=== PATIENT | female | born 1945 | race Caucasian/White ===

== ENCOUNTER 2016-07-18 11:44 | Inpatient (IN) | payer OTHER ==
[~2016-07-18] VITALS: Ht 167.6 cm; Wt 62.9 kg
[~2016-07-18 11:44] MED LIST: ACET-1256 PO; AMLO10TA2 PO; ASPI81TA28 PO; GLGKIT INJ; INSDGI SC; MYCO250C7 PO; NVLGI SC; SIRO1TAB PO; SOTA80TA PO; WARF1TAB6 PO
[2016-07-18] MEDS ORDERED: SODIUM CHLORIDE 0.9% 1000ML 2,000 ML IV STA (12:09)
[2016-07-18] MEDS ORDERED: PIPERACILLIN/TAZOBACTAM 4.5 GM/100ML D5W IV STA (12:09)
[2016-07-18] MEDS ORDERED: ACETAMINOPHEN 500 MG TAB PO STA (12:09)
[2016-07-18] MEDS ORDERED: SODIUM CHLORIDE 0.9% 1000ML 1,000 ML IV STA (12:09)
[2016-07-18] MEDS ORDERED: DAPTOmycin IV 500 MG in SODIUM CHLORIDE 0.9% 50ML 50 ML IV STA (12:09)
[2016-07-18] MEDS ORDERED: ONDANSETRON INJ 2 MG/ML 2 ML VIAL IV STA (12:37)
--- NOTE | 2016-07-18 12:44 | DIAGNOSTIC IMAGING REPORT ---
CHEST ONE VIEW PORTABLE CLINICAL HISTORY: EVALUATE WEAKNESS dyspnea COMPARISON STUDY: 09/23/2015 FINDINGS: The bones soft tissues and hemidiaphragms are normal. The cardiomediastinal silhouette is normal. The lungs are clear. The pulmonary vasculature is normal. IMPRESSION: Negative chest. Electronically signed by: Taco Lee M.D. 07/18/2016 12:43 PM Dictated Date/Time: 07/18/2016 12:43 PM
[2016-07-18 12:49] LABS: BASO % 0.1 %; BASO ABS # 0.01 K/uL (0-0.2); COMPLETE YES; EOS % 0.8 %; HEMATOCRIT 40.6 % (37-47); IG% 0.2 %; LYMPH % 7.8 %; LYMPH ABS # 0.89 K/uL (1.2-3.4); MEAN CELL VOLUME 85.5 fL (80-100); MEAN CORPUSCULAR HEMOGLOBIN 28.4 pg (25-34); MEAN CORPUSCULAR HGB CONC 33.3 g/dl (32-36); MEAN PLATELET VOLUME 9.5 fL (7.4-10.4); MONO % 7.5 %; NEUT % 83.6 %; PLATELET COUNT 272 K/uL (130-400); RED BLOOD COUNT 4.75 M/uL (4.2-5.4); WHITE BLOOD COUNT 11.39 K/uL (4.8-10.8)
[2016-07-18] MEDS ORDERED: WARF1TAB6 PO ×2 (12:49)
[2016-07-18] MEDS ORDERED: INSDGIPEN SQ (12:49)
[2016-07-18] MEDS ORDERED: NVLGI/PEN SQ (12:49)
[2016-07-18 13:02] LABS: URINE APPEARANCE CLOUDY (CLEAR); URINE BILIRUBIN NEG (NEG); URINE COLOR YELLOW; URINE NITRITE NEG (NEG); URINE SPECIFIC GRAVITY 1.013 (1.000-1.030); UROBILINOGEN NEG (NEG)
[2016-07-18 13:11] LABS: MANUAL MICROSCOPIC REQUIRED? NO; REVIEW REQ? NO
[2016-07-18 13:21] LABS: ALKALINE PHOSPHATASE 87 U/L (45-117); ALT/SGPT 13 U/L (12-78); AST/SGOT 25 U/L (15-37); BLOOD UREA NITROGEN 13 mg/dl (7-18); BUN/CREATININE RATIO 11.2 (10-20); CALCIUM 8.9 mg/dl (8.5-10.1); CARBON DIOXIDE 24 mmol/L (21-32); CHLORIDE 88 mmol/L (98-107); GLUCOSE 360 mg/dl (70-99); POTASSIUM 4.3 mmol/L (3.5-5.1); SODIUM 128 mmol/L (136-145)
[2016-07-18 13:29] LABS: INR 1.5 (0.9-1.1); PARTIAL THROMBOPLASTIN RATIO 1.1; PROTHROMBIN TIME (PATIENT) 15.8 SECONDS (9.0-12.0)
[2016-07-18 13:35] LABS: BETA-HYDROXYBUTYRATE 20.51 mg/dL (0.2-2.81)
[2016-07-18] MEDS ORDERED: NovoLIN-R INSULIN PER UNIT CHARGE IV STA (13:39)
[2016-07-18] MEDS ORDERED: ONDANSETRON INJ 2 MG/ML 2 ML VIAL IV PRN (14:15)
[2016-07-18 14:25] VITALS: O2SAT 100; BMI 22.2
[2016-07-18] MEDS ORDERED: PIPERACILL/TAZOBAC IV 4.5 GM in DEXTROSE 5% 100ML 100 ML IV SCH (14:30)
[2016-07-18 15:00] VITALS: BP 109/58; PULSE 62; TEMP 36.8; O2SAT 95
[2016-07-18] MEDS ORDERED: PIPERACILL/TAZOBAC CONSULT ACTIVE PRN (15:30)
[2016-07-18] MEDS ORDERED: GLUCOSE 40% GEL 15 GM TUBE PO PRN (15:45)
[2016-07-18] MEDS ORDERED: GLUCAGON FOR INJ 1 MG VIAL SQ PRN (15:45)
[2016-07-18] MEDS ORDERED: CEFEPIME CONSULT ACTIVE PRN ×2 (15:45)
[2016-07-18] MEDS ORDERED: GLUCOSE 10 TABS/TUBE PO PRN (15:45)
[2016-07-18] MEDS ORDERED: DEXTROSE 50% 50 ML SYR IV PRN (15:45)
[2016-07-18] MEDS: SODIUM CHLORIDE 0.9% 1000ML 1,000 ML IV SCH ×2 (15:49→23:37)
--- NOTE | 2016-07-18 15:52 | HISTORY & PHYSICAL EXAMINATION ---
DATE OF ADMISSION: 07/18/2016 PRIMARY CARE PHYSICIAN: Laurel Renee MD CHIEF COMPLAINT: Nausea, vomiting, lower abdominal pain with weakness and tiredness for the last 1 week. HISTORY OF PRESENT COMPLAINT: She is a 71-year-old female with significant past medical history of status post renal transplant, history of paroxysmal atrial fibrillation, diabetes type 2, history of carotid artery stenosis, hyperlipidemia, hypertension and history of recurrent UTI; apparently has been complaining of weakness, tiredness with nausea for the last 1 week or so. She also complained to have feverish feeling at home but did not document the temperature. Her condition has been getting worse for the last day or 2 with increasing pain in the lower abdomen, frequency, dysuria, weakness, and tiredness. She was seen in the ER and noted to have high white count, increased temperature possibly secondary to urinary tract infection. From that point, she was admitted to medical floor. PAST MEDICAL HISTORY: Significant for status post cadaveric renal transplant, paroxysmal atrial fibrillation, diabetes type 2, carotid stenosis , hypertension, hyperlipidemia, recurrent urinary tract infection, and history of cervical cancer. PAST SURGICAL HISTORY: Significant for laparoscopic cholecystectomy, ORIF left ankle fracture, cataract surgery, total hysterectomy, and renal transplant in 2007. FAMILY HISTORY: Father had history of dementia and hypertension. Her mother has diabetes and hypertension. SOCIAL HISTORY: She is . She lives with her . She does not smoke, does not drink and she has been reasonably ambulant. ALLERGIES: NKDA. MEDICATIONS: She has been on Tylenol 1 gram q. 8 hourly as needed; Norvasc 10 mg daily; aspirin 81 mg daily; NovoLog 10 units subQ 3 times daily; Lantus 120 units subQ at night; CellCept 250 mg q. 12 hourly; sotalol 80 mg tablet 120 b.i.d.; warfarin 1 mg Thursday, Thursday, Thursday; warfarin 2 mg as directed; Sirolimus 1 mg orally. REVIEW OF SYSTEMS: CENTRAL NERVOUS SYSTEM: No headache, no blurred vision, no numbness or tingling in the extremities. RESPIRATORY: No cough or phlegm. No shortness of breath. GASTROINTESTINAL: Does have abdominal pain in the lower abdomen with nausea and vomiting. GENITOURINARY: Has urinary frequency. No problem with bowel habit. MUSCULOSKELETAL: No acute arthritis in any joint. CARDIOVASCULAR: No chest pain or palpitation. GENERAL: Does have weakness, tiredness, fatigue. SKIN: No rash or adenopathy. EAR, NOSE, THROAT: No acute problem. PHYSICAL EXAMINATION: GENERAL: On examination in the Emergency Room, she was not having any acute distress. VITAL SIGNS: Temperature 38.9, pulse was 91, blood pressure 150/70, saturation 100% on room air. HEENT: Unremarkable. NECK: Supple. No JVD, no bruit. CHEST: Clear to auscultate bilaterally. HEART: S1, S2 regular. No murmur. ABDOMEN: Soft, benign, tender in the hypogastrium. Renal angles were not tender. Bowel sounds present. RECTAL: Deferred. EXTREMITIES: 1+ edema bilaterally. Peripheral pulses are decreased. MUSCULOSKELETAL SYSTEM: Did not show any acute arthritis involving any joint. CENTRAL NERVOUS SYSTEM: She was alert, awake, oriented x3. No focal sensory and/or motor deficit appreciated. LABORATORY DATA: Noted today white count was 11.39, H&H 13.5/40.6, and platelet was 272. Sodium 128, potassium 4.3, chloride 88, carbon dioxide 24, BUN 13, creatinine 1.20, random glucose 360, lactic acid was 2.76. LFTs are unremarkable. Troponin is 0.016. Beta hydroxybutyrate acid 20.51. TSH is 1.3. PT/INR; INR 1.5, PTT ratio 1.1. UA examination: Moderate leukocyte esterase, white count more than 30 and bacteria negative. Chest x-ray: Negative chest. EKG: Was in sinus rhythm with premature ventricular complexes. No acute ST-T wave changes. There is mild QT prolongation. IMPRESSION AND PLAN: 1. Sepsis, secondary to urinary tract infection. The patient is receiving IV fluid, will be admitted to medical floor. She does not have any hypotension. She received IVF in ER and will continue with reducing rate. She was started with intravenous daptomycin and Zosyn, we will continue that antibiotic for now. Blood urine culture has been sent. Lactate elevated will recheck in 6 hours.Sodium level will be rechecked. 2. Status post cadaveric renal transplant. Her kidney function will be monitored and her antineoplastic medications will be continued. May need Nephrology evaluation if renal function deteriorates. 3. Paroxysmal atrial fibrillation. We will continue current medications. The patient seems to be in sinus rhythm right now. 4. Diabetes type 2. We will check hemoglobin A1c. Continue with her current antidiabetic medications. 5. Hypertension. Blood pressure seems to be controlled. Continue current medications. 6. Gastrointestinal prophylaxis with Protonix. 7. Deep venous thrombosis prophylaxis with Coumadin. Code status discussed with patient, she will be full code. In my clinical judgment, the beneficiary meets criteria as per CMS for 2 midnight stay in the hospital. FRANK
[2016-07-18 16:00] VITALS: O2SAT 100
[2016-07-18] MEDS ORDERED: WARFARIN SOD 2 MG TAB PO SCH (16:00)
[2016-07-18] MEDS: CEFEPIME IV 2000 MG in DEXTROSE 5% 100ML IV SCH (16:56)
[2016-07-18] MEDS: INSULIN ASPART 100 UNITS/ML 3 ML PEN SQ SCH (17:43)
[2016-07-18 18:31] LABS: BUN/CREATININE RATIO 12.4 (10-20)
--- NOTE | 2016-07-18 20:24 | EMERGENCY ROOM VISIT NOTE ---
History Report prepared by Fred: Kwesi Damian Under the Supervision of: Dr. Garcia Alonso M.D. First contact with patient: 12:08 Chief Complaint: VOMITING Stated Complaint: GENERALIZED WEAKNESS/NAUSEA/ABD PAIN Nursing Triage Summary: pt reports weakness with NV X 1.5 weeks today increased nausea and dry heaves feeling dizziy and light headed , states unable to keep liquid down , denies cp History of Present Illness The patient is a 71 year old female who presents to the Emergency Room via EMS with complaints of worsening urinary symptoms starting about a week and a half ago. She reports burning and pain with urination. She had chills yesterday and took Tylenol with some relief. She also complains of worsening nausea and vomiting. She currently denies any nausea. She became lightheaded in the ambulance. Pt denies LOC, headache, diaphoresis, visual changes, ear aches, cough, sore throat, neck pain, chest pain, breathing difficulties, abdominal pain, back pain, melena, hematochezia, numbness, weakness, lymphadenopathy, rash , or other complaints. The patient has a history of UTI, and pyelonephritis. She had a kidney transplant about 9 years ago. She is currently on Coumadin. Source of History: patient Onset: about a week and a half ago Position: other (global) Quality: other (urinary symptoms) Timing: worsening Associated Symptoms: + chills, + nausea, + vomiting Review of Systems See HPI for pertinent positives and negatives. A total of ten systems were reviewed and were otherwise negative. Past Medical & Surgical Medical Problems: (1) Benign hypertension (2) Diabetes mellitus, type II (3) History of atrial fibrillation (4) History of herpes zoster (5) History of renal transplant (6) Sepsis (7) UTI (urinary tract infection) Surgical Problems: (1) S/p cadaver renal transplant (2) Status post cholecystectomy (3) Status post kidney transplant Family History FH: cardiovascular disease Social History Smoking Status: Never Smoker Alcohol Use: none Marital Status: Housing Status: lives with family Occupation Status: unemployed Current/Historical Medications Scheduled Amlodipine Besylate (Norvasc), 10 MG PO DAILY Aspirin (Aspirin Ec), 81 MG PO DAILY Insulin Aspart (Novolog Flexpen), 10 UNITS SQ TIDM Insulin Glargine (Lantus Solostar), 120 UNITS SQ HS Mycophenolate Mofetil (Mycophenolate Mofetil), 250 MG PO Q12 Sirolimus (Rapamune), 1 MG PO DAILY Sotalol Hcl (Sotalol Hcl), 120 MG PO BID Warfarin Sod (Jantoven), 1 MG PO MWF Warfarin Sod (Jantoven), 2 MG PO DIRECTED Scheduled PRN Acetaminophen (Tylenol), 1,000 MG PO Q8 PRN for Pain Glucagon (Glucagon Emergency Kit), 1 MG INJ UD PRN for HYPOGLYCEMIA PROTOCOL Allergies Coded Allergies: No Known Allergies (Verified , 07/18/16) Physical Exam Vital Signs Date Time Temp Pulse Resp B/P (MAP) Pulse Ox O2 Delivery O2 Flow Rate FiO2 07/18/16 13:55 37.3 72 18 07/18/16 13:35 77 20 133/82 100 Room Air 2.0 Nasal Cannula 07/18/16 12:43 89 20 140/70 100 Nasal Cannula 2.0 07/18/16 12:14 100 Room Air 2.0 Nasal Cannula 07/18/16 12:05 93 07/18/16 11:54 38.9 91 24 150/70 100 Room Air 07/18/16 11:53 70 07/18/16 11:50 90 07/18/16 11:46 90 Physical Exam GENERAL: Awake, alert, mildly ill-appearing, in no distress HENT: Normocephalic, atraumatic. Dry mucous membranes. EYES: Normal conjunctiva. Sclera non-icteric. NECK: Supple. No nuchal rigidity. FROM. No JVD. RESPIRATORY: Clear to auscultation. CARDIAC: Regular rate, normal rhythm. Extremities warm and well perfused. Pulses equal. ABDOMEN: Soft, non-distended. No tenderness to palpation. No rebound or guarding. No masses. RECTAL: Deferred. MUSCULOSKELETAL: Chest examination reveals no tenderness. No tenderness over the transplant site. No joint edema. LOWER EXTREMITIES: Calves are equal size bilaterally and non-tender. No edema. No discoloration. NEURO: Normal sensorium. No sensory or motor deficits noted. SKIN: No rash or jaundice noted. Medical Decision & Procedures ER Provider Diagnostic Interpretation: X-ray: Per my interpretation, radiologist review. CHEST ONE VIEW PORTABLE CLINICAL HISTORY: EVALUATE WEAKNESS dyspnea COMPARISON STUDY: 09/23/2015 FINDINGS: The bones soft tissues and hemidiaphragms are normal. The cardiomediastinal silhouette is normal. The lungs are clear. The pulmonary vasculature is normal. IMPRESSION: Negative chest. Electronically signed by: Taco Lee M.D. 07/18/2016 12:43 PM Dictated Date/Time: 07/18/2016 12:43 PM Laboratory Results 07/18/16 12:26 Red Blood Count 4.75, Mean Corpuscular Volume 85.5, Mean Corpuscular Hemoglobin 28.4, Mean Corpuscular Hemoglobin Concent 33.3, Mean Platelet Volume 9.5, Neutrophils (%) (Auto) 83.6, Lymphocytes (%) (Auto) 7.8, Monocytes (%) (Auto) 7.5, Eosinophils (%) (Auto) 0.8, Basophils (%) (Auto) 0.1, Neutrophils # (Auto) 9.53, Lymphocytes # (Auto) 0.89, Monocytes # (Auto) 0.85, Eosinophils # (Auto) 0.09, Basophils # (Auto) 0.01 Test 07/18/16 12:00 07/18/16 12:26 07/18/16 13:05 Urine Color YELLOW Urine Appearance CLOUDY (CLEAR) Urine pH 7.0 (4.5-7.5) Urine Specific [place] 1.013 (1.000-1.030) Urine Protein TRACE (NEG) Urine Glucose (UA) 3+ (NEG) Urine Ketones TRACE (NEG) Urine Occult Blood TRACE (NEG) Urine Nitrite NEG (NEG) Urine Bilirubin NEG (NEG) Urine Urobilinogen NEG (NEG) Urine Leukocyte Esterase MODERATE (NEG) Urine WBC (Auto) >30 /hpf (0-5) Urine RBC (Auto) 5-10 /hpf (0-4) Urine Hyaline Casts (Auto) 1-5 /lpf (0-5) Urine Epithelial Cells (Auto) 5-10 /lpf (0-5) Urine Bacteria (Auto) NEG (NEG) White Blood Count 11.39 K/uL (4.8-10.8) Red Blood Count 4.75 M/uL (4.2-5.4) Hemoglobin 13.5 g/dL (12.0-16.0) Hematocrit 40.6 % (37-47) Mean Corpuscular Volume 85.5 fL (80-100) Mean Corpuscular Hemoglobin 28.4 pg (25-34) Mean Corpuscular Hemoglobin Concent 33.3 g/dl (32-36) Platelet Count 272 K/uL (130-400) Mean Platelet Volume 9.5 fL (7.4-10.4) Neutrophils (%) (Auto) 83.6 % Lymphocytes (%) (Auto) 7.8 % Monocytes (%) (Auto) 7.5 % Eosinophils (%) (Auto) 0.8 % Basophils (%) (Auto) 0.1 % Neutrophils # (Auto) 9.53 K/uL (1.4-6.5) Lymphocytes # (Auto) 0.89 K/uL (1.2-3.4) Monocytes # (Auto) 0.85 K/uL (0.11-0.59) Eosinophils # (Auto) 0.09 K/uL (0-0.5) Basophils # (Auto) 0.01 K/uL (0-0.2) RDW Standard Deviation 48.5 fL (36.4-46.3) RDW Coefficient of Variation 15.4 % (11.5-14.5) Immature Granulocyte % (Auto) 0.2 % Immature Granulocyte # (Auto) 0.02 K/uL (0.00-0.02) Magnesium Level 2.0 mg/dl (1.8-2.4) Total Bilirubin 0.8 mg/dl (0.2-1) Direct Bilirubin 0.2 mg/dl (0-0.2) Aspartate Amino Transf (AST/SGOT) 25 U/L (15-37) Alanine Aminotransferase (ALT/SGPT) 13 U/L (12-78) Alkaline Phosphatase 87 U/L (45-117) Total Creatine Kinase 32 U/L (26-192) Creatine Kinase MB < 0.5 ng/ml (0.5-3.6) Creatine Kinase MB Ratio (0-3.0) Troponin I 0.016 ng/ml (0-0.045) Total Protein 8.0 gm/dl (6.4-8.2) Albumin 2.8 gm/dl (3.4-5.0) Lipase 78 U/L (73-393) Beta-Hydroxybutyric Acid 20.51 mg/dL (0.2-2.81) Thyroid Stimulating Hormone (TSH) 1.300 uIu/ml (0.300-4.500) Prothrombin Time 15.8 SECONDS (9.0-12.0) Prothromb Time International Ratio 1.5 (0.9-1.1) Activated Partial Thromboplast Time 29.0 SECONDS (21.0-31.0) Partial Thromboplastin Ratio 1.1 Bedside Lactic Acid Venous 2.76 mmol/L (0.90-1.70) Laboratory results reviewed by me Medications Administered Medications (Trade) Dose Ordered Sig/Sandeep Route Start Time Stop Time Status Last Admin Dose Admin Sodium Chloride 1,000 ml @ 125 mls/hr Q8H STAT IV 07/18/16 12:09 07/18/16 15:42 DC 07/18/16 12:29 125 MLS/HR Sodium Chloride 2,000 ml @ 999 mls/hr Q2H1M STAT IV 07/18/16 12:09 07/18/16 14:09 DC 07/18/16 12:09 999 MLS/HR Acetaminophen (Tylenol Tab) 1,000 mg NOW STAT PO 07/18/16 12:09 07/18/16 12:13 DC 07/18/16 12:29 1,000 MG Daptomycin 500 mg/ Sodium Chloride 60 ml @ 100 mls/hr NOW STAT IV 07/18/16 12:09 07/18/16 12:44 DC 07/18/16 13:09 100 MLS/HR Piperacillin Sod/ Tazobactam Sod (Zosyn Iv) 4.5 gm NOW STAT IV 07/18/16 12:09 07/18/16 12:13 DC 07/18/16 13:09 4.5 GM Ondansetron HCl (Zofran Inj) 4 mg NOW STAT IV 07/18/16 12:37 07/18/16 12:38 DC 07/18/16 12:42 4 MG Insulin Human Regular (novoLIN-R U-100 PER UNIT) 6 units NOW STAT IV 07/18/16 13:39 07/18/16 13:41 DC 07/18/16 13:39 6 UNITS ECG Indication: other (Lightheadedness) Rate (beats per minute): 91 Rhythm: sinus rhythm Findings: PVC, no acute ischemic change, prolonged QT ED Course 1208: The patient was evaluated in room C11B. A complete history and physical exam was performed. Blood pressure screening: Patient was found to have an elevated blood pressure and was referred to their primary doctor for recheck and further treatment. Medication Reconciliation: I attest that I have personally reviewed the patient' s current medication list 1209: Zosyn IV 4.5 gm IV, Daptomycin 500 mg/Sodium Chloride 60 ml @ 100 mls/hr IV, Tylenol Tab 1000 mg PO, Sodium Chloride 2000 ml @ 999 mls/hr IV, Sodium Chloride 1000 ml @ 125 mls/hr IV 1237: Zofran Inj 4 mg IV 1338: Upon reexamination, the patient was feeling better. I discussed the test results and treatment plan with her. The patient will be evaluated for further management. 1339: Insulin Human Regular 6 units IV 1343: I discussed the patient's case with Dr. Lei, from [facility]. Medical Decision Triage Nursing notes reviewed. The patient's presentation and history were concerning for weakness and urinary symptoms with history of renal transplant Etiologies such as sepsis, UTI, appendicitis, diverticulitis, mesenteric ischemia, aortic pathology, infections, inflammatory bowel disease, PUD, biliary pathology, as well as others were entertained. The patient was evaluated. She had dry mucous membranes. She looked uncomfortable. She was hydrated. Blood work was obtained. She had a slight elevation of the blood cell count, lactate, and a urinalysis very concerning for infection. She was started empirically on saline hydration for sepsis, daptomycin, and Zosyn. Prior cultures were reviewed and he should be adequate to treat her previous types of infections which included Klebsiella, Escherichia coli, and methicillin-resistant coag-negative staphylococcus. The patient was doing better on reassessment. She was hemodynamically stable. Consultation was made with internal medicine. The patient was evaluated in the Emergency Room for further management. Consults Time Called: 1338 Consulting Physician: Dr. Lei, from [facility] Service Returned Call: 1343 I discussed the patient's case with Dr. Lei, from [facility]. Impression Primary Impression: Sepsis Additional Impression: UTI (urinary tract infection) Scribe Attestation The scribe's documentation has been prepared under my direction and personally reviewed by me in its entirety. I confirm that the note above accurately reflects all work, treatment, procedures, and medical decision making performed by me. Departure Information Dispostion Being Evaluated By Hospitalist Referrals Laurel Renee M.D. (PCP) Patient Instructions My [facility] Problem Qualifiers
[2016-07-18 20:43] LABS: POTASSIUM 3.5 mmol/L (3.5-5.1)
[2016-07-18 20:45] LABS: CALCIUM 7.4 mg/dl (8.5-10.1)
[2016-07-18] MEDS ORDERED: INSULIN GLARGINE SC SCH (21:00)
[2016-07-18] MEDS ORDERED: NURSING VERBAL MED ORDER ONE (21:15)
[2016-07-18] MEDS ORDERED: INSULIN GLARGINE SC ONE (21:15)
[2016-07-18] MEDS: SOTALOL HCL 80 MG TAB PO SCH (21:31)
[2016-07-18] MEDS: MYCOPHENOLATE MOFETIL 250 MG CAP (CELLCEPT) PO SCH (21:31)
[2016-07-18 23:12] VITALS: BP 134/64; PULSE 73; TEMP 37.3; O2SAT 99
[2016-07-19] MEDS ORDERED: NURSING VERBAL MED ORDER ONE
[2016-07-19] MEDS ORDERED: ZOLPIDEM TARTRATE 5 MG TAB PO PRN (00:15)
[2016-07-19 00:21] VITALS: TEMP 38.7
[2016-07-19] MEDS: ACETAMINOPHEN 500 MG TAB PO PRN ×2 (00:21→21:32)
[2016-07-19 00:55] VITALS: TEMP 37.4
[2016-07-19 07:19] LABS: INR 1.5 (0.9-1.1)
[2016-07-19 07:20] VITALS: BP 149/75; PULSE 72; TEMP 37.2; O2SAT 93
[2016-07-19] MEDS: SODIUM CHLORIDE 0.9% 1000ML 1,000 ML IV SCH (07:36)
[2016-07-19 07:49] LABS: HEMATOCRIT 32.5 % (37-47); MEAN CELL VOLUME 84.9 fL (80-100); MEAN CORPUSCULAR HEMOGLOBIN 27.4 pg (25-34); MEAN CORPUSCULAR HGB CONC 32.3 g/dl (32-36); MEAN PLATELET VOLUME 8.6 fL (7.4-10.4); PLATELET COUNT 240 K/uL (130-400); RED BLOOD COUNT 3.83 M/uL (4.2-5.4); WHITE BLOOD COUNT 11.01 K/uL (4.8-10.8)
[2016-07-19 07:53] LABS: BUN/CREATININE RATIO 9.8 (10-20); CALCIUM 7.5 mg/dl (8.5-10.1); CREATININE 0.89 mg/dl (0.60-1.20); POTASSIUM 3.2 mmol/L (3.5-5.1)
[2016-07-19] MEDS: ASPIRIN 81 MG ECTAB PO SCH (08:28)
[2016-07-19] MEDS: MYCOPHENOLATE MOFETIL 250 MG CAP (CELLCEPT) PO SCH ×2 (08:29→21:15)
[2016-07-19] MEDS: SOTALOL HCL 80 MG TAB PO SCH ×2 (08:29→21:14)
[2016-07-19 08:30] VITALS: BP 138/74; PULSE 70
[2016-07-19] MEDS: SIROLIMUS 1 MG TAB PO SCH (08:30)
[2016-07-19] MEDS: AMLODIPINE BESYLATE 5 MG TAB PO SCH (08:30)
[2016-07-19] MEDS: INSULIN ASPART 100 UNITS/ML 3 ML PEN SQ SCH ×4 (08:31→21:18)
[2016-07-19] MEDS ORDERED: NON-FORMULARY MEDICATION (Sirolimus (Rapamune) 1 MG) PO SCH (09:00)
[2016-07-19] MEDS ORDERED: WARFARIN SOD 6 MG TAB PO SCH (10:00)
[2016-07-19] MEDS ORDERED: POTASSIUM CHLORIDE 10 MEQ TABCR PO ONE (10:15)
[2016-07-19] MEDS ORDERED: PHARMACY GLYCEMIC MGMT CONSULT PRN (10:19)
--- NOTE | 2016-07-19 10:23 | Progress Note ---
Medicine Progress Note Date & Time of Visit: Jul 19, 2016 at 10:16. Subjective patient seen resting in bed comfortable states she feels improved compared to yesterday less weak, nauseated; less lower abdominal pain no dysuria, hematuria no other symptoms Objective Last 8 Hrs Date Time Temp Pulse Resp B/P (MAP) Pulse Ox O2 Delivery O2 Flow Rate FiO2 07/19/16 08:30 70 138/74 (95) 07/19/16 08:00 Room Air 07/19/16 07:20 37.2 72 16 149/75 (99) 93 Physical Exam: General- oriented x 3, not in distress, speaks in sentences with no effort Head- atraumatic Eyes- EOMI, anicteric ENT- oropharynx clear Neck- supple, no JVD, no adenopathy, no thyromegaly Lungs- clear breath sounds bilaterally Heart- regular rhythm; no murmur, normal rate Abdomen- normal bowel sounds, soft, mild suprapubic tenderness, no masses Extremities- no pretibial edema, no calf tenderness Neuro- alert, oriented x 3;no gross focal deficits Skin- warm & dry Laboratory Results: Last 24 Hours Test 07/18/16 12:00 07/18/16 12:26 07/18/16 13:05 07/18/16 14:50 Urine Color YELLOW Urine Appearance CLOUDY Urine pH 7.0 Urine Specific [place] 1.013 Urine Protein TRACE Urine Glucose (UA) 3+ Urine Ketones TRACE Urine Occult Blood TRACE Urine Nitrite NEG Urine Bilirubin NEG Urine Urobilinogen NEG Urine Leukocyte Esterase MODERATE Urine WBC (Auto) >30 /hpf Urine RBC (Auto) 5-10 /hpf Urine Hyaline Casts (Auto) 1-5 /lpf Urine Epithelial Cells (Auto) 5-10 /lpf Urine Bacteria (Auto) NEG White Blood Count 11.39 K/uL Red Blood Count 4.75 M/uL Hemoglobin 13.5 g/dL Hematocrit 40.6 % Mean Corpuscular Volume 85.5 fL Mean Corpuscular Hemoglobin 28.4 pg Mean Corpuscular Hemoglobin Concent 33.3 g/dl Platelet Count 272 K/uL Mean Platelet Volume 9.5 fL Neutrophils (%) (Auto) 83.6 % Lymphocytes (%) (Auto) 7.8 % Monocytes (%) (Auto) 7.5 % Eosinophils (%) (Auto) 0.8 % Basophils (%) (Auto) 0.1 % Neutrophils # (Auto) 9.53 K/uL Lymphocytes # (Auto) 0.89 K/uL Monocytes # (Auto) 0.85 K/uL Eosinophils # (Auto) 0.09 K/uL Basophils # (Auto) 0.01 K/uL RDW Standard Deviation 48.5 fL RDW Coefficient of Variation 15.4 % Immature Granulocyte % (Auto) 0.2 % Immature Granulocyte # (Auto) 0.02 K/uL Sodium Level 128 mmol/L Potassium Level 4.3 mmol/L Chloride Level 88 mmol/L Carbon Dioxide Level 24 mmol/L Anion Gap 16.0 mmol/L Blood Urea Nitrogen 13 mg/dl Creatinine 1.20 mg/dl Est Creatinine Clear Calc Drug Dose 39.6 ml/min Estimated GFR () 52.3 Estimated GFR (Non- 45.1 BUN/Creatinine Ratio 11.2 Random Glucose 360 mg/dl Calcium Level 8.9 mg/dl Magnesium Level 2.0 mg/dl Total Bilirubin 0.8 mg/dl Direct Bilirubin 0.2 mg/dl Aspartate Amino Transf (AST/SGOT) 25 U/L Alanine Aminotransferase (ALT/SGPT) 13 U/L Alkaline Phosphatase 87 U/L Total Creatine Kinase 32 U/L Creatine Kinase MB < 0.5 ng/ml Creatine Kinase MB Ratio Troponin I 0.016 ng/ml Total Protein 8.0 gm/dl Albumin 2.8 gm/dl Lipase 78 U/L Beta-Hydroxybutyric Acid 20.51 mg/dL Thyroid Stimulating Hormone (TSH) 1.300 uIu/ml Prothrombin Time 15.8 SECONDS Prothromb Time International Ratio 1.5 Activated Partial Thromboplast Time 29.0 SECONDS Partial Thromboplastin Ratio 1.1 Bedside Lactic Acid Venous 2.76 mmol/L Bedside Glucose 220 mg/dl Test 07/18/16 16:47 07/18/16 17:58 07/18/16 20:06 07/19/16 07:00 Bedside Glucose 202 mg/dl 180 mg/dl Sodium Level 132 mmol/L 137 mmol/L Potassium Level 3.5 mmol/L 3.2 mmol/L Chloride Level 99 mmol/L 102 mmol/L Carbon Dioxide Level 24 mmol/L 24 mmol/L Anion Gap 9.0 mmol/L 11.0 mmol/L Blood Urea Nitrogen 12 mg/dl 9 mg/dl Creatinine 1.00 mg/dl 0.89 mg/dl Est Creatinine Clear Calc Drug Dose 47.6 ml/min 53.5 ml/min Estimated GFR () 65.2 75.0 Estimated GFR (Non- 56.2 64.7 BUN/Creatinine Ratio 12.4 9.8 Random Glucose 275 mg/dl 99 mg/dl Lactic Acid Level 1.6 mmol/L Calcium Level 7.4 mg/dl 7.5 mg/dl White Blood Count 11.01 K/uL Red Blood Count 3.83 M/uL Hemoglobin 10.5 g/dL Hematocrit 32.5 % Mean Corpuscular Volume 84.9 fL Mean Corpuscular Hemoglobin 27.4 pg Mean Corpuscular Hemoglobin Concent 32.3 g/dl RDW Standard Deviation 48.7 fL RDW Coefficient of Variation 15.6 % Platelet Count 240 K/uL Mean Platelet Volume 8.6 fL Prothrombin Time 16.0 SECONDS Prothromb Time International Ratio 1.5 Test 07/19/16 07:31 Bedside Glucose 114 mg/dl Date/Time Source Procedure Growth Status 07/18/16 13:05 Blood Blood Culture Pending Received 07/18/16 12:58 Blood Blood Culture Pending Received 07/18/16 12:00 Urine,Catheterized Urine Culture - Preliminary Gram Negative Bacilli Resulted Assessment & Plan 71 year old female with history of S/p Renal transplant, Paroxysmal A fib coumadin, DM, HTN presenting with nausea/vomiting, fever, abdominal pain. 1. Sepsis, secondary to urinary tract infection. -- afebrile this morning WBC about the same -- clinically improving -- ff up blood and urine cultures -- continue empiric Daptomycin and Cefepime Day 2 IV fluids 2. Status post cadaveric renal transplant. -- crea stable - continue Mycophenalate and Sirolimus 3. Paroxysmal atrial fibrillation. -- continue Sotalol, Aspirin, Coumadin -- increase coumadin INR tomorrow -- (+) Prolonged qt check EKG 4. Diabetes type 2. - check A1c - on Lantus and Novolog TID - Pharmacy consulted 5. Hypertension. - continue Norvasc 6. Gastrointestinal prophylaxis with Protonix. 7. Deep venous thrombosis prophylaxis with Coumadin. Full code anticipate d/c home when medically stable Current Inpatient Medications: Current Inpatient Medications Medications (Trade) Dose Ordered Sig/Sandeep Route Start Time Stop Time Status Last Admin Dose Admin Ondansetron HCl (Zofran Inj) 4 mg Q6H PRN IV 07/18/16 14:15 08/17/16 14:14 07/19/16 00:14 4 MG Acetaminophen (Tylenol Tab) 500 mg Q6H PRN PO 07/18/16 14:45 08/17/16 14:44 07/19/16 00:21 500 MG Amlodipine Besylate (Norvasc Tab) 10 mg DAILY PO 07/19/16 09:00 08/18/16 08:59 07/19/16 08:30 10 MG Aspirin (Ecotrin Tab) 81 mg DAILY PO 07/19/16 09:00 08/18/16 08:59 07/19/16 08:28 81 MG Insulin Aspart (novoLOG ASPART) 10 units TIDM SQ 07/18/16 17:00 08/17/16 17:59 07/19/16 08:31 10 UNITS Insulin Glargine (Lantus Vial) 100 unit HS SC 07/18/16 21:00 08/17/16 20:59 Future hold Mycophenolate Mofetil (Cellcept Cap) 250 mg Q12 PO 07/18/16 21:00 08/17/16 20:59 07/19/16 08:29 250 MG Sotalol HCl (Betapace Tab) 120 mg BID PO 07/18/16 21:00 08/17/16 20:59 07/19/16 08:29 120 MG Daptomycin 500 mg/ Sodium Chloride 60 ml @ 100 mls/hr Q24H IV 07/19/16 13:00 07/23/16 12:59 Sodium Chloride 1,000 ml @ 125 mls/hr Q8H IV 07/18/16 15:30 08/17/16 15:29 07/19/16 07:36 125 MLS/HR Cefepime HCl 2000 mg/Dextrose 112.5 ml @ 225 mls/hr Q24H IV 07/18/16 18:00 07/23/16 17:59 07/18/16 16:56 225 MLS/HR Cefepime HCl (Consult) 1 ea UD PRN N/A 07/18/16 15:45 08/17/16 15:44 Glucose (Glucose 40% Gel) 15-30 GRAMS 15 GRAMS... UD PRN PO 07/18/16 15:45 08/17/16 15:44 Glucose (Glucose Chew Tab) 4-8 Tablets 4 Tabl... UD PRN PO 07/18/16 15:45 08/17/16 15:44 Dextrose (Dextrose 50% 50ML Syringe) 25-50ML OF 50% DW IV FOR... UD PRN IV 07/18/16 15:45 08/17/16 15:44 Glucagon (Glucagon Inj) 1 mg UD PRN SQ 07/18/16 15:45 08/17/16 15:44 Sirolimus (Rapamune) 1 mg DAILY PO 07/19/16 09:00 08/18/16 08:59 07/19/16 08:30 1 MG Zolpidem Tartrate (Ambien Tab) 5 mg HS PRN PO 07/19/16 00:15 08/18/16 00:14 07/19/16 00:43 5 MG Potassium Chloride (Klor-Con M10) 40 meq ONE ONCE PO 07/19/16 10:15 07/19/16 10:16 Warfarin Sodium (Coumadin Tab) 4 mg UD PO 07/19/16 16:00 08/18/16 15:59 UNV Warfarin Sodium (Coumadin Tab) 6 mg UD PO 07/19/16 10:00 08/18/16 09:59 UNV
[2016-07-19 11:13] LABS: ESTIMATED AVERAGE GLUCOSE 275 mg/dl; HA1C FLAG Normal (Normal)
--- NOTE | 2016-07-19 11:24 | Pharmacy Progress Note ---
Glycemic Control Intl Consult Date of Service Jul 19, 2016. Scope Glycemic Pharmacist consulted by Dr Mortensen on 07/19/16 for glycemic control and to write orders per [facility] inpatient glycemic control protocol Objective Weight (Kilograms): 63.100 Accuchecks BSG (last 24hrs): Test 07/18/16 12:26 07/18/16 14:50 07/18/16 16:47 07/18/16 17:58 Random Glucose 360 mg/dl (70-99) 275 mg/dl (70-99) Bedside Glucose 220 mg/dl (70-90) 202 mg/dl (70-90) Test 07/18/16 20:06 07/19/16 07:00 07/19/16 07:31 Bedside Glucose 180 mg/dl (70-90) 114 mg/dl (70-90) Random Glucose 99 mg/dl (70-99) Laboratory Data (last 24hrs) Test 07/18/16 12:26 07/18/16 17:58 07/19/16 07:00 Anion Gap 16.0 mmol/L 9.0 mmol/L 11.0 mmol/L BUN/Creatinine Ratio 11.2 12.4 9.8 Blood Urea Nitrogen 13 mg/dl 12 mg/dl 9 mg/dl Creatinine 1.20 mg/dl 1.00 mg/dl 0.89 mg/dl Potassium Level 4.3 mmol/L 3.5 mmol/L 3.2 mmol/L Sodium Level 128 mmol/L 132 mmol/L 137 mmol/L White Blood Count 11.39 K/uL 11.01 K/uL Red Blood Count 4.75 M/uL Hemoglobin 13.5 g/dL Hematocrit 40.6 % Mean Corpuscular Volume 85.5 fL Mean Corpuscular Hemoglobin 28.4 pg Mean Corpuscular Hemoglobin Concent 33.3 g/dl Platelet Count 272 K/uL Mean Platelet Volume 9.5 fL Neutrophils (%) (Auto) 83.6 % Lymphocytes (%) (Auto) 7.8 % Monocytes (%) (Auto) 7.5 % Eosinophils (%) (Auto) 0.8 % Basophils (%) (Auto) 0.1 % Neutrophils # (Auto) 9.53 K/uL Lymphocytes # (Auto) 0.89 K/uL Monocytes # (Auto) 0.85 K/uL Eosinophils # (Auto) 0.09 K/uL Basophils # (Auto) 0.01 K/uL Hemoglobin A1c 11.2 % HbA1c Test 07/19/16 07:00 Hemoglobin A1c 11.2 % (4.5-5.6) H Recent Pertinent Medications Outpatient Anti-diabetic Regimen: * Lantus 120 units Q HS * Novolog 10 units SQ w/ meals * A1c = results pending The patient is currently receiving: * Basal insulin: Lantus 50 units SQ x 1 given last evening (07/18) * Correctional Insulin: None ordered * Prandial insulin: Novolog 10 units SQ w/ each meal * Oral Agents: None currently Risk Factors for Insulin Resistance: * Infection: sepsis, likely secondary to UTI; receiving Daptomycin + Cefepime * Diet: ordered T2DM diet; patient reports being less nauseated today vs yesterday, less abd pain reported as well Assessment & Plan ASSESSMENT: 07/19/16 * Type 2 diabetic w/ unknown level of glycemic control prior to admission - admitted yesterday with sepsis likely secondary to UTI in the setting of immunocompromise and h/o cadaveric renal xplant * A1c has been ordered for today to assess outpt control - results pending at this time * Patient was followed by the glycemic control service ~3 years ago, at that time the patient appeared to require ~50-60units of insulin per day when tolerating a diet. * Last evening she received 50 units of Lantus, fasting BSG 99-114 this AM. Given prior admission data, patient's weight, and fasting BSG result with less than one-half outpt Lantus dose, will empirically reduce this patient's basal dose. Would anticipate a basal need of 25-30 units per day based upn prior admit data. * Will d/c the set prandial insulin dose and use carb counts for carb coverage given abd pain and nausea. Will base these doses upon anticipated total daily insulin needs of 50-60 units/day when tolerating a diet. PLAN FOR INPATIENT GLYCEMIC CONTROL: * Lantus 30 units SQ Q HS * Novolog SQ ACHS per the following parameters: * Correction factor 20 mg/dl/unit * Carb ratio 1 unit per 7 grams CHO consumed * Goal range Low 110 mg/dL - High 140 mg/dL * Please note that the plan above was derived based on current level of insulin resistance and hospital stress. These recommendations are appropriate for inpatient admission only. Plan of care upon discharge will need to be reassessed to avoid potential outpatient hypo/hyperglycemia. Thank you.
[2016-07-19] MEDS ORDERED: DAPTOmycin IV 500 MG in SODIUM CHLORIDE 0.9% 50ML 50 ML IV SCH (13:00)
[2016-07-19] MEDS ORDERED: D5W AND NSS 1,000 ML IV SCH (15:00)
[2016-07-19 15:07] VITALS: BP 138/68; PULSE 63; TEMP 36.8; O2SAT 93
[2016-07-19] MEDS ORDERED: WARFARIN SOD 3 MG TAB PO SCH (16:00)
[2016-07-19] MEDS ORDERED: WARFARIN SOD 4 MG TAB PO SCH (16:00)
[2016-07-19] MEDS: CEFEPIME IV 2000 MG in DEXTROSE 5% 100ML IV SCH (17:30)
[2016-07-19] MEDS ORDERED: INSULIN GLARGINE SC SCH ×2 (21:00)
[2016-07-20 00:11] VITALS: BP 133/58; PULSE 69; TEMP 37.2; O2SAT 94
[2016-07-20] MEDS ORDERED: NURSING VERBAL MED ORDER ONE (00:30)
[2016-07-20 05:49] LABS: BASO % 0.2 %; BASO ABS # 0.02 K/uL (0-0.2); COMPLETE YES; EOS % 1.7 %; HEMATOCRIT 32.5 % (37-47); IG% 0.3 %; LYMPH % 15.7 %; LYMPH ABS # 1.72 K/uL (1.2-3.4); MEAN CORPUSCULAR HEMOGLOBIN 27.5 pg (25-34); MEAN PLATELET VOLUME 9.3 fL (7.4-10.4); MONO % 12.9 %; NEUT % 69.2 %; PLATELET COUNT 246 K/uL (130-400); RED BLOOD COUNT 3.78 M/uL (4.2-5.4); WHITE BLOOD COUNT 10.94 K/uL (4.8-10.8)
[2016-07-20 06:08] LABS: INR 1.6 (0.9-1.1); PROTHROMBIN TIME (PATIENT) 17.6 SECONDS (9.0-12.0)
[2016-07-20 06:26] LABS: CALCIUM 7.9 mg/dl (8.5-10.1); CREATININE 0.8 mg/dl (0.60-1.20); POTASSIUM 3.7 mmol/L (3.5-5.1)
[2016-07-20] MEDS: ASPIRIN 81 MG ECTAB PO SCH (08:01)
[2016-07-20] MEDS: AMLODIPINE BESYLATE 5 MG TAB PO SCH (08:01)
[2016-07-20] MEDS: SOTALOL HCL 80 MG TAB PO SCH ×2 (08:01→20:50)
[2016-07-20] MEDS: SIROLIMUS 1 MG TAB PO SCH (08:02)
[2016-07-20 08:11] VITALS: BP 101/70; PULSE 69; TEMP 36.3; O2SAT 96
[2016-07-20] MEDS: MYCOPHENOLATE MOFETIL 250 MG CAP (CELLCEPT) PO SCH ×2 (08:37→20:49)
[2016-07-20] MEDS: INSULIN ASPART 100 UNITS/ML 3 ML PEN SQ SCH ×4 (08:38→20:48)
[2016-07-20] MEDS ORDERED: CONSULT PHARMACY STA (10:27)
--- NOTE | 2016-07-20 10:50 | Progress Note ---
Medicine Progress Note Date & Time of Visit: Jul 20, 2016 at 10:45. Subjective patient seen resting, comfortable states she feels improved, still somewhat weak no tremors, sweats this morning denies chills, abdominal pain, nausea, problems with urination no other symptoms Objective Last 8 Hrs Date Time Temp Pulse Resp B/P (MAP) Pulse Ox O2 Delivery O2 Flow Rate FiO2 07/20/16 08:11 36.3 69 16 101/70 (80) 96 07/20/16 08:00 Room Air Physical Exam: General- oriented x 3, not in distress, speaks in sentences with no effort Head- atraumatic Eyes- anicteric Neck- supple, no JVD Lungs- clear breath sounds bilaterally, no rales/wheezes Heart- normal rate, regular rhythm; (+) grade 4-5/6 holosystolic murmur at the apex Abdomen- normal bowel sounds, soft, no tenderness, no masses Extremities- no pretibial edema, no calf tenderness Neuro- alert, oriented x 3;no gross focal deficits Skin- warm & dry Laboratory Results: Last 24 Hours Test 07/19/16 11:19 07/19/16 14:10 07/19/16 14:30 07/19/16 15:36 Bedside Glucose 115 mg/dl 59 mg/dl 91 mg/dl 142 mg/dl Test 07/19/16 16:04 07/19/16 19:14 07/19/16 19:55 07/19/16 23:54 Bedside Glucose 162 mg/dl 239 mg/dl 256 mg/dl 208 mg/dl Test 07/20/16 05:05 07/20/16 07:37 White Blood Count 10.94 K/uL Red Blood Count 3.78 M/uL Hemoglobin 10.4 g/dL Hematocrit 32.5 % Mean Corpuscular Volume 86.0 fL Mean Corpuscular Hemoglobin 27.5 pg Mean Corpuscular Hemoglobin Concent 32.0 g/dl Platelet Count 246 K/uL Mean Platelet Volume 9.3 fL Neutrophils (%) (Auto) 69.2 % Lymphocytes (%) (Auto) 15.7 % Monocytes (%) (Auto) 12.9 % Eosinophils (%) (Auto) 1.7 % Basophils (%) (Auto) 0.2 % Neutrophils # (Auto) 7.57 K/uL Lymphocytes # (Auto) 1.72 K/uL Monocytes # (Auto) 1.41 K/uL Eosinophils # (Auto) 0.19 K/uL Basophils # (Auto) 0.02 K/uL RDW Standard Deviation 50.7 fL RDW Coefficient of Variation 15.9 % Immature Granulocyte % (Auto) 0.3 % Immature Granulocyte # (Auto) 0.03 K/uL Prothrombin Time 17.6 SECONDS Prothromb Time International Ratio 1.6 Sodium Level 136 mmol/L Potassium Level 3.7 mmol/L Chloride Level 104 mmol/L Carbon Dioxide Level 22 mmol/L Anion Gap 10.0 mmol/L Blood Urea Nitrogen 5 mg/dl Creatinine 0.80 mg/dl Est Creatinine Clear Calc Drug Dose 59.5 ml/min Estimated GFR () 85.4 Estimated GFR (Non- 73.7 BUN/Creatinine Ratio 6.0 Random Glucose 68 mg/dl Calcium Level 7.9 mg/dl Bedside Glucose 85 mg/dl Date/Time Source Procedure Growth Status 07/19/16 11:00 Nasal MRSA DNA Surveillance Screen - Final Specimen Negative for MRSA by DNA Probe Complete Assessment & Plan 71 year old female with history of S/p Renal transplant, Paroxysmal A fib coumadin, DM, HTN presenting with nausea/vomiting, fever, abdominal pain. 1. Sepsis, secondary to urinary tract infection, E coli -- remains afebrile WBC about the same -- clinically improving gradually -- blood cultures: negative urine culture: E coli pansensitive -- d/c empiric Daptomycin and Cefepime (received for2 days) start Ceftriaxone IV daily day 1 2. Status post cadaveric renal transplant. -- crea stable - continue Mycophenalate and Sirolimus 3. Paroxysmal atrial fibrillation. -- continue Sotalol, Aspirin, Coumadin -- INR 1.6 increase coumadin INR tomorrow -- (+) Prolonged qt on initial EKG repeat EKG: no prolonged qt 4. Diabetes type 2. - A1c: 11.2 - on Lantus and Novolog TID - Pharmacy consulted (+) hypoglycemia Insulin being titrated 5. Hypertension. - continue Norvasc 6. Gastrointestinal prophylaxis with Protonix. 7. Deep venous thrombosis prophylaxis with Coumadin. Full code anticipate d/c home when medically stable Current Inpatient Medications: Current Inpatient Medications Medications (Trade) Dose Ordered Sig/Sandeep Route Start Time Stop Time Status Last Admin Dose Admin Ondansetron HCl (Zofran Inj) 4 mg Q6H PRN IV 07/18/16 14:15 08/17/16 14:14 07/19/16 00:14 4 MG Acetaminophen (Tylenol Tab) 500 mg Q6H PRN PO 07/18/16 14:45 08/17/16 14:44 07/19/16 21:32 500 MG Amlodipine Besylate (Norvasc Tab) 10 mg DAILY PO 07/19/16 09:00 08/18/16 08:59 07/20/16 08:01 10 MG Aspirin (Ecotrin Tab) 81 mg DAILY PO 07/19/16 09:00 08/18/16 08:59 07/20/16 08:01 81 MG Mycophenolate Mofetil (Cellcept Cap) 250 mg Q12 PO 07/18/16 21:00 08/17/16 20:59 07/20/16 08:37 250 MG Sotalol HCl (Betapace Tab) 120 mg BID PO 07/18/16 21:00 08/17/16 20:59 07/20/16 08:01 120 MG Glucose (Glucose 40% Gel) 15-30 GRAMS 15 GRAMS... UD PRN PO 07/18/16 15:45 08/17/16 15:44 Glucose (Glucose Chew Tab) 4-8 Tablets 4 Tabl... UD PRN PO 07/18/16 15:45 08/17/16 15:44 Dextrose (Dextrose 50% 50ML Syringe) 25-50ML OF 50% DW IV FOR... UD PRN IV 07/18/16 15:45 08/17/16 15:44 Glucagon (Glucagon Inj) 1 mg UD PRN SQ 07/18/16 15:45 08/17/16 15:44 Sirolimus (Rapamune) 1 mg DAILY PO 07/19/16 09:00 08/18/16 08:59 07/20/16 08:02 1 MG Zolpidem Tartrate (Ambien Tab) 5 mg HS PRN PO 07/19/16 00:15 08/18/16 00:14 07/19/16 00:43 5 MG Miscellaneous Information (Consult Glycemic Management Pharmacy) 1 ea UD PRN N/A 07/19/16 10:19 08/18/16 10:18 Insulin Aspart (novoLOG ASPART) SLIDING SCALE ACHS SQ 07/19/16 11:00 08/18/16 10:59 07/20/16 08:38 4 UNITS Dextrose/Sodium Chloride 1,000 ml @ 75 mls/hr [id number] IV 07/19/16 15:00 08/18/16 14:59 Future Hold 07/19/16 15:00 75 MLS/HR Insulin Glargine (Lantus Vial) 22 unit HS SC 07/19/16 21:00 08/18/16 20:59 07/19/16 21:17 22 UNIT Miscellaneous Information (Pharmacy Consult) 1 ea NOW STAT N/A 07/20/16 10:27 07/20/16 10:28 UNV Warfarin Sodium (Coumadin Tab) 4 mg DAILY@16 PO 07/20/16 16:00 08/19/16 15:59
[2016-07-20] MEDS: ACETAMINOPHEN 500 MG TAB PO PRN (11:38)
[2016-07-20 11:56] VITALS: BP 120/66; PULSE 72; TEMP 36.9; O2SAT 96
--- NOTE | 2016-07-20 13:04 | Pharmacy Progress Note ---
Glycemic Control: Progress Nt Date of Service Jul 20, 2016. Scope Glycemic Pharmacist consulted by Dr Mortensen on 07/19/16 for glycemic control and to write orders per [facility] inpatient glycemic control protocol. Objective Accuchecks BSG (last 24hrs): Test 07/19/16 14:10 07/19/16 14:30 07/19/16 15:36 07/19/16 16:04 Bedside Glucose 59 mg/dl (70-90) 91 mg/dl (70-90) 142 mg/dl (70-90) 162 mg/dl (70-90) Test 07/19/16 19:14 07/19/16 19:55 07/19/16 23:54 07/20/16 05:05 Bedside Glucose 239 mg/dl (70-90) 256 mg/dl (70-90) 208 mg/dl (70-90) Random Glucose 68 mg/dl (70-99) Test 07/20/16 07:37 07/20/16 11:39 Bedside Glucose 85 mg/dl (70-90) 102 mg/dl (70-90) Laboratory Data (last 24hrs) Test 07/20/16 05:05 Anion Gap 10.0 mmol/L BUN/Creatinine Ratio 6.0 Blood Urea Nitrogen 5 mg/dl Creatinine 0.80 mg/dl Potassium Level 3.7 mmol/L Sodium Level 136 mmol/L White Blood Count 10.94 K/uL Red Blood Count 3.78 M/uL Hemoglobin 10.4 g/dL Hematocrit 32.5 % Mean Corpuscular Volume 86.0 fL Mean Corpuscular Hemoglobin 27.5 pg Mean Corpuscular Hemoglobin Concent 32.0 g/dl Platelet Count 246 K/uL Mean Platelet Volume 9.3 fL Neutrophils (%) (Auto) 69.2 % Lymphocytes (%) (Auto) 15.7 % Monocytes (%) (Auto) 12.9 % Eosinophils (%) (Auto) 1.7 % Basophils (%) (Auto) 0.2 % Neutrophils # (Auto) 7.57 K/uL Lymphocytes # (Auto) 1.72 K/uL Monocytes # (Auto) 1.41 K/uL Eosinophils # (Auto) 0.19 K/uL Basophils # (Auto) 0.02 K/uL HbA1c: Test 07/19/16 07:00 Hemoglobin A1c 11.2 % (4.5-5.6) H Recent Pertinent Medications Outpatient Anti-diabetic Regimen: * Lantus 120 units Q HS * Novolog 10 units SQ w/ meals * A1c = results pending The patient is currently receiving: * Basal insulin: Lantus 50 units SQ x 1 given 07/18 evening; 22 units given 07/19 evening * Correctional Insulin: Novolog SQ ACHS Goal Range: 110 - 140mg/dL Correction Factor: 20mg/dL/unit * Prandial insulin: 1 unit per 7 gm CHO consumed with meals * Oral Agents: None currently Risk Factors for Insulin Resistance: * Infection: sepsis, likely secondary to e coli UTI; ABX deescalated to Rocephin today * Diet: ordered T2DM diet; patient had minimal PO intake yesterday, she reports feeling improved today Assessment & Plan ASSESSMENT: 07/19/16 * Type 2 diabetic w/ unknown level of glycemic control prior to admission - admitted yesterday with sepsis likely secondary to UTI in the setting of immunocompromise and h/o cadaveric renal xplant * A1c has been ordered for today to assess outpt control - results pending at this time * Patient was followed by the glycemic control service ~3 years ago, at that time the patient appeared to require ~50-60units of insulin per day when tolerating a diet. * Last evening she received 50 units of Lantus, fasting BSG 99-114 this AM. Given prior admission data, patient's weight, and fasting BSG result with less than one-half outpt Lantus dose, will empirically reduce this patient's basal dose. Would anticipate a basal need of 25-30 units per day based upn prior admit data. * Will d/c the set prandial insulin dose and use carb counts for carb coverage given abd pain and nausea. Will base these doses upon anticipated total daily insulin needs of 50-60 units/day when tolerating a diet. 07/20/16 * Patient developed hypoglycemia mid-day yesterday likely due to a combination of excess basal insulin on board from the previous evening along w/ an excess Novolog dose given w/ breakfast due to poor diet yesterday. * She was started on IVF's containing dextrose after developing hypoglycemia yesterday, however she quickly rebounded to 256 late in the day and the IVF's with dextrose were stopped. * The patient was mildly hypoglycemic this AM (68 on PRP) with 22 unit of Lantus on board - will titrate down further as a precaution. This may need titrated back up in the near future as pt reports feeling better today with less abd pain and no NV. * Will less the Novolog doses as well as max BSG thus far today is 102 PLAN FOR INPATIENT GLYCEMIC CONTROL: * Decrease Lantus to 18 units Q HS * Changing correction factor to 25 mg/dl/unit * Changing carb ratio to 1 unit per 8 grams CHO consumed * Goal range Low 110 mg/dL - High 140 mg/dL * Please note that the plan above was derived based on current level of insulin resistance and hospital stress. These recommendations are appropriate for inpatient admission only. Plan of care upon discharge will need to be reassessed to avoid potential outpatient hypo/hyperglycemia. Thank you.
--- NOTE | 2016-07-20 14:31 | ECHOCARDIOGRAM REPORT ---
*NOTICE TO RECEIVING [employer] This information is strictly Confidential and protected under [place] law. [place] law prohibits you from making any further disclosure of this information unless further disclosure is expressly permitted by the written consent of the person to whom it pertains or is authorized by law. A general authorization for the release of medical or other information is not sufficient for this purpose. Hospital accepts no responsibility if the information is made available to any other person, INCLUDING THE PATIENT. Interpretation Summary * Name: MARKY CHOE Study Date: 07/20/2016 12:26 PM BP: 101/70 mmHg * Patient Location: [facility]\S\N277\S\2 HR: 69 * : 1945 (M/d/yyyy) Gender: Female Height: 66 in * Age: 71 yrs Ethnicity: [place] Weight: 139 lb * Ordering Physician: Hay Mortensen * Performed By: Gayla Kohler * * Reason For Study: MURMURS * BSA: 1.7 m2 * The study was technically adequate. * Compared to prior study, changes are noted. * -- Conclusions -- * Ejection Fraction = 65-70%. * There is mild concentric left ventricular hypertrophy. * The left atrium is moderately dilated. * Diastolic dysfunction, Grade II (pseudonormalization pattern). * Mild valvular aortic stenosis. * There is mild mitral regurgitation. * There is trace tricuspid regurgitation. * Trivial loculated posterior pericardial effusion. Procedure Details * A complete two-dimensional transthoracic echocardiogram was performed (2D, M-mode, Doppler and color flow Doppler). Left Ventricle * The left ventricle is normal in size. * There is mild concentric left ventricular hypertrophy. * Ejection Fraction = 65-70%. * Left ventricular systolic function is normal. * The left ventricular wall motion is normal. Right Ventricle * The right ventricle is normal size. * The right ventricular systolic function is normal as assessed by tricuspid annular plane systolic excursion (TAPSE) (normal >1.5 cm). Atria * The left atrium is moderately dilated. * The right atrium is mildly dilated. * There is no evidence of atrial septal defect, but resolution does not allow assessment for a patent foramen ovale. Mitral Valve * There is mild mitral annular calcification. * There is no mitral valve stenosis. * There is mild mitral regurgitation. Tricuspid Valve * The tricuspid valve is normal. * There is no tricuspid stenosis. * There is trace tricuspid regurgitation. Aortic Valve * The aortic valve is trileaflet. * Mild valvular aortic stenosis. * There is no significant aortic regurgitation. Pulmonic Valve * The pulmonary valve is not well seen, but the Doppler examination is normal without significant regurgitation or stenosis. Great Vessels * The aortic root and proximal ascending aorta are normal sized. Pericardium/Pleural * Trivial loculated posterior pericardial effusion. * There are no echocardiographic indications of cardiac tamponade. Great Vessels * Normal IVC diameter with reduced inspiratory variation suggesting RA pressure of 8mmHg. Left Ventricular Diastolic Function * Diastolic dysfunction, Grade II (pseudonormalization pattern). MMode 2D Measurements and Calculations IVSd 1.3 cm IVSs 1.9 cm LVIDd 5.0 cm LVIDs 3.2 cm LVPWd 1.2 cm LVPWs 1.8 cm IVS/LVPW 1.1 FS 36.4 % EDV(Teich) 120.1 ml ESV(Teich) 41.0 ml EF(Teich) 65.9 % EDV(cubed) 127.5 ml ESV(cubed) 32.8 ml EF(cubed) 74.3 % % IVS thick 45.6 % % LVPW thick 52.5 % LV mass(C)d 244.5 grams LV mass(C)dI 142.7 grams/m\S\2 LV mass(C)s 242.0 grams LV mass(C)sI 141.2 grams/m\S\2 SV(Teich) 79.1 ml SI(Teich) 46.2 ml/m\S\2 SV(cubed) 94.7 ml SI(cubed) 55.3 ml/m\S\2 ACS 0.74 cm LA dimension 4.7 cm asc Aorta Diam 3.5 cm LVOT diam 1.8 cm LVOT area 2.7 cm\S\2 LVAd ap4 26.6 cm\S\2 LVLd ap4 6.9 cm EDV(MOD-sp4) 84.0 ml EDV(sp4-el) 86.9 ml LVAs ap4 14.2 cm\S\2 LVLs ap4 6.0 cm ESV(MOD-sp4) 28.9 ml ESV(sp4-el) 28.8 ml EF(MOD-sp4) 65.6 % EF(sp4-el) 66.9 % LVAd ap2 30.5 cm\S\2 LVLd ap2 8.1 cm EDV(MOD-sp2) 94.2 ml EDV(sp2-el) 97.3 ml LVAs ap2 15.6 cm\S\2 LVLs ap2 6.4 cm ESV(MOD-sp2) 32.4 ml ESV(sp2-el) 32.7 ml EF(MOD-sp2) 65.6 % EF(sp2-el) 66.4 % LVLd %diff 14.5 % EDV(MOD-bp) 98.0 ml LVLs %diff 6.1 % ESV(MOD-bp) 31.9 ml EF(MOD-bp) 67.5 % SV(MOD-sp4) 55.1 ml SI(MOD-sp4) 32.2 ml/m\S\2 SV(MOD-sp2) 61.8 ml SI(MOD-sp2) 36.1 ml/m\S\2 SV(MOD-bp) 66.2 ml SI(MOD-bp) 38.6 ml/m\S\2 SV(sp4-el) 58.1 ml SI(sp4-el) 33.9 ml/m\S\2 SV(sp2-el) 64.5 ml SI(sp2-el) 37.7 ml/m\S\2 Doppler Measurements and Calculations MV E max duy 125.6 cm/sec MV A max duy 42.1 cm/sec MV E/A 3.0 MV dec time 0.27 sec Ao V2 max 237.4 cm/sec Ao max PG 22.6 mmHg Ao max PG (full) 15.6 mmHg NATASHA(V,A) 1.5 cm\S\2 NATASHA(V,D) 1.5 cm\S\2 LV V1 max PG 7.0 mmHg LV V1 max 132.1 cm/sec MR max duy 489.2 cm/sec MR max PG 95.7 mmHg PA V2 max 86.8 cm/sec PA max PG 3.0 mmHg TR max duy 251.7 cm/sec
[2016-07-20] MEDS ORDERED: WARFARIN SOD 4 MG TAB PO SCH (16:00)
[2016-07-20 16:15] VITALS: BP 92/57; PULSE 75; TEMP 36.4; O2SAT 93
[2016-07-20] MEDS: CEFTRIAXONE SOD INJ 1 GM in DEXTROSE 5% ADD-VANTAGE 50ML 50 ML IV SCH (17:40)
[2016-07-20] MEDS: INSULIN GLARGINE SC SCH ×2 (20:49→20:57)
[2016-07-21 00:21] VITALS: BP 135/74; PULSE 69; TEMP 36.9; O2SAT 94
[2016-07-21 07:04] LABS: BASO % 0.3 %; BASO ABS # 0.02 K/uL (0-0.2); COMPLETE YES; EOS % 4.6 %; IG% 0.1 %; LYMPH % 25.1 %; MEAN CELL VOLUME 86.6 fL (80-100); MEAN CORPUSCULAR HEMOGLOBIN 27.8 pg (25-34); MEAN CORPUSCULAR HGB CONC 32.1 g/dl (32-36); MEAN PLATELET VOLUME 9.3 fL (7.4-10.4); MONO % 12.3 %; NEUT % 57.6 %; PLATELET COUNT 239 K/uL (130-400); RED BLOOD COUNT 3.81 M/uL (4.2-5.4); WHITE BLOOD COUNT 7.18 K/uL (4.8-10.8)
[2016-07-21 07:09] LABS: INR 1.4 (0.9-1.1); PROTHROMBIN TIME (PATIENT) 15.4 SECONDS (9.0-12.0)
[2016-07-21 07:35] LABS: BUN/CREATININE RATIO 8.5 (10-20); CREATININE 0.87 mg/dl (0.60-1.20); POTASSIUM 3.6 mmol/L (3.5-5.1)
[2016-07-21 08:04] VITALS: BP 147/77; PULSE 69; TEMP 36.8; O2SAT 96
[2016-07-21] MEDS: INSULIN ASPART 100 UNITS/ML 3 ML PEN SQ SCH ×6 (08:26→23:26)
[2016-07-21] MEDS: AMLODIPINE BESYLATE 5 MG TAB PO SCH (08:27)
[2016-07-21] MEDS: MYCOPHENOLATE MOFETIL 250 MG CAP (CELLCEPT) PO SCH ×2 (08:27→20:53)
[2016-07-21] MEDS: SOTALOL HCL 80 MG TAB PO SCH ×2 (08:27→20:53)
[2016-07-21] MEDS: ASPIRIN 81 MG ECTAB PO SCH (08:27)
[2016-07-21] MEDS: SIROLIMUS 1 MG TAB PO SCH (08:28)
--- NOTE | 2016-07-21 08:37 | Progress Note ---
Medicine Progress Note Date & Time of Visit: Jul 21, 2016 at 08:33. Subjective comfortable, sitting up states she feels improved everyday, still somewhat weak though has some dysuria, no abdominal pain/nausea, no change in urine color no other symptoms Objective Last 8 Hrs Date Time Temp Pulse Resp B/P (MAP) Pulse Ox O2 Delivery O2 Flow Rate FiO2 07/21/16 08:04 36.8 69 16 147/77 (100) 96 Physical Exam: General- oriented x 3, not in distress, speaks in sentences with no effort Eyes- anicteric Neck- no JVD Lungs- no rales/wheezes bilaterally, clear BS Heart- normal rate, regular rhythm; (+) grade 4-5/6 holosystolic murmur at the apex Abdomen- normal bowel sounds, soft, mild suprapubic tenderness, no masses Extremities- no pretibial edema, no calf tenderness Neuro- alert, oriented x 3;no gross focal deficits Skin- warm & dry Laboratory Results: Last 24 Hours Test 07/20/16 11:39 07/20/16 15:45 07/20/16 20:19 07/21/16 06:01 Bedside Glucose 102 mg/dl 142 mg/dl 149 mg/dl White Blood Count 7.18 K/uL Red Blood Count 3.81 M/uL Hemoglobin 10.6 g/dL Hematocrit 33.0 % Mean Corpuscular Volume 86.6 fL Mean Corpuscular Hemoglobin 27.8 pg Mean Corpuscular Hemoglobin Concent 32.1 g/dl Platelet Count 239 K/uL Mean Platelet Volume 9.3 fL Neutrophils (%) (Auto) 57.6 % Lymphocytes (%) (Auto) 25.1 % Monocytes (%) (Auto) 12.3 % Eosinophils (%) (Auto) 4.6 % Basophils (%) (Auto) 0.3 % Neutrophils # (Auto) 4.14 K/uL Lymphocytes # (Auto) 1.80 K/uL Monocytes # (Auto) 0.88 K/uL Eosinophils # (Auto) 0.33 K/uL Basophils # (Auto) 0.02 K/uL RDW Standard Deviation 51.0 fL RDW Coefficient of Variation 15.9 % Immature Granulocyte % (Auto) 0.1 % Immature Granulocyte # (Auto) 0.01 K/uL Prothrombin Time 15.4 SECONDS Prothromb Time International Ratio 1.4 Sodium Level 138 mmol/L Potassium Level 3.6 mmol/L Chloride Level 103 mmol/L Carbon Dioxide Level 25 mmol/L Anion Gap 10.0 mmol/L Blood Urea Nitrogen 7 mg/dl Creatinine 0.87 mg/dl Est Creatinine Clear Calc Drug Dose 54.7 ml/min Estimated GFR () 77.1 Estimated GFR (Non- 66.6 BUN/Creatinine Ratio 8.5 Random Glucose 131 mg/dl Calcium Level 8.0 mg/dl Test 07/21/16 07:43 Bedside Glucose 132 mg/dl Assessment & Plan 71 year old female with history of S/p Renal transplant, Paroxysmal A fib coumadin, DM, HTN presenting with nausea/vomiting, fever, abdominal pain. 1. Sepsis, secondary to urinary tract infection, E coli -- remains afebrile Wbc normalized -- clinically improving daily -- blood cultures: negative urine culture: E coli pansensitive -- d/c empiric Daptomycin and Cefepime (received for2 days) start Ceftriaxone IV daily day 2 monitor -- PT/OT eval pending 2. Status post cadaveric renal transplant. -- crea stable - continue Mycophenalate and Sirolimus 3. Paroxysmal atrial fibrillation. -- continue Sotalol, Aspirin, Coumadin -- INR 1.4 increase coumadin to 6mg INR tomorrow -- (+) Prolonged qt on initial EKG repeat EKG: no prolonged qt 4. Diabetes type 2. - A1c: 11.2 - on Lantus and Novolog TID - Pharmacy consulted (+) hypoglycemia episodes Lantus decreased to 12 units BID monitor 5. Hypertension - stable - continue Norvasc 6. Gastrointestinal prophylaxis with Protonix. 7. Deep venous thrombosis prophylaxis with Coumadin. Full code Disposition lives at home with PT/OT eval pending will benefit from health services Anticipate d/c home in 1-2 days when medically stable Current Inpatient Medications: Current Inpatient Medications Medications (Trade) Dose Ordered Sig/Sandeep Route Start Time Stop Time Status Last Admin Dose Admin Ondansetron HCl (Zofran Inj) 4 mg Q6H PRN IV 07/18/16 14:15 08/17/16 14:14 07/19/16 00:14 4 MG Acetaminophen (Tylenol Tab) 500 mg Q6H PRN PO 07/18/16 14:45 08/17/16 14:44 07/20/16 11:38 500 MG Amlodipine Besylate (Norvasc Tab) 10 mg DAILY PO 07/19/16 09:00 08/18/16 08:59 07/21/16 08:27 10 MG Aspirin (Ecotrin Tab) 81 mg DAILY PO 07/19/16 09:00 08/18/16 08:59 07/21/16 08:27 81 MG Mycophenolate Mofetil (Cellcept Cap) 250 mg Q12 PO 07/18/16 21:00 08/17/16 20:59 07/21/16 08:27 250 MG Sotalol HCl (Betapace Tab) 120 mg BID PO 07/18/16 21:00 08/17/16 20:59 07/21/16 08:27 120 MG Glucose (Glucose 40% Gel) 15-30 GRAMS 15 GRAMS... UD PRN PO 07/18/16 15:45 08/17/16 15:44 Glucose (Glucose Chew Tab) 4-8 Tablets 4 Tabl... UD PRN PO 07/18/16 15:45 08/17/16 15:44 Dextrose (Dextrose 50% 50ML Syringe) 25-50ML OF 50% DW IV FOR... UD PRN IV 07/18/16 15:45 08/17/16 15:44 Glucagon (Glucagon Inj) 1 mg UD PRN SQ 07/18/16 15:45 08/17/16 15:44 Sirolimus (Rapamune) 1 mg DAILY PO 07/19/16 09:00 08/18/16 08:59 07/21/16 08:28 1 MG Zolpidem Tartrate (Ambien Tab) 5 mg HS PRN PO 07/19/16 00:15 08/18/16 00:14 07/19/16 00:43 5 MG Miscellaneous Information (Consult Glycemic Management Pharmacy) 1 ea UD PRN N/A 07/19/16 10:19 08/18/16 10:18 Insulin Aspart (novoLOG ASPART) SLIDING SCALE ACHS SQ 07/19/16 11:00 08/18/16 10:59 07/21/16 08:26 8 UNITS Dextrose/Sodium Chloride 1,000 ml @ 75 mls/hr [id number] IV 07/19/16 15:00 08/18/16 14:59 Future Hold 07/19/16 15:00 75 MLS/HR Ceftriaxone Sodium 1 gm/ Dextrose 50 ml @ 100 mls/hr Q24H IV 07/20/16 18:00 07/22/16 18:29 07/20/16 17:40 100 MLS/HR Insulin Glargine (Lantus Vial) 12 unit BID SC 07/21/16 09:00 08/20/16 08:59 07/21/16 08:30 12 UNIT Warfarin Sodium (Coumadin Tab) 6 mg ONE PO 07/21/16 16:00 08/19/16 15:59 UNV
[2016-07-21] MEDS ORDERED: INSULIN GLARGINE SC SCH ×2 (09:00→21:00)
--- NOTE | 2016-07-21 11:15 | Pharmacy Progress Note ---
Glycemic Control: Progress Nt Date of Service Jul 21, 2016. Scope Glycemic Pharmacist consulted for glycemic control and to write orders per [facility] inpatient glycemic control protocol. Objective Accuchecks BSG (last 24hrs): Test 07/20/16 11:39 07/20/16 15:45 07/20/16 20:19 07/21/16 06:01 Bedside Glucose 102 mg/dl (70-90) 142 mg/dl (70-90) 149 mg/dl (70-90) Random Glucose 131 mg/dl (70-99) Test 07/21/16 07:43 Bedside Glucose 132 mg/dl (70-90) Laboratory Data (last 24hrs) HbA1c: Test 07/19/16 07:00 Hemoglobin A1c 11.2 % (4.5-5.6) H Recent Pertinent Medications Outpatient Anti-diabetic Regimen: * Lantus 120units SQ HS * NovoLog 10units SQ TIDM The patient is currently receiving: * Basal insulin: Lantus 18 units every 24 hours given at bedtime * Correctional Insulin: Novolog Correction per scale ACHS Goal Range: Low 110 mg/dL - High 140 mg/dL Correction Factor: 25 mg/dL/unit * Prandial insulin: Per carb ratio of 1 unit per 8 grams CHO consumed Risk Factors for Insulin Resistance: * Infection * Diet Assessment & Plan ASSESSMENT: * Patient is currently receiving ~ 30-40 units of insulin per day * BSGs ranging 68 - 149mg/dl over the past 24hrs * Pt is at risk for rebound hyperglycemia - Anticipating insulin regimen will need increased * Pt refused her reduced basal insulin dose 07/20 PM since she has been having "lows." Large dose of Lantus given 07/18 PM (Lantus 50 units) seemed to stay on board for 24+ hrs. * Infection is being adequately treated/Pt status improving - pt takes 150+ units of insulin as an outpatient but is currently receiving significantly reduced dose for hypoglycemia and decreased PO intake * Pt known to pharmacy from previous admissions/glycemic consults. * Fair glycemic control with 55-60 units of insulin per day. Will start with an estimated total daily dose of ~ 55 units and continue to titrate upwards based on BSG trends. PLAN FOR INPATIENT GLYCEMIC CONTROL: Change regimen based on an estimated total daily dose of ~ 55-60 units/day * Basal insulin * Lantus 12 units SQ BID --> will try to work back to HS dosing only { outpatient schedule} in anticipation of discharge in 1-2 days. * Bolus insulin * NovoLog per scale ACHS or Q6hrs while NPO * Goal Range: Low 110 mg/dL - High 140 mg/dL * Correction Factor: 25 mg/dL/unit * Nutritional / Prandial insulin per carb ratio of 1 unit per 8 grams CHO consumed * Please note that the plan above was derived based on current level of insulin resistance and hospital stress. These recommendations are appropriate for inpatient admission only. Plan of care upon discharge will need to be reassessed to avoid potential outpatient hypo/hyperglycemia. Thank you.
[2016-07-21 12:00] VITALS: BP 146/68; PULSE 58; TEMP 36.6; O2SAT 97
[2016-07-21 12:06] VITALS: Ht 167.6 cm; Wt 62.9 kg
--- NOTE | 2016-07-21 12:09 | Clinical Documentation Query ---
CLINICAL DOCUMENTATION QUERY Dr. CÁRDENAS, In your clinical opinion is this patient being managed for: ( ) Hyponatremia ( X) Other explanation of clinical findings (Please Explain) Hyponatremia present on day of admission, resolved on hospital day 2. Thanks ( ) Unable to determine (Please Define) ( ) Need to Discuss ( ) Not Agree The medical record reflects the following clinical findings, treatment, and risk factors. Clinical Indicators: 71 yo female presented with Na 128. Corrected to 130.6 due to glucose of 360. Treatment: 2L NSS bolus then 1L NSS 125 cc/hr in ER, IV novolin R insulin, monitor PRP's Risk Factors:hyperglycemia, sepsis Please clarify and document your clinical opinion in the progress notes and discharge summary. Terms such as "probable", "suspected", "likely", "questionable", "possible", or "still to be ruled out" are acceptable. IF IN AGREEMENT, YOU MUST DOCUMENT ABOVE DIAGNOSTIC STATEMENT IN DAILY PROGRESS NOTES AND DISCHARGE SUMMARY. This document is not part of the patient's record. Thank You, Ivy Noonan RN [phone]
[2016-07-21] MEDS ORDERED: WARFARIN SOD 6 MG TAB PO ONE (16:00)
[2016-07-21 16:12] VITALS: BP 133/66; PULSE 64; TEMP 36.9; O2SAT 94
[2016-07-21] MEDS: CEFTRIAXONE SOD INJ 1 GM in DEXTROSE 5% ADD-VANTAGE 50ML 50 ML IV SCH (17:49)
[2016-07-21 19:25] VITALS: BP 145/71; PULSE 67; TEMP 37; O2SAT 93
[2016-07-21 23:52] VITALS: BP 130/66; PULSE 60; TEMP 36.9; O2SAT 93
[2016-07-22] MEDS: INSULIN ASPART 100 UNITS/ML 3 ML PEN SQ SCH ×5 (03:49→20:57)
[2016-07-22 04:16] VITALS: BP 153/70; PULSE 60; TEMP 36.7; O2SAT 97
[2016-07-22 06:16] LABS: BASO % 0.3 %; BASO ABS # 0.02 K/uL (0-0.2); COMPLETE YES; EOS % 8.4 %; HEMATOCRIT 32.8 % (37-47); IG% 0.3 %; LYMPH ABS # 1.78 K/uL (1.2-3.4); MEAN CELL VOLUME 85.6 fL (80-100); MEAN CORPUSCULAR HEMOGLOBIN 27.2 pg (25-34); MEAN CORPUSCULAR HGB CONC 31.7 g/dl (32-36); MEAN PLATELET VOLUME 8.9 fL (7.4-10.4); MONO % 10.6 %; NEUT % 49.4 %; PLATELET COUNT 247 K/uL (130-400); RED BLOOD COUNT 3.83 M/uL (4.2-5.4); WHITE BLOOD COUNT 5.74 K/uL (4.8-10.8)
[2016-07-22 06:47] LABS: INR 1.5 (0.9-1.1); PROTHROMBIN TIME (PATIENT) 16.7 SECONDS (9.0-12.0)
[2016-07-22 06:50] VITALS: BP 135/61; PULSE 58; TEMP 36.7; O2SAT 95
[2016-07-22 07:00] LABS: BUN/CREATININE RATIO 10.7 (10-20); CALCIUM 8.4 mg/dl (8.5-10.1); CREATININE 0.76 mg/dl (0.60-1.20); POTASSIUM 3.9 mmol/L (3.5-5.1)
--- NOTE | 2016-07-22 08:56 | Pharmacy Progress Note ---
Glycemic Control: Progress Nt Date of Service Jul 22, 2016. Scope Glycemic Pharmacist consulted by Dr Mortensen on 07/19/16 for glycemic control and to write orders per [facility] inpatient glycemic control protocol. Objective Accuchecks BSG (last 24hrs): Test 07/21/16 11:55 07/21/16 16:58 07/21/16 20:18 07/21/16 23:25 Bedside Glucose 175 mg/dl (70-90) 112 mg/dl (70-90) 114 mg/dl (70-90) 140 mg/dl (70-90) Test 07/22/16 03:32 07/22/16 05:45 07/22/16 07:23 Bedside Glucose 97 mg/dl (70-90) 138 mg/dl (70-90) Random Glucose 136 mg/dl (70-99) HbA1c: Test 07/19/16 07:00 Hemoglobin A1c 11.2 % (4.5-5.6) H Recent Pertinent Medications Outpatient Anti-diabetic Regimen: * -Z-d-g-t-u-s- -3-5-9-u-n-i-t-s- -S-Q- -H-S- * -X-n-s-o-L-o-g- -8-1-p-n-i-t-s- -S-Q- -T-I-D-M- -*- -Has not been taking insulin or checking BSGs The patient is currently receiving: * Basal insulin: Lantus 12-15 units every 12 hours * Correctional Insulin: Novolog Correction per scale ACHS Goal Range: Low 110 mg/dL - High 140 mg/dL Correction Factor: 20 mg/dL/unit * Prandial insulin: Per carb ratio of 1 unit per 7 grams CHO consumed Risk Factors for Insulin Resistance: * Infection * Diet Assessment & Plan ASSESSMENT: * See progress note from 07/19 for more background info, in short: * Pt receiving SQ basal bolus insulin regimen for hyperglycemia secondary to baseline DM (outpatient regimen is SQ basal bolus but pt is non-compliant) & stress/infection * See DM educator's note for more info, but in short, pt has not been compliant with outpatient regimen for a while. had surgery and had been taking care of him and not herself. She has not been administering her Lantus and only occasionally administering her NovoLog. She has lost a significant amount of weight since the last time she was taking Lantus 120units HS. She finally feels better now that her BSGs are under control. SHE WILL NEED RX CHANGE FOR LANTUS AT DISCHARGE. * Patient is currently receiving an average of ~48 units of insulin per day * 27 units of basal insulin * 21 units of prandial/correctional insulin * BSGs ranging 113 - 175 mg/dl over the past 24hrs * Changes needed to insulin regimen: * Need to prep for discharge --> change Lantus from BID dosing to once daily dosing for easier outpatient regimen. * AM Fasting BSG = 138 mg/dl. This is in slightly above goal range for patient based on inpatient targets and co-morbidities. However, this is a significantly improvement from her baseline and A1c of 11.2%. Therefore will continue current basal insulin dosing but change to once daily. * Post-prandial BSGs are trending downwards throughout the day (insulin stacking) therefore need to loosen CF/CR * Total daily dose = 48 units. This dosing is yielding adequate glycemic control PLAN FOR INPATIENT GLYCEMIC CONTROL: * Basal insulin: change Lantus to once daily dosing for transition to discharge * Lantus 25 units SQ Q24hrs. Will give first dose at lunch today and then work back to HS dosing on 07/23/16 {outpatient schedule} in anticipation of discharge in 1-2 days. * Bolus insulin: loosen parameters slightly. * NovoLog per scale ACHS or Q6hrs while NPO * Goal Range: Low 110 mg/dL - High 140 mg/dL * Correction Factor: 25 mg/dL/unit * Nutritional / Prandial insulin per carb ratio of 1 unit per 8 grams CHO consumed * Please note that the plan above was derived based on current level of insulin resistance and hospital stress. These recommendations are appropriate for inpatient admission only. Plan of care upon discharge will need to be reassessed to avoid potential outpatient hypo/hyperglycemia. Thank you. LOOKING AHEAD TO DISCHARGE: Recommend: * Lantus 25-30 units once daily given at bedtime * NovoLo-10 units SQ TIDM hold dosing if meal is skipped * May give 5 units for snack/small meal or a meal that is low in CHO
[2016-07-22] MEDS: MYCOPHENOLATE MOFETIL 250 MG CAP (CELLCEPT) PO SCH ×2 (09:12→20:57)
[2016-07-22] MEDS: AMLODIPINE BESYLATE 5 MG TAB PO SCH (09:12)
[2016-07-22] MEDS: ASPIRIN 81 MG ECTAB PO SCH (09:12)
[2016-07-22] MEDS: SOTALOL HCL 80 MG TAB PO SCH ×2 (09:13→20:57)
[2016-07-22] MEDS: SIROLIMUS 1 MG TAB PO SCH (09:14)
--- NOTE | 2016-07-22 11:02 | Progress Note ---
Medicine Progress Note Date & Time of Visit: Jul 22, 2016 at 11:02 . Subjective No fever. No chest pain. No cough or shortness of breath. No nausea or vomiting. No diarrhea. No flank pain or abdominal pain. Dysuria improving. . Objective Last 8 Hrs Date Time Temp Pulse Resp B/P (MAP) Pulse Ox O2 Delivery O2 Flow Rate FiO2 07/22/16 06:50 36.7 58 20 135/61 (85) 95 Room Air 07/22/16 04:16 36.7 60 20 153/70 (97) 97 Room Air Physical Exam: General- lying in bed, no distress Neck- no JVD Lungs- clear to auscultation Heart- RRR, murmur vs transmitted thrill from AV fistula Abdomen- + BS, soft, nontender Extremities- no pretibial edema or calf tenderness Neuro- alert, oriented . Laboratory Results: Last 24 Hours Test 07/21/16 11:55 07/21/16 16:58 07/21/16 20:18 07/21/16 23:25 Bedside Glucose 175 mg/dl 112 mg/dl 114 mg/dl 140 mg/dl Test 07/22/16 03:32 07/22/16 05:43 07/22/16 05:45 07/22/16 07:23 Bedside Glucose 97 mg/dl 138 mg/dl White Blood Count 5.74 K/uL Red Blood Count 3.83 M/uL Hemoglobin 10.4 g/dL Hematocrit 32.8 % Mean Corpuscular Volume 85.6 fL Mean Corpuscular Hemoglobin 27.2 pg Mean Corpuscular Hemoglobin Concent 31.7 g/dl Platelet Count 247 K/uL Mean Platelet Volume 8.9 fL Neutrophils (%) (Auto) 49.4 % Lymphocytes (%) (Auto) 31.0 % Monocytes (%) (Auto) 10.6 % Eosinophils (%) (Auto) 8.4 % Basophils (%) (Auto) 0.3 % Neutrophils # (Auto) 2.83 K/uL Lymphocytes # (Auto) 1.78 K/uL Monocytes # (Auto) 0.61 K/uL Eosinophils # (Auto) 0.48 K/uL Basophils # (Auto) 0.02 K/uL RDW Standard Deviation 49.9 fL RDW Coefficient of Variation 15.9 % Immature Granulocyte % (Auto) 0.3 % Immature Granulocyte # (Auto) 0.02 K/uL Prothrombin Time 16.7 SECONDS Prothromb Time International Ratio 1.5 Sodium Level 140 mmol/L Potassium Level 3.9 mmol/L Chloride Level 104 mmol/L Carbon Dioxide Level 26 mmol/L Anion Gap 10.0 mmol/L Blood Urea Nitrogen 8 mg/dl Creatinine 0.76 mg/dl Est Creatinine Clear Calc Drug Dose 62.6 ml/min Estimated GFR () 90.8 Estimated GFR (Non- 78.4 BUN/Creatinine Ratio 10.7 Random Glucose 136 mg/dl Calcium Level 8.4 mg/dl Assessment & Plan SEPSIS SECONDARY TO UTI Met criteria for sepsis at time of admission per 2001 definition and current CMS guidelines. Temp was 38.9, 91, respirations 24. Hemodynamically stable. WBC count 11,390. Serum lactate 2.76, repeat 1.6. Blood cultures and urine cultures were obtained in ED. Received IV fluids. Received broad-spectrum antibiotic coverage with piperacillin/tazobactam + daptomycin. Urine culture grew pansensitive Escherichia coli. Blood cultures negative. Now receiving IV ceftriaxone. S/P RENAL TRANSPLANT Serum creatinine on admission 1.2. Creatinine today = 0.76. Management of sepsis as noted above. Maintain volume status. Continue mycophenolate mofetil and sirolimus. PAROXYSMAL ATRIAL FIBRILLATION Continue sotalol and warfarin. HYPERTENSION Hemodynamically stable. Continue sotalol and amlodipine. DM TYPE 2 Not well-controlled. Hemoglobin A1c 11.2. Lantus + NovoLog per protocol. Will need close outpatient follow-up. VTE PROPHYLAXIS INR low. Titrate warfarin. SQ heparin until INR therapeutic. DISPOSITION Expected discharge to home. Family Medicine follow-up with Dr. Renee. Nephrology follow-up with Dr. Colon. . Current Inpatient Medications: Current Inpatient Medications Medications (Trade) Dose Ordered Sig/Sandeep Route Start Time Stop Time Status Last Admin Dose Admin Ondansetron HCl (Zofran Inj) 4 mg Q6H PRN IV 07/18/16 14:15 08/17/16 14:14 07/19/16 00:14 4 MG Acetaminophen (Tylenol Tab) 500 mg Q6H PRN PO 07/18/16 14:45 08/17/16 14:44 07/20/16 11:38 500 MG Amlodipine Besylate (Norvasc Tab) 10 mg DAILY PO 07/19/16 09:00 08/18/16 08:59 07/22/16 09:12 10 MG Aspirin (Ecotrin Tab) 81 mg DAILY PO 07/19/16 09:00 08/18/16 08:59 07/22/16 09:12 81 MG Mycophenolate Mofetil (Cellcept Cap) 250 mg Q12 PO 07/18/16 21:00 08/17/16 20:59 07/22/16 09:12 250 MG Sotalol HCl (Betapace Tab) 120 mg BID PO 07/18/16 21:00 08/17/16 20:59 07/22/16 09:13 120 MG Glucose (Glucose 40% Gel) 15-30 GRAMS 15 GRAMS... UD PRN PO 07/18/16 15:45 08/17/16 15:44 Glucose (Glucose Chew Tab) 4-8 Tablets 4 Tabl... UD PRN PO 07/18/16 15:45 08/17/16 15:44 Dextrose (Dextrose 50% 50ML Syringe) 25-50ML OF 50% DW IV FOR... UD PRN IV 07/18/16 15:45 08/17/16 15:44 Glucagon (Glucagon Inj) 1 mg UD PRN SQ 07/18/16 15:45 08/17/16 15:44 Sirolimus (Rapamune) 1 mg DAILY PO 07/19/16 09:00 08/18/16 08:59 07/22/16 09:14 1 MG Zolpidem Tartrate (Ambien Tab) 5 mg HS PRN PO 07/19/16 00:15 08/18/16 00:14 07/19/16 00:43 5 MG Miscellaneous Information (Consult Glycemic Management Pharmacy) 1 ea UD PRN N/A 07/19/16 10:19 08/18/16 10:18 Insulin Aspart (novoLOG ASPART) SLIDING SCALE ACHS SQ 07/19/16 11:00 08/18/16 10:59 07/22/16 09:16 6 UNITS Dextrose/Sodium Chloride 1,000 ml @ 75 mls/hr [id number] IV 07/19/16 15:00 08/18/16 14:59 Future Hold 07/19/16 15:00 75 MLS/HR Ceftriaxone Sodium 1 gm/ Dextrose 50 ml @ 100 mls/hr Q24H IV 07/20/16 18:00 07/22/16 18:29 07/21/16 17:49 100 MLS/HR Insulin Glargine (Lantus Vial) 25 unit HS SC 07/22/16 12:30 08/21/16 12:29
[2016-07-22] MEDS: INSULIN GLARGINE SC SCH (12:43)
[2016-07-22 15:05] VITALS: BP 138/67; PULSE 62; TEMP 36.9; O2SAT 96
[2016-07-22] MEDS: CEFTRIAXONE SOD INJ 1 GM in DEXTROSE 5% ADD-VANTAGE 50ML 50 ML IV SCH (17:36)
[2016-07-22] MEDS ORDERED: WARFARIN SOD 6 MG TAB PO ONE (20:30)
[2016-07-22] MEDS: HEPARIN SOD 5000 UNIT/0.5 ML CARP SQ SCH (20:57)
[2016-07-22 23:42] VITALS: BP 124/66; PULSE 77; TEMP 37.1; O2SAT 98
[2016-07-23 06:28] LABS: BASO ABS # 0.05 K/uL (0-0.2); COMPLETE YES; EOS % 10.3 %; IG% 0.8 %; MEAN CELL VOLUME 87.2 fL (80-100); MEAN CORPUSCULAR HEMOGLOBIN 26.9 pg (25-34); MEAN CORPUSCULAR HGB CONC 30.9 g/dl (32-36); MEAN PLATELET VOLUME 9.1 fL (7.4-10.4); NEUT % 42.9 %; PLATELET COUNT 259 K/uL (130-400); WHITE BLOOD COUNT 4.84 K/uL (4.8-10.8)
[2016-07-23 06:41] LABS: INR 2.2 (0.9-1.1)
[2016-07-23 07:05] LABS: BUN/CREATININE RATIO 12.7 (10-20); CALCIUM 8.6 mg/dl (8.5-10.1); CREATININE 0.88 mg/dl (0.60-1.20); POTASSIUM 4.1 mmol/L (3.5-5.1)
[2016-07-23 07:45] VITALS: BP 155/63; PULSE 58; TEMP 36.6; O2SAT 94
[2016-07-23] MEDS: HEPARIN SOD 5000 UNIT/0.5 ML CARP SQ SCH ×2 (08:50→21:00)
[2016-07-23] MEDS: SOTALOL HCL 80 MG TAB PO SCH ×2 (08:50→21:33)
[2016-07-23] MEDS: MYCOPHENOLATE MOFETIL 250 MG CAP (CELLCEPT) PO SCH ×2 (08:51→21:33)
[2016-07-23] MEDS: SIROLIMUS 1 MG TAB PO SCH (08:52)
[2016-07-23] MEDS: ASPIRIN 81 MG ECTAB PO SCH (08:52)
[2016-07-23] MEDS: AMLODIPINE BESYLATE 5 MG TAB PO SCH (08:52)
[2016-07-23] MEDS: INSULIN ASPART 100 UNITS/ML 3 ML PEN SQ SCH ×4 (08:54→21:48)
--- NOTE | 2016-07-23 11:59 | Pharmacy Progress Note ---
Glycemic Control: Progress Nt Date of Service Jul 23, 2016. Scope Glycemic Pharmacist consulted by Dr Mortensen on 07/19/2016 for glycemic control and to write orders per [facility] inpatient glycemic control protocol. Objective Accuchecks BSG (last 24hrs): Test 07/22/16 11:27 07/22/16 15:23 07/22/16 20:11 07/23/16 06:03 Bedside Glucose 141 mg/dl (70-90) 79 mg/dl (70-90) 136 mg/dl (70-90) Random Glucose 136 mg/dl (70-99) Test 07/23/16 07:38 Bedside Glucose 130 mg/dl (70-90) Laboratory Data (last 24hrs) Test 07/23/16 06:03 Anion Gap 8.0 mmol/L BUN/Creatinine Ratio 12.7 Blood Urea Nitrogen 11 mg/dl Creatinine 0.88 mg/dl Potassium Level 4.1 mmol/L Sodium Level 139 mmol/L White Blood Count 4.84 K/uL Red Blood Count 3.90 M/uL Hemoglobin 10.5 g/dL Hematocrit 34.0 % Mean Corpuscular Volume 87.2 fL Mean Corpuscular Hemoglobin 26.9 pg Mean Corpuscular Hemoglobin Concent 30.9 g/dl Platelet Count 259 K/uL Mean Platelet Volume 9.1 fL Neutrophils (%) (Auto) 42.9 % Lymphocytes (%) (Auto) 31.0 % Monocytes (%) (Auto) 14.0 % Eosinophils (%) (Auto) 10.3 % Basophils (%) (Auto) 1.0 % Neutrophils # (Auto) 2.07 K/uL Lymphocytes # (Auto) 1.50 K/uL Monocytes # (Auto) 0.68 K/uL Eosinophils # (Auto) 0.50 K/uL Basophils # (Auto) 0.05 K/uL HbA1c: Test 07/19/16 07:00 Hemoglobin A1c 11.2 % (4.5-5.6) H Recent Pertinent Medications Outpatient Anti-diabetic Regimen: * Patient extremely noncompliant with outpatient regimen (documented as Lantus 120 units qHS and Novolog 10 units TIDM) * A1c = 11.2 % 07/19/2016 The patient is currently receiving: * Basal insulin: Lantus 25 units every 24 hours (moved to once daily at night dosing) * Correctional Insulin: Novolog Correction per scale ACHS Goal Range: Low 110 mg/dL - High 140 mg/dL Correction Factor: 25 mg/dL/unit * Prandial insulin: Per carb ratio of 1 unit per 8 grams CHO consumed * Oral Agents: none Risk Factors for Insulin Resistance: * Diet: type 2 diabetic diet Assessment & Plan ASSESSMENT: * ADA & AACE recommend a goal blood sugar range 140-180 mg/dl for the majority of critically ill & non-critically ill patients. However, more stringent targets may be selected in individual cases. Will utilize more stringent goal of 110-140mg/dl based on patient age & comorbidities. Additionally, tighter glycemic control is warranted to facilitate wound/infection healing. * During the hospital course, it was determined that Ms Seo was non- compliant with her outpatient regimen (please see note from 07/19/2016 for more background information). She requires approximately 41-48 units of insulin/day with 25 units being Lantus and 16 being Novolog. Yesterday, her blood sugars ranged from 79-136 mg/dL. Her Lantus was changed from twice daily dosing to once daily in preparation for discharge. * This morning, Ms Seo's fasting blood sugar was 136 mg/dL which was appropriate given her previously high A1C. As an outpatient, the Lantus dose will need to be titrated to achieve goal fasting blood sugars. Her Lantus will be continued with the dose due tonight. Discharge recommendations included below from previous pharmacist's note. * During the day, Ms Seo's blood sugars do appear to trend downwards, especially at dinnertime which appears to be from stacking. Yesterday, the patient's carbohydrate ratio and correction factor were loosen. I believe it is reasonable to continue the current regimen. The patient may ultimately need a tighter correction factor/carbohydrate ratio with breakfast and looser parameters for all other meals. This will not be instituted today until I view how once daily Lantus at bedtime affects the patient. PLAN FOR INPATIENT GLYCEMIC CONTROL: * Continuing Lantus 25 units SQ HS * Continuing correction factor of 25 mg/dl/unit * Continuing carb ratio of 1 unit per 8 grams CHO consumed * Continuing goal range of Low 110 mg/dL - High 140 mg/dL RECOMMENDATIONS FOR DISCHARGE: * Recommend: * Lantus 25-30 units once daily given at bedtime * NovoLo-10 units SQ TIDM hold dosing if meal is skipped * May give 5 units for snack/small meal or a meal that is low in CHO * Please note that the plan above was derived based on current level of insulin resistance and hospital stress. These recommendations are appropriate for inpatient admission only. Plan of care upon discharge will need to be reassessed to avoid potential outpatient hypo/hyperglycemia. Thank you.
[2016-07-23 15:24] VITALS: BP 145/63; PULSE 60; TEMP 36.8; O2SAT 96
[2016-07-23 16:00] VITALS: O2SAT 96
[2016-07-23] MEDS ORDERED: WARFARIN SOD 1 MG TAB PO SCH (16:00)
[2016-07-23] MEDS ORDERED: CEFTRIAXONE SOD INJ 1 GM in DEXTROSE 5% ADD-VANTAGE 50ML 50 ML IV SCH (18:00)
[2016-07-23] MEDS: INSULIN GLARGINE SC SCH (21:00)
--- NOTE | 2016-07-23 21:37 | Progress Note ---
Medicine Progress Note Date & Time of Visit: Jul 23, 2016 at 10:50 . Subjective Still experiencing dysuria. No chills. No nausea, vomiting, diarrhea. Chest pain. No cough or shortness of breath. Not yet ambulating in hallway. . Objective Last 8 Hrs Date Time Temp Pulse Resp B/P (MAP) Pulse Ox O2 Delivery O2 Flow Rate FiO2 07/23/16 08:00 Room Air 07/23/16 07:45 36.6 58 16 155/63 (93) 94 Room Air Physical Exam: General- no distress Neck- no JVD Lungs- clear to auscultation Heart- RRR, murmur vs transmitted thrill from AV fistula Abdomen- + BS, soft, nontender Extremities- no pretibial edema or calf tenderness; AV fistula LUE Neuro- alert, oriented . Laboratory Results: Last 24 Hours Test 07/22/16 11:27 07/22/16 15:23 07/22/16 20:11 07/23/16 06:03 Bedside Glucose 141 mg/dl 79 mg/dl 136 mg/dl White Blood Count 4.84 K/uL Red Blood Count 3.90 M/uL Hemoglobin 10.5 g/dL Hematocrit 34.0 % Mean Corpuscular Volume 87.2 fL Mean Corpuscular Hemoglobin 26.9 pg Mean Corpuscular Hemoglobin Concent 30.9 g/dl Platelet Count 259 K/uL Mean Platelet Volume 9.1 fL Neutrophils (%) (Auto) 42.9 % Lymphocytes (%) (Auto) 31.0 % Monocytes (%) (Auto) 14.0 % Eosinophils (%) (Auto) 10.3 % Basophils (%) (Auto) 1.0 % Neutrophils # (Auto) 2.07 K/uL Lymphocytes # (Auto) 1.50 K/uL Monocytes # (Auto) 0.68 K/uL Eosinophils # (Auto) 0.50 K/uL Basophils # (Auto) 0.05 K/uL RDW Standard Deviation 50.8 fL RDW Coefficient of Variation 15.8 % Immature Granulocyte % (Auto) 0.8 % Immature Granulocyte # (Auto) 0.04 K/uL Prothrombin Time 24.0 SECONDS Prothromb Time International Ratio 2.2 Sodium Level 139 mmol/L Potassium Level 4.1 mmol/L Chloride Level 102 mmol/L Carbon Dioxide Level 29 mmol/L Anion Gap 8.0 mmol/L Blood Urea Nitrogen 11 mg/dl Creatinine 0.88 mg/dl Est Creatinine Clear Calc Drug Dose 54.1 ml/min Estimated GFR () 76.1 Estimated GFR (Non- 65.6 BUN/Creatinine Ratio 12.7 Random Glucose 136 mg/dl Calcium Level 8.6 mg/dl Test 07/23/16 07:38 Bedside Glucose 130 mg/dl Assessment & Plan SEPSIS SECONDARY TO UTI Met criteria for sepsis at time of admission per 2001 definition and current CMS guidelines. Temp was 38.9, 91, respirations 24. Hemodynamically stable. WBC count 11,390. Serum lactate 2.76, repeat 1.6. Blood cultures and urine cultures were obtained in ED. Received IV fluids. Received broad-spectrum antibiotic coverage with piperacillin/tazobactam + daptomycin. Urine culture grew pansensitive Escherichia coli. Antibiotic therapy changed to ceftriaxone. Blood cultures negative. Persistent dysuria. Continue IV ceftriaxone. S/P RENAL TRANSPLANT Serum creatinine on admission 1.2. Creatinine today = 0.88. Management of sepsis as noted above. Maintain volume status. Continue mycophenolate mofetil and sirolimus. PAROXYSMAL ATRIAL FIBRILLATION Continue sotalol and warfarin. HYPERTENSION Hemodynamically stable. Continue sotalol and amlodipine. DM TYPE 2 Not well-controlled. Hemoglobin A1c 11.2. Fasting blood sugar today = 130. Lantus + NovoLog per protocol. Will need close outpatient follow-up. VTE PROPHYLAXIS INR low. SQ heparin ordered. Warfarin titrated. INR today 2.2. DC SQ heparin. DISPOSITION Expected discharge to home. Family Medicine follow-up with Dr. Renee. Nephrology follow-up with Dr. Colon. . Current Inpatient Medications: Current Inpatient Medications Medications (Trade) Dose Ordered Sig/Sadneep Route Start Time Stop Time Status Last Admin Dose Admin Ondansetron HCl (Zofran Inj) 4 mg Q6H PRN IV 07/18/16 14:15 08/17/16 14:14 07/19/16 00:14 4 MG Acetaminophen (Tylenol Tab) 500 mg Q6H PRN PO 07/18/16 14:45 08/17/16 14:44 07/20/16 11:38 500 MG Amlodipine Besylate (Norvasc Tab) 10 mg DAILY PO 07/19/16 09:00 08/18/16 08:59 07/23/16 08:52 10 MG Aspirin (Ecotrin Tab) 81 mg DAILY PO 07/19/16 09:00 08/18/16 08:59 07/23/16 08:52 81 MG Mycophenolate Mofetil (Cellcept Cap) 250 mg Q12 PO 07/18/16 21:00 08/17/16 20:59 07/23/16 08:51 250 MG Sotalol HCl (Betapace Tab) 120 mg BID PO 07/18/16 21:00 08/17/16 20:59 07/23/16 08:50 120 MG Glucose (Glucose 40% Gel) 15-30 GRAMS 15 GRAMS... UD PRN PO 07/18/16 15:45 08/17/16 15:44 Glucose (Glucose Chew Tab) 4-8 Tablets 4 Tabl... UD PRN PO 07/18/16 15:45 08/17/16 15:44 Dextrose (Dextrose 50% 50ML Syringe) 25-50ML OF 50% DW IV FOR... UD PRN IV 07/18/16 15:45 08/17/16 15:44 Glucagon (Glucagon Inj) 1 mg UD PRN SQ 07/18/16 15:45 08/17/16 15:44 Sirolimus (Rapamune) 1 mg DAILY PO 07/19/16 09:00 08/18/16 08:59 07/23/16 08:52 1 MG Zolpidem Tartrate (Ambien Tab) 5 mg HS PRN PO 07/19/16 00:15 08/18/16 00:14 07/19/16 00:43 5 MG Miscellaneous Information (Consult Glycemic Management Pharmacy) 1 ea UD PRN N/A 07/19/16 10:19 08/18/16 10:18 Insulin Aspart (novoLOG ASPART) SLIDING SCALE ACHS SQ 07/19/16 11:00 08/18/16 10:59 07/23/16 08:54 8 UNITS Dextrose/Sodium Chloride 1,000 ml @ 75 mls/hr [id number] IV 07/19/16 15:00 08/18/16 14:59 Future Hold 07/19/16 15:00 75 MLS/HR Insulin Glargine (Lantus Vial) 25 unit HS SC 07/22/16 12:30 08/21/16 12:29 07/22/16 12:43 25 UNIT Heparin Sodium (Porcine) (Heparin Sq 5000 Unit/0.5ml) 5,000 unit Q12 SQ 07/22/16 21:00 08/21/16 20:59 Warfarin Sodium (Coumadin Tab) 1 mg DAILY@16 PO 07/23/16 16:00 08/22/16 15:59
[2016-07-23 23:26] VITALS: BP 142/61; PULSE 69; TEMP 37.1; O2SAT 96
[2016-07-24 06:11] LABS: INR 2.8 (0.9-1.1); PROTHROMBIN TIME (PATIENT) 31.4 SECONDS (9.0-12.0)
[2016-07-24 07:12] VITALS: BP 157/67; PULSE 61; TEMP 36.6; O2SAT 97
[2016-07-24] MEDS: HEPARIN SOD 5000 UNIT/0.5 ML CARP SQ SCH (08:47)
[2016-07-24] MEDS: SOTALOL HCL 80 MG TAB PO SCH (08:51)
[2016-07-24] MEDS: AMLODIPINE BESYLATE 5 MG TAB PO SCH (08:52)
[2016-07-24] MEDS: ASPIRIN 81 MG ECTAB PO SCH (08:52)
[2016-07-24] MEDS: SIROLIMUS 1 MG TAB PO SCH (08:53)
[2016-07-24] MEDS: MYCOPHENOLATE MOFETIL 250 MG CAP (CELLCEPT) PO SCH (08:53)
[2016-07-24] MEDS: INSULIN ASPART 100 UNITS/ML 3 ML PEN SQ SCH ×2 (08:56→12:09)
[2016-07-24] MEDS ORDERED: INSULIN GLARGINE SC SCH (09:00)
--- NOTE | 2016-07-24 11:58 | Pharmacy Progress Note ---
Glycemic Control: Progress Nt Date of Service Jul 24, 2016. Scope Glycemic Pharmacist consulted by Dr Mortensen on 07/19/16 for glycemic control and to write orders per [facility] inpatient glycemic control protocol. Objective Accuchecks BSG (last 24hrs): Test 07/23/16 11:21 07/23/16 16:06 07/23/16 20:43 07/24/16 07:31 Bedside Glucose 150 mg/dl (70-90) 103 mg/dl (70-90) 123 mg/dl (70-90) 150 mg/dl (70-90) HbA1c: Test 07/19/16 07:00 Hemoglobin A1c 11.2 % (4.5-5.6) H Recent Pertinent Medications Outpatient Anti-diabetic Regimen: * Patient extremely noncompliant with outpatient regimen (documented as Lantus 120 units qHS and Novolog 10 units TIDM) * A1c = 11.2 % 07/19/2016 The patient is currently receiving: * Basal insulin: Lantus 25 units every 24 hours (moved to once daily at night dosing) * Correctional Insulin: Novolog Correction per scale ACHS Goal Range: Low 110 mg/dL - High 140 mg/dL Correction Factor: 25 mg/dL/unit * Prandial insulin: Per carb ratio of 1 unit per 8 grams CHO consumed * Oral Agents: none Risk Factors for Insulin Resistance: * Diet: type 2 diabetic diet Assessment & Plan ASSESSMENT: * ADA & AACE recommend a goal blood sugar range 140-180 mg/dl for the majority of critically ill & non-critically ill patients. However, more stringent targets may be selected in individual cases. Will utilize more stringent goal of 110-140mg/dl based on patient age & comorbidities. Additionally, tighter glycemic control is warranted to facilitate wound/infection healing. * During the hospital course, it was determined that Ms Seo was non- compliant with her outpatient regimen (please see note from 07/19/2016 for more background information). She requires approximately 41-48 units of insulin/day with 25 units being Lantus and 16 being Novolog. * This morning, Ms Seo's fasting blood sugar was 150 mg/dL which was appropriate given her previously high A1C. It is slightly higher from yesterday' s fasting blood sugar because the patient refused the night dose of Lantus. She now received a morning dose and her Lantus is dosed in the morning. As an outpatient, the Lantus dose will need to be titrated to achieve goal fasting blood sugars. Discharge recommendations included below from previous pharmacist' s note. * During the day, Ms Seo's blood sugars do appear to trend downwards, especially at dinnertime which appears to be from stacking. Yesterday, the patient's carbohydrate ratio and correction factor were loosen. I believe it is reasonable to continue the current regimen. The patient may ultimately need a tighter correction factor/carbohydrate ratio with breakfast and looser parameters for all other meals. This will not be instituted today since she refused her night dose of Lantus yesterday. PLAN FOR INPATIENT GLYCEMIC CONTROL: * Continuing Lantus 25 units SQ AM * Continuing correction factor of 25 mg/dl/unit * Continuing carb ratio of 1 unit per 8 grams CHO consumed * Continuing goal range of Low 110 mg/dL - High 140 mg/dL RECOMMENDATIONS FOR DISCHARGE: * Recommend: * Lantus 25-30 units once daily given at bedtime * NovoLo-10 units SQ TIDM hold dosing if meal is skipped * May give 5 units for snack/small meal or a meal that is low in CHO * Please note that the plan above was derived based on current level of insulin resistance and hospital stress. These recommendations are appropriate for inpatient admission only. Plan of care upon discharge will need to be reassessed to avoid potential outpatient hypo/hyperglycemia. Thank you.
--- NOTE | 2016-07-24 13:08 | Progress Note ---
Medicine Progress Note Date & Time of Visit: Jul 24, 2016 at 13:07 . Subjective Doing well. No fever. Abdominal pain and dysuria resolved. No nausea, vomiting, diarrhea. Ambulating. Ready for discharge. . Objective Last 8 Hrs Date Time Temp Pulse Resp B/P (MAP) Pulse Ox O2 Delivery O2 Flow Rate FiO2 07/24/16 08:00 Room Air 07/24/16 07:12 36.6 61 16 157/67 (97) 97 Room Air Physical Exam: General- no distress Neck- no JVD Lungs- clear Heart- RRR, murmur vs transmitted thrill from AV fistula Abdomen- + BS, soft, nontender Extremities- no pretibial edema or calf tenderness; AV fistula LUE Neuro- alert, oriented . Laboratory Results: Last 24 Hours Test 07/23/16 16:06 07/23/16 20:43 07/24/16 05:40 07/24/16 07:31 Bedside Glucose 103 mg/dl 123 mg/dl 150 mg/dl Prothrombin Time 31.4 SECONDS Prothromb Time International Ratio 2.8 Test 07/24/16 11:24 Bedside Glucose 175 mg/dl Assessment & Plan SEPSIS SECONDARY TO UTI Met criteria for sepsis at time of admission per 2001 definition and current CMS guidelines. Temp was 38.9, 91, respirations 24. Hemodynamically stable. WBC count 11,390. Serum lactate 2.76, repeat 1.6. Blood cultures and urine cultures were obtained in ED. Received IV fluids. Received broad-spectrum antibiotic coverage with piperacillin/tazobactam + daptomycin with improvement. Urine culture grew pansensitive Escherichia coli. Antibiotic therapy changed to ceftriaxone. Blood cultures negative. Discharge on oral antibiotics to complete 14 days of therapy in light of renal transplant status. No quinolones due to antiarrhythmic therapy with sotalol with associated prolonged QT. Probably best to avoid trimethoprim/sulfamethoxazole. Discharge on cephalexin 500 mg 3 times a day. S/P RENAL TRANSPLANT Serum creatinine on admission 1.2. Creatinine 07/23 = 0.88. Continue mycophenolate mofetil and sirolimus. PAROXYSMAL ATRIAL FIBRILLATION INR 1.5 at time of admission. Warfarin titrated; INR today 2.8. INR is rising rapidly, probably due to acute illness and antibiotic therapy. Discharge on warfarin 1 mg daily with close follow-up with Anticoagulation Clinic. Continue sotalol. HYPERTENSION Hemodynamically stable. Continue sotalol and amlodipine. DM TYPE 2 Not well-controlled. Hemoglobin A1c 11.2. Fasting blood sugar today = 150. Pharmacy consulted to assist with glycemic management. Received Lantus + NovoLog per protocol. Discharge on Lantus 25 units q a.m. + NovoLog per sliding scale. Will need close outpatient follow-up. VTE PROPHYLAXIS On warfarin, but admission INR low. SQ heparin administered until INR was therapeutic. DISPOSITION Expected discharge to home. Family Medicine follow-up with Dr. Renee. Nephrology follow-up with Dr. Colon. . Current Inpatient Medications: Current Inpatient Medications Medications (Trade) Dose Ordered Sig/Sandeep Route Start Time Stop Time Status Last Admin Dose Admin Ondansetron HCl (Zofran Inj) 4 mg Q6H PRN IV 07/18/16 14:15 08/17/16 14:14 07/19/16 00:14 4 MG Acetaminophen (Tylenol Tab) 500 mg Q6H PRN PO 07/18/16 14:45 08/17/16 14:44 07/20/16 11:38 500 MG Amlodipine Besylate (Norvasc Tab) 10 mg DAILY PO 07/19/16 09:00 08/18/16 08:59 07/24/16 08:52 10 MG Aspirin (Ecotrin Tab) 81 mg DAILY PO 07/19/16 09:00 08/18/16 08:59 07/24/16 08:52 81 MG Mycophenolate Mofetil (Cellcept Cap) 250 mg Q12 PO 07/18/16 21:00 08/17/16 20:59 07/24/16 08:53 250 MG Sotalol HCl (Betapace Tab) 120 mg BID PO 07/18/16 21:00 08/17/16 20:59 07/24/16 08:51 120 MG Glucose (Glucose 40% Gel) 15-30 GRAMS 15 GRAMS... UD PRN PO 07/18/16 15:45 08/17/16 15:44 Glucose (Glucose Chew Tab) 4-8 Tablets 4 Tabl... UD PRN PO 07/18/16 15:45 08/17/16 15:44 Dextrose (Dextrose 50% 50ML Syringe) 25-50ML OF 50% DW IV FOR... UD PRN IV 07/18/16 15:45 08/17/16 15:44 Glucagon (Glucagon Inj) 1 mg UD PRN SQ 07/18/16 15:45 08/17/16 15:44 Sirolimus (Rapamune) 1 mg DAILY PO 07/19/16 09:00 08/18/16 08:59 07/24/16 08:53 1 MG Zolpidem Tartrate (Ambien Tab) 5 mg HS PRN PO 07/19/16 00:15 08/18/16 00:14 07/19/16 00:43 5 MG Miscellaneous Information (Consult Glycemic Management Pharmacy) 1 ea UD PRN N/A 07/19/16 10:19 08/18/16 10:18 Insulin Aspart (novoLOG ASPART) SLIDING SCALE ACHS SQ 07/19/16 11:00 08/18/16 10:59 07/24/16 12:09 6 UNITS Dextrose/Sodium Chloride 1,000 ml @ 75 mls/hr [id number] IV 07/19/16 15:00 08/18/16 14:59 Future Hold 07/19/16 15:00 75 MLS/HR Heparin Sodium (Porcine) (Heparin Sq 5000 Unit/0.5ml) 5,000 unit Q12 SQ 07/22/16 21:00 08/21/16 20:59 Warfarin Sodium (Coumadin Tab) 1 mg DAILY@16 PO 07/23/16 16:00 08/22/16 15:59 07/23/16 16:29 1 MG Ceftriaxone Sodium 1 gm/ Dextrose 50 ml @ 100 mls/hr DAILY@1800 IV 07/23/16 18:00 07/29/16 18:29 07/23/16 17:34 100 MLS/HR Insulin Glargine (Lantus Vial) 25 unit QAM SC 07/24/16 09:00 08/23/16 08:59 07/24/16 08:56 25 UNIT
[2016-07-24] MEDS ORDERED: LEVOFLOXACIN 500 MG TAB PO ONE (13:15)
[2016-07-24] MEDS ORDERED: LVQ500 PO (13:22)
--- NOTE | 2016-07-24 13:34 | Discharge Instructions ---
Discharge Instructions Date of Service Jul 24, 2016. Admission Reason for Admission: urinary tract infection . Discharge Discharge Diagnosis / Problem: urinary tract infection Discharge Goals Goal(s): Improve disease control Activity Recommendations Activity Limitations: resume your previous activity . Instructions / Follow-Up Instructions / Follow-Up APPOINTMENTS: FAMILY MEDICINE [facility] 07/30/2016 10:00 AM Dipika Maxwell MD (covering for Dr. Renee) INSTRUCTIONS: You were sick because you had a urinary tract infection. New medications: cephalexin (Keflex) 500 mg 3 times a day (antibiotic for urinary tract infection) (prescription sent to [facility]) Medication changes: warfarin (Coumadin) take 1 mg daily starting today (07/24) further dosing per [facility] Anticoagulation clinic- they will call you with instructions insulin glargine (Lantus) 25 units each morning insulin aspartate (NovoLog) with meals per sliding scale: less than 81 skip dose 81-120 4 units 121-160 6 units 161-200 8 units above 200 10 units Seek medical attention if you have: * temperature above 101 * chest pain or trouble breathing * abdominal pain, nausea, vomiting * diarrhea, dark stools or bloody stools * burning when you urinate or blood in your urine * any unanswered questions or concerns Call 911 if symptoms are severe. Call if you have any questions or problems. My cell # is [phone]. You can also reach a [facility] hospitalist on duty at [facility] 24 hours a day by calling [phone]. Please take good care of yourself. Garcia Berumen . Current Hospital Diet Patient's current hospital diet: Diabetes Type 2 Diet Discharge Diet Recommended Diet: AHA Diet (Heart Healthy), Diabetes Type 2 Diet Pending Studies Studies pending at discharge: no Laboratory Results Hemoglobin A1c Test 07/19/16 07:00 Range/Units Estimated Average Glucose 275 mg/dl Hemoglobin A1c 11.2 H 4.5-5.6 % Medical Emergencies . Who to Call and When: Medical Emergencies: If at any time you feel your situation is an emergency, please call 911 immediately. . Non-Emergent Contact Non-Emergency issues call your: Primary Care Provider, Hospital Doctor . . "Provider Documentation" section prepared by Garcia Berumen. . VTE Core Measure Inpt VTE Proph given/why not?: Warfarin (Coumadin)
[2016-07-24] MEDS ORDERED: KFL500 PO (13:53)
--- NOTE | 2016-07-24 21:34 | Discharge Summary ---
Discharge Summary Date of Service Jul 24, 2016. Discharge Summary Admission Date: Jul 18, 2016 at 14:18 Discharge Date: Jul 24, 2016 Discharge Disposition: Home Principal Diagnosis: sepsis secondary to E coli UTI . Secondary Diagnoses/Problems: Chronic and Resolved Medical Problems: (1) Benign hypertension Status: Chronic (2) Diabetes mellitus, type II Status: Chronic (3) History of atrial fibrillation Status: Chronic (4) History of herpes zoster Status: Chronic (5) History of renal transplant Status: Chronic Surgical Problems: (1) Status post cholecystectomy Status: Chronic (2) Status post kidney transplant Status: Chronic . Procedures: IV fluids IV meds echo . Pending Studies/Follow-Up: Please check f/u UA after course of antibiotic therapy. . Medication Reconciliation New Medications: Cephalexin Monohydrate (Cephalexin) 500 Mg Cap 500 MG PO TID, #21 CAP Continued Medications: Acetaminophen (Tylenol) 500 Mg Tab 1000 MG PO Q8 PRN for Pain, TAB Amlodipine Besylate (Norvasc) 10 Mg Tab 10 MG PO DAILY, TAB Aspirin (Aspirin Ec) 81 Mg Tab 81 MG PO DAILY Glucagon (Glucagon Emergency Kit) 1 Mg Kit 1 MG INJ UD PRN for HYPOGLYCEMIA PROTOCOL Insulin Aspart (Novolog Flexpen) 100 Units/Ml Inj 0 SQ UD 3 times a day with meals per sliding scale Insulin Glargine (Lantus Solostar) 100 Unit/Ml Inj 0 SQ UD, PEN New dose as of 07/24/16 25 units each morning. Mycophenolate Mofetil (Mycophenolate Mofetil) 250 Mg Cap 250 MG PO Q12 Sirolimus (Rapamune) 1 Mg Tab 1 MG PO DAILY Sotalol Hcl (Sotalol Hcl) 80 Mg Tab 120 MG PO BID Warfarin Sod (Jantoven) 1 Mg Tab 0 PO UD, TAB New dose as of 07/24/16: 1 mg daily. Further instructions per Anticoagulation Clinic. Admission Information HPI (per Admitting provider): HISTORY OF PRESENT COMPLAINT: She is a 71-year-old female with significant past medical history of status post renal transplant, history of paroxysmal atrial fibrillation, diabetes type 2, history of carotid artery stenosis, hyperlipidemia, hypertension and history of recurrent UTI; apparently has been complaining of weakness, tiredness with nausea for the last 1 week or so. She also complained to have feverish feeling at home but did not document the temperature. Her condition has been getting worse for the last day or 2 with increasing pain in the lower abdomen, frequency, dysuria, weakness, and tiredness. She was seen in the ER and noted to have high white count, increased temperature possibly secondary to urinary tract infection. From that point, she was admitted to medical floor. . Physical Exam (per Admitting): GENERAL: On examination in the Emergency Room, she was not having any acute distress. VITAL SIGNS: Temperature 38.9, pulse was 91, blood pressure 150/70, saturation 100% on room air. HEENT: Unremarkable. NECK: Supple. No JVD, no bruit. CHEST: Clear to auscultate bilaterally. HEART: S1, S2 regular. No murmur. ABDOMEN: Soft, benign, tender in the hypogastrium. Renal angles were not tender. Bowel sounds present. RECTAL: Deferred. EXTREMITIES: 1+ edema bilaterally. Peripheral pulses are decreased. MUSCULOSKELETAL SYSTEM: Did not show any acute arthritis involving any joint. CENTRAL NERVOUS SYSTEM: She was alert, awake, oriented x3. No focal sensory and/or motor deficit appreciated. . Hospital Course SEPSIS SECONDARY TO UTI Presented to ED with lower abdominal pain, nausea, vomiting, malaise. Met criteria for sepsis at time of admission per 2001 definition and current CMS guidelines. Temp was 38.9, 91, respirations 24. Hemodynamically stable. WBC count 11,390. Serum lactate 2.76, repeat 1.6. Blood cultures and urine cultures were obtained in ED. Received IV fluids. Received broad-spectrum antibiotic coverage with piperacillin/tazobactam + daptomycin. Urine culture grew pansensitive Escherichia coli. Antibiotic therapy changed to ceftriaxone. Blood cultures negative. Transitioned to oral antibiotic therapy. No quinolones due to antiarrhythmic therapy with sotalol with associated prolonged QT. Probably best to avoid trimethoprim/sulfamethoxazole. Discharge on cephalexin 500 mg 3 times a day to complete 14 days of therapy in light of renal transplant status. S/P RENAL TRANSPLANT Serum creatinine on admission 1.2. Creatinine 07/23 = 0.88. Continue mycophenolate mofetil and sirolimus. PAROXYSMAL ATRIAL FIBRILLATION INR 1.5 at time of admission. Warfarin titrated; INR day of discharge 2.8. INR is rising rapidly, probably due to acute illness and antibiotic therapy. Discharge on warfarin 1 mg daily with close follow-up with Anticoagulation Clinic. Continue sotalol. HYPERTENSION Hemodynamically stable. Continue sotalol and amlodipine. DM TYPE 2 Not well-controlled. Hemoglobin A1c 11.2. Pharmacy consulted to assist with glycemic management. Received Lantus + NovoLog per protocol. Fasting blood sugar day of discharge = 150. Discharge on Lantus 25 units q a.m. + NovoLog per sliding scale. Will need close outpatient follow-up. VTE PROPHYLAXIS On warfarin, but admission INR low. SQ heparin administered until INR was therapeutic. DISPOSITION Expected discharge to home. Family Medicine follow-up with Dr. Renee. Nephrology follow-up with Dr. Colon. . Total time spent on discharge = 40 min. This includes examination of the patient, discharge planning, medication reconciliation, and communication with other providers. . Discharge Instructions Date of Service Jul 24, 2016. Admission Reason for Admission: urinary tract infection . Discharge Discharge Diagnosis / Problem: urinary tract infection Discharge Goals Goal(s): Improve disease control Activity Recommendations Activity Limitations: resume your previous activity . Instructions / Follow-Up Instructions / Follow-Up APPOINTMENTS: FAMILY MEDICINE [facility] 07/30/2016 10:00 AM Dipika Maxwell MD (covering for Dr. Renee) INSTRUCTIONS: You were sick because you had a urinary tract infection. New medications: cephalexin (Keflex) 500 mg 3 times a day (antibiotic for urinary tract infection) (prescription sent to [facility]) Medication changes: warfarin (Coumadin) take 1 mg daily starting today (07/24) further dosing per [facility] Anticoagulation clinic- they will call you with instructions insulin glargine (Lantus) 25 units each morning insulin aspartate (NovoLog) with meals per sliding scale: less than 81 skip dose 81-120 4 units 121-160 6 units 161-200 8 units above 200 10 units Seek medical attention if you have: * temperature above 101 * chest pain or trouble breathing * abdominal pain, nausea, vomiting * diarrhea, dark stools or bloody stools * burning when you urinate or blood in your urine * any unanswered questions or concerns Call 911 if symptoms are severe. Call if you have any questions or problems. My cell # is [phone]. You can also reach a [facility] hospitalist on duty at [facility] 24 hours a day by calling [phone]. Please take good care of yourself. Garcia Berumen . Current Hospital Diet Patient's current hospital diet: Diabetes Type 2 Diet Discharge Diet Recommended Diet: AHA Diet (Heart Healthy), Diabetes Type 2 Diet Pending Studies Studies pending at discharge: no Laboratory Results Hemoglobin A1c Test 07/19/16 07:00 Range/Units Estimated Average Glucose 275 mg/dl Hemoglobin A1c 11.2 H 4.5-5.6 % Medical Emergencies . Who to Call and When: Medical Emergencies: If at any time you feel your situation is an emergency, please call 911 immediately. . Non-Emergent Contact Non-Emergency issues call your: Primary Care Provider, Hospital Doctor . . "Provider Documentation" section prepared by Garcia Berumen. . VTE Core Measure Inpt VTE Proph given/why not?: Warfarin (Coumadin) . Additional Copies To Sweetie Colon MD; Laurel Renee M.D.
[2016-11-27] MEDS ORDERED: AMOX875T PO (15:13)
[2016-11-27] MEDS ORDERED: CMD2 PO (15:13)
== END 2016-07-24 15:23 | disposition home or self-care (01) | DRG 872 ==
LOC: EDBD 11:44 → C.EDC 11:48 → C.MED 14:18 → ENRESERV 14:34 → C.MS2W 07-22 07:25
PROVIDERS: ADMIT Internal Medicine; ATTEND Hospitalist
DX: A41.9 Sepsis, unspecified organism (principal); N39.0 Urinary tract infection, site not specified; Z94.0 Kidney transplant status; B96.20 Unspecified Escherichia coli [E. coli] as the cause of diseases classified elsewhere; R35.0 Frequency of micturition; I10 Essential (primary) hypertension; E78.5 Hyperlipidemia, unspecified; E11.9 Type 2 diabetes mellitus without complications; I48.0 Paroxysmal atrial fibrillation; Z85.41 Personal history of malignant neoplasm of cervix uteri; Z90.49 Acquired absence of other specified parts of digestive tract; Z90.710 Acquired absence of both cervix and uterus; Z79.82 Long term (current) use of aspirin; Z79.899 Other long term (current) drug therapy; Z79.01 Long term (current) use of anticoagulants; Z79.4 Long term (current) use of insulin

== ENCOUNTER 2016-11-22 14:03 | Inpatient (IN) | payer OTHER ==
[~2016-11-22] VITALS: Ht 167.6 cm; Wt 61.9 kg
[~2016-11-22 14:03] MED LIST changes: -INSDGI SC; +INSDGIPEN SQ; +KFL500 PO; -NVLGI SC; +NVLGI/PEN SQ
[2016-11-22] MEDS ORDERED: ONDANSETRON INJ 2 MG/ML 2 ML VIAL IV STA (14:16)
[2016-11-22] MEDS ORDERED: SODIUM CHLORIDE 0.9% 1000ML 1,000 ML IV STA (14:16)
--- NOTE | 2016-11-22 14:20 | EMERGENCY ROOM VISIT NOTE ---
History Report prepared by Amiibkarena: Rossy Cunha Under the Supervision of: Dr. Erwin Hicks D.O. First contact with patient: 14:13 Chief Complaint: URINARY SYMPTOMS Stated Complaint: POSSIBLE UTI,BELLY PAIN,GAS PAIN, WEAKNESS History of Present Illness The patient is a 71 year old female who presents to the Emergency Room with complaints of worsening urinary symptoms for the past 1 week. She complains of cloudy urine and has also experienced back pain, abdominal pain, abdominal bloating, nausea and weakness. She rates her discomfort as a 6/10 in severity. The patient has a history of a kidney transplant and is still on anti-rejection medications. She states "I get like this when I get a UTI". Her last UTI was in July 2016. The patient denies any recent fevers, chills, hematuria. 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 A total of 10 systems reviewed and were otherwise negative. Past Medical & Surgical Medical Problems: (1) Benign hypertension (2) Diabetes mellitus, type II (3) History of atrial fibrillation (4) History of herpes zoster (5) History of renal transplant (6) Sepsis (7) UTI (urinary tract infection) Surgical Problems: (1) S/p cadaver renal transplant (2) Status post cholecystectomy (3) Status post kidney transplant Family History FH: cardiovascular disease Social History Smoking Status: Never Smoker Alcohol Use: none Drug Use: none Marital Status: Housing Status: lives with family Occupation Status: unemployed Current/Historical Medications Scheduled Amlodipine Besylate (Norvasc), 10 MG PO DAILY Aspirin (Aspirin Ec), 81 MG PO DAILY Insulin Aspart (Novolog Flexpen), 0 SQ UD Insulin Glargine (Lantus Solostar), 20 UNITS SQ HS Mycophenolate Mofetil (Mycophenolate Mofetil), 250 MG PO Q12 Sirolimus (Rapamune), 1 MG PO DAILY Sotalol Hcl (Sotalol Hcl), 120 MG PO BID Warfarin Sod (Jantoven), 0 PO UD Scheduled PRN Glucagon (Glucagon Emergency Kit), 1 MG INJ UD PRN for HYPOGLYCEMIA PROTOCOL Allergies Coded Allergies: No Known Allergies (Verified , 11/22/16) Physical Exam Vital Signs Date Time Temp Pulse Resp B/P (MAP) Pulse Ox O2 Delivery O2 Flow Rate FiO2 11/22/16 17:05 80 18 123/65 95 Room Air 11/22/16 16:50 100 Room Air 11/22/16 15:25 68 18 145/71 100 Room Air 11/22/16 14:10 37.4 82 20 115/75 99 Room Air Physical Exam GENERAL: Patient is awake, alert, in no acute distress, patient is resting comfortably and showing no signs of anxiety EYES: The conjunctivae are clear. The pupils are round and reactive. EARS, NOSE, MOUTH AND THROAT: The nose is without any evidence of any deformity. Mucous membranes are moist tongue is midline NECK: The neck is nontender and supple. RESPIRATORY: Normal respiratory effort is noted there is no evidence of wheezing rhonchi or rales CARDIOVASCULAR: Regular rate and rhythm noted there no murmurs rubs or gallops normal S1 normal S2 GASTROINTESTINAL: The abdomen is mildly distended but soft, mild suprapubic tenderness to palpation, no guarding or rigidity. MUSCULOSKELETAL/EXTREMITIES: There is no evidence of gross deformity full range of motion is noted in the hips and shoulders SKIN: There was a dialysis fistula in the LUQ, a bruit is noted to auscultation. There is no obvious evidence of any rash. There are no petechiae, pallor or cyanosis noted. NEUROLOGIC: Patient is awake alert and oriented x3 Medical Decision & Procedures ER Provider Diagnostic Interpretation: Radiology results as stated below per my review and radiologist interpretation: PA CHEST WITH ABDOMINAL SERIES CLINICAL HISTORY: Generalized abdominal pain. Constipation and nausea. Gas. FINDINGS: A PA chest radiograph is compared to study dated 07/18/2016. The heart is enlarged and there is atherosclerotic calcification of the thoracic aorta. The pulmonary vasculature is noncongested. Chronic interstitial thickening is similar to previous. The lungs and pleural spaces are otherwise clear. No pneumothorax is seen. The skeletal structures are osteopenic. The bony thorax is grossly intact. Supine and erect abdominal radiographs are obtained. No prior studies are available for comparison at the time of dictation. Cholecystectomy clips are seen in the right upper quadrant. Surgical clips are also seen in the left upper quadrant and throughout the right hemipelvis. Suture material is also seen in the pelvis. There is a nonobstructed abdominal bowel gas pattern. No evidence of intraperitoneal free air is seen. There are no abnormal abdominal calcifications. There is mild to moderate lumbosacral spondylosis. The lumbosacral spine and bony pelvis appear intact. IMPRESSION: 1. Cardiomegaly with no active disease in the chest. 2. Nonobstructed abdominal bowel gas pattern. Electronically signed by: Cornell Bey M.D. 11/22/2016 3:19 PM Laboratory Results 11/22/16 15:28 Red Blood Count 4.04, Mean Corpuscular Volume 80.0, Mean Corpuscular Hemoglobin 25.7, Mean Corpuscular Hemoglobin Concent 32.2, Mean Platelet Volume 8.4, Neutrophils (%) (Auto) 66.5, Lymphocytes (%) (Auto) 19.7, Monocytes (%) (Auto) 13.2, Eosinophils (%) (Auto) 0.2, Basophils (%) (Auto) 0.0, Neutrophils # (Auto ) 6.03, Lymphocytes # (Auto) 1.79, Monocytes # (Auto) 1.20, Eosinophils # (Auto ) 0.02, Basophils # (Auto) 0.00 Test 11/22/16 14:40 11/22/16 15:28 Urine Color YELLOW Urine Appearance CLOUDY (CLEAR) Urine pH 5.0 (4.5-7.5) Urine Specific [place] 1.017 (1.000-1.030) Urine Protein 2+ (NEG) Urine Glucose (UA) 3+ (NEG) Urine Ketones TRACE (NEG) Urine Occult Blood 1+ (NEG) Urine Nitrite NEG (NEG) Urine Bilirubin NEG (NEG) Urine Urobilinogen NEG (NEG) Urine Leukocyte Esterase LARGE (NEG) Urine WBC (Auto) >30 /hpf (0-5) Urine RBC (Auto) >30 /hpf (0-4) Urine Hyaline Casts (Auto) 1-5 /lpf (0-5) Urine Epithelial Cells (Auto) 0-5 /lpf (0-5) Urine Bacteria (Auto) 4+ (NEG) White Blood Count 9.08 K/uL (4.8-10.8) Red Blood Count 4.04 M/uL (4.2-5.4) Hemoglobin 10.4 g/dL (12.0-16.0) Hematocrit 32.3 % (37-47) Mean Corpuscular Volume 80.0 fL (80-100) Mean Corpuscular Hemoglobin 25.7 pg (25-34) Mean Corpuscular Hemoglobin Concent 32.2 g/dl (32-36) Platelet Count 246 K/uL (130-400) Mean Platelet Volume 8.4 fL (7.4-10.4) Neutrophils (%) (Auto) 66.5 % Lymphocytes (%) (Auto) 19.7 % Monocytes (%) (Auto) 13.2 % Eosinophils (%) (Auto) 0.2 % Basophils (%) (Auto) 0.0 % Neutrophils # (Auto) 6.03 K/uL (1.4-6.5) Lymphocytes # (Auto) 1.79 K/uL (1.2-3.4) Monocytes # (Auto) 1.20 K/uL (0.11-0.59) Eosinophils # (Auto) 0.02 K/uL (0-0.5) Basophils # (Auto) 0.00 K/uL (0-0.2) RDW Standard Deviation 42.0 fL (36.4-46.3) RDW Coefficient of Variation 14.3 % (11.5-14.5) Immature Granulocyte % (Auto) 0.4 % Immature Granulocyte # (Auto) 0.04 K/uL (0.00-0.02) Prothrombin Time 18.3 SECONDS (9.0-12.0) Prothromb Time International Ratio 1.7 (0.9-1.1) Activated Partial Thromboplast Time 31.8 SECONDS (21.0-31.0) Partial Thromboplastin Ratio 1.2 Total Bilirubin 0.5 mg/dl (0.2-1) Direct Bilirubin 0.1 mg/dl (0-0.2) Aspartate Amino Transf (AST/SGOT) 44 U/L (15-37) Alanine Aminotransferase (ALT/SGPT) 21 U/L (12-78) Alkaline Phosphatase 75 U/L (45-117) Troponin I < 0.015 ng/ml (0-0.045) Total Protein 7.6 gm/dl (6.4-8.2) Albumin 2.4 gm/dl (3.4-5.0) Lipase 80 U/L (73-393) Laboratory results per my review. Medications Administered Medications (Trade) Dose Ordered Sig/Sandeep Route Start Time Stop Time Status Last Admin Dose Admin Sodium Chloride 1,000 ml @ 999 mls/hr Q1H1M STAT IV 11/22/16 14:16 11/22/16 15:16 DC 11/22/16 14:16 999 MLS/HR Ondansetron HCl (Zofran Inj) 4 mg NOW STAT IV 11/22/16 14:16 11/22/16 14:17 DC 11/22/16 14:35 4 MG Ceftriaxone Sodium (Rocephin Inj) 1 gm NOW STAT IV 11/22/16 15:08 11/22/16 15:09 DC 11/22/16 15:25 1 GM ECG Indication: weakness Rate (beats per minute): 71 Rhythm: normal sinus Findings: no ectopy, other (no acute ST segments) Change: no significant change (no change from 07/19/16) ED Course 1415: The patient was evaluated in room B5. A complete history and physical examination were performed. 1416: Zofran 4 mg IV, NSS 1000 ml @ 999 mls/hr IV. 1508: Rocephin 1 gm IV. 1510: I reevaluated the patient. She is resting comfortably. 1624: I reevaluated the patient. I discussed her results and my recommendation she remain in the hospital for further evaluation and management and she verbalized complete understanding and agreement. 1626: I discussed the patients case with Dr. Berumen, [facility] Hospitalist. The patient will be further evaluated. Medical Decision Prior records/ancillary studies reviewed. Triage Nursing notes reviewed. The patient's history was concerning for abdominal pain. Differential diagnosis: Etiologies such as appendicitis, diverticulitis, PUD, biliary pathology, UTI, pancreatitis, obstruction, mesenteric ischemia, aortic pathology, infections, inflammatory bowel disease, renal colic, as well as others were entertained. The patient is a 71-year-old female who presented to the emergency department for evaluation of lower abdominal tenderness and cloudy urine. The patient's been having generalized weakness as well. The patient has a history of urinary tract infection and feels that this is similar to episodes that she's had in the past. The patient was treated with IV fluids and IV antibiotics. I reviewed the patient's previous urine culture and she was treated with an antibiotic that would be appropriate at this time. The patient was found have significant hyponatremia. I discussed the patient's laboratory and radiographic studies with her. Because the degree of hyponatremia I discussed her case with the on- call [facility] hospitalist. They have agreed to evaluate the patient in the emergency department for further management and disposition. Medication Reconcilliation Current Medication List: was personally reviewed by me Blood Pressure Screening Patient's blood pressure: Elevated blood pressure Blood pressure disposition: Elevated BP felt to be situational Consults Time Called: 1626 Consulting Physician: Jennifer Locke [facility] Returned Call: 1628 I discussed the patients case with Jennifer Locke [facility]. The patient will be further evaluated. Impression Primary Impression: Weakness Additional Impressions: Hyponatremia UTI (urinary tract infection) History of renal transplant Scribe Attestation The scribe's documentation has been prepared under my direction and personally reviewed by me in its entirety. I confirm that the note above accurately reflects all work, treatment, procedures, and medical decision making performed by me. Departure Information Dispostion Being Evaluated By Hospitalist Referrals Laurel Renee M.D. (PCP) Patient Instructions My [facility] Problem Qualifiers Additional Impressions: UTI (urinary tract infection) Urinary tract infection type: site unspecified Hematuria presence: with hematuria Qualified Codes: N39.0 - Urinary tract infection, site not specified ; R31.9 - Hematuria, unspecified
[2016-11-22 15:00] LABS: URINE APPEARANCE CLOUDY (CLEAR); URINE BILIRUBIN NEG (NEG); URINE COLOR YELLOW; URINE EPITHELIAL CELL AUTO 0-5 /lpf (0-5); URINE NITRITE NEG (NEG); URINE SPECIFIC GRAVITY 1.017 (1.000-1.030); UROBILINOGEN NEG (NEG); ZZURINE CULT IF INDIC CATH YES
[2016-11-22 15:02] LABS: MANUAL MICROSCOPIC REQUIRED? NO; REVIEW REQ? NO
[2016-11-22] MEDS ORDERED: CEFTRIAXONE SOD INJ 1 GM ADDVIAL IV STA (15:08)
--- NOTE | 2016-11-22 15:21 | DIAGNOSTIC IMAGING REPORT ---
PA CHEST WITH ABDOMINAL SERIES CLINICAL HISTORY: Generalized abdominal pain. Constipation and nausea. Gas. FINDINGS: A PA chest radiograph is compared to study dated 07/18/2016. The heart is enlarged and there is atherosclerotic calcification of the thoracic aorta. The pulmonary vasculature is noncongested. Chronic interstitial thickening is similar to previous. The lungs and pleural spaces are otherwise clear. No pneumothorax is seen. The skeletal structures are osteopenic. The bony thorax is grossly intact. Supine and erect abdominal radiographs are obtained. No prior studies are available for comparison at the time of dictation. Cholecystectomy clips are seen in the right upper quadrant. Surgical clips are also seen in the left upper quadrant and throughout the right hemipelvis. Suture material is also seen in the pelvis. There is a nonobstructed abdominal bowel gas pattern. No evidence of intraperitoneal free air is seen. There are no abnormal abdominal calcifications. There is mild to moderate lumbosacral spondylosis. The lumbosacral spine and bony pelvis appear intact. IMPRESSION: 1. Cardiomegaly with no active disease in the chest. 2. Nonobstructed abdominal bowel gas pattern. Electronically signed by: Cornell Bey M.D. 11/22/2016 3:19 PM Dictated Date/Time: 11/22/2016 3:17 PM
[2016-11-22 15:52] LABS: COMPLETE YES; EOS % 0.2 %; HEMATOCRIT 32.3 % (37-47); IG% 0.4 %; LYMPH % 19.7 %; LYMPH ABS # 1.79 K/uL (1.2-3.4); MEAN CORPUSCULAR HEMOGLOBIN 25.7 pg (25-34); MEAN CORPUSCULAR HGB CONC 32.2 g/dl (32-36); MEAN PLATELET VOLUME 8.4 fL (7.4-10.4); MONO % 13.2 %; NEUT % 66.5 %; PLATELET COUNT 246 K/uL (130-400); RED BLOOD COUNT 4.04 M/uL (4.2-5.4); WHITE BLOOD COUNT 9.08 K/uL (4.8-10.8)
[2016-11-22 16:00] LABS: INR 1.7 (0.9-1.1); PARTIAL THROMBOPLASTIN RATIO 1.2; PROTHROMBIN TIME (PATIENT) 18.3 SECONDS (9.0-12.0)
[2016-11-22 16:09] LABS: ALT/SGPT 21 U/L (12-78); AST/SGOT 44 U/L (15-37); BLOOD UREA NITROGEN 13 mg/dl (7-18); BUN/CREATININE RATIO 11.2 (10-20); CALCIUM 8.9 mg/dl (8.5-10.1); CARBON DIOXIDE 24 mmol/L (21-32); CHLORIDE 86 mmol/L (98-107); GLUCOSE 260 mg/dl (70-99); POTASSIUM 3.8 mmol/L (3.5-5.1); SODIUM 122 mmol/L (136-145)
[2016-11-22 16:14] LABS: ALKALINE PHOSPHATASE 75 U/L (45-117)
[2016-11-22 16:50] VITALS: O2SAT 100; BMI 22.6
--- NOTE | 2016-11-22 17:24 | History and Physical ---
History & Physical Date & Time of Service: Nov 22, 2016 at 17:24 . Chief Complaint: nausea, burning with urination . Primary Care Physician: Laurel Renee M.D. . History of Present Illness Source: patient, clinic records, hospital records 71 YO female followed by Dr. Renee for Family Medicine and Dr. Keshawn Reardon for Nephrology. History of atrial fibrillation, hypertension, CKD / renal transplant, and other problems as noted below. Doing well until 4 days prior to admission when she experienced nausea. The next day she noted dysuria and increasing malaise. She thought that she might be developing a UTI, so she drank extra fluids. No fever, chills, sweats. No flank pain or abdominal pain. No vomiting or diarrhea. No hematuria. [place] worse today, so she came to ED for evaluation. . Past Medical/Surgical History Medical Problems: (1) Benign hypertension Status: Chronic (2) Diabetes mellitus, type II Status: Chronic (3) History of atrial fibrillation Status: Chronic (4) History of herpes zoster Status: Chronic (5) History of renal transplant Status: Chronic Surgical Problems: (1) Status post cholecystectomy Status: Chronic (2) Status post kidney transplant Status: Chronic . Family History FATHER Dementia MOTHER Diabetes mellitus Hypertension GRANDFATHER Diabetes mellitus Social History Smoking Status: Never Smoker Alcohol Use: none Drug Use: none Marital Status: Occupational Status: unemployed Immunizations History of Influenza Vaccine: Yes History of Tetanus Vaccine?: Yes Tetanus Immunization Date: Sep 05, 2006 History of Pneumococcal: Yes Pneumococcal Date: Sep 06, 2007 History of Hepatitis B Vaccine: Yes Hepatitis Immunization Date: Oct 24, 2007 Multi-Drug Resistant Organisms History of MDRO: No Allergies Coded Allergies: No Known Allergies (Verified , 11/22/16) Home Medications Scheduled Amlodipine Besylate (Norvasc), 10 MG PO DAILY Aspirin (Aspirin Ec), 81 MG PO DAILY Insulin Aspart (Novolog Flexpen), 0 SQ UD Insulin Glargine (Lantus Solostar), 20 UNITS SQ HS Mycophenolate Mofetil (Mycophenolate Mofetil), 250 MG PO Q12 Sirolimus (Rapamune), 1 MG PO DAILY Sotalol Hcl (Sotalol Hcl), 120 MG PO BID Warfarin Sod (Jantoven), 0 PO UD Scheduled PRN Glucagon (Glucagon Emergency Kit), 1 MG INJ UD PRN for HYPOGLYCEMIA PROTOCOL Review of Systems Constitutional- no fever; no weight loss Eyes- no acute visual changes ENT- no sinus drainage; no pharyngitis Pulmonary- no cough, no wheezing, no shortness of breath Cardiac- no chest pain, no palpitations,no dependent edema GI- as noted above in HPI - as noted above in HPI Musculoskeletal- chronic ankle pain Derm- no rashes, no new skin lesions, no changing skin lesions Hematologic- no unusual bruising, no unusual bleeding Lymphatics- no adenopathy Endocrine- no polyuria or polydipsia; blood sugars high at times Neuro- no headaches, mild diabetic neuropathy . Physical Exam Vital Signs Date Time Temp Pulse Resp B/P (MAP) Pulse Ox O2 Delivery O2 Flow Rate FiO2 11/22/16 17:05 80 18 123/65 95 Room Air 11/22/16 16:50 100 Room Air 11/22/16 15:25 68 18 145/71 100 Room Air 11/22/16 14:10 37.4 82 20 115/75 99 Room Air General Appearance: WD/WN, no apparent distress Head: normocephalic, atraumatic Eyes: normal inspection, PERRL, EOMI, sclerae normal (conjunctivae and lids normal) ENT: normal ENT inspection, hearing grossly normal, pharynx normal Neck: supple, no adenopathy, thyroid normal, trachea midline Respiratory/Chest: lungs clear, no respiratory distress, no accessory muscle use Cardiovascular: no edema, no gallop, + irregularly irregular, + pertinent finding (loud systolic murmur vs transmitted bruit from AV fistula) Abdomen/GI: normal bowel sounds, non tender, soft, no organomegaly, no pulsatile mass Extremities/Musculoskelatal: no calf tenderness, normal capillary refill, no pedal edema, + pertinent finding (AV fistula LUE) 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 (PERRL, EOMI, no facial palsy, no dysarthria), no motor/sensory deficits (motor strength upper and lower extremities grossly intact; slight decreased sensation light touch feet), alert , normal mood/affect, normal reflexes (patellar DTR's 2/2; plantar reflexes downgoing), oriented x 3 Skin: normal color, warm/dry, no rash Lymphatic: no adenopathy (cervical) Diagnostics Laboratory Results Results Past 24 Hours Test 11/22/16 14:40 10/14/17 15:28 Range/Units Urine Color YELLOW Urine Appearance CLOUDY CLEAR Urine pH 5.0 4.5-7.5 Urine Specific [place] 1.017 1.000-1.030 Urine Protein 2+ NEG Urine Glucose (UA) 3+ NEG Urine Ketones TRACE NEG Urine Occult Blood 1+ NEG Urine Nitrite NEG NEG Urine Bilirubin NEG NEG Urine Urobilinogen NEG NEG Urine Leukocyte Esterase LARGE NEG Urine WBC (Auto) >30 0-5 /hpf Urine RBC (Auto) >30 0-4 /hpf Urine Hyaline Casts (Auto) 1-5 0-5 /lpf Urine Epithelial Cells (Auto) 0-5 0-5 /lpf Urine Bacteria (Auto) 4+ NEG White Blood Count 9.08 4.8-10.8 K/uL Red Blood Count 4.04 4.2-5.4 M/uL Hemoglobin 10.4 12.0-16.0 g/dL Hematocrit 32.3 37-47 % Mean Corpuscular Volume 80.0 80-100 fL Mean Corpuscular Hemoglobin 25.7 25-34 pg Mean Corpuscular Hemoglobin Concent 32.2 32-36 g/dl Platelet Count 246 130-400 K/uL Mean Platelet Volume 8.4 7.4-10.4 fL Neutrophils (%) (Auto) 66.5 % Lymphocytes (%) (Auto) 19.7 % Monocytes (%) (Auto) 13.2 % Eosinophils (%) (Auto) 0.2 % Basophils (%) (Auto) 0.0 % Neutrophils # (Auto) 6.03 1.4-6.5 K/uL Lymphocytes # (Auto) 1.79 1.2-3.4 K/uL Monocytes # (Auto) 1.20 0.11-0.59 K/uL Eosinophils # (Auto) 0.02 0-0.5 K/uL Basophils # (Auto) 0.00 0-0.2 K/uL RDW Standard Deviation 42.0 36.4-46.3 fL RDW Coefficient of Variation 14.3 11.5-14.5 % Immature Granulocyte % (Auto) 0.4 % Immature Granulocyte # (Auto) 0.04 0.00-0.02 K/uL Prothrombin Time 18.3 9.0-12.0 SECONDS Prothromb Time International Ratio 1.7 0.9-1.1 Activated Partial Thromboplast Time 31.8 21.0-31.0 SECONDS Partial Thromboplastin Ratio 1.2 Sodium Level 122 136-145 mmol/L Potassium Level 3.8 3.5-5.1 mmol/L Chloride Level 86 98-107 mmol/L Carbon Dioxide Level 24 21-32 mmol/L Anion Gap 12.0 3-11 mmol/L Blood Urea Nitrogen 13 7-18 mg/dl Creatinine 1.20 0.60-1.20 mg/dl Est Creatinine Clear Calc Drug Dose 39.6 ml/min Estimated GFR () 52.3 Estimated GFR (Non- 45.1 BUN/Creatinine Ratio 11.2 10-20 Random Glucose 260 70-99 mg/dl Calcium Level 8.9 8.5-10.1 mg/dl Total Bilirubin 0.5 0.2-1 mg/dl Direct Bilirubin 0.1 0-0.2 mg/dl Aspartate Amino Transf (AST/SGOT) 44 15-37 U/L Alanine Aminotransferase (ALT/SGPT) 21 12-78 U/L Alkaline Phosphatase 75 45-117 U/L Troponin I < 0.015 0-0.045 ng/ml Total Protein 7.6 6.4-8.2 gm/dl Albumin 2.4 3.4-5.0 gm/dl Lipase 80 73-393 U/L Microbiology Results 11/22/16 Urine Culture, Received Pending Diagnostic Radiology PA CHEST WITH ABDOMINAL SERIES FINDINGS: A PA chest radiograph is compared to study dated 07/18/2016. The heart is enlarged and there is atherosclerotic calcification of the thoracic aorta. The pulmonary vasculature is noncongested. Chronic interstitial thickening is similar to previous. The lungs and pleural spaces are otherwise clear. No pneumothorax is seen. The skeletal structures are osteopenic. The bony thorax is grossly intact. Supine and erect abdominal radiographs are obtained. No prior studies are available for comparison at the time of dictation. Cholecystectomy clips are seen in the right upper quadrant. Surgical clips are also seen in the left upper quadrant and throughout the right hemipelvis. Suture material is also seen in the pelvis. There is a nonobstructed abdominal bowel gas pattern. No evidence of intraperitoneal free air is seen. There are no abnormal abdominal calcifications. There is mild to moderate lumbosacral spondylosis. The lumbosacral spine and bony pelvis appear intact. IMPRESSION: 1. Cardiomegaly with no active disease in the chest. 2. Nonobstructed abdominal bowel gas pattern. Electronically signed by: Cornell Bey M.D. 11/22/2016 3:19 PM Dictated Date/Time: 11/22/2016 3:17 PM . EKG EKG performed at 14:24 reviewed and demonstrated NSR at 70 / minute, No acute ST or T-wave changes. . Impression Assessment and Plan UTI Experiencing dysuria, nausea, malaise. Does not appear to be septic. UA shows WBC's, RBC's, and bacteria. Urine culture obtained in ED and therapy with IV ceftriaxone initiated. HYPONATREMIA Serum Na 122, compared to 140 on 09/12/16. Patient pushing fluids this week because of urinary symptoms. IV NSS. Monitor Na; avoid overly-rapid correction. PAROXYSMAL ATRIAL FIBRILLATION EKG in July showed NSR. EKG today at 14:24 showed NSR, but patient was in AF at time of my assessment in ED> Monitor on telemetry. Continue sotalol and warfarin. Follow / correct electrolyte abnormalities. Consult Cardiology if ongoing concerns. HYPERTENSION Continue sotalol and amlodipine. Follow and titrate therapy. STATUS POST RENAL TRANSPLANT Status post cadaveric transplant 9 years ago. Baseline creatinine 1.0 in September. Creatinine now 1.2. Continue sirolimus. Maintain adequate hydration. Follow. DM TYPE 2 Blood sugars well-controlled at home. Check Hgb A1C. Lantus / NovoLog per protocol. VTE PROPHYLAXIS On warfarin with subtherapeutic INR. SQ heparin until INR therapeutic. Ambulate. RESUSCITATION STATUS Discussed with patient. She has a living will. She would like resuscitation attempted in the event of a cardiopulmonary arrest if there is a reasonable chance of a meaningful recovery, but does not want prolonged extraordinary measures if prognosis is poor. Therefore, code status = "Level 1" (full resuscitation). DISPOSITION Admit to Telemetry Unit. Expected discharge to home. Family Medicine follow-up with Dr. Renee. Nephrology follow-up with Dr. Keshawn Reardon. . Advanced Directives Existing Living Will: No Existing Power of Sticker On: No VTE Prophylaxis VTE Risk Assessment Done? Y/N: Yes Risk Level: Moderate Given or contraindicated: Unfractionated heparin SQ, Warfarin (Coumadin) Additional Copies To Keshawn Reardon M.D.
[2016-11-22 19:03] VITALS: BP 137/71; PULSE 81; TEMP 36.7; O2SAT 98
[2016-11-22] MEDS ORDERED: GLUCAGON FOR INJ 1 MG VIAL SQ PRN (19:15)
[2016-11-22] MEDS ORDERED: GLUCOSE 10 TABS/TUBE PO PRN (19:15)
[2016-11-22] MEDS ORDERED: GLUCOSE 40% GEL 15 GM TUBE PO PRN (19:15)
[2016-11-22] MEDS ORDERED: DEXTROSE 50% 50 ML SYR IV PRN (19:15)
[2016-11-22 19:51] VITALS: BP 106/59; PULSE 80; TEMP 36.9; O2SAT 96
[2016-11-22] MEDS: SODIUM CHLORIDE 0.9% 1000ML 1,000 ML IV SCH (20:00)
[2016-11-22] MEDS ORDERED: WARFARIN SOD 2 MG TAB PO ONE (20:00)
[2016-11-22] MEDS: SOTALOL HCL 80 MG TAB PO SCH (20:33)
[2016-11-22] MEDS: WARFARIN SOD 1 MG TAB PO SCH (20:35)
[2016-11-22 20:36] LABS: BUN/CREATININE RATIO 11.4 (10-20); CALCIUM 8.8 mg/dl (8.5-10.1); CREATININE 1.1 mg/dl (0.60-1.20); POTASSIUM 3.6 mmol/L (3.5-5.1)
[2016-11-22] MEDS: MYCOPHENOLATE MOFETIL 250 MG CAP (CELLCEPT) PO SCH (20:40)
[2016-11-22] MEDS: HEPARIN SOD 5000 UNIT/0.5 ML CARP SQ SCH (20:41)
[2016-11-22] MEDS ORDERED: INSULIN GLARGINE SOLOSTAR 100 UNITS/ML 3 ML PEN SQ SCH (21:00)
[2016-11-22] MEDS ORDERED: INSULIN ASPART 100 UNITS/ML 3 ML PEN SC SCH (21:00)
[2016-11-22] MEDS ORDERED: POTASSIUM CHLORIDE 20 MEQ TABCR PO ONE (21:15)
[2016-11-22 22:59] VITALS: BP 136/72; PULSE 58; TEMP 36.9; O2SAT 97
[2016-11-22] MEDS ORDERED: INSULIN PROTOCOL GOAL RANGE ONE (23:30)
[2016-11-22] MEDS ORDERED: MODERATE STRESS LEVEL ONE (23:30)
[2016-11-23] VITALS (11 sets, daily range): BP systolic 114–137; BP diastolic 55–68; PULSE 58–76; TEMP 36.6–37; O2SAT 95–100
[2016-11-23] MEDS ORDERED: INSULIN IV INFUSION PROTOCOL SCH (00:03)
[2016-11-23] MEDS ORDERED: PHARMACY GLYCEMIC MGMT CONSULT PRN (00:05)
[2016-11-23] MEDS ORDERED: INSULIN ASPART 100 UNITS/ML 3 ML PEN SC ONE (01:00)
[2016-11-23] MEDS ORDERED: INSULIN REGULAR 250 UNITS in SODIUM CHLORIDE 0.9% 250ML 250 ML IV SCH (02:15)
[2016-11-23] MEDS ORDERED: INSULIN HUMAN REGULAR IV BOLUS 1.5 UNIT in SYRINGE 0 ML IV SCH (02:15)
[2016-11-23] MEDS: SODIUM CHLORIDE 0.9% 1000ML 1,000 ML IV SCH ×2 (05:39→16:00)
[2016-11-23 06:06] LABS: INR 1.5 (0.9-1.1); PROTHROMBIN TIME (PATIENT) 16.7 SECONDS (9.0-12.0)
[2016-11-23 06:28] LABS: BUN/CREATININE RATIO 10.8 (10-20); CALCIUM 9.1 mg/dl (8.5-10.1); CREATININE 1.2 mg/dl (0.60-1.20); POTASSIUM 3.6 mmol/L (3.5-5.1)
[2016-11-23] MEDS: SOTALOL HCL 80 MG TAB PO SCH ×2 (07:27→20:19)
[2016-11-23] MEDS: ASPIRIN 81 MG ECTAB PO SCH (07:28)
[2016-11-23] MEDS: AMLODIPINE BESYLATE 5 MG TAB PO SCH (07:28)
[2016-11-23] MEDS: MYCOPHENOLATE MOFETIL 250 MG CAP (CELLCEPT) PO SCH ×2 (07:28→20:17)
[2016-11-23] MEDS: SIROLIMUS 0.5 MG TAB PO SCH (07:29)
[2016-11-23] MEDS ORDERED: INSULIN ASPART 100 UNITS/ML 3 ML PEN SC SCH (08:00)
[2016-11-23] MEDS ORDERED: INSULIN GLARGINE SOLOSTAR 100 UNITS/ML 3 ML PEN SQ ONE (09:00)
[2016-11-23] MEDS: HEPARIN SOD 5000 UNIT/0.5 ML CARP SQ SCH ×2 (09:00→20:32)
[2016-11-23] MEDS ORDERED: PHARMACY GLYCEMIC MGMT CONSULT STA (09:19)
--- NOTE | 2016-11-23 09:37 | Pharmacy Progress Note ---
Glycemic Control Intl Consult Date of Service Nov 23, 2016. Scope Glycemic Pharmacist consulted by Dr Bonds on 11/23/16 for glycemic control and to write orders per [facility] inpatient glycemic control protocol Objective Weight (Kilograms): 61.000 Accuchecks BSG (last 24hrs): Test 11/22/16 15:28 11/22/16 20:05 11/22/16 20:47 11/23/16 03:45 Random Glucose 260 mg/dl (70-99) 280 mg/dl (70-99) Bedside Glucose 369 mg/dl (70-90) 161 mg/dl (70-90) Test 11/23/16 04:53 11/23/16 05:25 11/23/16 05:57 11/23/16 06:59 Bedside Glucose 172 mg/dl (70-90) 157 mg/dl (70-90) 168 mg/dl (70-90) Random Glucose 162 mg/dl (70-99) Laboratory Data (last 24hrs) Test 11/22/16 15:28 11/22/16 20:05 11/23/16 05:25 Anion Gap 12.0 mmol/L 10.0 mmol/L 9.0 mmol/L BUN/Creatinine Ratio 11.2 11.4 10.8 Blood Urea Nitrogen 13 mg/dl 13 mg/dl 13 mg/dl Creatinine 1.20 mg/dl 1.10 mg/dl 1.20 mg/dl Potassium Level 3.8 mmol/L 3.6 mmol/L 3.6 mmol/L Sodium Level 122 mmol/L 125 mmol/L 127 mmol/L White Blood Count 9.08 K/uL Red Blood Count 4.04 M/uL Hemoglobin 10.4 g/dL Hematocrit 32.3 % Mean Corpuscular Volume 80.0 fL Mean Corpuscular Hemoglobin 25.7 pg Mean Corpuscular Hemoglobin Concent 32.2 g/dl Platelet Count 246 K/uL Mean Platelet Volume 8.4 fL Neutrophils (%) (Auto) 66.5 % Lymphocytes (%) (Auto) 19.7 % Monocytes (%) (Auto) 13.2 % Eosinophils (%) (Auto) 0.2 % Basophils (%) (Auto) 0.0 % Neutrophils # (Auto) 6.03 K/uL Lymphocytes # (Auto) 1.79 K/uL Monocytes # (Auto) 1.20 K/uL Eosinophils # (Auto) 0.02 K/uL Basophils # (Auto) 0.00 K/uL HbA1c Test 11/23/16 05:25 Recent Pertinent Medications Outpatient Anti-diabetic Regimen: * Lantus 20 units qHS * Novolog TID per sliding scale * A1c = 11.2 % 07/19/16 (updated one currently pending) The patient is currently receiving: * Basal/correctional insulin: Lantus 20 units x 1 last night + insulin drip at 0.6 units/hr * Prandial insulin: Per carb ratio based on insulin drip calculator Risk Factors for Insulin Resistance: * Infection: UTI * Diet: full liquid - consumed 18 gm CHO this AM Assessment & Plan ASSESSMENT: * 71 y/o female, known to the pharmacy glycemic service, admitted for UTI and hyponatremia * BSGs were somewhat elevated on admission but increased to close to 400 mg/dL last night so the plan was transition to an insulin drip - this was started ~ 0400 and has been at a consistent rate of 0.6 units/hr (equivalent to 14 units/ day) * With drip rates being so low and BSGs more controlled, will transition back to SQ at this point, giving additional basal to act as a load * Previous basal doses on admission have been between 22-25 units/day * Previous CF/CR that worked well was 20 so will plan to initiate this as well * Updated A1c is pending. Once available, this will help to guide recommendations for discharge PLAN FOR INPATIENT GLYCEMIC CONTROL: * Additional Lantus 5 units x 1 now * D/C insulin drip - no need to overlap due to low gtt rates and patient rec'd a dose of Lantus last night * Novolog ACHS * Goal 120-150 * CF 20 * CR 7 * Please note that the plan above was derived based on current level of insulin resistance and hospital stress. These recommendations are appropriate for inpatient admission only. Plan of care upon discharge will need to be reassessed to avoid potential outpatient hypo/hyperglycemia. Thank you.
--- NOTE | 2016-11-23 09:44 | Progress Note ---
Subjective Date of Service: Nov 23, 2016. Subjective Pt evaluation today including: conversation w/ patient, physical exam, lab review, review of studies, review of inpatient medication list Saw/examined the patient in room 236 No problems/issues to note Presented with dysuria, which is improving No fevers/chills, no nausea/vomiting/diarrhea Problem List Medical Problems: (1) Fever Status: Acute (2) Hyperglycemia Status: Acute (3) Hyponatremia Status: Acute (4) UTI (urinary tract infection) Status: Acute (5) Weakness Status: Acute Social History Problems: (1) History of renal transplant Status: Acute Review of Systems Constitutional: No fever, No chills Respiratory: No shortness of breath Cardiac: No chest pain Abdomen: No pain, No nausea, No vomiting, No diarrhea Female : + dysuria (improving), No urinary frequency, No hematuria Heme: No abnormal bleeding/bruising Medications Current Inpatient Medications Medications (Trade) Dose Ordered Sig/Sandeep Route Start Time Stop Time Status Last Admin Dose Admin Heparin Sodium (Porcine) (Heparin Sq 5000 Unit/0.5ml) 5,000 unit Q12 SQ 11/22/16 21:00 12/22/16 20:59 11/22/16 20:41 5,000 UNIT Acetaminophen (Tylenol Tab) 650 mg Q4H PRN PO 11/22/16 17:30 12/22/16 17:29 Amlodipine Besylate (Norvasc Tab) 10 mg DAILY PO 11/23/16 09:00 12/23/16 08:59 11/23/16 07:28 10 MG Aspirin (Ecotrin Tab) 81 mg DAILY PO 11/23/16 09:00 12/23/16 08:59 11/23/16 07:28 81 MG Mycophenolate Mofetil (Cellcept Cap) 250 mg Q12 PO 11/22/16 21:00 12/22/16 20:59 11/23/16 07:28 250 MG Sotalol HCl (Betapace Tab) 120 mg BID PO 11/22/16 21:00 12/22/16 20:59 11/23/16 07:27 120 MG Warfarin Sodium (Coumadin Tab) 1 mg DAILY@1600 PO 11/23/16 16:00 12/23/16 15:59 Sirolimus (Sirolimus) 1 mg DAILY PO 11/23/16 09:00 12/23/16 08:59 11/23/16 07:29 1 MG Glucose (Glucose 40% Gel) 15-30 GRAMS 15 GRAMS... UD PRN PO 11/22/16 19:15 12/22/16 19:14 Glucose (Glucose Chew Tab) 4-8 Tablets 4 Tabl... UD PRN PO 11/22/16 19:15 12/22/16 19:14 Dextrose (Dextrose 50% 50ML Syringe) 25-50ML OF 50% DW IV FOR... UD PRN IV 11/22/16 19:15 12/22/16 19:14 Glucagon (Glucagon Inj) 1 mg UD PRN SQ 11/22/16 19:15 12/22/16 19:14 Miscellaneous Information (Pending Order) 1 ea DAILY@10 N/A 11/23/16 10:00 12/23/16 09:59 11/23/16 09:28 1 EA Sodium Chloride 1,000 ml @ 100 mls/hr Q10H IV 11/22/16 20:00 12/22/16 19:59 11/23/16 05:39 100 MLS/HR Ceftriaxone Sodium 1 gm/ Dextrose 50 ml @ 100 mls/hr DAILY@1500 IV 11/23/16 15:00 12/01/16 15:29 Miscellaneous Information (Consult Glycemic Management Pharmacy) 1 ea UD PRN N/A 11/23/16 00:05 12/23/16 00:04 Insulin Aspart (novoLOG ASPART) SLIDING SCALE ACHS SC 11/23/16 11:00 12/23/16 10:59 Insulin Glargine (Lantus Solostar Pen) 20 units HS SQ 11/23/16 21:00 12/23/16 20:59 Objective Vital Signs Date Time Temp Pulse Resp B/P (MAP) Pulse Ox O2 Delivery O2 Flow Rate FiO2 11/23/16 08:15 99 Room Air 11/23/16 08:14 36.6 64 18 136/67 (90) 99 Room Air 11/23/16 04:00 97 Room Air 11/23/16 03:03 37.0 58 19 117/57 (77) 96 Room Air 11/23/16 00:00 97 Room Air 11/22/16 22:59 36.9 58 18 136/72 (93) 97 Room Air 11/22/16 19:51 36.9 80 18 106/59 (75) 96 Room Air 11/22/16 19:03 36.7 81 16 137/71 (93) 98 Room Air 11/22/16 18:08 79 18 133/71 97 Room Air 11/22/16 17:05 80 18 123/65 95 Room Air 11/22/16 16:50 100 Room Air 11/22/16 15:25 68 18 145/71 100 Room Air 11/22/16 14:10 37.4 82 20 115/75 99 Room Air Physical Exam General Appearance: no apparent distress Respiratory/Chest: chest non-tender, lungs clear, normal breath sounds, no respiratory distress, no accessory muscle use Cardiovascular: regular rate, rhythm, no edema, + systolic murmur (loud, blowing systolic murmur; AV fistula) Extremities: normal inspection, no pedal edema Laboratory Results Last 24 Hours Test 11/22/16 14:40 11/22/16 15:28 11/22/16 20:05 11/22/16 20:47 Urine Color YELLOW Urine Appearance CLOUDY Urine pH 5.0 Urine Specific [place] 1.017 Urine Protein 2+ Urine Glucose (UA) 3+ Urine Ketones TRACE Urine Occult Blood 1+ Urine Nitrite NEG Urine Bilirubin NEG Urine Urobilinogen NEG Urine Leukocyte Esterase LARGE Urine WBC (Auto) >30 /hpf Urine RBC (Auto) >30 /hpf Urine Hyaline Casts (Auto) 1-5 /lpf Urine Epithelial Cells (Auto) 0-5 /lpf Urine Bacteria (Auto) 4+ White Blood Count 9.08 K/uL Red Blood Count 4.04 M/uL Hemoglobin 10.4 g/dL Hematocrit 32.3 % Mean Corpuscular Volume 80.0 fL Mean Corpuscular Hemoglobin 25.7 pg Mean Corpuscular Hemoglobin Concent 32.2 g/dl Platelet Count 246 K/uL Mean Platelet Volume 8.4 fL Neutrophils (%) (Auto) 66.5 % Lymphocytes (%) (Auto) 19.7 % Monocytes (%) (Auto) 13.2 % Eosinophils (%) (Auto) 0.2 % Basophils (%) (Auto) 0.0 % Neutrophils # (Auto) 6.03 K/uL Lymphocytes # (Auto) 1.79 K/uL Monocytes # (Auto) 1.20 K/uL Eosinophils # (Auto) 0.02 K/uL Basophils # (Auto) 0.00 K/uL RDW Standard Deviation 42.0 fL RDW Coefficient of Variation 14.3 % Immature Granulocyte % (Auto) 0.4 % Immature Granulocyte # (Auto) 0.04 K/uL Prothrombin Time 18.3 SECONDS Prothromb Time International Ratio 1.7 Activated Partial Thromboplast Time 31.8 SECONDS Partial Thromboplastin Ratio 1.2 Sodium Level 122 mmol/L 125 mmol/L Potassium Level 3.8 mmol/L 3.6 mmol/L Chloride Level 86 mmol/L 89 mmol/L Carbon Dioxide Level 24 mmol/L 25 mmol/L Anion Gap 12.0 mmol/L 10.0 mmol/L Blood Urea Nitrogen 13 mg/dl 13 mg/dl Creatinine 1.20 mg/dl 1.10 mg/dl Est Creatinine Clear Calc Drug Dose 39.6 ml/min 43.2 ml/min Estimated GFR () 52.3 58.1 Estimated GFR (Non- 45.1 50.1 BUN/Creatinine Ratio 11.2 11.4 Random Glucose 260 mg/dl 280 mg/dl Calcium Level 8.9 mg/dl 8.8 mg/dl Total Bilirubin 0.5 mg/dl Direct Bilirubin 0.1 mg/dl Aspartate Amino Transf (AST/SGOT) 44 U/L Alanine Aminotransferase (ALT/SGPT) 21 U/L Alkaline Phosphatase 75 U/L Troponin I < 0.015 ng/ml Total Protein 7.6 gm/dl Albumin 2.4 gm/dl Lipase 80 U/L Magnesium Level 2.0 mg/dl Bedside Glucose 369 mg/dl Test 11/23/16 03:45 11/23/16 04:53 11/23/16 05:25 11/23/16 05:57 Bedside Glucose 161 mg/dl 172 mg/dl 157 mg/dl Prothrombin Time 16.7 SECONDS Prothromb Time International Ratio 1.5 Sodium Level 127 mmol/L Potassium Level 3.6 mmol/L Chloride Level 91 mmol/L Carbon Dioxide Level 28 mmol/L Anion Gap 9.0 mmol/L Blood Urea Nitrogen 13 mg/dl Creatinine 1.20 mg/dl Est Creatinine Clear Calc Drug Dose 39.6 ml/min Estimated GFR () 52.3 Estimated GFR (Non- 45.1 BUN/Creatinine Ratio 10.8 Random Glucose 162 mg/dl Calcium Level 9.1 mg/dl Test 11/23/16 06:59 Bedside Glucose 168 mg/dl Assessment and Plan This is a 71 year old female with a PMH of insulin dependent DM2; hx. of renal transplantation on immunosuppressives, paroxysmal atrial fibrillation on long- term anticoagulation, HTN, HLD, recurrent UTIs presented with UTI Urinary Tract Infection urine culture growing two gram-negative bacilli patient states her symptoms are subsiding (dysuria) at this point, we will continue Rocephin until sensitivities return Hyponatremia likely secondary to infection and dehydration at baseline, her sodium level is normal Na is improving to 127; continue fluids and we will monitor BMP daily Insulin Dependent DM2 Ha1c is pending last Ha1c was from one year prior at it was > 8 BSGs >350 last evening - was started on an insulin drip will consult pharmacy to transition back to subq insulin Paroxysmal A. Fib currently in NSR continue sotalol and Coumadin INR is subtherapeutic, monitor and adjust accordingly Hx. of Renal Transplant continue immunosuppressives (CellCept + Sirolimus) HTN BP stable; continue amlodipine KATIA-I intolerance noted on chart DVT ppx subq heparin + Coumadin FULL CODE
[2016-11-23] MEDS: INSULIN ASPART 100 UNITS/ML 3 ML PEN SC SCH ×3 (12:27→20:31)
[2016-11-23] MEDS: WARFARIN SOD 1 MG TAB PO SCH (16:42)
[2016-11-23] MEDS: CEFTRIAXONE SOD INJ 1 GM in DEXTROSE 5% ADD-VANTAGE 50ML 50 ML IV SCH (16:42)
[2016-11-23] MEDS: ACETAMINOPHEN 325 MG TAB PO PRN (20:17)
[2016-11-23] MEDS: INSULIN GLARGINE SOLOSTAR 100 UNITS/ML 3 ML PEN SQ SCH (20:30)
[2016-11-24] VITALS (14 sets, daily range): BP systolic 112–177; BP diastolic 60–70; PULSE 57–76; TEMP 36.4–37.3; O2SAT 91–100; Ht 167.6 cm; Wt 61.9 kg
[2016-11-24] MEDS: SODIUM CHLORIDE 0.9% 1000ML 1,000 ML IV SCH ×3 (02:00→23:02)
[2016-11-24 06:36] LABS: ESTIMATED AVERAGE GLUCOSE 212 mg/dl; HA1C FLAG Normal (Normal)
[2016-11-24 06:59] LABS: HEMATOCRIT 32.9 % (37-47); MEAN CORPUSCULAR HEMOGLOBIN 25.9 pg (25-34); MEAN CORPUSCULAR HGB CONC 31.6 g/dl (32-36); MEAN PLATELET VOLUME 8.6 fL (7.4-10.4); PLATELET COUNT 249 K/uL (130-400); RED BLOOD COUNT 4.01 M/uL (4.2-5.4); WHITE BLOOD COUNT 6.86 K/uL (4.8-10.8)
[2016-11-24 07:09] LABS: INR 1.2 (0.9-1.1); PROTHROMBIN TIME (PATIENT) 12.9 SECONDS (9.0-12.0)
[2016-11-24 07:46] LABS: CALCIUM 8.5 mg/dl (8.5-10.1); CREATININE 0.87 mg/dl (0.60-1.20); POTASSIUM 4.1 mmol/L (3.5-5.1)
[2016-11-24] MEDS ORDERED: WARFARIN SOD 5 MG TAB PO ONE (08:00)
[2016-11-24] MEDS: INSULIN ASPART 100 UNITS/ML 3 ML PEN SC SCH ×4 (08:06→20:31)
[2016-11-24] MEDS: SIROLIMUS 0.5 MG TAB PO SCH (08:58)
[2016-11-24] MEDS: AMLODIPINE BESYLATE 5 MG TAB PO SCH (08:59)
[2016-11-24] MEDS: ASPIRIN 81 MG ECTAB PO SCH (08:59)
[2016-11-24] MEDS: MYCOPHENOLATE MOFETIL 250 MG CAP (CELLCEPT) PO SCH ×2 (08:59→20:30)
[2016-11-24] MEDS ORDERED: INSULIN GLARGINE SOLOSTAR 100 UNITS/ML 3 ML PEN SC ONE (09:00)
[2016-11-24] MEDS: HEPARIN SOD 5000 UNIT/0.5 ML CARP SQ SCH ×3 (09:00→20:32)
[2016-11-24] MEDS: SOTALOL HCL 80 MG TAB PO SCH ×2 (09:00→20:30)
--- NOTE | 2016-11-24 09:01 | Pharmacy Progress Note ---
Glycemic Control Progress Note Date of Service Nov 24, 2016. Scope Glycemic Pharmacist consulted for glycemic control to write orders per [facility] inpatient glycemic control protocol. Objective Accuchecks BSG (last 24hrs): Test 11/23/16 09:03 11/23/16 10:11/23/16 11:08 11/23/16 15:59 Bedside Glucose 215 mg/dl (70-90) 251 mg/dl (70-90) 266 mg/dl (70-90) 122 mg/dl (70-90) Test 11/23/16 20:07 11/24/16 06:23 11/24/16 06:33 Bedside Glucose 220 mg/dl (70-90) 250 mg/dl (70-90) Random Glucose 264 mg/dl (70-99) HbA1c: Test 11/23/16 05:25 Hemoglobin A1c 9.0 % (4.5-5.6) H Recent Pertinent Medications The patient is currently receiving: * Basal insulin: Lantus 20 units every 24 hours in the evening * Correctional Insulin: Novolog Correction per scale ACHS Goal Range: Low 120 mg/dL - High 150 mg/dL Correction Factor: 20 mg/dL/unit * Prandial insulin: Per carb ratio of 1 unit per 7 grams CHO consumed Outpatient Anti-Diabetic Meds Lantus 20 units SQ HS Novolog with meals per scale Assessment & Plan ASSESSMENT: * See progress note from 11/23/16 for more background info, in short: * Pt receiving SQ basal bolus insulin regimen for hyperglycemia secondary to baseline DM (outpatient regimen on hold) and infection (UTI currently on Rocephin). * Patient is currently receiving an average of 40 units of insulin per day * 25 units of basal insulin * 16 units of prandial/correctional insulin * BSGs ranging 122 - 220 mg/dl over the past 24hrs * Changes needed to insulin regimen: * AM Fasting BSG = 250 mg/dl. This is above goal range for patient based on inpatient targets and co-morbidities. The patient may be basal deficient from when she was on an insulin infusion for a short time period. Will give additional 10 units of Lantus this morning and then continue home regimen this evening. Overnight Accuchecks added to ensure full 24 hour control. * Post-prandial BSGs are elevated throughout the day; however, this is most likely secondary to basal deficiency. Patient also received coverage only at lunch and in the evening. Continue current regimen and may tighten slightly based upon trend this afternoon. * Total daily dose = 40 units. It appears that an increase in dose is necessary. Adjusted regimen appropriately. PLAN FOR INPATIENT GLYCEMIC CONTROL: * Continuing Lantus 20 units SQ HS plus additional 10 units this morning * Continuing correction factor of 20 mg/dl/unit * Continuing carb ratio of 1 unit per 7 grams CHO consumed * Continuing goal range to Low 110 mg/dL - High 140 mg/dL RECOMMENDATIONS FOR DISCHARGE: * Patient's HbA1C continues to improve from earlier this year - adjust outpatient insulin dose based upon home blood sugars (according to Elements of Diabetes Care Scoring Scale, patient's goal HbA1C around 7.5%) Monitor for hypoglycemia. Thank you.
[2016-11-24] MEDS: CEFTRIAXONE SOD INJ 1 GM in DEXTROSE 5% ADD-VANTAGE 50ML 50 ML IV SCH (15:24)
[2016-11-24] MEDS: WARFARIN SOD 1 MG TAB PO SCH (15:25)
--- NOTE | 2016-11-24 16:37 | Progress Note ---
Subjective Date of Service: Nov 24, 2016. Subjective Pt evaluation today including: conversation w/ patient, physical exam, lab review, review of studies, review of inpatient medication list Saw/examined the patient in room 236 No problems/issues to note; she feels weak, but has been ambulating well Problem List Medical Problems: (1) Fever Status: Acute (2) Hyperglycemia Status: Acute (3) Hyponatremia Status: Acute (4) UTI (urinary tract infection) Status: Acute (5) Weakness Status: Acute Social History Problems: (1) History of renal transplant Status: Acute Review of Systems Constitutional: No fever, No chills Respiratory: No shortness of breath Cardiac: No chest pain Abdomen: No pain, No nausea, No vomiting, No diarrhea Female : No dysuria, No urinary frequency, No hematuria, No incontinence Medications Current Inpatient Medications Medications (Trade) Dose Ordered Sig/Sandeep Route Start Time Stop Time Status Last Admin Dose Admin Heparin Sodium (Porcine) (Heparin Sq 5000 Unit/0.5ml) 5,000 unit Q12 SQ 11/22/16 21:00 12/22/16 20:59 11/22/16 20:41 5,000 UNIT Acetaminophen (Tylenol Tab) 650 mg Q4H PRN PO 11/22/16 17:30 12/22/16 17:29 11/23/16 20:17 650 MG Amlodipine Besylate (Norvasc Tab) 10 mg DAILY PO 11/23/16 09:00 12/23/16 08:59 11/24/16 08:59 10 MG Aspirin (Ecotrin Tab) 81 mg DAILY PO 11/23/16 09:00 12/23/16 08:59 11/24/16 08:59 81 MG Mycophenolate Mofetil (Cellcept Cap) 250 mg Q12 PO 11/22/16 21:00 12/22/16 20:59 11/24/16 08:59 250 MG Sotalol HCl (Betapace Tab) 120 mg BID PO 11/22/16 21:00 12/22/16 20:59 11/24/16 09:00 120 MG Warfarin Sodium (Coumadin Tab) 1 mg DAILY@1600 PO 11/23/16 16:00 12/23/16 15:59 11/24/16 15:25 1 MG Sirolimus (Sirolimus) 1 mg DAILY PO 11/23/16 09:00 12/23/16 08:59 11/24/16 08:58 1 MG Glucose (Glucose 40% Gel) 15-30 GRAMS 15 GRAMS... UD PRN PO 11/22/16 19:15 12/22/16 19:14 Glucose (Glucose Chew Tab) 4-8 Tablets 4 Tabl... UD PRN PO 11/22/16 19:15 12/22/16 19:14 Dextrose (Dextrose 50% 50ML Syringe) 25-50ML OF 50% DW IV FOR... UD PRN IV 11/22/16 19:15 12/22/16 19:14 Glucagon (Glucagon Inj) 1 mg UD PRN SQ 11/22/16 19:15 12/22/16 19:14 Miscellaneous Information (Pending Order) 1 ea DAILY@10 N/A 11/23/16 10:00 12/23/16 09:59 11/23/16 09:28 1 EA Sodium Chloride 1,000 ml @ 100 mls/hr Q10H IV 11/22/16 20:00 12/22/16 19:59 11/24/16 15:23 100 MLS/HR Ceftriaxone Sodium 1 gm/ Dextrose 50 ml @ 100 mls/hr DAILY@1500 IV 11/23/16 15:00 12/01/16 15:29 11/24/16 15:24 100 MLS/HR Miscellaneous Information (Consult Glycemic Management Pharmacy) 1 ea UD PRN N/A 11/23/16 00:05 12/23/16 00:04 Insulin Aspart (novoLOG ASPART) SLIDING SCALE ACHS SC 11/23/16 11:00 12/23/16 10:59 11/24/16 11:50 13 UNITS Insulin Glargine (Lantus Solostar Pen) 20 units HS SQ 11/23/16 21:00 12/23/16 20:59 11/23/16 20:30 20 UNITS Insulin Aspart (novoLOG ASPART) SLIDING SCALE TODAY@0200 SC 11/25/16 02:00 11/25/16 02:01 Objective Vital Signs Date Time Temp Pulse Resp B/P (MAP) Pulse Ox O2 Delivery O2 Flow Rate FiO2 11/24/16 16:21 91 Room Air 11/24/16 15:17 37.3 67 18 177/68 (104) 91 Room Air 11/24/16 12:14 96 Room Air 11/24/16 11:00 36.4 68 18 116/70 (85) 96 Room Air 11/24/16 09:38 98 Room Air 11/24/16 08:00 Room Air 11/24/16 07:46 36.6 62 18 136/66 (89) 98 Room Air 11/24/16 07:37 36.6 61 18 138/68 (91) 99 Room Air 11/24/16 04:26 99 Room Air 11/24/16 04:00 36.8 65 18 131/66 (87) 100 Room Air 11/24/16 00:11 36.8 57 18 112/61 (78) 96 Room Air 11/24/16 00:00 99 Room Air 11/23/16 20:00 99 Room Air 11/23/16 19:50 36.9 76 20 137/55 (82) 95 Room Air Physical Exam General Appearance: no apparent distress Respiratory/Chest: chest non-tender, lungs clear, normal breath sounds, no respiratory distress, no accessory muscle use Cardiovascular: regular rate, rhythm, no edema, + systolic murmur Abdomen: normal bowel sounds, non tender, soft Laboratory Results Last 24 Hours Test 11/23/16 20:07 11/24/16 06:23 11/24/16 06:33 11/24/16 10:56 Bedside Glucose 220 mg/dl 250 mg/dl 196 mg/dl White Blood Count 6.86 K/uL Red Blood Count 4.01 M/uL Hemoglobin 10.4 g/dL Hematocrit 32.9 % Mean Corpuscular Volume 82.0 fL Mean Corpuscular Hemoglobin 25.9 pg Mean Corpuscular Hemoglobin Concent 31.6 g/dl RDW Standard Deviation 44.6 fL RDW Coefficient of Variation 14.9 % Platelet Count 249 K/uL Mean Platelet Volume 8.6 fL Prothrombin Time 12.9 SECONDS Prothromb Time International Ratio 1.2 Sodium Level 134 mmol/L Potassium Level 4.1 mmol/L Chloride Level 99 mmol/L Carbon Dioxide Level 26 mmol/L Anion Gap 9.0 mmol/L Blood Urea Nitrogen 9 mg/dl Creatinine 0.87 mg/dl Est Creatinine Clear Calc Drug Dose 54.7 ml/min Estimated GFR () 77.1 Estimated GFR (Non- 66.6 BUN/Creatinine Ratio 10.0 Random Glucose 264 mg/dl Calcium Level 8.5 mg/dl Assessment and Plan This is a 71 year old female with a PMH of insulin dependent DM2; hx. of renal transplantation on immunosuppressives, paroxysmal atrial fibrillation on long- term anticoagulation, HTN, HLD, recurrent UTIs presented with UTI Urinary Tract Infection 11/24 one organism is a yin-sensitive E. coli awaiting second organism c/s continue Rocephin for now transition to oral agents and d/c in 1-2 days 11/23 urine culture growing two gram-negative bacilli patient states her symptoms are subsiding (dysuria) at this point, we will continue Rocephin until sensitivities return Hyponatremia - improving 11/24 Na improving to 134 continue IVFs 11/23 likely secondary to infection and dehydration at baseline, her sodium level is normal Na is improving to 127; continue fluids and we will monitor BMP daily Insulin Dependent DM2 Ha1c is pending last Ha1c was from one year prior at it was > 8 BSGs >350 last evening - was started on an insulin drip will consult pharmacy to transition back to subq insulin Paroxysmal A. Fib currently in NSR continue sotalol and Coumadin INR is subtherapeutic, monitor and adjust accordingly Hx. of Renal Transplant continue immunosuppressives (CellCept + Sirolimus) HTN BP stable; continue amlodipine KATIA-I intolerance noted on chart DVT ppx subq heparin + Coumadin FULL CODE
[2016-11-24] MEDS: ACETAMINOPHEN 325 MG TAB PO PRN (20:30)
[2016-11-24] MEDS: INSULIN GLARGINE SOLOSTAR 100 UNITS/ML 3 ML PEN SQ SCH (20:32)
[2016-11-25] VITALS (10 sets, daily range): BP systolic 122–168; BP diastolic 57–77; PULSE 58–68; TEMP 36.8–37.1; O2SAT 95–99
[2016-11-25] MEDS ORDERED: INSULIN ASPART 100 UNITS/ML 3 ML PEN SC SCH (02:00)
[2016-11-25 07:05] LABS: HEMATOCRIT 32.8 % (37-47); MEAN CELL VOLUME 82.4 fL (80-100); MEAN CORPUSCULAR HEMOGLOBIN 26.6 pg (25-34); MEAN CORPUSCULAR HGB CONC 32.3 g/dl (32-36); MEAN PLATELET VOLUME 8.5 fL (7.4-10.4); PLATELET COUNT 257 K/uL (130-400); RED BLOOD COUNT 3.98 M/uL (4.2-5.4); WHITE BLOOD COUNT 7.46 K/uL (4.8-10.8)
[2016-11-25 07:13] LABS: INR 1.3 (0.9-1.1); PROTHROMBIN TIME (PATIENT) 13.5 SECONDS (9.0-12.0)
[2016-11-25 07:36] LABS: BUN/CREATININE RATIO 7.5 (10-20); CALCIUM 8.6 mg/dl (8.5-10.1); CREATININE 0.75 mg/dl (0.60-1.20); POTASSIUM 3.9 mmol/L (3.5-5.1)
[2016-11-25] MEDS: ASPIRIN 81 MG ECTAB PO SCH (08:18)
[2016-11-25] MEDS: INSULIN ASPART 100 UNITS/ML 3 ML PEN SC SCH ×4 (08:18→20:17)
[2016-11-25] MEDS: MYCOPHENOLATE MOFETIL 250 MG CAP (CELLCEPT) PO SCH ×2 (08:19→20:13)
[2016-11-25] MEDS: SOTALOL HCL 80 MG TAB PO SCH ×2 (08:19→20:14)
[2016-11-25] MEDS: AMLODIPINE BESYLATE 5 MG TAB PO SCH (08:19)
[2016-11-25] MEDS: HEPARIN SOD 5000 UNIT/0.5 ML CARP SQ SCH ×2 (08:20→19:47)
[2016-11-25] MEDS: SIROLIMUS 0.5 MG TAB PO SCH (08:20)
[2016-11-25] MEDS: SODIUM CHLORIDE 0.9% 1000ML 1,000 ML IV SCH (08:21)
--- NOTE | 2016-11-25 13:15 | Pharmacy Progress Note ---
Glycemic Control Progress Note Date of Service Nov 25, 2016. Scope Glycemic Pharmacist consulted for glycemic control to write orders per [facility] inpatient glycemic control protocol. Objective Accuchecks BSG (last 24hrs): Test 11/24/16 10:56 11/24/16 16:00 11/24/16 20:04 11/25/16 01:48 Bedside Glucose 196 mg/dl (70-90) 84 mg/dl (70-90) 222 mg/dl (70-90) 153 mg/dl (70-90) Test 11/25/16 06:28 11/25/16 06:49 Bedside Glucose 153 mg/dl (70-90) Random Glucose 143 mg/dl (70-99) HbA1c: Test 11/23/16 05:25 Hemoglobin A1c 9.0 % (4.5-5.6) H Recent Pertinent Medications The patient is currently receiving: * Basal insulin: Lantus 20 units every 24 hours in the evening with one time dose of Lantus 10 units yesterday evening * Correctional Insulin: Novolog Correction per scale ACHS Goal Range: Low 120 mg/dL - High 150 mg/dL Correction Factor: 25 mg/dL/unit * Prandial insulin: Per carb ratio of 1 unit per 8 grams CHO consumed Outpatient Anti-Diabetic Meds Lantus 20 units qHS Novolog TID Assessment & Plan ASSESSMENT: * See progress note from 11/23/16 for more background info, in short: * Pt receiving SQ basal bolus insulin regimen for hyperglycemia secondary to baseline DM (outpatient regimen on hold) and infection (UTI currently on Rocephin). * Patient is currently receiving an average of 60 units of insulin per day * 30 units of basal insulin * 34 units of prandial/correctional insulin * BSGs ranging 88-222 mg/dl over the past 24hrs * Changes needed to insulin regimen: * AM Fasting BSG = 153 mg/dl. This is above goal range for patient based on inpatient targets and co-morbidities. The patient received an additional 10 units of Lantus yesterday morning which is reflective in today's fasting blood sugar. Will continue the patient's home dose of Lantus 20 units daily. Uncertain if this is sufficient but there is caution in going above the patient' s home dose of Lantus. Suspect that the true Lantus dose patient requires is 25 units (supported by previous admission in July) * Post-prandial BSGs are elevated throughout the day however trended downwards yesterday. Parameters were loosened yesterday at dinner. The patient refused coverage at lunch and this produced a level of 222 mg/dL at bedtime. From breakfast to lunch today, patient trended downwards again. Loosen carbohydrate ratio. * Total daily dose = ~50 units. It appears that an increase in dose is necessary. Adjusted regimen appropriately. PLAN FOR INPATIENT GLYCEMIC CONTROL: * Continuing Lantus 20 units SQ HS * Continuing correction factor of 25 mg/dl/unit * LOOSEN carb ratio to 1 unit per 9 grams CHO consumed * Continuing goal range to Low 110 mg/dL - High 140 mg/dL RECOMMENDATIONS FOR DISCHARGE: * Patient's HbA1C continues to improve from earlier this year - adjust outpatient insulin dose based upon home blood sugars (according to Elements of Diabetes Care Scoring Scale, patient's goal HbA1C around 7.5%) Monitor for hypoglycemia. Thank you.
[2016-11-25] MEDS: CEFTRIAXONE SOD INJ 1 GM in DEXTROSE 5% ADD-VANTAGE 50ML 50 ML IV SCH (15:33)
[2016-11-25] MEDS: WARFARIN SOD 2 MG TAB PO SCH (15:34)
--- NOTE | 2016-11-25 17:24 | Progress Note ---
Medicine Progress Note Date & Time of Visit: Nov 25, 2016 at 17:19. Subjective seen resting in bed, comfortable states she feels that she is improving denies abdominal pain, flank pain, but still has some mild dysuria denies other symptoms Objective Last 8 Hrs Date Time Temp Pulse Resp B/P (MAP) Pulse Ox O2 Delivery O2 Flow Rate FiO2 11/25/16 14:42 Room Air 11/25/16 14:34 36.8 62 16 150/77 (101) 98 Room Air 11/25/16 13:05 36.8 65 18 99 11/25/16 12:00 99 Room Air 11/25/16 10:49 36.8 65 18 156/64 (94) 99 Room Air Physical Exam: General- oriented x 3, not in distress, speaks in sentences with no effort Head- atraumatic Eyes- PERRL, EOMI, anicteric ENT- oropharynx clear Neck- supple, no JVD, no adenopathy, no thyromegaly Lungs- clear to auscultation b/l Heart- regular rhythm; no murmur, normal rate Abdomen- normal bowel sounds, soft, nontender Extremities- no pretibial edema, no calf tenderness Neuro- alert, oriented x 3;no gross focal deficits Skin- warm & dry Laboratory Results: Last 24 Hours Test 11/24/16 20:04 11/25/16 01:48 11/25/16 06:28 11/25/16 06:49 Bedside Glucose 222 mg/dl 153 mg/dl 153 mg/dl White Blood Count 7.46 K/uL Red Blood Count 3.98 M/uL Hemoglobin 10.6 g/dL Hematocrit 32.8 % Mean Corpuscular Volume 82.4 fL Mean Corpuscular Hemoglobin 26.6 pg Mean Corpuscular Hemoglobin Concent 32.3 g/dl RDW Standard Deviation 45.6 fL RDW Coefficient of Variation 15.1 % Platelet Count 257 K/uL Mean Platelet Volume 8.5 fL Prothrombin Time 13.5 SECONDS Prothromb Time International Ratio 1.3 Sodium Level 139 mmol/L Potassium Level 3.9 mmol/L Chloride Level 104 mmol/L Carbon Dioxide Level 25 mmol/L Anion Gap 10.0 mmol/L Blood Urea Nitrogen 6 mg/dl Creatinine 0.75 mg/dl Est Creatinine Clear Calc Drug Dose 63.4 ml/min Estimated GFR () 92.3 Estimated GFR (Non- 79.6 BUN/Creatinine Ratio 7.5 Random Glucose 143 mg/dl Calcium Level 8.6 mg/dl Test 11/25/16 10:59 11/25/16 16:16 Bedside Glucose 141 mg/dl 157 mg/dl Assessment & Plan This is a 71 year old female with a PMH of insulin dependent DM2; hx. of renal transplantation on immunosuppressives, paroxysmal atrial fibrillation on long- term anticoagulation, HTN, HLD, recurrent UTIs presented with UTI Urinary Tract Infection Urine culture: E coli, pansensitive clinically improving continue Ceftriaxone will need at least 10 days total of antibiotics Hyponatremia - improved improved with IV NSS from 122 to 139 d/c fluids will need close outpatient monitoring Insulin Dependent DM2 Ha1c is pending last Ha1c was from one year prior at it was > 8 BSGs >350 last evening - was started on an insulin drip will consult pharmacy to transition back to subq insulin Paroxysmal A. Fib currently in NSR continue sotalol and Coumadin INR is subtherapeutic, increase coumadin to 2mg daily Hx. of Renal Transplant continue immunosuppressives (CellCept + Sirolimus) HTN BP stable; continue amlodipine KATIA-I intolerance noted on chart DVT ppx subq heparin + Coumadin FULL CODE Dispo anticipate d/c home tomorrow, transition to PO antibiotics Current Inpatient Medications: Current Inpatient Medications Medications (Trade) Dose Ordered Sig/Sandeep Route Start Time Stop Time Status Last Admin Dose Admin Heparin Sodium (Porcine) (Heparin Sq 5000 Unit/0.5ml) 5,000 unit Q12 SQ 11/22/16 21:00 12/22/16 20:59 11/22/16 20:41 5,000 UNIT Acetaminophen (Tylenol Tab) 650 mg Q4H PRN PO 11/22/16 17:30 12/22/16 17:29 11/24/16 20:30 650 MG Amlodipine Besylate (Norvasc Tab) 10 mg DAILY PO 11/23/16 09:00 12/23/16 08:59 11/25/16 08:19 10 MG Aspirin (Ecotrin Tab) 81 mg DAILY PO 11/23/16 09:00 12/23/16 08:59 11/25/16 08:18 81 MG Mycophenolate Mofetil (Cellcept Cap) 250 mg Q12 PO 11/22/16 21:00 12/22/16 20:59 11/25/16 08:19 250 MG Sotalol HCl (Betapace Tab) 120 mg BID PO 11/22/16 21:00 12/22/16 20:59 11/25/16 08:19 120 MG Sirolimus (Sirolimus) 1 mg DAILY PO 11/23/16 09:00 12/23/16 08:59 11/25/16 08:20 1 MG Glucose (Glucose 40% Gel) 15-30 GRAMS 15 GRAMS... UD PRN PO 11/22/16 19:15 12/22/16 19:14 Glucose (Glucose Chew Tab) 4-8 Tablets 4 Tabl... UD PRN PO 11/22/16 19:15 12/22/16 19:14 Dextrose (Dextrose 50% 50ML Syringe) 25-50ML OF 50% DW IV FOR... UD PRN IV 11/22/16 19:15 12/22/16 19:14 Glucagon (Glucagon Inj) 1 mg UD PRN SQ 11/22/16 19:15 12/22/16 19:14 Miscellaneous Information (Pending Order) 1 ea DAILY@10 N/A 11/23/16 10:00 12/23/16 09:59 11/23/16 09:28 1 EA Ceftriaxone Sodium 1 gm/ Dextrose 50 ml @ 100 mls/hr DAILY@1500 IV 11/23/16 15:00 12/01/16 15:29 11/25/16 15:33 100 MLS/HR Miscellaneous Information (Consult Glycemic Management Pharmacy) 1 ea UD PRN N/A 11/23/16 00:05 12/23/16 00:04 Insulin Aspart (novoLOG ASPART) SLIDING SCALE ACHS SC 11/23/16 11:00 12/23/16 10:59 11/25/16 12:50 3 UNITS Insulin Glargine (Lantus Solostar Pen) 20 units HS SQ 11/25/16 21:00 12/25/16 20:59 Warfarin Sodium (Coumadin Tab) 2 mg DAILY@1600 PO 11/25/16 16:00 12/23/16 15:59 11/25/16 15:34 2 MG
[2016-11-25] MEDS: ACETAMINOPHEN 325 MG TAB PO PRN (20:19)
[2016-11-25] MEDS ORDERED: INSULIN GLARGINE SOLOSTAR 100 UNITS/ML 3 ML PEN SQ SCH ×2 (21:00)
[2016-11-26 06:33] LABS: BUN/CREATININE RATIO 11.1 (10-20); CALCIUM 8.9 mg/dl (8.5-10.1); CREATININE 0.84 mg/dl (0.60-1.20); POTASSIUM 3.8 mmol/L (3.5-5.1)
[2016-11-26 07:12] VITALS: BP 160/76; PULSE 64; TEMP 36.4; O2SAT 97
[2016-11-26 08:30] VITALS: O2SAT 97
[2016-11-26] MEDS: SIROLIMUS 0.5 MG TAB PO SCH (08:30)
[2016-11-26] MEDS: SOTALOL HCL 80 MG TAB PO SCH ×2 (08:30→20:20)
[2016-11-26] MEDS: AMLODIPINE BESYLATE 5 MG TAB PO SCH (08:31)
[2016-11-26] MEDS: ASPIRIN 81 MG ECTAB PO SCH (08:32)
[2016-11-26] MEDS: INSULIN ASPART 100 UNITS/ML 3 ML PEN SC SCH ×4 (08:49→20:48)
[2016-11-26] MEDS: HEPARIN SOD 5000 UNIT/0.5 ML CARP SQ SCH ×2 (08:49→20:16)
[2016-11-26] MEDS: MYCOPHENOLATE MOFETIL 250 MG CAP (CELLCEPT) PO SCH ×2 (08:49→20:20)
[2016-11-26] MEDS ORDERED: DOCUSATE SODIUM 100 MG CAP PO PRN (13:15)
[2016-11-26 14:40] VITALS: BP 133/68; PULSE 61; TEMP 36.5; O2SAT 97
[2016-11-26] MEDS: CEFTRIAXONE SOD INJ 1 GM in DEXTROSE 5% ADD-VANTAGE 50ML 50 ML IV SCH (15:34)
[2016-11-26] MEDS: WARFARIN SOD 2 MG TAB PO SCH (15:36)
[2016-11-26 16:00] VITALS: O2SAT 97
--- NOTE | 2016-11-26 17:35 | Progress Note ---
Medicine Progress Note Date & Time of Visit: Nov 26, 2016 at 17:31. Subjective states she feels ok overall dysuria improving denies abdominal pain, nausea, fever/chills denies other symptoms Objective Last 8 Hrs Date Time Temp Pulse Resp B/P (MAP) Pulse Ox O2 Delivery O2 Flow Rate FiO2 11/26/16 14:40 36.5 61 16 133/68 (89) 97 Room Air Physical Exam: General- oriented x 3, not in distress, speaks in sentences with no effort Eyes- EOMI, anicteric Neck- supple, no JVD Lungs- clear to auscultation b/l Heart- regular rhythm; no murmur, normal rate Abdomen- normal bowel sounds, soft, nontender Extremities- no pretibial edema, no calf tenderness Neuro- alert, oriented x 3;no gross focal deficits Skin- warm & dry Laboratory Results: Last 24 Hours Test 11/25/16 19:35 11/26/16 05:11 11/26/16 07:35 11/26/16 11:26 Bedside Glucose 190 mg/dl 121 mg/dl 210 mg/dl Sodium Level 137 mmol/L Potassium Level 3.8 mmol/L Chloride Level 102 mmol/L Carbon Dioxide Level 27 mmol/L Anion Gap 8.0 mmol/L Blood Urea Nitrogen 9 mg/dl Creatinine 0.84 mg/dl Est Creatinine Clear Calc Drug Dose 56.6 ml/min Estimated GFR () 80.5 Estimated GFR (Non- 69.4 BUN/Creatinine Ratio 11.1 Random Glucose 121 mg/dl Calcium Level 8.9 mg/dl Test 11/26/16 17:22 Assessment & Plan This is a 71 year old female with a PMH of insulin dependent DM2; hx. of renal transplantation on immunosuppressives, paroxysmal atrial fibrillation on long- term anticoagulation, HTN, HLD, recurrent UTIs presented with UTI Urinary Tract Infection Urine culture: E coli, pansensitive clinically improving daily continue Ceftriaxone will need at least 10 days total of antibiotics Hyponatremia - improved improved with IV NSS from 122 to 139 fluids stopped will need close outpatient monitoring Insulin Dependent DM2 Ha1c 9 on Lantus and ISS pharmacy on board Paroxysmal A. Fib currently in NSR INR is subtherapeutic, increased coumadin to 2mg daily - INR pending continue sotalol Hx. of Renal Transplant continue immunosuppressives (CellCept + Sirolimus) HTN BP stable; continue amlodipine KATIA-I intolerance noted on chart DVT ppx subq heparin + Coumadin FULL CODE Dispo anticipate d/c home tomorrow, transition to PO antibiotics Current Inpatient Medications: Current Inpatient Medications Medications (Trade) Dose Ordered Sig/Sandeep Route Start Time Stop Time Status Last Admin Dose Admin Heparin Sodium (Porcine) (Heparin Sq 5000 Unit/0.5ml) 5,000 unit Q12 SQ 11/22/16 21:00 12/22/16 20:59 11/22/16 20:41 5,000 UNIT Acetaminophen (Tylenol Tab) 650 mg Q4H PRN PO 11/22/16 17:30 12/22/16 17:29 11/25/16 20:19 650 MG Amlodipine Besylate (Norvasc Tab) 10 mg DAILY PO 11/23/16 09:00 12/23/16 08:59 11/26/16 08:31 10 MG Aspirin (Ecotrin Tab) 81 mg DAILY PO 11/23/16 09:00 12/23/16 08:59 11/26/16 08:32 81 MG Mycophenolate Mofetil (Cellcept Cap) 250 mg Q12 PO 11/22/16 21:00 12/22/16 20:59 11/26/16 08:49 250 MG Sotalol HCl (Betapace Tab) 120 mg BID PO 11/22/16 21:00 12/22/16 20:59 11/26/16 08:30 120 MG Sirolimus (Sirolimus) 1 mg DAILY PO 11/23/16 09:00 12/23/16 08:59 11/26/16 08:30 1 MG Glucose (Glucose 40% Gel) 15-30 GRAMS 15 GRAMS... UD PRN PO 11/22/16 19:15 12/22/16 19:14 Glucose (Glucose Chew Tab) 4-8 Tablets 4 Tabl... UD PRN PO 11/22/16 19:15 12/22/16 19:14 Dextrose (Dextrose 50% 50ML Syringe) 25-50ML OF 50% DW IV FOR... UD PRN IV 11/22/16 19:15 12/22/16 19:14 Glucagon (Glucagon Inj) 1 mg UD PRN SQ 11/22/16 19:15 12/22/16 19:14 Miscellaneous Information (Pending Order) 1 ea DAILY@10 N/A 11/23/16 10:00 12/23/16 09:59 11/23/16 09:28 1 EA Ceftriaxone Sodium 1 gm/ Dextrose 50 ml @ 100 mls/hr DAILY@1500 IV 11/23/16 15:00 12/01/16 15:29 11/26/16 15:34 100 MLS/HR Miscellaneous Information (Consult Glycemic Management Pharmacy) 1 ea UD PRN N/A 11/23/16 00:05 12/23/16 00:04 Insulin Aspart (novoLOG ASPART) SLIDING SCALE ACHS SC 11/23/16 11:00 12/23/16 10:59 11/26/16 12:51 9 UNITS Warfarin Sodium (Coumadin Tab) 2 mg DAILY@1600 PO 11/25/16 16:00 12/23/16 15:59 11/26/16 15:36 2 MG Insulin Glargine (Lantus Solostar Pen) 25 units HS SQ 11/26/16 21:00 12/26/16 20:59 Docusate Sodium (coLACE CAP) 100 mg BID PRN PO 11/26/16 13:15 12/26/16 13:14 11/26/16 16:31 100 MG
[2016-11-26 18:05] LABS: INR 1.4 (0.9-1.1); PROTHROMBIN TIME (PATIENT) 15.1 SECONDS (9.0-12.0)
[2016-11-26] MEDS: ACETAMINOPHEN 325 MG TAB PO PRN (20:19)
[2016-11-26] MEDS ORDERED: INSULIN GLARGINE SOLOSTAR 100 UNITS/ML 3 ML PEN SQ SCH (21:00)
[2016-11-27 00:09] VITALS: BP 133/65; PULSE 63; TEMP 36.6; O2SAT 97
[2016-11-27 06:06] LABS: INR 1.4 (0.9-1.1); PROTHROMBIN TIME (PATIENT) 15.3 SECONDS (9.0-12.0)
[2016-11-27 06:35] LABS: BUN/CREATININE RATIO 14.9 (10-20); CALCIUM 8.5 mg/dl (8.5-10.1); CREATININE 0.87 mg/dl (0.60-1.20); POTASSIUM 3.9 mmol/L (3.5-5.1)
[2016-11-27 07:36] VITALS: BP 153/76; PULSE 59; TEMP 36.4; O2SAT 96
[2016-11-27] MEDS: ASPIRIN 81 MG ECTAB PO SCH (07:59)
[2016-11-27] MEDS: SOTALOL HCL 80 MG TAB PO SCH (07:59)
[2016-11-27] MEDS: SIROLIMUS 0.5 MG TAB PO SCH (08:00)
[2016-11-27] MEDS: MYCOPHENOLATE MOFETIL 250 MG CAP (CELLCEPT) PO SCH (08:00)
[2016-11-27] MEDS: AMLODIPINE BESYLATE 5 MG TAB PO SCH (08:00)
[2016-11-27] MEDS: HEPARIN SOD 5000 UNIT/0.5 ML CARP SQ SCH (08:01)
[2016-11-27 08:30] VITALS: O2SAT 97
[2016-11-27] MEDS: INSULIN ASPART 100 UNITS/ML 3 ML PEN SC SCH ×2 (08:52→12:42)
--- NOTE | 2016-11-27 08:56 | Pharmacy Progress Note ---
Glycemic Control Progress Note Date of Service Nov 27, 2016. Scope Glycemic Pharmacist consulted for glycemic control to write orders per [facility] inpatient glycemic control protocol. Objective Accuchecks BSG (last 24hrs): Test 11/26/16 11:26 11/27/16 05:25 11/27/16 07:32 Bedside Glucose 210 mg/dl (70-90) 115 mg/dl (70-90) Random Glucose 121 mg/dl (70-99) HbA1c: Test 11/23/16 05:25 Hemoglobin A1c 9.0 % (4.5-5.6) H Recent Pertinent Medications The patient is currently receiving: * Basal insulin: Lantus 25 units every 24 hours in the evening * Correctional Insulin: Novolog Correction per scale ACHS Goal Range: Low 110 mg/dL - High 140 mg/dL Correction Factor: 25 mg/dL/unit * Prandial insulin: Per carb ratio of 1 unit per 8 grams CHO consumed Outpatient Anti-Diabetic Meds Lantus 20 units qHS + Novolog Assessment & Plan ASSESSMENT: * See progress note from 11/23/16 for more background info, in short: * Pt receiving SQ basal bolus insulin regimen for hyperglycemia secondary to baseline DM (outpatient regimen on hold) and infection (UTI currently on Rocephin). * Patient is currently receiving an average of ~50 units of insulin per day * 25 units of basal insulin * 24 units of prandial/correctional insulin * BSGs ranging 104-210 mg/dl over the past 24hrs * Changes needed to insulin regimen: * AM Fasting BSG = 115 mg/dl. This is within goal range for patient based on inpatient targets and co-morbidities. The patient received Lantus 25 units yesterday. Suspect that this may have been too aggressive therefore will reduce slightly to 23 units for this evening. * Post-prandial BSGs were elevated at lunch yesterday and then trended downwards slightly. Carbohydrate ratio was tightened at lunch. This appears to be sufficient for patient and will continue. * Total daily dose = ~50 units. It appears that the current amount of insulin is appropriate for patient, will monitor. PLAN FOR INPATIENT GLYCEMIC CONTROL: * DECREASING Lantus to 23 units SQ HS * Continuing correction factor of 25 mg/dl/unit * TIGHTENING carb ratio to 1 unit per 8 grams CHO consumed * Continuing goal range to Low 110 mg/dL - High 140 mg/dL RECOMMENDATIONS FOR DISCHARGE: * Patient's HbA1C continues to improve from earlier this year - adjust outpatient insulin dose based upon home blood sugars (according to Elements of Diabetes Care Scoring Scale, patient's goal HbA1C around 7.5%) Monitor for hypoglycemia. Thank you.
[2016-11-27 11:07] VITALS: O2SAT 96
--- NOTE | 2016-11-27 15:10 | Progress Note ---
Medicine Progress Note Date & Time of Visit: Nov 27, 2016 at 15:02. Subjective patient seen resting in bed, comfortable states she feels much better denies dysuria or any other urinary symptoms denies chills, abdominal pain, nausea/vomiting appetite is very good denies other symptoms Objective Last 8 Hrs Date Time Temp Pulse Resp B/P (MAP) Pulse Ox O2 Delivery O2 Flow Rate FiO2 11/27/16 11:07 96 Room Air 11/27/16 08:30 97 Room Air 11/27/16 07:36 36.4 59 15 153/76 (101) 96 Room Air Physical Exam: General- oriented x 3, not in distress, speaks in sentences with no effort Eyes- anicteric Neck- no JVD Lungs- clear to auscultation b/l, no rales Heart- regular rhythm; no murmur, normal rate Abdomen- normal bowel sounds, soft, nontender Extremities- no pretibial edema, no calf tenderness Neuro- alert, oriented x 3;no gross focal deficits Skin- warm & dry Laboratory Results: Last 24 Hours Test 11/26/16 16:18 11/26/16 17:34 11/26/16 20:38 11/27/16 05:25 Bedside Glucose 104 mg/dl 146 mg/dl Prothrombin Time 15.1 SECONDS 15.3 SECONDS Prothromb Time International Ratio 1.4 1.4 Sodium Level 137 mmol/L Potassium Level 3.9 mmol/L Chloride Level 102 mmol/L Carbon Dioxide Level 26 mmol/L Anion Gap 9.0 mmol/L Blood Urea Nitrogen 13 mg/dl Creatinine 0.87 mg/dl Est Creatinine Clear Calc Drug Dose 54.7 ml/min Estimated GFR () 77.1 Estimated GFR (Non- 66.6 BUN/Creatinine Ratio 14.9 Random Glucose 121 mg/dl Calcium Level 8.5 mg/dl Test 11/27/16 07:32 11/27/16 11:55 Bedside Glucose 115 mg/dl 146 mg/dl Assessment & Plan This is a 71 year old female with a PMH of insulin dependent DM2; hx. of renal transplantation on immunosuppressives, paroxysmal atrial fibrillation on long- term anticoagulation, HTN, HLD, recurrent UTIs presented with UTI Urinary Tract Infection Urine culture: E coli, pansensitive clinically improving daily received Ceftriaxone IV x 6 days continue Augmentin BID x 4 more days to complete 10 days total repeat UA/Urine culture after antibiotic course Hyponatremia - improved improved with IV NSS from 122 to 139 fluids stopped will need close outpatient monitoring Insulin Dependent DM2 Ha1c 9 continue usual Insulin regimen outpatient ff up Paroxysmal A. Fib currently in NSR INR is subtherapeutic, increased coumadin to 2mg daily - INR 1.4 continue coumadin 2mg po daily, will notify coumadin clinic for close ff up and repeat INR continue sotalol Hx. of Renal Transplant continue immunosuppressives (CellCept + Sirolimus) HTN BP stable; continue amlodipine KATIA-I intolerance noted on chart DVT ppx subq heparin + Coumadin FULL CODE Dispo d/c home ff up with PCP in 1 week ff up with [facility]ag Clinic as advised Current Inpatient Medications: Current Inpatient Medications Medications (Trade) Dose Ordered Sig/Sandeep Route Start Time Stop Time Status Last Admin Dose Admin Heparin Sodium (Porcine) (Heparin Sq 5000 Unit/0.5ml) 5,000 unit Q12 SQ 11/22/16 21:00 12/22/16 20:59 11/22/16 20:41 5,000 UNIT Acetaminophen (Tylenol Tab) 650 mg Q4H PRN PO 11/22/16 17:30 12/22/16 17:29 11/26/16 20:19 650 MG Amlodipine Besylate (Norvasc Tab) 10 mg DAILY PO 11/23/16 09:00 12/23/16 08:59 11/27/16 08:00 10 MG Aspirin (Ecotrin Tab) 81 mg DAILY PO 11/23/16 09:00 12/23/16 08:59 11/27/16 07:59 81 MG Mycophenolate Mofetil (Cellcept Cap) 250 mg Q12 PO 11/22/16 21:00 12/22/16 20:59 11/27/16 08:00 250 MG Sotalol HCl (Betapace Tab) 120 mg BID PO 11/22/16 21:00 12/22/16 20:59 11/27/16 07:59 120 MG Sirolimus (Sirolimus) 1 mg DAILY PO 11/23/16 09:00 12/23/16 08:59 11/27/16 08:00 1 MG Glucose (Glucose 40% Gel) 15-30 GRAMS 15 GRAMS... UD PRN PO 11/22/16 19:15 12/22/16 19:14 Glucose (Glucose Chew Tab) 4-8 Tablets 4 Tabl... UD PRN PO 11/22/16 19:15 12/22/16 19:14 Dextrose (Dextrose 50% 50ML Syringe) 25-50ML OF 50% DW IV FOR... UD PRN IV 11/22/16 19:15 12/22/16 19:14 Glucagon (Glucagon Inj) 1 mg UD PRN SQ 11/22/16 19:15 12/22/16 19:14 Miscellaneous Information (Pending Order) 1 ea DAILY@10 N/A 11/23/16 10:00 12/23/16 09:59 11/23/16 09:28 1 EA Ceftriaxone Sodium 1 gm/ Dextrose 50 ml @ 100 mls/hr DAILY@1500 IV 11/23/16 15:00 12/01/16 15:29 11/26/16 15:34 100 MLS/HR Miscellaneous Information (Consult Glycemic Management Pharmacy) 1 ea UD PRN N/A 11/23/16 00:05 12/23/16 00:04 Insulin Aspart (novoLOG ASPART) SLIDING SCALE ACHS SC 11/23/16 11:00 12/23/16 10:59 11/27/16 12:42 5 UNITS Warfarin Sodium (Coumadin Tab) 2 mg DAILY@1600 PO 11/25/16 16:00 12/23/16 15:59 11/26/16 15:36 2 MG Docusate Sodium (coLACE CAP) 100 mg BID PRN PO 11/26/16 13:15 12/26/16 13:14 11/26/16 16:31 100 MG Insulin Glargine (Lantus Solostar Pen) 23 units HS SQ 11/27/16 21:00 12/26/16 20:59
[2016-11-27] MEDS ORDERED: AMOX875T PO (15:13)
[2016-11-27] MEDS ORDERED: CMD2 PO (15:13)
--- NOTE | 2016-11-27 15:17 | Discharge Instructions ---
Discharge Instructions Date of Service Nov 27, 2016. Admission Reason for Admission: Hx Of Renal Transplant, Hyponatremia, Uti Discharge Discharge Diagnosis / Problem: URINARY TRACT INFECTION Discharge Goals Goal(s): Diagnostic testing, Therapeutic intervention Activity Recommendations Activity Limitations: resume your previous activity . Instructions / Follow-Up Instructions / Follow-Up PLEASE REVIEW YOUR NEW MEDICATION LIST AND FOLLOW INSTRUCTIONS CAREFULLY. TAKE YOGURT DAILY AND DRINK PLENTY OF FLUIDS. YOUR COUMADIN DOSE HAS BEEN INCREASED TO 2 MG PO DAILY. [facility] WILL BE CONTACTING YOU SOON FOR FURTHER INSTRUCTIONS. CALL PRIMARY CARE PHYSICIAN OR RETURN TO ER IMMEDIATELY IF WITH RECURRENCE OF SYMPTOMS, FEVER/CHILLS, FLANK/BACK PAIN, NAUSEA, WEAKNESS. FOLLOW UP WITH DR. HAZEL ON THURSDAY DECEMBER 01, 2016 AT 12:45PM. Current Hospital Diet Patient's current hospital diet: Diabetes Type 2 Diet, AHA Diet (Heart Healthy) Discharge Diet Recommended Diet: AHA Diet (Heart Healthy), Diabetes Type 2 Diet Pending Studies Studies pending at discharge: no Laboratory Results Hemoglobin A1c Test 11/23/16 05:25 Range/Units Estimated Average Glucose 212 mg/dl Hemoglobin A1c 9.0 H 4.5-5.6 % Medical Emergencies . Who to Call and When: Medical Emergencies: If at any time you feel your situation is an emergency, please call 911 immediately. . Non-Emergent Contact Non-Emergency issues call your: Primary Care Provider Call Non-Emergent contact if: you have a fever, your pain is not controlled, your pain is worsening, you have any medication questions . . "Provider Documentation" section prepared by Hay Mortensen. . VTE Core Measure Inpt VTE Proph given/why not?: Unfractionated heparin SQ, Warfarin (Coumadin)
--- NOTE | 2016-11-27 15:22 | Discharge Summary ---
Discharge Summary Date of Service Nov 27, 2016. Discharge Summary Admission Date: Nov 22, 2016 at 17:24 Discharge Date: Nov 27, 2016 Discharge Disposition: Home Principal Diagnosis: Urinary Tract Infection E coli Secondary Diagnoses/Problems: Please refer to hospital course below. Procedures: PA CHEST WITH ABDOMINAL SERIES CLINICAL HISTORY: Generalized abdominal pain. Constipation and nausea. Gas. FINDINGS: A PA chest radiograph is compared to study dated 07/18/2016. The heart is enlarged and there is atherosclerotic calcification of the thoracic aorta. The pulmonary vasculature is noncongested. Chronic interstitial thickening is similar to previous. The lungs and pleural spaces are otherwise clear. No pneumothorax is seen. The skeletal structures are osteopenic. The bony thorax is grossly intact. Supine and erect abdominal radiographs are obtained. No prior studies are available for comparison at the time of dictation. Cholecystectomy clips are seen in the right upper quadrant. Surgical clips are also seen in the left upper quadrant and throughout the right hemipelvis. Suture material is also seen in the pelvis. There is a nonobstructed abdominal bowel gas pattern. No evidence of intraperitoneal free air is seen. There are no abnormal abdominal calcifications. There is mild to moderate lumbosacral spondylosis. The lumbosacral spine and bony pelvis appear intact. IMPRESSION: 1. Cardiomegaly with no active disease in the chest. 2. Nonobstructed abdominal bowel gas pattern. Pending Studies/Follow-Up: Please refer to hospital course below. Medication Reconciliation New Medications: Amoxicillin & Pot Clavulanate (Augmentin 875-125 mg) 1 Tab Tab 1 TAB PO BID for 4 Days, #8 TAB Warfarin Sod (Coumadin) 2 Mg Tab 2 MG PO DAILY@1600 for 7 Days further instructions regarding coumadin dosing will be provided by the [facility] (they will contact you soon.) Continued Medications: Amlodipine Besylate (Norvasc) 10 Mg Tab 10 MG PO DAILY, TAB Aspirin (Aspirin Ec) 81 Mg Tab 81 MG PO DAILY Glucagon (Glucagon Emergency Kit) 1 Mg Kit 1 MG INJ UD PRN for HYPOGLYCEMIA PROTOCOL Insulin Aspart (Novolog Flexpen) 100 Units/Ml Inj 0 SQ UD 3 times a day with meals per sliding scale Insulin Glargine (Lantus Solostar) 100 Unit/Ml Inj 20 UNITS SQ HS, PEN Mycophenolate Mofetil (Mycophenolate Mofetil) 250 Mg Cap 250 MG PO Q12 Sirolimus (Rapamune) 1 Mg Tab 1 MG PO DAILY Sotalol Hcl (Sotalol Hcl) 80 Mg Tab 120 MG PO BID Discontinued Medications: Warfarin Sod (Jantoven) 1 Mg Tab 0 PO UD, TAB 1 pill Thursday, Thursday, Thursday, , Thursday, Thursday 1+1/2 pill Thursday Admission Information HPI (per Admitting provider): 71 YO female followed by Dr. Renee for Family Medicine and Dr. Keshawn Reardon for Nephrology. History of atrial fibrillation, hypertension, CKD / renal transplant, and other problems as noted below. Doing well until 4 days prior to admission when she experienced nausea. The next day she noted dysuria and increasing malaise. She thought that she might be developing a UTI, so she drank extra fluids. No fever, chills, sweats. No flank pain or abdominal pain. No vomiting or diarrhea. No hematuria. [place] worse today, so she came to ED for evaluation. . Physical Exam (per Admitting): General Appearance: WD/WN, no apparent distress Head: normocephalic, atraumatic Eyes: normal inspection, PERRL, EOMI, sclerae normal ENT: normal ENT inspection, hearing grossly normal, pharynx normal Neck: supple, no adenopathy, thyroid normal, trachea midline Respiratory/Chest: lungs clear, no respiratory distress, no accessory muscle use Cardiovascular: no edema, no gallop, + irregularly irregular, + pertinent finding Abdomen/GI: normal bowel sounds, non tender, soft, no organomegaly, no pulsatile mass Extremities/Musculoskelatal: no calf tenderness, normal capillary refill, no pedal edema, + pertinent finding Neurologic/Psych: 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 of renal transplantation on immunosuppressives, paroxysmal atrial fibrillation on long- term anticoagulation, HTN, HLD, recurrent UTIs presented with UTI Urinary Tract Infection Urine culture: E coli, pansensitive clinically improved received Ceftriaxone IV x 6 days continue Augmentin BID x 4 more days to complete 10 days total repeat UA/Urine culture after antibiotic course Hyponatremia - Resolved improved with IV NSS from 122 to 139 fluids stopped will need close outpatient monitoring Insulin Dependent DM2 Ha1c 9 continue usual Insulin regimen outpatient ff up Paroxysmal A. Fib currently in NSR INR is subtherapeutic, increased coumadin to 2mg daily - INR 1.4 continue coumadin 2mg po daily, will notify coumadin clinic for close ff up and repeat INR continue sotalol Hx. of Renal Transplant continue immunosuppressives (CellCept + Sirolimus) HTN BP stable; continue amlodipine KATIA-I intolerance noted on chart Dispo d/c home ff up with PCP in 1 week ff up with [facility] as advised Total time spent on discharge = 25 mins This includes examination of the patient, discharge planning, medication reconciliation, and communication with other providers. Discharge Instructions Discharge Instructions Date of Service Nov 27, 2016. Admission Reason for Admission: Hx Of Renal Transplant, Hyponatremia, Uti Discharge Discharge Diagnosis / Problem: URINARY TRACT INFECTION Discharge Goals Goal(s): Diagnostic testing, Therapeutic intervention Activity Recommendations Activity Limitations: resume your previous activity . Instructions / Follow-Up Instructions / Follow-Up PLEASE REVIEW YOUR NEW MEDICATION LIST AND FOLLOW INSTRUCTIONS CAREFULLY. TAKE YOGURT DAILY AND DRINK PLENTY OF FLUIDS. YOUR COUMADIN DOSE HAS BEEN INCREASED TO 2 MG PO DAILY. THE [facility] WILL BE CONTACTING YOU SOON FOR FURTHER INSTRUCTIONS. CALL PRIMARY CARE PHYSICIAN OR RETURN TO ER IMMEDIATELY IF WITH RECURRENCE OF SYMPTOMS, FEVER/CHILLS, FLANK/BACK PAIN, NAUSEA, WEAKNESS. FOLLOW UP WITH DR. RENEE ON THURSDAY DECEMBER 01, 2016 AT 12:45PM. Current Hospital Diet Patient's current hospital diet: Diabetes Type 2 Diet, AHA Diet (Heart Healthy) Discharge Diet Recommended Diet: AHA Diet (Heart Healthy), Diabetes Type 2 Diet Pending Studies Studies pending at discharge: no Laboratory Results Hemoglobin A1c Test 11/23/16 05:25 Range/Units Estimated Average Glucose 212 mg/dl Hemoglobin A1c 9.0 H 4.5-5.6 % Medical Emergencies . Who to Call and When: Medical Emergencies: If at any time you feel your situation is an emergency, please call 911 immediately. . Non-Emergent Contact Non-Emergency issues call your: Primary Care Provider Call Non-Emergent contact if: you have a fever, your pain is not controlled, your pain is worsening, you have any medication questions . . "Provider Documentation" section prepared by Hay Mortensen. . VTE Core Measure Inpt VTE Proph given/why not?: Unfractionated heparin SQ, Warfarin (Coumadin)
[2016-11-27] MEDS: CEFTRIAXONE SOD INJ 1 GM in DEXTROSE 5% ADD-VANTAGE 50ML 50 ML IV SCH (15:23)
[2016-11-27] MEDS: WARFARIN SOD 2 MG TAB PO SCH (15:24)
[2016-11-27 15:42] VITALS: BP 166/66; PULSE 65; TEMP 36.7; O2SAT 97
[2016-11-27 16:08] VITALS: BP 166/66; PULSE 65; TEMP 36.7; O2SAT 97
[2016-11-27] MEDS ORDERED: INSULIN GLARGINE SOLOSTAR 100 UNITS/ML 3 ML PEN SQ SCH (21:00)
== END 2016-11-27 17:15 | disposition home or self-care (01) | DRG 690 ==
LOC: C.EDB 14:04 → C.2T 17:24 → ENRESERV 17:44 → C.4E 11-25 13:01 → ENRESERV 11-25 13:49
PROVIDERS: ADMIT Hospitalist; ATTEND Internal Medicine
DX: N39.0 Urinary tract infection, site not specified (principal); Z94.0 Kidney transplant status; E87.1 Hypo-osmolality and hyponatremia; B96.20 Unspecified Escherichia coli [E. coli] as the cause of diseases classified elsewhere; E86.0 Dehydration; R79.1 Abnormal coagulation profile; I48.0 Paroxysmal atrial fibrillation; I10 Essential (primary) hypertension; E11.9 Type 2 diabetes mellitus without complications; Z79.4 Long term (current) use of insulin; Z79.82 Long term (current) use of aspirin; Z79.01 Long term (current) use of anticoagulants; Z79.899 Other long term (current) drug therapy

== ENCOUNTER 2017-04-12 14:27 | Inpatient (IN) | payer OTHER ==
[~2017-04-12] VITALS: Ht 167.6 cm; Wt 63.0 kg
[~2017-04-12 14:27] MED LIST changes: -ACET-1256 PO; -AMLO10TA2 PO; -ASPI81TA28 PO; +CMD2 PO; -GLGKIT INJ; -KFL500 PO; -SOTA80TA PO; -WARF1TAB6 PO
[2017-04-12] MEDS ORDERED: ONDANSETRON INJ 2 MG/ML 2 ML VIAL IV STA (14:42)
[2017-04-12] MEDS ORDERED: CEFTRIAXONE SOD INJ 1 GM ADDVIAL IV STA (14:42)
[2017-04-12] MEDS ORDERED: SODIUM CHLORIDE 0.9% 1000ML 1,000 ML IV STA (14:42)
[2017-04-12 16:38] LABS: EOS % 0.2 %; EOS ABS # 0.02 K/uL (0-0.5); HEMATOCRIT 35.4 % (37-47); HEMOGLOBIN 12.4 g/dL (12.0-16.0); IG# 0.03 K/uL (0.00-0.02); LYMPH % 16.4 %; LYMPH ABS # 1.51 K/uL (1.2-3.4); MEAN CELL VOLUME 78.8 fL (80-100); MEAN CORPUSCULAR HEMOGLOBIN 27.6 pg (25-34); MEAN PLATELET VOLUME 8.7 fL (7.4-10.4); MONO % 15.2 %; NEUT % 67.9 %; NEUT ABS # 6.27 K/uL (1.4-6.5); PLATELET COUNT 263 K/uL (130-400); RED CELL DISTRIBUTION WIDTH CV 14.4 % (11.5-14.5); RED CELL DISTRIBUTION WIDTH SD 41.3 fL (36.4-46.3); WHITE BLOOD COUNT 9.23 K/uL (4.8-10.8)
[2017-04-12] MEDS ORDERED: WARF1TAB PO (16:53)
[2017-04-12] MEDS ORDERED: CHOL200010 PO (16:53)
[2017-04-12 17:05] LABS: BLOOD UREA NITROGEN 24 mg/dl (7-18); CALCIUM 8.8 mg/dl (8.5-10.1); CARBON DIOXIDE 26 mmol/L (21-32); CREATININE 1.34 mg/dl (0.60-1.20); GLUCOSE 390 mg/dl (70-99); POTASSIUM 3.7 mmol/L (3.5-5.1); SODIUM 119 mmol/L (136-145)
[2017-04-12] MEDS ORDERED: GLGKIT INJ (17:13)
--- NOTE | 2017-04-12 17:28 | EMERGENCY ROOM VISIT NOTE ---
History Report prepared by Fred: Baldev Fraga Under the Supervision of: Dr. Vadim Griffin D.O. First contact with patient: 14:39 Chief Complaint: URINARY SYMPTOMS Stated Complaint: POSSIBLE UTI, WEAKNESS, NAUSEA Nursing Triage Summary: pt reports pressure and burning with urination. n/v. started 1 week ago History of Present Illness The patient is a 72 year old female who presents to the Emergency Room with complaints of a UTI that began 1 week ago. She reports pressure and burning with urination, weakness, and nausea. She denies fevers, vomiting, and abdominal pain. This is similar to her previous UTI that she had in November 2016. Of note, the patient is on Warfarin. Source of History: patient Onset: 1 week ago Position: pelvis Quality: pressure, burning Timing: constant Modifying Factors (Worsening): urination Associated Symptoms: + nausea, + urinary symptoms (pressure and burning with urination), + weakness, No fevers, No vomiting, No abdominal pain, No diarrhea Note: Patient had a UTI in November of 2016. Review of Systems See HPI for pertinent positives & negatives. A total of 10 systems reviewed and were otherwise negative. Past Medical & Surgical Medical Problems: (1) Benign hypertension (2) Diabetes mellitus, type II (3) History of atrial fibrillation (4) History of herpes zoster (5) History of renal transplant (6) Sepsis (7) UTI (urinary tract infection) Surgical Problems: (1) S/p cadaver renal transplant (2) Status post cholecystectomy (3) Status post kidney transplant Family History Dementia FATHER Diabetes mellitus MOTHER GRANDFATHER Hypertension MOTHER Social History Smoking Status: Never Smoker Alcohol Use: none Drug Use: none Marital Status: Housing Status: lives with family Occupation Status: unemployed Current/Historical Medications Scheduled Amlodipine Besylate (Norvasc), 10 MG PO DAILY Aspirin (Aspirin Ec), 81 MG PO DAILY Cholecalciferol (Vitamin D), 2,000 UNITS PO DAILY Insulin Aspart (Novolog Flexpen), 12-22 UNITS SQ AC Insulin Glargine (Lantus Solostar), 20 UNITS SQ HS Mycophenolate Mofetil (Mycophenolate Mofetil), 250 MG PO Q12 Sirolimus (Rapamune), 1 MG PO DAILY Sotalol Hcl (Sotalol Hcl), 120 MG PO BID Warfarin Sodium (Coumadin), 1 MG PO MWF Warfarin Sodium (Coumadin), 2 MG PO 4XWK Scheduled PRN Glucagon (Glucagon Emergency Kit), 1 MG INJ UD PRN for HYPOGLYCEMIA PROTOCOL Allergies Coded Allergies: No Known Allergies (Verified , 11/22/16) Physical Exam Vital Signs Date Time Temp Pulse Resp B/P (MAP) Pulse Ox O2 Delivery O2 Flow Rate FiO2 04/12/17 16:14 69 20 137/65 98 Room Air 04/12/17 14:34 37.4 81 18 139/80 99 Room Air Physical Exam CONSTITUTIONAL/VITAL SIGNS: Reviewed / noted above. GENERAL: Non-toxic in appearance. INTEGUMENTARY: Warm, dry, and [place]. HEAD: Normocephalic. EYES: without scleral icterus or trauma. ENT/OROPHARYNX: clear and moist. LYMPHADENOPATHY/NECK: Is supple without lymphadenopathy or meningismus. RESPIRATORY: Lungs clear and equal. CARDIOVASCULAR: Regular rate and rhythm. Murmur over anterior chest wall related to dialysis fistula. GI/ABDOMEN: Soft and nontender. No organomegaly or pulsatile mass. No rebound or guarding. Normal bowel sounds. EXTREMITIES: Warm and well perfused. BACK: No CVA tenderness. NEUROLOGICAL: Intact without focal deficits. PSYCHIATRIC: normal affect. MUSCULOSKELETAL: Normally developed with good muscle tone. Medical Decision & Procedures Laboratory Results 04/12/17 16:30 Red Blood Count 4.49, Mean Corpuscular Volume 78.8, Mean Corpuscular Hemoglobin 27.6, Mean Corpuscular Hemoglobin Concent 35.0, Mean Platelet Volume 8.7, Neutrophils (%) (Auto) 67.9, Lymphocytes (%) (Auto) 16.4, Monocytes (%) (Auto) 15.2, Eosinophils (%) (Auto) 0.2, Basophils (%) (Auto) 0.0, Neutrophils # (Auto ) 6.27, Lymphocytes # (Auto) 1.51, Monocytes # (Auto) 1.40, Eosinophils # (Auto ) 0.02, Basophils # (Auto) 0.00 04/12/17 16:30 Test 04/12/17 15:00 04/12/17 16:30 Urine Color YELLOW Urine Appearance CLOUDY (CLEAR) Urine pH 6.5 (4.5-7.5) Urine Specific [place] 1.019 (1.000-1.030) Urine Protein 1+ (NEG) Urine Glucose (UA) 3+ (NEG) Urine Ketones 1+ (NEG) Urine Occult Blood 1+ (NEG) Urine Nitrite POS (NEG) Urine Bilirubin NEG (NEG) Urine Urobilinogen NEG (NEG) Urine Leukocyte Esterase MODERATE (NEG) Urine WBC (Auto) >30 /hpf (0-5) Urine RBC (Auto) 0-4 /hpf (0-4) Urine Hyaline Casts (Auto) 1-5 /lpf (0-5) Urine Epithelial Cells (Auto) 5-10 /lpf (0-5) Urine Bacteria (Auto) 2+ (NEG) White Blood Count 9.23 K/uL (4.8-10.8) Red Blood Count 4.49 M/uL (4.2-5.4) Hemoglobin 12.4 g/dL (12.0-16.0) Hematocrit 35.4 % (37-47) Mean Corpuscular Volume 78.8 fL (80-100) Mean Corpuscular Hemoglobin 27.6 pg (25-34) Mean Corpuscular Hemoglobin Concent 35.0 g/dl (32-36) Platelet Count 263 K/uL (130-400) Mean Platelet Volume 8.7 fL (7.4-10.4) Neutrophils (%) (Auto) 67.9 % Lymphocytes (%) (Auto) 16.4 % Monocytes (%) (Auto) 15.2 % Eosinophils (%) (Auto) 0.2 % Basophils (%) (Auto) 0.0 % Neutrophils # (Auto) 6.27 K/uL (1.4-6.5) Lymphocytes # (Auto) 1.51 K/uL (1.2-3.4) Monocytes # (Auto) 1.40 K/uL (0.11-0.59) Eosinophils # (Auto) 0.02 K/uL (0-0.5) Basophils # (Auto) 0.00 K/uL (0-0.2) RDW Standard Deviation 41.3 fL (36.4-46.3) RDW Coefficient of Variation 14.4 % (11.5-14.5) Immature Granulocyte % (Auto) 0.3 % Immature Granulocyte # (Auto) 0.03 K/uL (0.00-0.02) Anion Gap 11.0 mmol/L (3-11) Estimated GFR () 45.4 Estimated GFR (Non- 39.2 BUN/Creatinine Ratio 18.1 (10-20) Calcium Level 8.8 mg/dl (8.5-10.1) Beta-Hydroxybutyric Acid 27.59 mg/dL (0.2-2.81) Laboratory results as stated above per my review. Medications Administered Medications (Trade) Dose Ordered Sig/Sandeep Route Start Time Stop Time Status Last Admin Dose Admin Sodium Chloride 1,000 ml @ 999 mls/hr Q1H1M STAT IV 04/12/17 14:42 04/12/17 15:42 DC 04/12/17 15:56 999 MLS/HR Ondansetron HCl (Zofran Inj) 4 mg NOW STAT IV 04/12/17 14:42 04/12/17 14:45 DC 04/12/17 15:57 4 MG Ceftriaxone Sodium (Rocephin Inj) 1 gm NOW STAT IV 04/12/17 14:42 04/12/17 14:45 DC 04/12/17 15:56 1 GM ED Course 1439: Previous medical records were reviewed. The patient was evaluated in room B6. A complete history and physical examination was performed. 1442: Rocephin Inj, 1 gm, IV; Zofran Inj, 4 mg, IV; Sodium Chloride 1000 ml @ 999 mls/hr IV. 1600: I checked on the patient and she is doing well. 1652: I checked on the patient and she is doing well. She says that [facility] usually keeps her for her UTIs due to her kidney transplant. 1715: I discussed the patient's case with Dr. Mena. The patient will be evaluated for further treatment and disposition. 1730: On reevaluation, the patient is doing well. I discussed the results and findings with the patient. She and her family verbalized agreement of the treatment plan. I spoke with Dr. Mena of the [facility] Hospitalist Service. The patient will be evaluated for further management and care. Medical Decision Differential considered: pancreatitis, hepatitis, or acute cholecystitis, AAA, UTI, pyelonephritis, kidney stones, appendicitis, diverticulitis, shingles, bowel obstruction mesenteric ischemia, intussusception, hernia. This is a 72-year-old female who presents to the ED with a chief complaint of UTI symptoms. Patient reports a history of UTIs and states that her symptoms today are similar to those. She reports burning with urination as well as some pressure in the suprapubic area, nausea and exhaustion. She states that she has had the symptoms for about a week. Her vital signs here are stable. She is mildly hypertensive likely situational. She is afebrile. Her exam revealed some mild tenderness over the suprapubic area. She otherwise has an unremarkable abdominal and back exam. Patient's urinalysis is suggestive of a UTI. Her sodium was low at 119 and glucose was elevated at 390. Other lab work was unremarkable. The patient was given IV fluids, IV Zofran and IV Rocephin. The hospitalist will see her for admission. Medication Reconcilliation Current Medication List: was personally reviewed by me Blood Pressure Screening Patient's blood pressure: Elevated blood pressure Blood pressure disposition: Referred to PCP Consults Time Called: 1711 Consulting Physician: Dr. Mena Returned Call: 1715 Discussed the patient's case. The patient will be evaluated for further treatment and disposition. Impression Primary Impression: UTI (urinary tract infection) Additional Impressions: Hyponatremia Kidney transplant recipient Acute hyperglycemia Scribe Attestation The scribe's documentation has been prepared under my direction and personally reviewed by me in its entirety. I confirm that the note above accurately reflects all work, treatment, procedures, and medical decision making performed by me. Departure Information Dispostion Being Evaluated By Hospitalist Referrals Laurel Renee M.D. (PCP) Patient Instructions My [facility] Problem Qualifiers
[2017-04-12] MEDS ORDERED: GLUCAGON FOR INJ 1 MG VIAL SQ PRN (17:30)
[2017-04-12] MEDS ORDERED: DEXTROSE 50% 50 ML SYR IV PRN (17:30)
[2017-04-12] MEDS ORDERED: GLUCOSE 40% GEL 15 GM TUBE PO PRN (17:30)
[2017-04-12] MEDS ORDERED: GLUCOSE 10 TABS/TUBE PO PRN (17:30)
[2017-04-12] MEDS ORDERED: ONDANSETRON INJ 2 MG/ML 2 ML VIAL IV PRN (17:30)
[2017-04-12 17:33] VITALS: O2SAT 100; BMI 21.3
[2017-04-12 18:18] LABS: INR 1.6 (0.9-1.1)
--- NOTE | 2017-04-12 18:36 | History and Physical ---
History & Physical Date & Time of Service: Apr 12, 2017 at 18:16 Chief Complaint: Possible Uti, Weakness, Nausea Primary Care Physician: Laurel Renee M.D. History of Present Illness Source: patient, family, clinic records, hospital records This is a 72 year old female with a PMH of insulin dependent DM2; hx. of renal transplantation on immunosuppressives, paroxysmal atrial fibrillation on long- term anticoagulation, HTN, HLD, recurrent UTIs - presents with weakness nausea, decreased appetite and urinary symptoms for the past week. She was admitted in November 2016 with similar symptoms of dehydration, weakness, UTI and hyponatremia. Upon presentation - patient found to have significant dehydration and hyponatremia; sodium level of 119. Patient states she was sick and could not use her insulin or take her medications like she was supposed to. She had some dry heaves initially, but no vomiting or diarrhea. Denies fevers/chills, denies cough/shortness of breath or chest pain. Family History Dementia FATHER Diabetes mellitus MOTHER GRANDFATHER Hypertension MOTHER Social History Smoking Status: Never Smoker Drug Use: none Marital Status: Occupational Status: unemployed Immunizations History of Influenza Vaccine: Yes History of Tetanus Vaccine?: Yes Tetanus Immunization Date: Sep 05, 2006 History of Pneumococcal: Yes Pneumococcal Date: Sep 06, 2007 History of Hepatitis B Vaccine: Yes Hepatitis Immunization Date: Oct 24, 2007 Allergies Coded Allergies: No Known Allergies (Verified , 11/22/16) Home Medications Scheduled Amlodipine Besylate (Norvasc), 10 MG PO DAILY Aspirin (Aspirin Ec), 81 MG PO DAILY Cholecalciferol (Vitamin D), 2,000 UNITS PO DAILY Insulin Aspart (Novolog Flexpen), 12-22 UNITS SQ AC Insulin Glargine (Lantus Solostar), 20 UNITS SQ HS Mycophenolate Mofetil (Mycophenolate Mofetil), 250 MG PO Q12 Sirolimus (Rapamune), 1 MG PO DAILY Sotalol Hcl (Sotalol Hcl), 120 MG PO BID Warfarin Sodium (Coumadin), 1 MG PO UD Warfarin Sodium (Coumadin), 2 MG PO UD Scheduled PRN Glucagon (Glucagon Emergency Kit), 1 MG INJ UD PRN for HYPOGLYCEMIA PROTOCOL Review of Systems Constitutional: + weakness, + fatigue, + problem reported (decreased appetite) , No fever, No chills, No sweats Eyes: No worsening of vision, No eye pain ENT: No hearing loss Respiratory: No cough, No sputum, No shortness of breath Cardiovascular: No chest pain Abdomen: + nausea, No pain, No vomiting, No diarrhea, No constipation, No GI bleeding Musculoskeletal: No joint pain, No muscle pain Genitourinary - Female: + dysuria, + urinary frequency, + urinary urgency, + urinary incontinence, No urinary retention, No hematuria Neurologic: + weakness, No numbness/tingling, No vertigo, No balance problems Psychiatric: No depression symptoms, No anxiety, No insomnia Hematologic / Lymphatic: No abnormal bleeding/bruising Integumentary: No rash, No itch Allergic / Immunologic: No environmental allergies, No seasonal allergies Physical Exam Vital Signs Date Time Temp Pulse Resp B/P (MAP) Pulse Ox O2 Delivery O2 Flow Rate FiO2 04/12/17 17:50 72 04/12/17 17:42 74 18 136/63 100 Room Air 04/12/17 17:33 100 Room Air 04/12/17 16:14 69 20 137/65 98 Room Air 04/12/17 14:34 37.4 81 18 139/80 99 Room Air General Appearance: + mild distress, + pertinent finding (+weakness, dehydration) Head: normocephalic, atraumatic Eyes: normal inspection ENT: hearing grossly normal, + pertinent finding (+dry mucous membranes) Neck: supple Respiratory/Chest: chest non-tender, lungs clear, normal breath sounds, no respiratory distress, no accessory muscle use Cardiovascular: regular rate, rhythm, + systolic murmur (blowing systolic murmur) Abdomen/GI: normal bowel sounds, non tender, soft Back: normal inspection, normal range of motion Extremities/Musculoskelatal: + pertinent finding (AV fistula on L arm) Neurologic/Psych: rail filler II-XII 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 tested, no motor/sensory deficits, alert, normal mood/affect, oriented x 3 Skin: normal color, warm/dry, no rash Lymphatic: no adenopathy Diagnostics Laboratory Results Results Past 24 Hours Test 04/12/17 15:00 04/12/17 16:30 Range/Units Urine Color YELLOW Urine Appearance CLOUDY CLEAR Urine pH 6.5 4.5-7.5 Urine Specific [place] 1.019 1.000-1.030 Urine Protein 1+ NEG Urine Glucose (UA) 3+ NEG Urine Ketones 1+ NEG Urine Occult Blood 1+ NEG Urine Nitrite POS NEG Urine Bilirubin NEG NEG Urine Urobilinogen NEG NEG Urine Leukocyte Esterase MODERATE NEG Urine WBC (Auto) >30 0-5 /hpf Urine RBC (Auto) 0-4 0-4 /hpf Urine Hyaline Casts (Auto) 1-5 0-5 /lpf Urine Epithelial Cells (Auto) 5-10 0-5 /lpf Urine Bacteria (Auto) 2+ NEG White Blood Count 9.23 4.8-10.8 K/uL Red Blood Count 4.49 4.2-5.4 M/uL Hemoglobin 12.4 12.0-16.0 g/dL Hematocrit 35.4 37-47 % Mean Corpuscular Volume 78.8 80-100 fL Mean Corpuscular Hemoglobin 27.6 25-34 pg Mean Corpuscular Hemoglobin Concent 35.0 32-36 g/dl Platelet Count 263 130-400 K/uL Mean Platelet Volume 8.7 7.4-10.4 fL Neutrophils (%) (Auto) 67.9 % Lymphocytes (%) (Auto) 16.4 % Monocytes (%) (Auto) 15.2 % Eosinophils (%) (Auto) 0.2 % Basophils (%) (Auto) 0.0 % Neutrophils # (Auto) 6.27 1.4-6.5 K/uL Lymphocytes # (Auto) 1.51 1.2-3.4 K/uL Monocytes # (Auto) 1.40 0.11-0.59 K/uL Eosinophils # (Auto) 0.02 0-0.5 K/uL Basophils # (Auto) 0.00 0-0.2 K/uL RDW Standard Deviation 41.3 36.4-46.3 fL RDW Coefficient of Variation 14.4 11.5-14.5 % Immature Granulocyte % (Auto) 0.3 % Immature Granulocyte # (Auto) 0.03 0.00-0.02 K/uL Sodium Level 119 136-145 mmol/L Potassium Level 3.7 3.5-5.1 mmol/L Chloride Level 83 98-107 mmol/L Carbon Dioxide Level 26 21-32 mmol/L Anion Gap 11.0 3-11 mmol/L Blood Urea Nitrogen 24 7-18 mg/dl Creatinine 1.34 0.60-1.20 mg/dl Estimated GFR () 45.4 Estimated GFR (Non- 39.2 BUN/Creatinine Ratio 18.1 10-20 Random Glucose 390 70-99 mg/dl Calcium Level 8.8 8.5-10.1 mg/dl Beta-Hydroxybutyric Acid 27.59 0.2-2.81 mg/dL Microbiology Results 04/12/17 Urine Culture, Received Pending Impression Assessment and Plan This is a 72 year old female with a PMH of insulin dependent DM2; hx. of renal transplantation on immunosuppressives, paroxysmal atrial fibrillation on long- term anticoagulation, HTN, HLD, recurrent UTIs presented with UTI Hyponatremia secondary to dehydration and UTI patient has had issues with hyponatremia in the past due to dehydration Na level on admission = 119, corrected sodium is ~ 122 given 1L of NaCl in the ED, will add NS @ 125mL/hr for now recheck PRP q4 hours and adjust based on sodium correction rate Recurrent UTI in the setting of Immunosuppression patient has had recurrent UTIs in the setting of immunosuppression previous cultures have grown E. coli and Klebsiella will start Rocephin, await urine cultures Uncontrolled BSGs in the setting of Insulin Dependent DM2 Ha1c is pending last Ha1c >9.0% patient is refusing insulin drip - has had this during previous admission and refuses will give 6 units of regular insulin then start Lantus 10 units BID, insulin sliding scale pharmacy glycemic control consultation Acute Kidney Injury secondary to dehydration creatinine up to 1.3, baseline is around 1.0 recheck PRP in 4 hours Paroxysmal A. Fib currently in NSR continue sotalol and Coumadin check INR - home dose of 1mg daily except 2mg on M and F Hx. of Renal Transplant continue immunosuppressives (CellCept + Sirolimus) HTN BP stable; continue amlodipine KATIA-I intolerance noted on chart DVT ppx Coumadin FULL CODE Advanced Directives Existing Living Will: No Existing Power of Pattern Fitter: No Resuscitation Status VTE Prophylaxis Will order VTE Prophylaxis: Yes
[2017-04-12 18:52] VITALS: BP 133/75; PULSE 79; TEMP 36.9; O2SAT 98
[2017-04-12] MEDS ORDERED: INSULIN HUMAN REGULAR PER UNIT 6 UNITS in SYRINGE 5.94 ML IV STA (18:56)
--- NOTE | 2017-04-12 19:29 | DIAGNOSTIC IMAGING REPORT ---
PA CHEST WITH ABDOMINAL SERIES CLINICAL HISTORY: Nausea and vomiting. FINDINGS: A PA chest radiograph is compared to study dated 11/22/2016. The heart is enlarged and there is atherosclerotic calcification of the thoracic aorta. The pulmonary vasculature is noncongested. Chronic interstitial thickening is similar to previous. The lungs and pleural spaces are otherwise clear. No pneumothorax is seen. The skeletal structures are osteopenic. The bony thorax is grossly intact. Supine and erect abdominal radiographs are obtained compared to study dated 11/22/2016. Cholecystectomy clips are seen in the right upper quadrant. Surgical clips are also seen in the left upper quadrant and throughout the right hemipelvis. Suture material is also seen in the pelvis. There is a nonobstructed abdominal bowel gas pattern. No evidence of intraperitoneal free air is seen. There are no abnormal abdominal calcifications. There is mild to moderate lumbosacral spondylosis. The lumbosacral spine and bony pelvis appear intact. IMPRESSION: 1. Cardiomegaly with no active disease in the chest. 2. Nonobstructed abdominal bowel gas pattern. Electronically signed by: Cornell Bey M.D. 04/12/2017 7:27 PM Dictated Date/Time: 04/12/2017 7:26 PM
[2017-04-12] MEDS ORDERED: PHARMACY GLYCEMIC MGMT CONSULT PRN (19:30)
[2017-04-12] MEDS ORDERED: AMLO10TA2 PO (19:35)
[2017-04-12] MEDS ORDERED: ASPI81TA28 PO (19:35)
[2017-04-12] MEDS ORDERED: SOTA80TA PO (19:35)
[2017-04-12] MEDS: ACETAMINOPHEN 325 MG TAB PO PRN (19:36)
[2017-04-12] MEDS: SODIUM CHLORIDE 0.9% 1000ML 1,000 ML IV SCH (19:37)
[2017-04-12 20:44] LABS: INFLUENZA B ANTIGEN Neg for Influ B (NEG)
[2017-04-12] MEDS: MYCOPHENOLATE MOFETIL 250 MG CAP (CELLCEPT) PO SCH (21:29)
[2017-04-12] MEDS: SOTALOL HCL 80 MG TAB PO SCH (21:30)
[2017-04-12] MEDS: INSULIN GLARGINE SOLOSTAR 100 UNITS/ML 3 ML PEN SC SCH (21:35)
[2017-04-12] MEDS: INSULIN ASPART 100 UNITS/ML 3 ML PEN SC SCH (21:35)
[2017-04-12 22:44] LABS: SODIUM RANDOM URINE 24 mEq/L
[2017-04-12 22:57] LABS: OSMOLALITY,URINE 399 mOms/kg (500-800)
[2017-04-12 23:51] VITALS: BP 141/51; PULSE 64; TEMP 36.7; O2SAT 97
[2017-04-13] VITALS (7 sets, daily range): BP systolic 121–160; BP diastolic 64–70; PULSE 58–73; TEMP 36.7–37.1; O2SAT 96–99; Ht 167.6 cm; Wt 63.0 kg
[2017-04-13 00:15] LABS: CALCIUM 8.6 mg/dl (8.5-10.1); CREATININE 1.19 mg/dl (0.60-1.20); POTASSIUM 2.8 mmol/L (3.5-5.1)
[2017-04-13] MEDS: INSULIN ASPART 100 UNITS/ML 3 ML PEN SC SCH ×6 (03:02→20:53)
[2017-04-13] MEDS: SODIUM CHLORIDE 0.9% 1000ML 1,000 ML IV SCH ×3 (03:04→20:54)
[2017-04-13 03:45] LABS: HEMATOCRIT 31.1 % (37-47); HEMOGLOBIN 10.7 g/dL (12.0-16.0); MEAN CELL VOLUME 78.5 fL (80-100); MEAN CORPUSCULAR HGB CONC 34.4 g/dl (32-36); MEAN PLATELET VOLUME 8.5 fL (7.4-10.4); PLATELET COUNT 220 K/uL (130-400); RED CELL DISTRIBUTION WIDTH CV 14.6 % (11.5-14.5); RED CELL DISTRIBUTION WIDTH SD 41.6 fL (36.4-46.3)
[2017-04-13 03:57] LABS: INR 1.7 (0.9-1.1)
[2017-04-13 04:03] LABS: CALCIUM 8.2 mg/dl (8.5-10.1); CREATININE 0.97 mg/dl (0.60-1.20)
[2017-04-13 07:13] LABS: HEMOGLOBIN A1C 10.1 % (4.5-5.6)
[2017-04-13] MEDS ORDERED: POTASSIUM CHLORIDE 20 MEQ TABCR PO ONE (07:45)
[2017-04-13] MEDS: POTASSIUM CHLR 10 MEQ / WTR 10 MEQ in PREMIXED WATER 100 ML IV SCH ×2 (07:58→10:35)
[2017-04-13] MEDS: AMLODIPINE BESYLATE 5 MG TAB PO SCH (08:09)
[2017-04-13] MEDS: INSULIN GLARGINE SOLOSTAR 100 UNITS/ML 3 ML PEN SC SCH ×2 (08:09→20:53)
[2017-04-13] MEDS: MYCOPHENOLATE MOFETIL 250 MG CAP (CELLCEPT) PO SCH ×2 (08:10→20:50)
[2017-04-13] MEDS: SOTALOL HCL 80 MG TAB PO SCH ×2 (08:10→20:51)
[2017-04-13] MEDS: SIROLIMUS 0.5 MG TAB PO SCH (08:11)
[2017-04-13] MEDS: ASPIRIN 81 MG ECTAB PO SCH (08:11)
[2017-04-13 09:12] LABS: CALCIUM 8.4 mg/dl (8.5-10.1); POTASSIUM 3.1 mmol/L (3.5-5.1)
--- NOTE | 2017-04-13 10:03 | Progress Note ---
Subjective Date of Service: Apr 13, 2017. Subjective Pt evaluation today including: conversation w/ patient, physical exam, lab review, review of studies, review of inpatient medication list Saw/examined the patient in room 237 No problems/issues to note today, she feels better today, less weak, less nauseous Problem List Medical Problems: (1) Acute hyperglycemia Status: Acute (2) Fever Status: Acute (3) Hyperglycemia Status: Acute (4) Hyponatremia Status: Acute (5) Hyponatremia Status: Acute (6) UTI (urinary tract infection) Status: Acute (7) Weakness Status: Acute Social History Problems: (1) History of renal transplant Status: Acute (2) Kidney transplant recipient Status: Acute Review of Systems Constitutional: + weakness Respiratory: No cough, No sputum, No shortness of breath Cardiac: No chest pain Abdomen: No pain, No nausea, No vomiting, No diarrhea Female : No dysuria, No urinary frequency Medications Current Inpatient Medications Medications (Trade) Dose Ordered Sig/Sandeep Route Start Time Stop Time Status Last Admin Dose Admin Sodium Chloride 1,000 ml @ 125 mls/hr Q8H IV 04/12/17 20:00 05/12/17 19:59 04/13/17 03:04 125 MLS/HR Acetaminophen (Tylenol Tab) 650 mg Q4H PRN PO 04/12/17 17:30 05/12/17 17:29 04/12/17 19:36 650 MG Ondansetron HCl (Zofran Inj) 4 mg Q6H PRN IV 04/12/17 17:30 05/12/17 17:29 Insulin Glargine (Lantus Solostar Pen) 10 units Q12 SC 04/12/17 21:00 05/12/17 20:59 04/13/17 08:09 10 UNITS Insulin Aspart (novoLOG ASPART) SLIDING SCALE If C... ACHS SC 04/12/17 21:00 05/12/17 20:59 04/13/17 08:08 3 UNITS Glucose (Glucose 40% Gel) 15-30 GRAMS 15 GRAMS... UD PRN PO 04/12/17 17:30 05/12/17 17:29 Glucose (Glucose Chew Tab) 4-8 Tablets 4 Tabl... UD PRN PO 04/12/17 17:30 05/12/17 17:29 Dextrose (Dextrose 50% 50ML Syringe) 25-50ML OF 50% DW IV FOR... UD PRN IV 04/12/17 17:30 05/12/17 17:29 Glucagon (Glucagon Inj) 1 mg UD PRN SQ 04/12/17 17:30 05/12/17 17:29 Miscellaneous Information (Consult Glycemic Management Pharmacy) 1 ea UD PRN N/A 04/12/17 19:30 05/12/17 19:29 Ceftriaxone Sodium 1 gm/ Dextrose 50 ml @ 100 mls/hr Q24H IV 04/13/17 16:00 04/23/17 15:59 Amlodipine Besylate (Norvasc Tab) 10 mg DAILY PO 04/13/17 09:00 05/13/17 08:59 04/13/17 08:09 10 MG Aspirin (Ecotrin Tab) 81 mg DAILY PO 04/13/17 09:00 05/13/17 08:59 04/13/17 08:11 81 MG Mycophenolate Mofetil (Cellcept Cap) 250 mg Q12 PO 04/12/17 21:00 05/12/17 20:59 04/13/17 08:10 250 MG Sotalol HCl (Betapace Tab) 120 mg BID PO 04/12/17 21:00 05/12/17 20:59 04/13/17 08:10 120 MG Sirolimus (Sirolimus) 1 mg DAILY PO 04/13/17 09:00 05/13/17 08:59 04/13/17 08:11 1 MG Warfarin Sodium (Coumadin Tab) 2 mg DAILY@16 PO 04/13/17 16:00 05/13/17 15:59 Objective Vital Signs Date Time Temp Pulse Resp B/P (MAP) Pulse Ox O2 Delivery O2 Flow Rate FiO2 04/13/17 07:45 37.0 73 16 156/64 (94) 97 Room Air 04/13/17 04:00 Room Air 04/13/17 02:56 36.7 68 18 160/69 (99) 98 Room Air 04/12/17 23:59 Room Air 04/12/17 23:51 36.7 64 18 141/51 (81) 97 Room Air 04/12/17 20:00 Room Air 04/12/17 18:55 Room Air 3/4/18 18:52 36.9 79 16 133/75 (94) 98 04/12/17 18:34 82 18 133/64 98 04/12/17 17:50 72 04/12/17 17:42 74 18 136/63 100 Room Air 04/12/17 17:33 100 Room Air 04/12/17 16:14 69 20 137/65 98 Room Air 04/12/17 14:34 37.4 81 18 139/80 99 Room Air Physical Exam General Appearance: no apparent distress Respiratory/Chest: no respiratory distress, no accessory muscle use Cardiovascular: regular rate, rhythm, no edema, no murmur Abdomen: normal bowel sounds, non tender, soft Extremities: normal inspection, no pedal edema Neurologic/Psychiatric: no motor/sensory deficits, alert, normal mood/affect Laboratory Results Last 24 Hours Test 04/12/17 15:00 04/12/17 16:30 04/12/17 19:47 04/12/17 20:43 Urine Color YELLOW Urine Appearance CLOUDY Urine pH 6.5 Urine Specific [place] 1.019 Urine Protein 1+ Urine Glucose (UA) 3+ Urine Ketones 1+ Urine Occult Blood 1+ Urine Nitrite POS Urine Bilirubin NEG Urine Urobilinogen NEG Urine Leukocyte Esterase MODERATE Urine WBC (Auto) >30 /hpf Urine RBC (Auto) 0-4 /hpf Urine Hyaline Casts (Auto) 1-5 /lpf Urine Epithelial Cells (Auto) 5-10 /lpf Urine Bacteria (Auto) 2+ Urine Osmolality 399 mOms/kg Urine Random Sodium 24 mEq/L White Blood Count 9.23 K/uL Red Blood Count 4.49 M/uL Hemoglobin 12.4 g/dL Hematocrit 35.4 % Mean Corpuscular Volume 78.8 fL Mean Corpuscular Hemoglobin 27.6 pg Mean Corpuscular Hemoglobin Concent 35.0 g/dl Platelet Count 263 K/uL Mean Platelet Volume 8.7 fL Neutrophils (%) (Auto) 67.9 % Lymphocytes (%) (Auto) 16.4 % Monocytes (%) (Auto) 15.2 % Eosinophils (%) (Auto) 0.2 % Basophils (%) (Auto) 0.0 % Neutrophils # (Auto) 6.27 K/uL Lymphocytes # (Auto) 1.51 K/uL Monocytes # (Auto) 1.40 K/uL Eosinophils # (Auto) 0.02 K/uL Basophils # (Auto) 0.00 K/uL RDW Standard Deviation 41.3 fL RDW Coefficient of Variation 14.4 % Immature Granulocyte % (Auto) 0.3 % Immature Granulocyte # (Auto) 0.03 K/uL Prothrombin Time 16.6 SECONDS Prothromb Time International Ratio 1.6 Sodium Level 119 mmol/L Potassium Level 3.7 mmol/L Chloride Level 83 mmol/L Carbon Dioxide Level 26 mmol/L Anion Gap 11.0 mmol/L Blood Urea Nitrogen 24 mg/dl Creatinine 1.34 mg/dl Estimated GFR () 45.4 Estimated GFR (Non- 39.2 BUN/Creatinine Ratio 18.1 Random Glucose 390 mg/dl Osmolality 277 mOsm/kg Calcium Level 8.8 mg/dl Beta-Hydroxybutyric Acid 27.59 mg/dL Influenza Type A Antigen Neg for Influ A Influenza Type B Antigen Neg for Influ B Bedside Glucose 311 mg/dl Test 04/12/17 23:37 04/12/17 23:53 04/13/17 02:58 04/13/17 03:32 Sodium Level 126 mmol/L 126 mmol/L Potassium Level 2.8 mmol/L 3.0 mmol/L Chloride Level 92 mmol/L 93 mmol/L Carbon Dioxide Level 25 mmol/L 25 mmol/L Anion Gap 9.0 mmol/L 8.0 mmol/L Blood Urea Nitrogen 21 mg/dl 22 mg/dl Creatinine 1.19 mg/dl 0.97 mg/dl Est Creatinine Clear Calc Drug Dose 39.4 ml/min 48.3 ml/min Estimated GFR () 52.4 67.2 Estimated GFR (Non- 45.3 57.9 BUN/Creatinine Ratio 18.0 22.9 Random Glucose 117 mg/dl 204 mg/dl Calcium Level 8.6 mg/dl 8.2 mg/dl Bedside Glucose 98 mg/dl 169 mg/dl White Blood Count 9.50 K/uL Red Blood Count 3.96 M/uL Hemoglobin 10.7 g/dL Hematocrit 31.1 % Mean Corpuscular Volume 78.5 fL Mean Corpuscular Hemoglobin 27.0 pg Mean Corpuscular Hemoglobin Concent 34.4 g/dl RDW Standard Deviation 41.6 fL RDW Coefficient of Variation 14.6 % Platelet Count 220 K/uL Mean Platelet Volume 8.5 fL Prothrombin Time 17.2 SECONDS Prothromb Time International Ratio 1.7 Estimated Average Glucose 243 mg/dl Hemoglobin A1c 10.1 % Test 04/13/17 06:46 04/13/17 08:29 Bedside Glucose 202 mg/dl Sodium Level 127 mmol/L Potassium Level 3.1 mmol/L Chloride Level 92 mmol/L Carbon Dioxide Level 27 mmol/L Anion Gap 8.0 mmol/L Blood Urea Nitrogen 19 mg/dl Creatinine 1.00 mg/dl Est Creatinine Clear Calc Drug Dose 46.9 ml/min Estimated GFR () 64.7 Estimated GFR (Non- 55.8 BUN/Creatinine Ratio 18.9 Random Glucose 227 mg/dl Calcium Level 8.4 mg/dl Assessment and Plan This is a 72 year old female with a PMH of insulin dependent DM2; hx. of renal transplantation on immunosuppressives, paroxysmal atrial fibrillation on long- term anticoagulation, HTN, HLD, recurrent UTIs presented with UTI Hyponatremia 04/13 sodium is improving to 127 from 119 continue NS @ 125mL/hr awaiting nephrology input for further management 04/12 secondary to dehydration and UTI patient has had issues with hyponatremia in the past due to dehydration Na level on admission = 119, corrected sodium is ~ 122 given 1L of NaCl in the ED, will add NS @ 125mL/hr for now recheck PRP q4 hours and adjust based on sodium correction rate Hypokalemia likely secondary to insulin use will give potassium replacements and recheck in PRP in four hours Recurrent UTI in the setting of Immunosuppression patient has had recurrent UTIs in the setting of immunosuppression previous cultures have grown E. coli and Klebsiella will start Rocephin, await urine cultures Uncontrolled BSGs in the setting of Insulin Dependent DM2 04/13 Ha1c >10%, worsened from previous in November 2016 possibly noncompliance as well as being sick for the past few weeks Lantus 10 units BID and sliding scale - which is being adjusted by pharmacy BSGs much improved 04/12 Ha1c is pending last Ha1c >9.0% patient is refusing insulin drip - has had this during previous admission and refuses will give 6 units of regular insulin then start Lantus 10 units BID, insulin sliding scale pharmacy glycemic control consultation Acute Kidney Injury - resolved secondary to dehydration creatinine up to 1.3, baseline is around 1.0 recheck PRP in 4 hours Paroxysmal A. Fib 3/ subtherapeutic INR will change Coumadin to 2mg until INR is at goal at 2-3 3/4 currently in NSR continue sotalol and Coumadin check INR - home dose of 1mg daily except 2mg on M and F Hx. of Renal Transplant continue immunosuppressives (CellCept + Sirolimus) HTN BP stable; continue amlodipine KATIA-I intolerance noted on chart DVT ppx Coumadin FULL CODE
--- NOTE | 2017-04-13 11:07 | Pharmacy Progress Note ---
Glycemic Control Intl Consult Date of Service Apr 13, 2017. Scope Glycemic Pharmacist consulted by Dr Mena on 04/12/17 for glycemic control and to write orders per [facility] inpatient glycemic control protocol Objective Weight (Kilograms): 60.100 Accuchecks BSG (last 24hrs): Test 04/12/17 16:30 04/12/17 20:43 04/12/17 23:37 04/12/17 23:53 Random Glucose 390 mg/dl (70-99) 117 mg/dl (70-99) Bedside Glucose 311 mg/dl (70-90) 98 mg/dl (70-90) Test 04/13/17 02:58 04/13/17 03:32 04/13/17 06:46 04/13/17 08:29 Bedside Glucose 169 mg/dl (70-90) 202 mg/dl (70-90) Random Glucose 204 mg/dl (70-99) 227 mg/dl (70-99) Laboratory Data (last 24hrs) Test 04/12/17 16:30 04/12/17 23:37 04/13/17 03:32 04/13/17 08:29 Anion Gap 11.0 mmol/L 9.0 mmol/L 8.0 mmol/L 8.0 mmol/L BUN/Creatinine Ratio 18.1 18.0 22.9 18.9 Blood Urea Nitrogen 24 mg/dl 21 mg/dl 22 mg/dl 19 mg/dl Creatinine 1.34 mg/dl 1.19 mg/dl 0.97 mg/dl 1.00 mg/dl Potassium Level 3.7 mmol/L 2.8 mmol/L 3.0 mmol/L 3.1 mmol/L Sodium Level 119 mmol/L 126 mmol/L 126 mmol/L 127 mmol/L White Blood Count 9.23 K/uL 9.50 K/uL Red Blood Count 4.49 M/uL Hemoglobin 12.4 g/dL Hematocrit 35.4 % Mean Corpuscular Volume 78.8 fL Mean Corpuscular Hemoglobin 27.6 pg Mean Corpuscular Hemoglobin Concent 35.0 g/dl Platelet Count 263 K/uL Mean Platelet Volume 8.7 fL Neutrophils (%) (Auto) 67.9 % Lymphocytes (%) (Auto) 16.4 % Monocytes (%) (Auto) 15.2 % Eosinophils (%) (Auto) 0.2 % Basophils (%) (Auto) 0.0 % Neutrophils # (Auto) 6.27 K/uL Lymphocytes # (Auto) 1.51 K/uL Monocytes # (Auto) 1.40 K/uL Eosinophils # (Auto) 0.02 K/uL Basophils # (Auto) 0.00 K/uL Hemoglobin A1c 10.1 % HbA1c Test 04/13/17 03:32 Hemoglobin A1c 10.1 % (4.5-5.6) H Recent Pertinent Medications Outpatient Anti-diabetic Regimen: * Lantus 20 units HS plus Novolog 12-22 units with meals and sliding scale The patient is currently receiving: * Basal insulin: Lantus 10 units every 12 hours * Correctional Insulin: Novolog Correction per scale ACHS Goal Range: Low 110 mg/dL - High 140 mg/dL Correction Factor: 25 mg/dL/unit * Prandial insulin: Per carb ratio of 1 unit per 8 grams CHO consumed Risk Factors for Insulin Resistance: * Infection: UTI currently on Rocephin * Diet: clear liquid diet changed to type 2 diabetic diet Assessment & Plan ASSESSMENT: * Ms Seo is a 72 y/o F with a PMH of renal transplant on immunosuppressant, Afib on warfarin, HTN, HLD, recurrent UTIs, and poorly controlled type 2 diabetes (recommended HbA1C goal for Ms Seo per the Elements of Diabetes Care Scoring Scale is 7.6-8.0%). She is admitted this admission with hyperglycemia and a possible UTI. Last night the patient's blood sugar on admission was 390 mg/dL. She received 6 units of IV insulin and 7 units of Novolog and her blood sugar responded well at 98 mg/dL. The patient's fasting blood sugar this morning was 202 mg/dL. * Per previous admissions, the patient requires around 23-25 units of basal and around 55 units of insulin per day. Since the patient was ordered a clear liquid diet this morning continued Lantus 10 units twice daily. Convert to once daily evening dose most likely tomorrow- will probably require closer to 23 or 25 units tomorrow. Per previous admission, patient tolerates CF of 25 and carbohydrate ratio of 8. Continue this. PLAN FOR INPATIENT GLYCEMIC CONTROL: * Basal insulin with LANTUS 10 units SQ BID * Correctional Insulin with NOVOLOG per scale ACHS or Q6hrs while NPO * Goal Range: Low 110 mg/dL - High 140 mg/dL * Correction Factor: 25 mg/dL/unit * Nutritional / Prandial insulin per carb ratio of 1 unit per 8 grams CHO consumed OUTPATIENT RECOMMENDATIONS * Ms Seo's HbA1C is very uncontrolled. Recommend titrating outpatient insulin dose to goal blood sugars based upon blood sugar log. She will require close follow-up with doctor to improve HbA1C. Thank you.
[2017-04-13] MEDS: ACETAMINOPHEN 325 MG TAB PO PRN ×2 (12:46→22:16)
[2017-04-13 14:22] LABS: CALCIUM 8.3 mg/dl (8.5-10.1); CREATININE 1.01 mg/dl (0.60-1.20); POTASSIUM 3.8 mmol/L (3.5-5.1)
[2017-04-13] MEDS: CEFTRIAXONE SOD INJ 1 GM in DEXTROSE 5% ADD-VANTAGE 50ML 50 ML IV SCH (15:38)
[2017-04-13] MEDS: WARFARIN SOD 2 MG TAB PO SCH (15:39)
[2017-04-13] MEDS ORDERED: WARFARIN SOD 1 MG TAB PO SCH (16:00)
--- NOTE | 2017-04-13 19:52 | Nephrology Consultation ---
Nephrology Consultation Date of Consultation: Apr 13, 2017. Attending Physician: Dr Mena Requesting Physician: Dr Mena Reason for Consultation: hyponatremia and renal txplt History of Present Illness 72 year old female renal transplant pt presented last evening w/ several days of dry heaves and decreased po which kept her from taking her insulin as well as generalized weakness and and found to have presenting sodium of 119 and osm 277 and presenting glucose 390 yesterday at 1630. Her creatinine was 1.3. Despite missing her insulin, she states she was able to maintain her immunosuppressive regimen. Her urine is growing GNR. Her sodium has come up with fluids to 127 and K 3.1 today at 830 and is 125 on recheck at 1300 w/ BG from 227>290 on that lab. Her HbA1c is 10.1%. She is receiving NS at 125 mL hourly. her creatinine has improved to 1.0. She reported F prior to presentation but is on RA and has has systolics in 110s-120s. She does c/o bloating hafsa BLQ and some tenderness BLQ abdomen and constipation. She is to follow w/ me in CKD clinic but is not always consistent w/ f/u. 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 Past Medical/Surgical History Medical Problems: (1) Acute hyperglycemia Status: Acute (2) Fever Status: Acute (3) Hyperglycemia Status: Acute (4) Hyponatremia Status: Acute (5) Hyponatremia Status: Acute (6) UTI (urinary tract infection) Status: Acute (7) Weakness Status: Acute Social History Problems: (1) History of renal transplant Status: Acute (2) Kidney transplant recipient Status: Acute -DM on insulin -s/p renal transplant -htn -HL -PAFib -recurrent UTI Family History Dementia FATHER Diabetes mellitus MOTHER GRANDFATHER Hypertension MOTHER Social History Smoking Status: Never Smoker Alcohol Use: none Drug Use: none Marital Status: Housing Status: lives with family Occupation Status: unemployed Allergies Coded Allergies: No Known Allergies (Verified , 11/22/16) Medications Current Inpatient Medications Medications (Trade) Dose Ordered Sig/Sandeep Route Start Time Stop Time Status Last Admin Dose Admin Sodium Chloride 1,000 ml @ 125 mls/hr Q8H IV 04/12/17 20:00 05/12/17 19:59 04/13/17 12:14 125 MLS/HR Acetaminophen (Tylenol Tab) 650 mg Q4H PRN PO 04/12/17 17:30 05/12/17 17:29 04/13/17 12:46 650 MG Ondansetron HCl (Zofran Inj) 4 mg Q6H PRN IV 04/12/17 17:30 05/12/17 17:29 Insulin Glargine (Lantus Solostar Pen) 10 units Q12 SC 04/12/17 21:00 05/12/17 20:59 04/13/17 08:09 10 UNITS Insulin Aspart (novoLOG ASPART) SLIDING SCALE If C... ACHS SC 04/12/17 21:00 05/12/17 20:59 04/13/17 12:50 7 UNITS Glucose (Glucose 40% Gel) 15-30 GRAMS 15 GRAMS... UD PRN PO 04/12/17 17:30 05/12/17 17:29 Glucose (Glucose Chew Tab) 4-8 Tablets 4 Tabl... UD PRN PO 04/12/17 17:30 05/12/17 17:29 Dextrose (Dextrose 50% 50ML Syringe) 25-50ML OF 50% DW IV FOR... UD PRN IV 04/12/17 17:30 05/12/17 17:29 Glucagon (Glucagon Inj) 1 mg UD PRN SQ 04/12/17 17:30 05/12/17 17:29 Miscellaneous Information (Consult Glycemic Management Pharmacy) 1 ea UD PRN N/A 04/12/17 19:30 05/12/17 19:29 Ceftriaxone Sodium 1 gm/ Dextrose 50 ml @ 100 mls/hr Q24H IV 04/13/17 16:00 04/23/17 15:59 04/13/17 15:38 100 MLS/HR Amlodipine Besylate (Norvasc Tab) 10 mg DAILY PO 04/13/17 09:00 05/13/17 08:59 04/13/17 08:09 10 MG Aspirin (Ecotrin Tab) 81 mg DAILY PO 04/13/17 09:00 05/13/17 08:59 04/13/17 08:11 81 MG Mycophenolate Mofetil (Cellcept Cap) 250 mg Q12 PO 04/12/17 21:00 05/12/17 20:59 04/13/17 08:10 250 MG Sotalol HCl (Betapace Tab) 120 mg BID PO 04/12/17 21:00 05/12/17 20:59 04/13/17 08:10 120 MG Sirolimus (Sirolimus) 1 mg DAILY PO 04/13/17 09:00 05/13/17 08:59 04/13/17 08:11 1 MG Warfarin Sodium (Coumadin Tab) 2 mg DAILY@16 PO 04/13/17 16:00 05/13/17 15:59 Home Meds and Scripts Medications Dose Route/Sig Max Daily Dose Days Date Category Dose Instructions Vitamin D (Cholecalciferol) 2,000 Unit Cap 2,000 Units PO DAILY 04/12/17 Reported Coumadin (Warfarin Sodium) 1 Mg Tab 2 Mg PO UD 04/12/17 Reported TAKE THURSDAY AND THURSDAY Coumadin (Warfarin Sodium) 1 Mg Tab 1 Mg PO UD 04/12/17 Reported daily except M and F Novolog Flexpen (Insulin Aspart) 100 Units/Ml Inj 12-22 Units SQ AC 07/18/16 Reported 3 times a day with meals plus sliding scale Lantus Solostar (Insulin Glargine) 100 Unit/Ml Inj 20 Units SQ HS 07/18/16 Reported Aspirin Ec (Aspirin) 81 Mg Tab 81 Mg PO DAILY 07/26/13 Reported Sotalol Hcl 80 Mg Tab 120 Mg PO BID 07/26/13 Reported Mycophenolate Mofetil 250 Mg Cap 250 Mg PO Q12 07/26/13 Reported Norvasc (Amlodipine Besylate) 10 Mg Tab 10 Mg PO DAILY 07/26/13 Reported Rapamune (Sirolimus) 1 Mg Tab 1 Mg PO DAILY 02/26/13 Reported Glucagon Emergency Kit (Glucagon) 1 Mg Kit 1 Mg INJ UD PRN 09/05/12 Reported Review of Systems Constitutional: + weakness, + fatigue, No fever Eyes: No worsening of vision ENT: No hearing loss Respiratory: No cough, No shortness of breath, No dyspnea on exertion Cardiac: No chest pain, No orthopnea, No edema, No palpitations Abdomen: + see HPI, + pain, + nausea, + constipation, No vomiting, No diarrhea Musculoskeletal: No joint pain, No muscle pain Female : + dysuria, + urinary frequency, No hematuria Neuro: + weakness, + balance problems, No memory loss Psych: No depression symptoms, No anxiety Heme: No abnormal bleeding/bruising Endo: + fatigue Skin: No rash Physical Exam Date Time Temp Pulse Resp B/P (MAP) Pulse Ox O2 Delivery O2 Flow Rate FiO2 04/13/17 15:44 37.1 61 18 125/66 (85) 96 Room Air 04/13/17 15:40 96 Room Air 04/13/17 11:45 Room Air 04/13/17 11:38 37.0 67 18 121/67 (85) 99 Room Air 04/13/17 07:45 Room Air 04/13/17 07:45 37.0 73 16 156/64 (94) 97 Room Air 04/13/17 04:00 Room Air 04/13/17 02:56 36.7 68 18 160/69 (99) 98 Room Air 04/12/17 23:59 Room Air 04/12/17 23:51 36.7 64 18 141/51 (81) 97 Room Air 04/12/17 20:00 Room Air 04/12/17 18:55 Room Air 04/12/17 18:52 36.9 79 16 133/75 (94) 98 04/12/17 18:34 82 18 133/64 98 04/12/17 17:50 72 04/12/17 17:42 74 18 136/63 100 Room Air 04/12/17 17:33 100 Room Air 24-Hour Column 04/14/17 07:59 Intake Total 1432 ml Output Total 700 ml Balance 732 ml General Appearance: WD/WN, no apparent distress, + thin, + pertinent finding (a & 0 x 3 on ra) Eyes: EOMI, + pertinent finding (mild periorbital edema) ENT: + pertinent finding (dry mm, licks lips frequently in exam) Neck: supple Respiratory/Chest: lungs clear, no respiratory distress, + decreased breath sounds Cardiovascular: regular rate, rhythm, no edema Abdomen: normal bowel sounds, soft, + tenderness (w/o rebound BLQ, RLQ allograft NT) Extremities: non-tender, + pertinent finding (avf L arm + t/b) Neurologic/Psych: alert, normal mood/affect, oriented x 3, + pertinent finding (weak/tired) Skin: no jaundice, warm/dry, no rash Diagnostics Last 24 Hours Test 04/12/17 16:30 3/18 19:47 04/12/17 20:43 04/12/17 23:37 White Blood Count 9.23 K/uL Red Blood Count 4.49 M/uL Hemoglobin 12.4 g/dL Hematocrit 35.4 % Mean Corpuscular Volume 78.8 fL Mean Corpuscular Hemoglobin 27.6 pg Mean Corpuscular Hemoglobin Concent 35.0 g/dl Platelet Count 263 K/uL Mean Platelet Volume 8.7 fL Neutrophils (%) (Auto) 67.9 % Lymphocytes (%) (Auto) 16.4 % Monocytes (%) (Auto) 15.2 % Eosinophils (%) (Auto) 0.2 % Basophils (%) (Auto) 0.0 % Neutrophils # (Auto) 6.27 K/uL Lymphocytes # (Auto) 1.51 K/uL Monocytes # (Auto) 1.40 K/uL Eosinophils # (Auto) 0.02 K/uL Basophils # (Auto) 0.00 K/uL RDW Standard Deviation 41.3 fL RDW Coefficient of Variation 14.4 % Immature Granulocyte % (Auto) 0.3 % Immature Granulocyte # (Auto) 0.03 K/uL Prothrombin Time 16.6 SECONDS Prothromb Time International Ratio 1.6 Sodium Level 119 mmol/L 126 mmol/L Potassium Level 3.7 mmol/L 2.8 mmol/L Chloride Level 83 mmol/L 92 mmol/L Carbon Dioxide Level 26 mmol/L 25 mmol/L Anion Gap 11.0 mmol/L 9.0 mmol/L Blood Urea Nitrogen 24 mg/dl 21 mg/dl Creatinine 1.34 mg/dl 1.19 mg/dl Estimated GFR () 45.4 52.4 Estimated GFR (Non- 39.2 45.3 BUN/Creatinine Ratio 18.1 18.0 Random Glucose 390 mg/dl 117 mg/dl Osmolality 277 mOsm/kg Calcium Level 8.8 mg/dl 8.6 mg/dl Beta-Hydroxybutyric Acid 27.59 mg/dL Influenza Type A Antigen Neg for Influ A Influenza Type B Antigen Neg for Influ B Bedside Glucose 311 mg/dl Est Creatinine Clear Calc Drug Dose 39.4 ml/min Test 04/12/17 23:53 04/13/17 02:58 04/13/17 03:32 04/13/17 06:46 Bedside Glucose 98 mg/dl 169 mg/dl 202 mg/dl White Blood Count 9.50 K/uL Red Blood Count 3.96 M/uL Hemoglobin 10.7 g/dL Hematocrit 31.1 % Mean Corpuscular Volume 78.5 fL Mean Corpuscular Hemoglobin 27.0 pg Mean Corpuscular Hemoglobin Concent 34.4 g/dl RDW Standard Deviation 41.6 fL RDW Coefficient of Variation 14.6 % Platelet Count 220 K/uL Mean Platelet Volume 8.5 fL Prothrombin Time 17.2 SECONDS Prothromb Time International Ratio 1.7 Sodium Level 126 mmol/L Potassium Level 3.0 mmol/L Chloride Level 93 mmol/L Carbon Dioxide Level 25 mmol/L Anion Gap 8.0 mmol/L Blood Urea Nitrogen 22 mg/dl Creatinine 0.97 mg/dl Est Creatinine Clear Calc Drug Dose 48.3 ml/min Estimated GFR () 67.2 Estimated GFR (Non- 57.9 BUN/Creatinine Ratio 22.9 Random Glucose 204 mg/dl Estimated Average Glucose 243 mg/dl Hemoglobin A1c 10.1 % Calcium Level 8.2 mg/dl Test 04/13/17 08:29 04/13/17 12:15 04/13/17 13:15 Sodium Level 127 mmol/L 125 mmol/L Potassium Level 3.1 mmol/L 3.8 mmol/L Chloride Level 92 mmol/L 92 mmol/L Carbon Dioxide Level 27 mmol/L 24 mmol/L Anion Gap 8.0 mmol/L 9.0 mmol/L Blood Urea Nitrogen 19 mg/dl 17 mg/dl Creatinine 1.00 mg/dl 1.01 mg/dl Est Creatinine Clear Calc Drug Dose 46.9 ml/min 46.4 ml/min Estimated GFR () 64.7 64.0 Estimated GFR (Non- 55.8 55.2 BUN/Creatinine Ratio 18.9 16.4 Random Glucose 227 mg/dl 291 mg/dl Calcium Level 8.4 mg/dl 8.3 mg/dl Bedside Glucose 289 mg/dl Diagnostic Radiology: PA chest w/ abd series >> cardiomegaly w/o active thoracic disease; nonobstructed gas pattern Assessment & Plan 72 y/o F w/ renal transplant and recurrent uti, baseline creatinine 0.8-0.9 admitted 3/4 w/ sNa 119 in the setting of BG 390 and creatinine 1.3. Prerenal ROSSY -improving w/ NS; cont same at current rate; apart from sNa and bg, chemistries acceptable Hyponatremia > serum osmolality on presentation was near normal, so at least some of this is clouded by elevated glucose Mostly from dehydration however; improving at acceptable rate > goal for am is 132 w/ good BG -recheck bmp in am w/ urine studies and serum osms (orders in) Recurrent UTI -on empiric ceftriaxone; f/u pending cx S/p renal transplant -cont current outpatient immunosuppression constipation, abd pain/bloating -serial abd exams > not an acute abdomen; uop adequate -started colace; may need lactulose and or dulcolax if no improvement Appreciate c/s; will follow with you. Care coordinated w/ Dr Mena.
[2017-04-13] MEDS: DOCUSATE SODIUM 100 MG CAP PO SCH (20:50)
[2017-04-14] VITALS (7 sets, daily range): BP systolic 127–169; BP diastolic 66–71; PULSE 66–84; TEMP 36.6–37.2; O2SAT 95–99
[2017-04-14] MEDS: SODIUM CHLORIDE 0.9% 1000ML 1,000 ML IV SCH ×3 (05:47→20:51)
[2017-04-14 06:49] LABS: HEMATOCRIT 32.4 % (37-47); HEMOGLOBIN 10.9 g/dL (12.0-16.0); MEAN CELL VOLUME 80.6 fL (80-100); MEAN CORPUSCULAR HEMOGLOBIN 27.1 pg (25-34); MEAN CORPUSCULAR HGB CONC 33.6 g/dl (32-36); MEAN PLATELET VOLUME 8.5 fL (7.4-10.4); PLATELET COUNT 232 K/uL (130-400); RED CELL DISTRIBUTION WIDTH CV 15.1 % (11.5-14.5); RED CELL DISTRIBUTION WIDTH SD 44.1 fL (36.4-46.3); WHITE BLOOD COUNT 10.48 K/uL (4.8-10.8)
[2017-04-14 06:57] LABS: INR 1.2 (0.9-1.1)
[2017-04-14 07:29] LABS: CALCIUM 8.3 mg/dl (8.5-10.1); CREATININE 0.9 mg/dl (0.60-1.20); POTASSIUM 3.3 mmol/L (3.5-5.1)
[2017-04-14] MEDS: AMLODIPINE BESYLATE 5 MG TAB PO SCH (08:18)
[2017-04-14] MEDS: MYCOPHENOLATE MOFETIL 250 MG CAP (CELLCEPT) PO SCH ×2 (08:18→20:54)
[2017-04-14] MEDS: ASPIRIN 81 MG ECTAB PO SCH (08:18)
[2017-04-14] MEDS: ACETAMINOPHEN 325 MG TAB PO PRN ×2 (08:18→23:35)
[2017-04-14] MEDS: SOTALOL HCL 80 MG TAB PO SCH ×2 (08:19→20:54)
[2017-04-14] MEDS: SIROLIMUS 0.5 MG TAB PO SCH (08:20)
[2017-04-14] MEDS: DOCUSATE SODIUM 100 MG CAP PO SCH ×2 (08:21→20:54)
[2017-04-14] MEDS: INSULIN ASPART 100 UNITS/ML 3 ML PEN SC SCH ×4 (08:24→20:53)
[2017-04-14] MEDS ORDERED: POTASSIUM CHLORIDE 10 MEQ TABCR PO ONE (09:15)
--- NOTE | 2017-04-14 10:09 | Progress Note ---
Medicine Progress Note Date & Time of Visit: Apr 14, 2017 at 09:58. Subjective seen resting in bed, comfortable states she feels slightly better than yesterday still has some dysuriaa denies chills, nausea, abdominal pain, dizziness no other symptoms Objective Last 8 Hrs Date Time Temp Pulse Resp B/P (MAP) Pulse Ox O2 Delivery O2 Flow Rate FiO2 04/14/17 08:02 36.6 84 16 168/68 (101) 97 04/14/17 08:00 Room Air 04/14/17 04:00 Room Air 04/14/17 03:56 36.7 66 16 127/66 (86) 96 Room Air Physical Exam: General- oriented x 3, not in distress, speaks in sentences with no effort Head- atraumatic Eyes- PERRL, EOMI, anicteric ENT- oropharynx clear Neck- supple, no JVD, no adenopathy, no thyromegaly; carotids +2/2 Lungs- clear to auscultation bilaterally Heart- regular rhythm; no murmur, normal rate Abdomen- normal bowel sounds, soft, nontender Extremities- no pretibial edema, no calf tenderness; peripheral pulses intact Neuro- alert, oriented x 3;no gross focal deficits Skin- warm & dry Laboratory Results: Last 24 Hours Test 04/13/17 12:15 04/13/17 13:15 04/13/17 16:27 04/13/17 20:46 Bedside Glucose 289 mg/dl 213 mg/dl 114 mg/dl Sodium Level 125 mmol/L Potassium Level 3.8 mmol/L Chloride Level 92 mmol/L Carbon Dioxide Level 24 mmol/L Anion Gap 9.0 mmol/L Blood Urea Nitrogen 17 mg/dl Creatinine 1.01 mg/dl Est Creatinine Clear Calc Drug Dose 46.4 ml/min Estimated GFR () 64.0 Estimated GFR (Non- 55.2 BUN/Creatinine Ratio 16.4 Random Glucose 291 mg/dl Calcium Level 8.3 mg/dl Test 04/14/17 00:40 04/14/17 06:26 04/14/17 06:42 Bedside Glucose 233 mg/dl 137 mg/dl White Blood Count 10.48 K/uL Red Blood Count 4.02 M/uL Hemoglobin 10.9 g/dL Hematocrit 32.4 % Mean Corpuscular Volume 80.6 fL Mean Corpuscular Hemoglobin 27.1 pg Mean Corpuscular Hemoglobin Concent 33.6 g/dl RDW Standard Deviation 44.1 fL RDW Coefficient of Variation 15.1 % Platelet Count 232 K/uL Mean Platelet Volume 8.5 fL Prothrombin Time 12.6 SECONDS Prothromb Time International Ratio 1.2 Sodium Level 131 mmol/L Potassium Level 3.3 mmol/L Chloride Level 99 mmol/L Carbon Dioxide Level 24 mmol/L Anion Gap 8.0 mmol/L Blood Urea Nitrogen 12 mg/dl Creatinine 0.90 mg/dl Est Creatinine Clear Calc Drug Dose 52.1 ml/min Estimated GFR () 73.5 Estimated GFR (Non- 63.4 BUN/Creatinine Ratio 13.0 Random Glucose 134 mg/dl Osmolality 275 mOsm/kg Calcium Level 8.3 mg/dl Magnesium Level 2.1 mg/dl Assessment & Plan This is a 72 year old female with a PMH of insulin dependent DM2; hx. of renal transplantation on immunosuppressives, paroxysmal atrial fibrillation on long- term anticoagulation, HTN, HLD, recurrent UTIs presented with UTI Hyponatremia secondary to dehydration and UTI Na level on admission = 119, corrected sodium is ~ 122 given NSS now 131 appreciate Nephro recommendations Recurrent UTI in the setting of Immunosuppression Urine Cx: (+) Morganella morganii- pansensitive Symptoms Improving on Ceftri IV Day 3 will need at least 10-14 days antibiotic therapy Uncontrolled BSGs in the setting of Insulin Dependent DM2 on Lantus BID and ISS appreciate Pharm Gly Ctrl recommendations Acute Kidney Injury secondary to dehydration creatinine up to 1.3, baseline is around 1.0 resolved Paroxysmal A. Fib currently in NSR continue sotalol and Coumadin check INR - home dose of 1mg daily except 2mg on M and F Hx. of Renal Transplant continue immunosuppressives (CellCept + Sirolimus) HTN BP stable; continue amlodipine KATIA-I intolerance noted on chart DVT ppx Coumadin INR 1.2, monitor SCDs FULL CODE Disposition PT ordered anticipate d/c home when medically stable, cleared by Nephro anticipate d/c home with PO antibiotics Current Inpatient Medications: Current Inpatient Medications Medications (Trade) Dose Ordered Sig/Sandeep Route Start Time Stop Time Status Last Admin Dose Admin Sodium Chloride 1,000 ml @ 125 mls/hr Q8H IV 04/12/17 20:00 05/12/17 19:59 04/14/17 05:47 125 MLS/HR Acetaminophen (Tylenol Tab) 650 mg Q4H PRN PO 04/12/17 17:30 05/12/17 17:29 04/14/17 08:18 650 MG Ondansetron HCl (Zofran Inj) 4 mg Q6H PRN IV 04/12/17 17:30 05/12/17 17:29 Insulin Glargine (Lantus Solostar Pen) 10 units Q12 SC 04/12/17 21:00 05/12/17 20:59 04/13/17 20:53 10 UNITS Insulin Aspart (novoLOG ASPART) SLIDING SCALE If C... ACHS SC 04/12/17 21:00 05/12/17 20:59 04/14/17 08:24 7 UNITS Glucose (Glucose 40% Gel) 15-30 GRAMS 15 GRAMS... UD PRN PO 04/12/17 17:30 05/12/17 17:29 Glucose (Glucose Chew Tab) 4-8 Tablets 4 Tabl... UD PRN PO 04/12/17 17:30 05/12/17 17:29 Dextrose (Dextrose 50% 50ML Syringe) 25-50ML OF 50% DW IV FOR... UD PRN IV 04/12/17 17:30 05/12/17 17:29 Glucagon (Glucagon Inj) 1 mg UD PRN SQ 04/12/17 17:30 05/12/17 17:29 Miscellaneous Information (Consult Glycemic Management Pharmacy) 1 ea UD PRN N/A 04/12/17 19:30 05/12/17 19:29 Ceftriaxone Sodium 1 gm/ Dextrose 50 ml @ 100 mls/hr Q24H IV 04/13/17 16:00 04/23/17 15:59 04/13/17 15:38 100 MLS/HR Amlodipine Besylate (Norvasc Tab) 10 mg DAILY PO 04/13/17 09:00 05/13/17 08:59 04/14/17 08:18 10 MG Aspirin (Ecotrin Tab) 81 mg DAILY PO 04/13/17 09:00 05/13/17 08:59 04/14/17 08:18 81 MG Mycophenolate Mofetil (Cellcept Cap) 250 mg Q12 PO 04/12/17 21:00 05/12/17 20:59 04/14/17 08:18 250 MG Sotalol HCl (Betapace Tab) 120 mg BID PO 04/12/17 21:00 05/12/17 20:59 04/14/17 08:19 120 MG Sirolimus (Sirolimus) 1 mg DAILY PO 04/13/17 09:00 05/13/17 08:59 04/14/17 08:20 1 MG Warfarin Sodium (Coumadin Tab) 2 mg DAILY@16 PO 04/13/17 16:00 05/13/17 15:59 Docusate Sodium (coLACE CAP) 100 mg BID PO 04/13/17 21:00 05/13/17 20:59 04/14/17 08:21 100 MG
[2017-04-14] MEDS: INSULIN GLARGINE SOLOSTAR 100 UNITS/ML 3 ML PEN SC SCH ×2 (12:35→20:55)
[2017-04-14] MEDS: CEFTRIAXONE SOD INJ 1 GM in DEXTROSE 5% ADD-VANTAGE 50ML 50 ML IV SCH (17:05)
[2017-04-14] MEDS: WARFARIN SOD 2 MG TAB PO SCH (17:06)
--- NOTE | 2017-04-14 18:39 | Nephrology Progress Note ---
Nephrology Progress Note Date of Service: Apr 14, 2017. Subjective states she feels a bit better but also states has not been out of bed. endorses ongoing dysuria, frequency but is improving Objective Date Time Temp Pulse Resp B/P (MAP) Pulse Ox O2 Delivery O2 Flow Rate FiO2 04/14/17 16:00 Room Air 04/14/17 15:35 36.8 67 19 148/71 (96) 99 Room Air 04/14/17 12:30 36.8 74 16 152/69 (96) 98 04/14/17 12:00 Room Air 04/14/17 08:02 36.6 84 16 168/68 (101) 97 04/14/17 08:00 Room Air 04/14/17 04:00 Room Air 04/14/17 03:56 36.7 66 16 127/66 (86) 96 Room Air 04/14/17 00:37 37.2 68 17 130/71 (90) 95 Room Air 04/14/17 00:00 Room Air 04/13/17 20:00 96 Room Air 04/13/17 19:31 37.0 58 16 148/70 (96) 96 Room Air Physical Exam: General Appearance: WD/WN, no apparent distress, + thin, + pertinent finding (a & 0 x 3 on ra) Eyes: EOMI, + pertinent finding (less periorbital edema) ENT: MMM Neck: supple Respiratory/Chest: lungs clear, no respiratory distress, + decreased breath sounds Cardiovascular: regular rate, rhythm, no edema Abdomen: normal bowel sounds, soft, less tenderness (w/o rebound BLQ, RLQ allograft NT) Extremities: non-tender, + pertinent finding (avf L arm + t/b) Neurologic/Psych: alert, normal mood/affect, oriented x 3, + pertinent finding (weak/tired) Skin: no jaundice, warm/dry, no rash Current Inpatient Medications Medications (Trade) Dose Ordered Sig/Sandeep Route Start Time Stop Time Status Last Admin Dose Admin Sodium Chloride 1,000 ml @ 125 mls/hr Q8H IV 04/12/17 20:00 05/12/17 19:59 04/14/17 13:48 125 MLS/HR Acetaminophen (Tylenol Tab) 650 mg Q4H PRN PO 04/12/17 17:30 05/12/17 17:29 04/14/17 08:18 650 MG Ondansetron HCl (Zofran Inj) 4 mg Q6H PRN IV 04/12/17 17:30 05/12/17 17:29 Insulin Glargine (Lantus Solostar Pen) 10 units Q12 SC 04/12/17 21:00 04/14/17 23:59 04/14/17 12:35 10 UNITS Insulin Aspart (novoLOG ASPART) SLIDING SCALE If C... ACHS SC 04/12/17 21:00 05/12/17 20:59 04/14/17 17:11 4 UNITS Glucose (Glucose 40% Gel) 15-30 GRAMS 15 GRAMS... UD PRN PO 04/12/17 17:30 05/12/17 17:29 Glucose (Glucose Chew Tab) 4-8 Tablets 4 Tabl... UD PRN PO 04/12/17 17:30 05/12/17 17:29 Dextrose (Dextrose 50% 50ML Syringe) 25-50ML OF 50% DW IV FOR... UD PRN IV 04/12/17 17:30 05/12/17 17:29 Glucagon (Glucagon Inj) 1 mg UD PRN SQ 04/12/17 17:30 05/12/17 17:29 Miscellaneous Information (Consult Glycemic Management Pharmacy) 1 ea UD PRN N/A 04/12/17 19:30 05/12/17 19:29 Ceftriaxone Sodium 1 gm/ Dextrose 50 ml @ 100 mls/hr Q24H IV 04/13/17 16:00 04/23/17 15:59 04/14/17 17:05 100 MLS/HR Amlodipine Besylate (Norvasc Tab) 10 mg DAILY PO 04/13/17 09:00 05/13/17 08:59 04/14/17 08:18 10 MG Aspirin (Ecotrin Tab) 81 mg DAILY PO 04/13/17 09:00 05/13/17 08:59 04/14/17 08:18 81 MG Mycophenolate Mofetil (Cellcept Cap) 250 mg Q12 PO 04/12/17 21:00 05/12/17 20:59 04/14/17 08:18 250 MG Sotalol HCl (Betapace Tab) 120 mg BID PO 04/12/17 21:00 05/12/17 20:59 3/6/18 08:19 120 MG Sirolimus (Sirolimus) 1 mg DAILY PO 04/13/17 09:00 05/13/17 08:59 04/14/17 08:20 1 MG Warfarin Sodium (Coumadin Tab) 2 mg DAILY@16 PO 04/13/17 16:00 05/13/17 15:59 04/14/17 17:06 2 MG Docusate Sodium (coLACE CAP) 100 mg BID PO 04/13/17 21:00 05/13/17 20:59 04/14/17 08:21 100 MG Insulin Glargine (Lantus Solostar Pen) 20 units HS SC 04/15/17 21:00 05/15/17 20:59 Last 24 Hours Test 04/13/17 20:46 04/14/17 00:40 04/14/17 06:26 04/14/17 06:42 Bedside Glucose 114 mg/dl 233 mg/dl 137 mg/dl White Blood Count 10.48 K/uL Red Blood Count 4.02 M/uL Hemoglobin 10.9 g/dL Hematocrit 32.4 % Mean Corpuscular Volume 80.6 fL Mean Corpuscular Hemoglobin 27.1 pg Mean Corpuscular Hemoglobin Concent 33.6 g/dl RDW Standard Deviation 44.1 fL RDW Coefficient of Variation 15.1 % Platelet Count 232 K/uL Mean Platelet Volume 8.5 fL Prothrombin Time 12.6 SECONDS Prothromb Time International Ratio 1.2 Sodium Level 131 mmol/L Potassium Level 3.3 mmol/L Chloride Level 99 mmol/L Carbon Dioxide Level 24 mmol/L Anion Gap 8.0 mmol/L Blood Urea Nitrogen 12 mg/dl Creatinine 0.90 mg/dl Est Creatinine Clear Calc Drug Dose 52.1 ml/min Estimated GFR () 73.5 Estimated GFR (Non- 63.4 BUN/Creatinine Ratio 13.0 Random Glucose 134 mg/dl Osmolality 275 mOsm/kg Calcium Level 8.3 mg/dl Magnesium Level 2.1 mg/dl Test 04/14/17 11:29 04/14/17 16:17 Bedside Glucose 193 mg/dl 91 mg/dl Assessment & Plan 72 y/o F w/ renal transplant and recurrent uti, baseline creatinine 0.8-0.9 admitted 04/12 w/ sNa 119 in the setting of BG 390 and creatinine 1.3. Prerenal ROSSY -resolved w/ NS; apart from sNa chemistries acceptable Hypotonic hyponatremia Mostly from dehydration however; improving at acceptable rate -goal for am is 135 sNa >> cont NS but will lower rate to 80 Recurrent UTI -- here yin Se escobarella -on empiric ceftriaxone; recommend cefpodixime as po when ready --given ongoing dysuria, will get txplt u/s S/p renal transplant -cont current outpatient immunosuppression constipation, abd pain/bloating -cont colace; may need senna, lactulose and or dulcolax if no improvement Appreciate c/s; will follow with you. Care coordinated w/ Dr Mortensen.
--- NOTE | 2017-04-14 19:52 | DIAGNOSTIC IMAGING REPORT ---
RENAL TRANSPLANT W/WO DUPL CLINICAL HISTORY: 72 years-old Female presenting with dysuria, renal txplt. TECHNIQUE: Real-time grayscale and color and spectral Doppler ultrasound imaging of the transplant kidney was performed. COMPARISON: 09/05/2013. FINDINGS: Right lower quadrant transplant kidney measures 11.3 cm. Normal echogenicity of renal parenchyma. Mild pelvocaliectasis, which does not decreased after post void imaging. Mild urothelial thickening evident. No perinephric fluid collection. No sonographic evidence of calculi. Symmetric perfusion of the upper and lower poles. Intrarenal resistive indices range from 0.82 to 1.0. Abnormal intrarenal arterial waveforms with intermittent loss of diastolic flow. Renal artery patent although elevated peak systolic velocity 556 cm/s at the anastomosis, 266 cm/s proximally, 209 cm/s in the midportion, and 72 cm/s distally. Renal vein patent. The right iliac artery is patent with normal triphasic peripheral arterial waveforms and peak systolic velocity 138 cm/s. No abnormal increased velocity across the anastomotic site. Bladder: Incomplete voiding. Other: Bilateral [place] kidneys are atrophic with multiple cysts. Sonographic evidence of solid renal mass. IMPRESSION: 1. Abnormal intrarenal arterial waveforms with loss of diastolic flow and evidence of hemodynamically significant stenosis at the transplant renal artery anastomosis. 2. Mild pelvocaliectasis. This could represent hydronephrosis though incomplete bladder voiding limits evaluation for potential resolution with urinary bladder decompression. 3. Mild urothelial thickening, nonspecific. The report will be called/faxed according to standard departmental protocol. Electronically signed by: Hitesh Feliz M.D. 04/14/2017 7:50 PM Dictated Date/Time: 04/14/2017 7:44 PM
[2017-04-14 22:56] LABS: SODIUM RANDOM URINE 94 mEq/L
[2017-04-14 23:00] LABS: OSMOLALITY,URINE 325 mOms/kg (500-800)
[2017-04-15 03:40] VITALS: BP 156/66; PULSE 63; TEMP 36.7; O2SAT 96
[2017-04-15 06:16] LABS: INR 1.1 (0.9-1.1)
[2017-04-15 07:31] LABS: CALCIUM 8.3 mg/dl (8.5-10.1); CREATININE 0.78 mg/dl (0.60-1.20); POTASSIUM 3.3 mmol/L (3.5-5.1)
[2017-04-15] MEDS: AMLODIPINE BESYLATE 5 MG TAB PO SCH (08:07)
[2017-04-15] MEDS: MYCOPHENOLATE MOFETIL 250 MG CAP (CELLCEPT) PO SCH ×2 (08:07→21:05)
[2017-04-15] MEDS: SIROLIMUS 0.5 MG TAB PO SCH (08:07)
[2017-04-15] MEDS: SOTALOL HCL 80 MG TAB PO SCH ×2 (08:08→21:04)
[2017-04-15 08:09] VITALS: BP 171/74; PULSE 76; TEMP 36.8; O2SAT 98
[2017-04-15] MEDS: ASPIRIN 81 MG ECTAB PO SCH (08:09)
[2017-04-15] MEDS: INSULIN ASPART 100 UNITS/ML 3 ML PEN SC SCH ×4 (08:12→21:00)
[2017-04-15 08:20] LABS: HEMATOCRIT 31.6 % (37-47); HEMOGLOBIN 10.3 g/dL (12.0-16.0); MEAN CELL VOLUME 82.1 fL (80-100); MEAN CORPUSCULAR HEMOGLOBIN 26.8 pg (25-34); MEAN CORPUSCULAR HGB CONC 32.6 g/dl (32-36); MEAN PLATELET VOLUME 9.1 fL (7.4-10.4); PLATELET COUNT 272 K/uL (130-400); RED CELL DISTRIBUTION WIDTH CV 15.6 % (11.5-14.5); RED CELL DISTRIBUTION WIDTH SD 46.3 fL (36.4-46.3)
--- NOTE | 2017-04-15 08:34 | Pharmacy Progress Note ---
Pharmacy Glycemic Short Note 2 Date of Service Apr 15, 2017. OUTPATIENT ANTIDIABETIC REGIMEN: * Lantus 20 units SQ qHS plus Novolog 12-22 units with meals and sliding scale ASSESSMENT: * Ms Seo is a 72 y/o F with a PMH of renal transplant on immunosuppressant, Afib on warfarin, HTN, HLD, recurrent UTIs, and poorly controlled type 2 diabetes (recommended HbA1C goal for Ms Seo per the Elements of Diabetes Care Scoring Scale is 7.6-8.0%). She is admitted this admission with hyperglycemia and a possible UTI. Yesterday the patient received about 40 units of insulin with 20 units of Lantus. Now transitioned from twice daily dosing to once daily Lantus dosing in the evening. The patient's blood sugars yesterday were 137-193 (secondary to late Lantus administration as planned)-91-115. Fasting this morning is 100 mg/dL. * Per previous admissions, the patient requires around 23-25 units of basal and around 55 units of insulin per day. Per previous admission, patient tolerates CF of 25 and carbohydrate ratio of 8. Continue this. PLAN FOR INPATIENT GLYCEMIC CONTROL: * Basal insulin * Lantus 20 units SQ HS * Bolus insulin * NovoLog per scale ACHS or Q6hrs while NPO * Goal Range: Low 110 mg/dL - High 140 mg/dL * Correction Factor: 25 mg/dL/unit * Nutritional / Prandial insulin per carb ratio of 1 unit per 8 grams CHO consumed PLAN FOR DISCHARGE: * Ms Seo's HbA1C is uncontrolled. Recommend follow-up with individual managing blood sugars with blood sugar log so that insulin may be titrated appropriately.
[2017-04-15 12:03] VITALS: BP_SYST 108; BP_SYST 158; BP_DIAS 69; BP_DIAS 79; PULSE 70; TEMP 36.5; O2SAT 96
[2017-04-15] MEDS: DOCUSATE SODIUM/SENNA 50/8.6MG TAB PO SCH (12:14)
[2017-04-15] MEDS: SODIUM CHLORIDE 0.9% 1000ML 1,000 ML IV SCH (12:20)
[2017-04-15] MEDS ORDERED: POTASSIUM CHLORIDE 10 MEQ TABCR PO ONE (12:45)
[2017-04-15] MEDS ORDERED: HydrALAZINE 10 MG TAB PO ONE (14:45)
--- NOTE | 2017-04-15 14:52 | Progress Note ---
Medicine Progress Note Date & Time of Visit: Apr 15, 2017 at 14:48. Subjective seen resting in bed, comfortable states she feels improved compared to yesterday strength slowly returning denies abdominal pain, urinary symptoms no other symptoms Objective Last 8 Hrs Date Time Temp Pulse Resp B/P (MAP) Pulse Ox O2 Delivery O2 Flow Rate FiO2 04/15/17 12:03 36.5 70 18 158/79 (105) 96 04/15/17 12:00 Room Air 04/15/17 08:09 36.8 76 16 171/74 (106) 98 04/15/17 08:00 Room Air Physical Exam: General- oriented x 3, not in distress, speaks in sentences with no effort Eyes- anicteric Neck- supple, no JVD Lungs- clear to auscultation bilaterally, no rales/wheezes Heart- regular rhythm; no murmur, normal rate Abdomen- normal bowel sounds, soft, nontender Extremities- no pretibial edema, no calf tenderness; peripheral pulses intact Neuro- alert, oriented x 3;no gross focal deficits Skin- warm & dry Laboratory Results: Last 24 Hours Test 04/14/17 16:17 04/14/17 20:22 04/15/17 05:50 04/15/17 06:39 Bedside Glucose 91 mg/dl 115 mg/dl 100 mg/dl White Blood Count 8.00 K/uL Red Blood Count 3.85 M/uL Hemoglobin 10.3 g/dL Hematocrit 31.6 % Mean Corpuscular Volume 82.1 fL Mean Corpuscular Hemoglobin 26.8 pg Mean Corpuscular Hemoglobin Concent 32.6 g/dl RDW Standard Deviation 46.3 fL RDW Coefficient of Variation 15.6 % Platelet Count 272 K/uL Mean Platelet Volume 9.1 fL Prothrombin Time 11.4 SECONDS Prothromb Time International Ratio 1.1 Sodium Level 134 mmol/L Potassium Level 3.3 mmol/L Chloride Level 103 mmol/L Carbon Dioxide Level 25 mmol/L Anion Gap 6.0 mmol/L Blood Urea Nitrogen 8 mg/dl Creatinine 0.78 mg/dl Est Creatinine Clear Calc Drug Dose 60.1 ml/min Estimated GFR () 87.4 Estimated GFR (Non- 75.4 BUN/Creatinine Ratio 10.3 Random Glucose 104 mg/dl Calcium Level 8.3 mg/dl Test 04/15/17 11:18 Bedside Glucose 175 mg/dl Assessment & Plan This is a 72 year old female with a PMH of insulin dependent DM2; hx. of renal transplantation on immunosuppressives, paroxysmal atrial fibrillation on long- term anticoagulation, HTN, HLD, recurrent UTIs presented with UTI Hyponatremia secondary to dehydration and UTI Na level on admission = 119, corrected sodium is ~ 122 given NSS now 131--> 34 appreciate Nephro recommendations Recurrent UTI in the setting of Immunosuppression Urine Cx: (+) Morganella morganii- pansensitive Symptoms Improving on Ceftri IV Day 4 will need at least 10-14 days antibiotic therapy Uncontrolled BSGs in the setting of Insulin Dependent DM2 on Lantus BID and ISS appreciate Pharm Gly Ctrl recommendations Acute Kidney Injury secondary to dehydration creatinine up to 1.3, baseline is around 1.0 resolved Paroxysmal A. Fib currently in NSR continue sotalol and Coumadin check INR - home dose of 1mg daily except 2mg on M and F INR 1.2 increase coumadin to 3mg daily monitor INR Hx. of Renal Transplant continue immunosuppressives (CellCept + Sirolimus) HTN BP not at goal start Hydralazine 10mg po BID continue amlodipine KATIA-I intolerance noted on chart DVT ppx Coumadin INR 1.1, monitor SCDs patient declines heparin/lovenox due to adverse effect in the past FULL CODE Disposition PT ordered anticipate d/c home when medically stable, cleared by Nephro anticipate d/c home with PO antibiotics Current Inpatient Medications: Current Inpatient Medications Medications (Trade) Dose Ordered Sig/Sandeep Route Start Time Stop Time Status Last Admin Dose Admin Sodium Chloride 1,000 ml @ 80 mls/hr [id number] IV 04/12/17 20:00 05/12/17 19:59 04/15/17 12:20 80 MLS/HR Acetaminophen (Tylenol Tab) 650 mg Q4H PRN PO 04/12/17 17:30 05/12/17 17:29 04/14/17 23:35 650 MG Ondansetron HCl (Zofran Inj) 4 mg Q6H PRN IV 04/12/17 17:30 05/12/17 17:29 Insulin Aspart (novoLOG ASPART) SLIDING SCALE If C... ACHS SC 04/12/17 21:00 05/12/17 20:59 3/7/18 12:19 7 UNITS Glucose (Glucose 40% Gel) 15-30 GRAMS 15 GRAMS... UD PRN PO 04/12/17 17:30 05/12/17 17:29 Glucose (Glucose Chew Tab) 4-8 Tablets 4 Tabl... UD PRN PO 04/12/17 17:30 05/12/17 17:29 Dextrose (Dextrose 50% 50ML Syringe) 25-50ML OF 50% DW IV FOR... UD PRN IV 04/12/17 17:30 05/12/17 17:29 Glucagon (Glucagon Inj) 1 mg UD PRN SQ 04/12/17 17:30 05/12/17 17:29 Miscellaneous Information (Consult Glycemic Management Pharmacy) 1 ea UD PRN N/A 04/12/17 19:30 05/12/17 19:29 Ceftriaxone Sodium 1 gm/ Dextrose 50 ml @ 100 mls/hr Q24H IV 04/13/17 16:00 04/23/17 15:59 04/14/17 17:05 100 MLS/HR Amlodipine Besylate (Norvasc Tab) 10 mg DAILY PO 04/13/17 09:00 05/13/17 08:59 04/15/17 08:07 10 MG Aspirin (Ecotrin Tab) 81 mg DAILY PO 04/13/17 09:00 05/13/17 08:59 04/15/17 08:09 81 MG Mycophenolate Mofetil (Cellcept Cap) 250 mg Q12 PO 04/12/17 21:00 05/12/17 20:59 04/15/17 08:07 250 MG Sotalol HCl (Betapace Tab) 120 mg BID PO 04/12/17 21:00 05/12/17 20:59 04/15/17 08:08 120 MG Sirolimus (Sirolimus) 1 mg DAILY PO 04/13/17 09:00 05/13/17 08:59 04/15/17 08:07 1 MG Warfarin Sodium (Coumadin Tab) 2 mg DAILY@16 PO 04/13/17 16:00 05/13/17 15:59 04/14/17 17:06 2 MG Insulin Glargine (Lantus Solostar Pen) 20 units HS SC 04/15/17 21:00 05/15/17 20:59 Senna/Docusate Sodium (Senokot S Tab) 1 tab QAM PO 04/15/17 09:00 05/15/17 08:59 04/15/17 12:14 1 TAB Hydralazine HCl (Apresoline Tab) 10 mg BID PO 04/15/17 21:00 05/15/17 20:59
[2017-04-15] MEDS: CEFTRIAXONE SOD INJ 1 GM in DEXTROSE 5% ADD-VANTAGE 50ML 50 ML IV SCH (15:32)
[2017-04-15] MEDS: ACETAMINOPHEN 325 MG TAB PO PRN (15:32)
[2017-04-15] MEDS ORDERED: WARFARIN SOD 3 MG TAB PO SCH (16:00)
[2017-04-15 16:05] VITALS: BP 151/71; PULSE 67; TEMP 36.7; O2SAT 94
--- NOTE | 2017-04-15 17:48 | Nephrology Progress Note ---
Nephrology Progress Note Date of Service: Apr 15, 2017. Subjective states she feels a bit better; started on hydralazine for htn. endorses improved dysuria, frequency Objective Date Time Temp Pulse Resp B/P (MAP) Pulse Ox O2 Delivery O2 Flow Rate FiO2 04/15/17 12:03 36.5 70 18 158/79 (105) 96 04/15/17 12:00 Room Air 04/15/17 08:09 36.8 76 16 171/74 (106) 98 04/15/17 08:00 Room Air 04/15/17 04:25 Room Air 04/15/17 03:40 36.7 63 20 156/66 (96) 96 Room Air 04/15/17 00:01 Room Air 04/14/17 23:48 37.0 72 19 158/71 (100) 98 Room Air 04/14/17 20:17 37.1 75 20 169/71 (103) 95 Room Air 04/14/17 20:00 Room Air Physical Exam: General Appearance: WD/WN, no apparent distress, + thin, + pertinent finding (a & 0 x 3 on ra) up in chair Eyes: EOMI, + pertinent finding (less periorbital edema) ENT: MMM Neck: supple Respiratory/Chest: lungs clear, no respiratory distress, + decreased breath sounds Cardiovascular: regular rate, rhythm, no edema Abdomen: normal bowel sounds, soft, less tenderness (w/o rebound BLQ, RLQ allograft NT) Extremities: non-tender, + pertinent finding (avf L arm + t/b) Neurologic/Psych: alert, normal mood/affect, oriented x 3, + pertinent finding (weak/tired) Skin: no jaundice, warm/dry, no rash Current Inpatient Medications Medications (Trade) Dose Ordered Sig/Sandeep Route Start Time Stop Time Status Last Admin Dose Admin Sodium Chloride 1,000 ml @ 80 mls/hr [id number] IV 04/12/17 20:00 05/12/17 19:59 04/15/17 12:20 80 MLS/HR Acetaminophen (Tylenol Tab) 650 mg Q4H PRN PO 04/12/17 17:30 05/12/17 17:29 04/15/17 15:32 650 MG Ondansetron HCl (Zofran Inj) 4 mg Q6H PRN IV 04/12/17 17:30 05/12/17 17:29 Insulin Aspart (novoLOG ASPART) SLIDING SCALE If C... ACHS SC 04/12/17 21:00 05/12/17 20:59 04/15/17 12:19 7 UNITS Glucose (Glucose 40% Gel) 15-30 GRAMS 15 GRAMS... UD PRN PO 04/12/17 17:30 05/12/17 17:29 Glucose (Glucose Chew Tab) 4-8 Tablets 4 Tabl... UD PRN PO 04/12/17 17:30 05/12/17 17:29 Dextrose (Dextrose 50% 50ML Syringe) 25-50ML OF 50% DW IV FOR... UD PRN IV 04/12/17 17:30 05/12/17 17:29 Glucagon (Glucagon Inj) 1 mg UD PRN SQ 04/12/17 17:30 05/12/17 17:29 Miscellaneous Information (Consult Glycemic Management Pharmacy) 1 ea UD PRN N/A 04/12/17 19:30 05/12/17 19:29 Ceftriaxone Sodium 1 gm/ Dextrose 50 ml @ 100 mls/hr Q24H IV 04/13/17 16:00 04/23/17 15:59 04/15/17 15:32 100 MLS/HR Amlodipine Besylate (Norvasc Tab) 10 mg DAILY PO 04/13/17 09:00 05/13/17 08:59 04/15/17 08:07 10 MG Aspirin (Ecotrin Tab) 81 mg DAILY PO 04/13/17 09:00 05/13/17 08:59 04/15/17 08:09 81 MG Mycophenolate Mofetil (Cellcept Cap) 250 mg Q12 PO 04/12/17 21:00 05/12/17 20:59 04/15/17 08:07 250 MG Sotalol HCl (Betapace Tab) 120 mg BID PO 04/12/17 21:00 05/12/17 20:59 04/15/17 08:08 120 MG Sirolimus (Sirolimus) 1 mg DAILY PO 04/13/17 09:00 05/13/17 08:59 04/15/17 08:07 1 MG Insulin Glargine (Lantus Solostar Pen) 20 units HS SC 04/15/17 21:00 05/15/17 20:59 Senna/Docusate Sodium (Senokot S Tab) 1 tab QAM PO 04/15/17 09:00 05/15/17 08:59 04/15/17 12:14 1 TAB Hydralazine HCl (Apresoline Tab) 10 mg BID PO 04/15/17 21:00 05/15/17 20:59 Warfarin Sodium (Coumadin Tab) 3 mg DAILY@16 PO 04/15/17 16:00 05/13/17 15:59 04/15/17 16:07 3 MG Last 24 Hours Test 04/14/17 16:17 04/14/17 20:22 04/15/17 05:50 04/15/17 06:39 Bedside Glucose 91 mg/dl 115 mg/dl 100 mg/dl White Blood Count 8.00 K/uL Red Blood Count 3.85 M/uL Hemoglobin 10.3 g/dL Hematocrit 31.6 % Mean Corpuscular Volume 82.1 fL Mean Corpuscular Hemoglobin 26.8 pg Mean Corpuscular Hemoglobin Concent 32.6 g/dl RDW Standard Deviation 46.3 fL RDW Coefficient of Variation 15.6 % Platelet Count 272 K/uL Mean Platelet Volume 9.1 fL Prothrombin Time 11.4 SECONDS Prothromb Time International Ratio 1.1 Sodium Level 134 mmol/L Potassium Level 3.3 mmol/L Chloride Level 103 mmol/L Carbon Dioxide Level 25 mmol/L Anion Gap 6.0 mmol/L Blood Urea Nitrogen 8 mg/dl Creatinine 0.78 mg/dl Est Creatinine Clear Calc Drug Dose 60.1 ml/min Estimated GFR () 87.4 Estimated GFR (Non- 75.4 BUN/Creatinine Ratio 10.3 Random Glucose 104 mg/dl Calcium Level 8.3 mg/dl Test 04/15/17 11:18 Bedside Glucose 175 mg/dl Assessment & Plan 72 y/o F w/ renal transplant and recurrent uti, baseline creatinine 0.8-0.9 admitted 04/12 w/ sNa 119 in the setting of BG 390 and creatinine 1.3. Prerenal ROSSY -resolved w/ NS; apart from sNa chemistries acceptable Hypotonic hyponatremia Mostly from dehydration however; improving at acceptable rate -goal for am is normal sNa >> will stop NS d/t HTN and put hold parameters on hydralazine Hypokalemia >> got 40 mEq po today; dillon in am Recurrent UTI -- here annamaria arshad -on empiric ceftriaxone; recommend cefpodixime as po when ready --given ongoing dysuria, will repeat UACM S/p renal transplant w/ txplt [facility] and ? hydronephrosis on u/s -cont current outpatient immunosuppression -since her allograft function has normalized, will follow up on these findings and now 2 hospitalizations for uti/dehydration/ hyponatremia in txplt clinic w/ in a month constipation, abd pain/bloating -cont colace; may need senna, lactulose and or dulcolax if no improvement Appreciate c/s; will follow with you. Care coordinated w/ Dr Mortensen.
[2017-04-15 19:36] VITALS: BP 150/71; PULSE 67; TEMP 37.2; O2SAT 98
[2017-04-15] MEDS ORDERED: INSULIN GLARGINE SOLOSTAR 100 UNITS/ML 3 ML PEN SC SCH (21:00)
[2017-04-15] MEDS: HydrALAZINE 10 MG TAB PO SCH (21:05)
[2017-04-15 23:59] VITALS: BP 150/73; PULSE 64; TEMP 37.1; O2SAT 97
[2017-04-16] VITALS (7 sets, daily range): BP systolic 130–180; BP diastolic 65–79; PULSE 61–75; TEMP 36.4–37; O2SAT 96–99
[2017-04-16] MEDS: ACETAMINOPHEN 325 MG TAB PO PRN ×2 (00:44→21:15)
[2017-04-16] MEDS: ASPIRIN 81 MG ECTAB PO SCH (07:38)
[2017-04-16] MEDS: SOTALOL HCL 80 MG TAB PO SCH ×2 (07:38→21:14)
[2017-04-16] MEDS: DOCUSATE SODIUM/SENNA 50/8.6MG TAB PO SCH (07:39)
[2017-04-16] MEDS: SIROLIMUS 0.5 MG TAB PO SCH (07:39)
[2017-04-16] MEDS: AMLODIPINE BESYLATE 5 MG TAB PO SCH (07:39)
[2017-04-16] MEDS: MYCOPHENOLATE MOFETIL 250 MG CAP (CELLCEPT) PO SCH ×2 (07:39→21:13)
[2017-04-16] MEDS: HydrALAZINE 10 MG TAB PO SCH ×2 (08:02→21:13)
[2017-04-16] MEDS: INSULIN ASPART 100 UNITS/ML 3 ML PEN SC SCH ×4 (08:17→21:18)
[2017-04-16 09:25] LABS: CALCIUM 8.4 mg/dl (8.5-10.1); CREATININE 0.83 mg/dl (0.60-1.20); POTASSIUM 3.7 mmol/L (3.5-5.1)
--- NOTE | 2017-04-16 13:37 | Pharmacy Progress Note ---
Pharmacy Glycemic Short Note 2 Date of Service Apr 16, 2017. OUTPATIENT ANTIDIABETIC REGIMEN: * Lantus 20 units SQ qHS plus Novolog 12-22 units with meals and sliding scale ASSESSMENT: * Ms Seo is a 72 y/o F with a PMH of renal transplant on immunosuppressant, Afib on warfarin, HTN, HLD, recurrent UTIs, and poorly controlled type 2 diabetes (recommended HbA1C goal for Ms Seo per the Elements of Diabetes Care Scoring Scale is 7.6-8.0%). She is admitted this admission with hyperglycemia and a possible UTI. Yesterday the patient received about 40 units of insulin with 20 units of Lantus. Now transitioned from twice daily dosing to once daily Lantus dosing in the evening. The patient's blood sugars yesterday were [phone]. Fasting this morning is 92 mg/dL. * Per previous admissions, the patient requires around 23-25 units of basal and around 55 units of insulin per day. However due to lower fasting today compared to yesterday will reduce by 10% to 18 Per previous admission, patient tolerates CF of 25 and carbohydrate ratio of 8. Slightly tightened carbohydrate ratio this admission to 7. Monitor closely. Lunch blood sugar was elevated since carbohydrate coverage lost at breakfast. Consider a tighter carbohydrate coverage for breakfast. PLAN FOR INPATIENT GLYCEMIC CONTROL: * Basal insulin * Lantus 18 units SQ HS * Bolus insulin * NovoLog per scale ACHS or Q6hrs while NPO * Goal Range: Low 110 mg/dL - High 140 mg/dL * Correction Factor: 25 mg/dL/unit * Nutritional / Prandial insulin per carb ratio of 1 unit per 7 grams CHO consumed PLAN FOR DISCHARGE: * Ms Seo's HbA1C is uncontrolled. Recommend follow-up with individual managing blood sugars with blood sugar log so that insulin may be titrated appropriately.
--- NOTE | 2017-04-16 14:08 | Progress Note ---
Medicine Progress Note Date & Time of Visit: Apr 16, 2017 at 14:07. Subjective resting , comfortable states she feels improved today than yesterday no abdominal pain, dysuria, nausea appetite better no other symptoms Objective Last 8 Hrs Date Time Temp Pulse Resp B/P (MAP) Pulse Ox O2 Delivery O2 Flow Rate FiO2 04/16/17 11:52 36.6 66 18 158/70 (99) 96 04/16/17 11:39 Room Air 04/16/17 08:10 Room Air 04/16/17 07:53 36.8 68 18 180/79 (112) 96 Physical Exam: General- oriented x 3, not in distress, speaks in sentences with no effort Eyes- anicteric Neck- no JVD Lungs- clear breath sounds bilaterally, no rales/wheezes Heart- regular rhythm; no murmur, normal rate Abdomen- normal bowel sounds, soft, nontender Extremities- no pretibial edema, no calf tenderness Neuro- alert, oriented x 3;no gross focal deficits Skin- warm & dry Laboratory Results: Last 24 Hours Test 04/15/17 16:10 04/15/17 16:40 04/15/17 20:30 04/16/17 06:12 Bedside Glucose 130 mg/dl 119 mg/dl Urine Color YELLOW Urine Appearance CLEAR Urine pH 7.0 Urine Specific [place] 1.009 Urine Protein NEG Urine Glucose (UA) 1+ Urine Ketones NEG Urine Occult Blood NEG Urine Nitrite NEG Urine Bilirubin NEG Urine Urobilinogen NEG Urine Leukocyte Esterase MODERATE Urine WBC (Auto) >30 /hpf Urine RBC (Auto) 0-4 /hpf Urine Hyaline Casts (Auto) 1-5 /lpf Urine Epithelial Cells (Auto) 20-30 /lpf Urine Bacteria (Auto) NEG Sodium Level 134 mmol/L Potassium Level 3.7 mmol/L Chloride Level 102 mmol/L Carbon Dioxide Level 27 mmol/L Anion Gap 5.0 mmol/L Blood Urea Nitrogen 10 mg/dl Creatinine 0.83 mg/dl Est Creatinine Clear Calc Drug Dose 56.5 ml/min Estimated GFR () 81.1 Estimated GFR (Non- 70.0 BUN/Creatinine Ratio 12.3 Random Glucose 79 mg/dl Calcium Level 8.4 mg/dl Test 04/16/17 06:14 04/16/17 06:44 04/16/17 11:28 Prothrombin Time 10.9 SECONDS Prothromb Time International Ratio 1.0 Bedside Glucose 92 mg/dl 171 mg/dl Assessment & Plan This is a 72 year old female with a PMH of insulin dependent DM2; hx. of renal transplantation on immunosuppressives, paroxysmal atrial fibrillation on long- term anticoagulation, HTN, HLD, recurrent UTIs presented with UTI Hyponatremia secondary to dehydration and UTI Na level on admission = 119, corrected sodium is ~ 122 given NSS now 131--> 34 appreciate Nephro recommendations off fluids Recurrent UTI in the setting of Immunosuppression Urine Cx: (+) Morganella morganii- pansensitive Symptoms Improving on Ceftri IV Day 06/18 will need at least 10-14 days antibiotic therapy Uncontrolled BSGs in the setting of Insulin Dependent DM2 on Lantus BID and ISS appreciate Pharm Gly Ctrl recommendations Acute Kidney Injury secondary to dehydration creatinine up to 1.3, baseline is around 1.0 resolved Paroxysmal A. Fib currently in NSR continue sotalol and Coumadin check INR - home dose of 1mg daily except 2mg on M and F INR 1.0 increase coumadin to 4mg daily monitor INR Hx. of Renal Transplant continue immunosuppressives (CellCept + Sirolimus) HTN BP not at goal added Hydralazine 10mg po BID continue amlodipine KATIA-I intolerance noted on chart improving DVT ppx Coumadin INR 1.0, monitor SCDs patient declines heparin/lovenox due to adverse effect in the past FULL CODE Disposition PT ordered anticipate d/c home tomorrow anticipate d/c home with PO Cefpodoxime Current Inpatient Medications: Current Inpatient Medications Medications (Trade) Dose Ordered Sig/Sandeep Route Start Time Stop Time Status Last Admin Dose Admin Acetaminophen (Tylenol Tab) 650 mg Q4H PRN PO 04/12/17 17:30 05/12/17 17:29 04/16/17 00:44 650 MG Ondansetron HCl (Zofran Inj) 4 mg Q6H PRN IV 04/12/17 17:30 05/12/17 17:29 Insulin Aspart (novoLOG ASPART) SLIDING SCALE If C... ACHS SC 04/12/17 21:00 05/12/17 20:59 04/16/17 12:05 9 UNITS Glucose (Glucose 40% Gel) 15-30 GRAMS 15 GRAMS... UD PRN PO 04/12/17 17:30 05/12/17 17:29 Glucose (Glucose Chew Tab) 4-8 Tablets 4 Tabl... UD PRN PO 04/12/17 17:30 05/12/17 17:29 Dextrose (Dextrose 50% 50ML Syringe) 25-50ML OF 50% DW IV FOR... UD PRN IV 04/12/17 17:30 05/12/17 17:29 Glucagon (Glucagon Inj) 1 mg UD PRN SQ 04/12/17 17:30 05/12/17 17:29 Miscellaneous Information (Consult Glycemic Management Pharmacy) 1 ea UD PRN N/A 04/12/17 19:30 05/12/17 19:29 Ceftriaxone Sodium 1 gm/ Dextrose 50 ml @ 100 mls/hr Q24H IV 04/13/17 16:00 04/23/17 15:59 04/15/17 15:32 100 MLS/HR Amlodipine Besylate (Norvasc Tab) 10 mg DAILY PO 04/13/17 09:00 05/13/17 08:59 04/16/17 07:39 10 MG Aspirin (Ecotrin Tab) 81 mg DAILY PO 04/13/17 09:00 05/13/17 08:59 04/16/17 07:38 81 MG Mycophenolate Mofetil (Cellcept Cap) 250 mg Q12 PO 04/12/17 21:00 05/12/17 20:59 04/16/17 07:39 250 MG Sotalol HCl (Betapace Tab) 120 mg BID PO 04/12/17 21:00 05/12/17 20:59 04/16/17 07:38 120 MG Sirolimus (Sirolimus) 1 mg DAILY PO 04/13/17 09:00 05/13/17 08:59 04/16/17 07:39 1 MG Senna/Docusate Sodium (Senokot S Tab) 1 tab QAM PO 04/15/17 09:00 05/15/17 08:59 04/16/17 07:39 1 TAB Hydralazine HCl (Apresoline Tab) 10 mg BID PO 04/15/17 21:00 05/15/17 20:59 04/16/17 08:02 10 MG Insulin Glargine (Lantus Solostar Pen) 18 units HS SC 04/16/17 21:00 05/16/17 20:59 Warfarin Sodium (Coumadin Tab) 4 mg DAILY@16 PO 04/16/17 16:00 05/13/17 15:59
[2017-04-16] MEDS ORDERED: WARFARIN SOD 4 MG TAB PO SCH (16:00)
[2017-04-16] MEDS ORDERED: WARFARIN SOD 3 MG TAB PO SCH (16:00)
[2017-04-16] MEDS: CEFTRIAXONE SOD INJ 1 GM in DEXTROSE 5% ADD-VANTAGE 50ML 50 ML IV SCH (16:12)
[2017-04-16] MEDS ORDERED: INSULIN GLARGINE SOLOSTAR 100 UNITS/ML 3 ML PEN SC SCH (21:00)
[2017-04-17 03:08] VITALS: BP 153/70; PULSE 62; TEMP 36.4; O2SAT 97
[2017-04-17 06:17] LABS: INR 1.1 (0.9-1.1)
[2017-04-17] MEDS: HydrALAZINE 10 MG TAB PO SCH (08:10)
[2017-04-17] MEDS: DOCUSATE SODIUM/SENNA 50/8.6MG TAB PO SCH (08:10)
[2017-04-17] MEDS: ASPIRIN 81 MG ECTAB PO SCH (08:10)
[2017-04-17] MEDS: SOTALOL HCL 80 MG TAB PO SCH (08:11)
[2017-04-17] MEDS: AMLODIPINE BESYLATE 5 MG TAB PO SCH (08:11)
[2017-04-17] MEDS: MYCOPHENOLATE MOFETIL 250 MG CAP (CELLCEPT) PO SCH (08:11)
[2017-04-17] MEDS: SIROLIMUS 0.5 MG TAB PO SCH (08:11)
[2017-04-17 08:12] VITALS: BP 131/64; PULSE 87; TEMP 36.9; O2SAT 97
[2017-04-17] MEDS: INSULIN ASPART 100 UNITS/ML 3 ML PEN SC SCH ×2 (08:17→12:43)
--- NOTE | 2017-04-17 10:28 | Pharmacy Progress Note ---
Pharmacy Glycemic Short Note 2 Date of Service Apr 17, 2017. OUTPATIENT ANTIDIABETIC REGIMEN: * Lantus 20 units SQ qHS plus Novolog 12-22 units with meals and sliding scale Test 04/13/17 03:32 Hemoglobin A1c 10.1 % (4.5-5.6) H Test 04/16/17 11:28 04/16/17 15:32 04/16/17 16:04 04/16/17 16:27 Bedside Glucose 171 mg/dl (70-90) 69 mg/dl (70-90) 102 mg/dl (70-90) 126 mg/dl (70-90) Test 04/16/17 21:04 04/17/17 03:16 04/17/17 06:48 04/17/17 10:15 Bedside Glucose 184 mg/dl (70-90) 72 mg/dl (70-90) 193 mg/dl (70-90) ASSESSMENT: * Lantus decreased last night, but patient still felt low at 0316 during vitals check, and BSG was 72mg/dl, will further decrease Lantus dose to prevent overnight hypoglycemia but tighten CF and CR slightly to ensure enough insulin coverage during the day. * Ms Seo is a 72 y/o F with a PMH of renal transplant on immunosuppressant, Afib on warfarin, HTN, HLD, recurrent UTIs, and poorly controlled type 2 diabetes (recommended HbA1C goal for Ms Seo per the Elements of Diabetes Care Scoring Scale is 7.6-8.0%). She is admitted this admission with hyperglycemia and a possible UTI. PLAN FOR INPATIENT GLYCEMIC CONTROL: * Basal insulin * Decrease --> Lantus 15 units SQ HS * Bolus insulin * NovoLog per scale ACHS or Q6hrs while NPO * Goal Range: Low 110 mg/dL - High 140 mg/dL * Tighten: Correction Factor: 20 mg/dL/unit * Tighten: Nutritional / Prandial insulin per carb ratio of 1 unit per 6 grams CHO consumed PLAN FOR DISCHARGE: * Ms Seo's HbA1C is uncontrolled. Recommend follow-up with individual managing blood sugars with blood sugar log so that insulin may be titrated appropriately.
[2017-04-17 11:17] LABS: CALCIUM 8.5 mg/dl (8.5-10.1); CREATININE 0.88 mg/dl (0.60-1.20); POTASSIUM 3.7 mmol/L (3.5-5.1)
[2017-04-17 11:35] VITALS: BP 156/64; PULSE 64; TEMP 36.8; O2SAT 96
--- NOTE | 2017-04-17 12:20 | Progress Note ---
Medicine Progress Note Date & Time of Visit: Apr 17, 2017 at 12:13. Subjective patient seen resting in bed, having lunch states she feels better overall denies abdominal pain, urinary problems, nausea no other symptoms states she is ready and would like to be discharged today Objective Last 8 Hrs Date Time Temp Pulse Resp B/P (MAP) Pulse Ox O2 Delivery O2 Flow Rate FiO2 04/17/17 11:35 36.8 64 18 156/64 (94) 96 04/17/17 08:12 36.9 87 18 131/64 (86) 97 04/17/17 08:00 Room Air Physical Exam: General- oriented x 3, not in distress, speaks in sentences with no effort Eyes- anicteric Lungs- clear BS BL Heart- regular rhythm; no murmur, normal rate Abdomen- normal bowel sounds, soft, nontender Extremities- no pretibial edema, no calf tenderness Neuro- alert, oriented x 3;no gross focal deficits Skin- warm & dry Laboratory Results: Last 24 Hours Test 04/16/17 15:32 04/16/17 16:04 04/16/17 16:27 04/16/17 21:04 Bedside Glucose 69 mg/dl 102 mg/dl 126 mg/dl 184 mg/dl Test 04/17/17 03:16 04/17/17 05:43 04/17/17 06:48 04/17/17 10:27 Bedside Glucose 72 mg/dl 193 mg/dl Prothrombin Time 11.8 SECONDS Prothromb Time International Ratio 1.1 Sodium Level 131 mmol/L Potassium Level 3.7 mmol/L Chloride Level 98 mmol/L Carbon Dioxide Level 25 mmol/L Anion Gap 8.0 mmol/L Blood Urea Nitrogen 11 mg/dl Creatinine 0.88 mg/dl Est Creatinine Clear Calc Drug Dose 53.3 ml/min Estimated GFR () 75.5 Estimated GFR (Non- 65.2 BUN/Creatinine Ratio 12.9 Random Glucose 188 mg/dl Calcium Level 8.5 mg/dl Assessment & Plan This is a 72 year old female with a PMH of insulin dependent DM2; hx. of renal transplantation on immunosuppressives, paroxysmal atrial fibrillation on long- term anticoagulation, HTN, HLD, recurrent UTIs presented with UTI Hyponatremia secondary to dehydration and UTI Na level on admission = 119, corrected sodium is ~ 122 given NSS now 131--> 34 appreciate Nephro recommendations advised to ensure adequate daily fluid intake monitor Na level on ff up with PCP next week Recurrent UTI in the setting of Immunosuppression Urine Cx: (+) Morganella morganii- pansensitive Symptoms resolved given 5 days of Ceftri IV repeat UA: negative nitrite, bacteria will need 5 more days of Cefpodoxime 100mg BID x 5 more days to complete 10 days of antibiotics repeat Urinalysis and urine culture after completion of antibiotics to ensure clearance Uncontrolled BSGs in the setting of Insulin Dependent DM2 A1c 10 on Lantus BID and ISS Pharm Gly Ctrl consulted ff up with PCP for further adjustment of Insulin regimen Acute Kidney Injury secondary to dehydration creatinine up to 1.3, baseline is around 1.0 resolved Paroxysmal A. Fib currently in NSR INR subtherapeutic while admitted 1.0 for 3 days discussed with Pharmacist Mynor Alonzo for now, Coumadin 4mg and 2mg alternating Coag Clinic to perform INR check early next week continue sotalol Hx. of Renal Transplant continue immunosuppressives (CellCept + Sirolimus) Renal US: IMPRESSION: 1. Abnormal intrarenal arterial waveforms with loss of diastolic flow and evidence of hemodynamically significant stenosis at the transplant renal artery anastomosis. 2. Mild pelvocaliectasis. This could represent hydronephrosis though incomplete bladder voiding limits evaluation for potential resolution with urinary bladder decompression. 3. Mild urothelial thickening, nonspecific. -- Nephrology service recommends close outpatient ff up continue ff up with Renal Transplant SVC HTN BP not at goal, from IV fluids? added Hydralazine 10mg po BID continued amlodipine KATIA-I intolerance noted on chart BP improved monitor if Hydralazine still needs to be continued Disposition d/c home ff up with PCP in 3-5 days ff up with Nephro as scheduled Current Inpatient Medications: Current Inpatient Medications Medications (Trade) Dose Ordered Sig/Sandeep Route Start Time Stop Time Status Last Admin Dose Admin Acetaminophen (Tylenol Tab) 650 mg Q4H PRN PO 04/12/17 17:30 05/12/17 17:29 04/16/17 21:15 650 MG Ondansetron HCl (Zofran Inj) 4 mg Q6H PRN IV 04/12/17 17:30 05/12/17 17:29 Insulin Aspart (novoLOG ASPART) SLIDING SCALE If C... ACHS SC 04/12/17 21:00 05/12/17 20:59 04/17/17 08:17 12 UNITS Glucose (Glucose 40% Gel) 15-30 GRAMS 15 GRAMS... UD PRN PO 04/12/17 17:30 05/12/17 17:29 Glucose (Glucose Chew Tab) 4-8 Tablets 4 Tabl... UD PRN PO 04/12/17 17:30 05/12/17 17:29 Dextrose (Dextrose 50% 50ML Syringe) 25-50ML OF 50% DW IV FOR... UD PRN IV 04/12/17 17:30 05/12/17 17:29 Glucagon (Glucagon Inj) 1 mg UD PRN SQ 04/12/17 17:30 05/12/17 17:29 Miscellaneous Information (Consult Glycemic Management Pharmacy) 1 ea UD PRN N/A 04/12/17 19:30 05/12/17 19:29 Ceftriaxone Sodium 1 gm/ Dextrose 50 ml @ 100 mls/hr Q24H IV 04/13/17 16:00 04/23/17 15:59 04/16/17 16:12 100 MLS/HR Amlodipine Besylate (Norvasc Tab) 10 mg DAILY PO 04/13/17 09:00 05/13/17 08:59 04/17/17 08:11 10 MG Aspirin (Ecotrin Tab) 81 mg DAILY PO 04/13/17 09:00 05/13/17 08:59 04/17/17 08:10 81 MG Mycophenolate Mofetil (Cellcept Cap) 250 mg Q12 PO 04/12/17 21:00 05/12/17 20:59 04/17/17 08:11 250 MG Sotalol HCl (Betapace Tab) 120 mg BID PO 04/12/17 21:00 05/12/17 20:59 04/17/17 08:11 120 MG Sirolimus (Sirolimus) 1 mg DAILY PO 04/13/17 09:00 05/13/17 08:59 04/17/17 08:11 1 MG Senna/Docusate Sodium (Senokot S Tab) 1 tab QAM PO 04/15/17 09:00 05/15/17 08:59 04/17/17 08:10 1 TAB Hydralazine HCl (Apresoline Tab) 10 mg BID PO 3/7/18 21:00 05/15/17 20:59 04/17/17 08:10 10 MG Warfarin Sodium (Coumadin Tab) 4 mg DAILY@16 PO 04/16/17 16:00 05/16/17 15:59 04/16/17 16:57 4 MG Insulin Glargine (Lantus Solostar Pen) 15 units HS SC 04/17/17 21:00 05/17/17 20:59
[2017-04-17] MEDS ORDERED: CMD4 PO (12:33)
[2017-04-17] MEDS ORDERED: Cefpodoxime PO (12:33)
[2017-04-17] MEDS ORDERED: APR10 PO (12:33)
--- NOTE | 2017-04-17 12:40 | Discharge Instructions ---
Discharge Instructions Date of Service Apr 17, 2017. Admission Reason for Admission: Acute Hyperglycemia, Uti, Hyponatremia Discharge Discharge Diagnosis / Problem: URINARY TRACT INFECTION, LOW SODIUM LEVEL Discharge Goals Goal(s): Diagnostic testing, Therapeutic intervention Activity Recommendations Activity Limitations: as noted below (NO HEAVY EXERTION UNTIL RE-EVALUATED BY PRIMARY CARE PHYSICIAN) Lifting Limitations: until after follow-up appointment Exercise/Sports Limitations: until after follow-up appointment . Instructions / Follow-Up Instructions / Follow-Up PLEASE REFER TO YOUR NEW MEDICATION LIST AND FOLLOW INSTRUCTIONS CAREFULLY. [facility] PHARMACIST KADI LONG WILL BE CALLING YOU FOR FURTHER INSTRUCTIONS REGARDING COUMADIN DOSE AND REPEAT BLOOD WORK. CALL YOUR PRIMARY CARE PHYSICIAN OR RETURN TO THE ER IMMEDIATELY IF WITH RECURRENCE OF SYMPTOMS, WEAKNESS, FEVER/CHILLS, ABDOMINAL PAIN, NAUSEA/VOMITING, DIARRHEA, BLOOD SUGAR ABOVE 300, DIZZINESS/LIGHTHEADEDNESS. FOLLOW UP WITH DR. HARDING (ASSOCIATE OF DR. HAZEL, SHE IS NOT AVAILABLE NEXT WEEK) ON SATURDAY APRIL 22, 2017 AT 9:30AM AT THE [facility]. FOLLOW UP WITH HOT BOX OPERATOR SCHEDULED. Current Hospital Diet Patient's current hospital diet: Diabetes Type 2 Diet Discharge Diet Recommended Diet: Diabetes Type 2 Diet Procedures Procedures Performed: CHEST XRAY, KIDNEY ULTRASOUND Pending Studies Studies pending at discharge: yes List of pending studies: REPEAT BLOOD WORK (INR AND SODIUM LEVEL) NEXT WEEK. Laboratory Results Hemoglobin A1c Test 04/13/17 03:32 Range/Units Estimated Average Glucose 243 mg/dl Hemoglobin A1c 10.1 H 4.5-5.6 % Medical Emergencies . Who to Call and When: Medical Emergencies: If at any time you feel your situation is an emergency, please call 911 immediately. . Non-Emergent Contact Non-Emergency issues call your: Primary Care Provider, Manager Business Call Non-Emergent contact if: you have a fever, you have any medication questions . . "Provider Documentation" section prepared by Hay Mortensen. .
[2017-04-17 12:48] VITALS: BP 156/64; PULSE 64; TEMP 36.8; O2SAT 96
--- NOTE | 2017-04-17 12:50 | Discharge Summary ---
Discharge Summary Date of Service Apr 17, 2017. Discharge Summary Admission Date: Apr 12, 2017 at 18:02 Discharge Date: Apr 17, 2017 Discharge Disposition: Home Principal Diagnosis: HYPONATREMIA, RECURRENT URINARY TRACT INFECTION Secondary Diagnoses/Problems: PLEASE REFER TO HOSPITAL COURSE BELOW. Procedures: PA CHEST WITH ABDOMINAL SERIES CLINICAL HISTORY: Nausea and vomiting. FINDINGS: A PA chest radiograph is compared to study dated 11/22/2016. The heart is enlarged and there is atherosclerotic calcification of the thoracic aorta. The pulmonary vasculature is noncongested. Chronic interstitial thickening is similar to previous. The lungs and pleural spaces are otherwise clear. No pneumothorax is seen. The skeletal structures are osteopenic. The bony thorax is grossly intact. Supine and erect abdominal radiographs are obtained compared to study dated 11/22/2016. Cholecystectomy clips are seen in the right upper quadrant. Surgical clips are also seen in the left upper quadrant and throughout the right hemipelvis. Suture material is also seen in the pelvis. There is a nonobstructed abdominal bowel gas pattern. No evidence of intraperitoneal free air is seen. There are no abnormal abdominal calcifications. There is mild to moderate lumbosacral spondylosis. The lumbosacral spine and bony pelvis appear intact. IMPRESSION: 1. Cardiomegaly with no active disease in the chest. 2. Nonobstructed abdominal bowel gas pattern. Electronically signed by: Cornell eBy M.D. 04/12/2017 7:27 PM RENAL TRANSPLANT W/THU MIGUEL CLINICAL HISTORY: 72 years-old Female presenting with dysuria, renal txplt. TECHNIQUE: Real-time grayscale and color and spectral Doppler ultrasound imaging of the transplant kidney was performed. COMPARISON: 09/05/2013. FINDINGS: Right lower quadrant transplant kidney measures 11.3 cm. Normal echogenicity of renal parenchyma. Mild pelvocaliectasis, which does not decreased after post void imaging. Mild urothelial thickening evident. No perinephric fluid collection. No sonographic evidence of calculi. Symmetric perfusion of the upper and lower poles. Intrarenal resistive indices range from 0.82 to 1.0. Abnormal intrarenal arterial waveforms with intermittent loss of diastolic flow. Renal artery patent although elevated peak systolic velocity 556 cm/s at the anastomosis, 266 cm/s proximally, 209 cm/s in the midportion, and 72 cm/s distally. Renal vein patent. The right iliac artery is patent with normal triphasic peripheral arterial waveforms and peak systolic velocity 138 cm/s. No abnormal increased velocity across the anastomotic site. Bladder: Incomplete voiding. Other: Bilateral cabazon kidneys are atrophic with multiple cysts. Sonographic evidence of solid renal mass. IMPRESSION: 1. Abnormal intrarenal arterial waveforms with loss of diastolic flow and evidence of hemodynamically significant stenosis at the transplant renal artery anastomosis. 2. Mild pelvocaliectasis. This could represent hydronephrosis though incomplete bladder voiding limits evaluation for potential resolution with urinary bladder decompression. 3. Mild urothelial thickening, nonspecific. The report will be called/faxed according to standard departmental protocol. Electronically signed by: Hitesh Feliz M.D. 04/14/2017 7:50 PM Consultations: PROFESSOR OF GEOLOGY DR. MCGEE Pending Studies/Follow-Up: PLEASE REFER TO HOSPITAL COURSE BELOW. Medication Reconciliation New Medications: [Cefpodoxime] () 100 MG PO BID for 5 Days, #10 TABS 0 Refills Hydralazine HCl (Hydralazine HCl) 10 Mg Tab 10 MG PO BID for 30 Days, #60 TAB 2 Refills Warfarin Sod (Coumadin) 4 Mg Tab 4 MG PO UD for 10 Days take coumadin 4mg alternating with 2mg daily starting today April 17, 2017 (4mg thursday, 2mg thursday, 4mg thursday, 2mg thursday, etc). Further instructions per Pharmacist Kadi Alonzo. Continued Medications: Amlodipine Besylate (Norvasc) 10 Mg Tab 10 MG PO DAILY, TAB Aspirin (Aspirin Ec) 81 Mg Tab 81 MG PO DAILY Cholecalciferol (Vitamin D) 2,000 Unit Cap 2000 UNITS PO DAILY Glucagon (Glucagon Emergency Kit) 1 Mg Kit 1 MG INJ UD PRN for HYPOGLYCEMIA PROTOCOL Insulin Aspart (Novolog Flexpen) 100 Units/Ml Inj 12-22 UNITS SQ AC 3 times a day with meals plus sliding scale Insulin Glargine (Lantus Solostar) 100 Unit/Ml Inj 20 UNITS SQ HS, PEN Mycophenolate Mofetil (Mycophenolate Mofetil) 250 Mg Cap 250 MG PO Q12 Sirolimus (Rapamune) 1 Mg Tab 1 MG PO DAILY Sotalol Hcl (Sotalol Hcl) 80 Mg Tab 120 MG PO BID Discontinued Medications: Warfarin Sodium (Coumadin) 1 Mg Tab 1 MG PO UD, TAB daily except M and F Warfarin Sodium (Coumadin) 1 Mg Tab 2 MG PO UD, TAB TAKE THURSDAY AND THURSDAY Admission Information HPI (per Admitting provider): This is a 72 year old female with a PMH of insulin dependent DM2; hx. of renal transplantation on immunosuppressives, paroxysmal atrial fibrillation on long- term anticoagulation, HTN, HLD, recurrent UTIs - presents with weakness nausea, decreased appetite and urinary symptoms for the past week. She was admitted in November 2016 with similar symptoms of dehydration, weakness, UTI and hyponatremia. Upon presentation - patient found to have significant dehydration and hyponatremia; sodium level of 119. Patient states she was sick and could not use her insulin or take her medications like she was supposed to. She had some dry heaves initially, but no vomiting or diarrhea. Denies fevers/chills, denies cough/shortness of breath or chest pain. Physical Exam (per Admitting): General Appearance: + mild distress, + pertinent finding (+weakness, dehydration) Head: normocephalic, atraumatic Eyes: normal inspection ENT: hearing grossly normal, + pertinent finding (+dry mucous membranes) Neck: supple Respiratory/Chest: chest non-tender, lungs clear, normal breath sounds, no respiratory distress, no accessory muscle use Cardiovascular: regular rate, rhythm, + systolic murmur (blowing systolic murmur) Abdomen/GI: normal bowel sounds, non tender, soft Back: normal inspection, normal range of motion Extremities/Musculoskelatal: + pertinent finding (AV fistula on L arm) Neurologic/Psych: superintendent measurement II-XII nml as tested, no motor/sensory deficits, alert , normal mood/affect, oriented x 3 Skin: normal color, warm/dry, no rash Lymphatic: no adenopathy Hospital Course This is a 72 year old female with a PMH of insulin dependent DM2; hx. of renal transplantation on immunosuppressives, paroxysmal atrial fibrillation on long- term anticoagulation, HTN, HLD, recurrent UTIs presented with UTI. Hyponatremia secondary to dehydration Na level on admission = 119, corrected sodium is ~ [address] Mcgee consulted given NSS imrpoved gradually 131--> 34 advised to ensure adequate daily fluid intake monitor Na level on ff up with PCP next week Recurrent UTI in the setting of Immunosuppression Urine Cx: (+) Morganella morganii- pansensitive Symptoms resolved given 5 days of Ceftriaxone IV repeat UA: negative nitrite, bacteria will need 5 more days of Cefpodoxime 100mg BID x 5 more days to complete 10 days of antibiotics repeat Urinalysis and urine culture after completion of antibiotics to ensure clearance Uncontrolled BSGs in the setting of Insulin Dependent DM2 A1c 10 on Lantus BID and ISS Pharm Gly Ctrl consulted ff up with PCP for further adjustment of Insulin regimen Acute Kidney Injury secondary to dehydration creatinine up to 1.3, baseline is around 1.0 resolved Paroxysmal A. Fib currently in NSR INR subtherapeutic while admitted 1.0 for 3 days discussed with Pharmacist Kadi Alonzo for now, Coumadin 4mg and 2mg alternating Coag Clinic to perform INR check early next week continue sotalol Hx. of Renal Transplant continue immunosuppressives (CellCept + Sirolimus) Renal US: IMPRESSION: 1. Abnormal intrarenal arterial waveforms with loss of diastolic flow and evidence of hemodynamically significant stenosis at the transplant renal artery anastomosis. 2. Mild pelvocaliectasis. This could represent hydronephrosis though incomplete bladder voiding limits evaluation for potential resolution with urinary bladder decompression. 3. Mild urothelial thickening, nonspecific. -- Nephrology service recommends close outpatient ff up continue ff up with Renal Transplant SVC HTN BP not at goal, from IV fluids? added Hydralazine 10mg po BID continued amlodipine KATIA-I intolerance noted on chart BP improved monitor on ff up if Hydralazine still needs to be continued Disposition d/c home ff up with PCP in 3-5 days ff up with Nephro as scheduled Total time spent on discharge = 45 minutes This includes examination of the patient, discharge planning, medication reconciliation, and communication with other providers. Discharge Instructions Discharge Instructions Date of Service Apr 17, 2017. Admission Reason for Admission: Acute Hyperglycemia, Uti, Hyponatremia Discharge Discharge Diagnosis / Problem: URINARY TRACT INFECTION, LOW SODIUM LEVEL Discharge Goals Goal(s): Diagnostic testing, Therapeutic intervention Activity Recommendations Activity Limitations: as noted below (NO HEAVY EXERTION UNTIL RE-EVALUATED BY PRIMARY CARE PHYSICIAN) Lifting Limitations: until after follow-up appointment Exercise/Sports Limitations: until after follow-up appointment . Instructions / Follow-Up Instructions / Follow-Up PLEASE REFER TO YOUR NEW MEDICATION LIST AND FOLLOW INSTRUCTIONS CAREFULLY. [facility] PHARMACIST KADI ALONZO WILL BE CALLING YOU FOR FURTHER INSTRUCTIONS REGARDING COUMADIN DOSE AND REPEAT BLOOD WORK. CALL YOUR PRIMARY CARE PHYSICIAN OR RETURN TO THE ER IMMEDIATELY IF WITH RECURRENCE OF SYMPTOMS, WEAKNESS, FEVER/CHILLS, ABDOMINAL PAIN, NAUSEA/VOMITING, DIARRHEA, BLOOD SUGAR ABOVE 300, DIZZINESS/LIGHTHEADEDNESS. FOLLOW UP WITH DR. HARDING (ASSOCIATE OF DR. HAZEL, SHE IS NOT AVAILABLE NEXT WEEK) ON SATURDAY APRIL 22, 2017 AT 9:30AM AT THE [facility]. FOLLOW UP WITH PROFESSOR OF GEOLOGY SCHEDULED. Current Hospital Diet Patient's current hospital diet: Diabetes Type 2 Diet Discharge Diet Recommended Diet: Diabetes Type 2 Diet Procedures Procedures Performed: CHEST XRAY, KIDNEY ULTRASOUND Pending Studies Studies pending at discharge: yes List of pending studies: REPEAT BLOOD WORK (INR AND SODIUM LEVEL) NEXT WEEK. Laboratory Results Hemoglobin A1c Test 04/13/17 03:32 Range/Units Estimated Average Glucose 243 mg/dl Hemoglobin A1c 10.1 H 4.5-5.6 % Medical Emergencies . Who to Call and When: Medical Emergencies: If at any time you feel your situation is an emergency, please call 911 immediately. . Non-Emergent Contact Non-Emergency issues call your: Primary Care Provider, Caddy Call Non-Emergent contact if: you have a fever, you have any medication questions . . "Provider Documentation" section prepared by Hay Mortensen. .
[2017-04-17] MEDS ORDERED: INSULIN GLARGINE SOLOSTAR 100 UNITS/ML 3 ML PEN SC SCH (21:00)
== END 2017-04-17 15:00 | disposition home or self-care (01) | DRG 690 ==
LOC: C.EDB 14:29 → C.2T 18:02 → ENRESERV 18:15
PROVIDERS: ADMIT Family Medicine; ATTEND Internal Medicine
DX: N39.0 Urinary tract infection, site not specified (principal); E87.1 Hypo-osmolality and hyponatremia; Z94.0 Kidney transplant status; N17.9 Acute kidney failure, unspecified; T45.1X5A Adverse effect of antineoplastic and immunosuppressive drugs, initial encounter; E11.9 Type 2 diabetes mellitus without complications; Z79.4 Long term (current) use of insulin; I48.0 Paroxysmal atrial fibrillation; Z79.01 Long term (current) use of anticoagulants; I10 Essential (primary) hypertension; E78.5 Hyperlipidemia, unspecified; Z87.440 Personal history of urinary (tract) infections; Z82.49 Family history of ischemic heart disease and other diseases of the circulatory system; Z79.82 Long term (current) use of aspirin

== ENCOUNTER 2018-05-11 10:02 | Inpatient (IN) ==
[2018-05-11] MEDS ORDERED: ONDANSETRON INJ 2 MG/ML 2 ML VIAL IV STA (10:10)
[2018-05-11] MEDS ORDERED: cefTRIAXone SODIUM 1,000 MG/50 ML BAG IV STA (10:12)
[2018-05-11] MEDS ORDERED: SODIUM CHLORIDE 0.9% 1000ML 1,000 ML IV SCH (10:15)
[2018-05-11 10:27] LABS: Appearance Urine Turbid (Clear); Bacteria Urine Automated 2+ (Negative); Bilirubin Urine Negative (Negative); Blood Urine 1+ (Negative); Cast Urine Automated 0 /lpf (0-5); Color Urine Yellow; Epithelial Cell Urine Auto 0-5 /lpf (0-5); Glucose Urine UA 3+ (Negative); Ketones Urine Trace (Negative); Leukocyte Esterase Urine 3+ (Negative); Nitrite Urine Negative (Negative); Protein Urine 1+ (Negative); Specific Gravity Urine 1.016 (1.000-1.030); Urobilinogen Urine Negative (Negative); WBC Urine Automated >30 /hpf (0-5)
--- NOTE | 2018-05-11 10:31 | XRay Report ---
XR chest 1V portable HISTORY: 73 years-old Female nausea acute nausea COMPARISON: Chest radiograph 03/09/2018 TECHNIQUE: Portable AP view the chest FINDINGS: Cardiac silhouette is enlarged, unchanged. Prominence and calcification of the thoracic aortic arch. Study is limited secondary to patient rotation to the left. There is no pneumothorax, large pleural e ffusion or overt pulmonary edema. No focal airspace consolidation. Linear hyperinflated. Degenerative changes of the shoulders and spine. IMPRESSION: No acute process. The above report was generated using voice recognition software. It may contain grammatical, syntax o r spelling errors. Electronically signed by: Antwon Gannon M.D. 05/11/2018 10:30 AM
[2018-05-11 11:08] LABS: Hematocrit (blood only) 35.2 % (37-47); Hemoglobin 11.4 g/dL (12.0-16.0); Mean Corpuscular Hgb Conc 32.4 g/dL (32-36); Mean Corpuscular Volume 85.6 fL (80-100); Mean Platelet Volume 8.6 fL (7.4-10.4); Platelet Count 307 K/uL (130-400); RDW Coefficient of Variation 16.1 % (11.5-14.5); RDW Standard Deviation 50.8 fL (36.4-46.3); Red Blood Count 4.11 M/uL (4.2-5.4)
[2018-05-11 11:18] LABS: INR 1.6 (0.9-1.1); Partial Thromboplastin Time 28.2 Seconds (21.0-31.0)
[2018-05-11 11:39] LABS: Immature Granulocytes # (auto) 0.06 K/uL (0.00-0.02); Immature Granulocytes % (auto) 0.6 %; Lymphocytes # (auto) 0.93 K/uL (1.2-3.4); Lymphocytes % (auto) 9.4 %; Monocytes # (auto) 0.96 K/uL (0.11-0.59); Monocytes % (auto) 9.7 %; Neutrophils # (auto) 7.95 K/uL (1.4-6.5); Neutrophils % (auto) 80.3 %
[2018-05-11 11:47] LABS: Albumin Globulin Ratio 0.4 (0.9-2); Albumin Level 2.4 gm/dl (3.4-5.0); BUN Creatinine Ratio 13.8 (10-20); Bilirubin,Total 0.4 mg/dl (0.2-1); Calcium 9.2 mg/dl (8.5-10.1); Est GFR (African American) 39.7; Est GFR (Non-African American) 34.2; Globulin 5.9 gm/dl (2.5-4.0); Potassium 4.7 mmol/L (3.5-5.1); Total Protein 8.3 gm/dl (6.4-8.2)
[2018-05-11 11:57] LABS: Beta-Hydroxybutyrate 26.66 mg/dl (0.2-2.81)
[2018-05-11] MEDS ORDERED: SODIUM CHLORIDE 0.9% 1000ML 1,000 ML IV ONE (12:07)
[2018-05-11] MEDS ORDERED: PHARMACY GLYCEMIC MGMT CONSULT STA (15:01)
--- NOTE | 2018-05-11 16:02 | History & Physical Report ---
Date of Service May 11, 2018 Assessment & Plan (1) UTI (urinary tract infection): (2) Urinary retention: (3) S/p cadaver renal transplant: (4) ROSSY (acute kidney injury): (5) CKD (chronic kidney disease), stage III: -Admit to [facility] with telemetry -Patient presenting from home with reports of generalized weakness and urinary burning -Recent admission to [facility] 03/09 through 03/23 for UTI, urinary retention, ROSSY in the setting of renal transplant; urine culture grew pansensitive E. coli at that time -In the ED today, UA suggest UTI; no signs of sepsis -Patient also with urinary retention; Nicolas catheter has been placed -S/P Rocephin in the ED, will continue with -? Urinary retention that is leading to patient's recurrent UTIs -Urology consult, case discussed with HEMANTH Grant -ID consult re: recurrent UTIs in the setting of renal transplant -Creatinine 1.4 (up from baseline of 1.0) -likely due to UTI/possible postobstructive from urinary retention. Will hydrate, Place Nicolas and if no improvement in a.m., will consult nephrology -Continue CellCept and sirolimus (6) Hyponatremia: -Pseudohyponatremia from hyperglycemia -Corrected sodium 133 (7) Diabetes mellitus, type II: -Hgb A1c 8.5 04/2018 -Glucose on presentation 395 -likely acutely elevated in the setting of infection -No signs of DKA -We will place on insulin drip for now with hopeful quick transition to NovoLog/Lantus (8) Paroxysmal A-fib: -Patient currently in atrial fibrillation, heart rates in the 90s -Patient reports she has not been in A. fib in some time, possibly triggered today by acute infection and missed doses of a.m. medications -Rhythm controlled on sotalol which will be continued -Anticoagulated on Coumadin, INR 1.6 -continue Coumadin,dose accordingly to INR (9) Hypertension: -BP controlled, likely due to missed doses of a.m. medications -Continue home doses of amlodipine and hydralazine for now, making adjustments as needed (10) DVT prophylaxis: -SCDs when INR < 2.0, patient is anticoagulated on Coumadin History of Present Illness Chief Complaint: Generalized weakness, urinary burning Primary Care Provider: Laurel Renee 73-year-old female who presents to the ED with generalized weakness and burning with urination. Patient was recently admitted to [facility] 03/09 through 03/23 for UTI, urinary retention, ROSSY. Patient's urine culture grew a pansensitive E. coli, she was discharged on a course of cephalexin. Patient had a Nicolas catheter in place during admission however he was able to be discontinued prior to discharge and patient was urinating without difficulty. Patient reports she had been feeling pretty well since being home from the hospital. She reports that last evening, she developed generalized weakness. She was having difficulty standing up from the toilet. She also has developed some urinary burning. She does not feel as though she is emptying her bladder the entire way. She denies fevers and chills. No back pain or flank pain. She denies lightheadedness, dizziness, diaphoresis, syncopal events. She has some suprapubic abdominal pain. No nausea, vomiting, diarrhea. In the ED, patient's UA suggest UTI. She is hemodynamically stable without signs of sepsis. Creatinine is 1.4 (baseline ~1.0). She was given IVF and a dose of IV Rocephin. Allergies Allergy/AdvReac Type Severity Reaction Status Date / Time KATIA Inhibitors Allergy Unknown Verified 05/11/18 10:45 ARB-Angiotensin Receptor Allergy Unknown Verified 05/11/18 10:45 Antagonist amoxicillin AdvReac Severe nausea Verified 05/11/18 10:45 Home Medications Home Medications Medication Instructions Recorded Confirmed Type Lantus Solostar U-100 Insulin 15 unit SUBCUT HS 11/23/17 05/11/18 History Novolog Flexpen U-100 Insulin 12 - 22 unit SUBCUT AC 11/23/17 05/11/18 History amlodipine 10 mg PO QAM 11/23/17 05/11/18 History aspirin [Aspirin Low Dose] 81 mg PO QAM 11/23/17 05/11/18 History cholecalciferol (vitamin D3) 1,000 unit PO QAM 11/23/17 05/11/18 History [Vitamin D3] hydralazine 10 mg PO BID 11/23/17 05/11/18 History mycophenolate mofetil 250 mg PO Q12 11/23/17 05/11/18 History sirolimus 1 mg PO QAM 11/23/17 05/11/18 History sotalol 120 mg PO BID 11/23/17 05/11/18 History warfarin 0.5 mg PO SUMOTUWETHSA@0900 11/23/17 05/11/18 History warfarin 1 mg PO FR@0900 11/23/17 05/11/18 History Lactobacillus acidoph-L.bulgar 1 tab PO BID #20 tab 03/23/18 05/11/18 Rx [Lactinex] tramadol 50 mg PO Q8H PRN #10 tab 03/24/18 05/11/18 Rx acetaminophen [Tylenol Extra 500 mg PO Q6H PRN 05/11/18 05/11/18 History Strength] mirtazapine 15 mg PO HS 05/11/18 05/11/18 History Past Med/Surg History 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) Carotid stenosis (Chronic) History of cervical cancer (Chronic) CKD (chronic kidney disease), stage III (Chronic) Hypertension (Chronic) Mitral valve regurgitation (Chronic) Dyslipidemia (Chronic) Paroxysmal A-fib (Chronic) History of herpes zoster (Chronic) Diabetes mellitus, type II (Chronic) jail current use of antiarrhythmic drug (Chronic) Recurrent UTI (Chronic) Surgical History S/P QUINN (total abdominal hysterectomy) (Chronic) History of cataract surgery (Chronic) Status post cholecystectomy (Chronic) S/p cadaver renal transplant (Chronic) Family History Mother Diabetes mellitus with coincident hypertension Social History Preferred Language: Georgian Communication Ability: Effective Pearl 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 Required: No Beliefs That Will Affect Care: None marital status: Current Living Situation: Family Other Information That Helps Us Care for You: No Feels Safe at Home: Yes Safety Concerns: Feels Safe At This Time Smoking Status: Never smoker Hx Alcohol Use: No Hx Substance Use: No Review of Systems ROS per HPI, all other systems reviewed and negative Physical Exam Vital Signs (Past 24 Hours): Last Vital Signs Temp 37.0 C 05/11/18 10:22 Pulse 94 H 05/11/18 13:00 Resp 16 05/11/18 13:00 BP 169/87 H 05/11/18 13:00 Pulse Ox 100 05/11/18 13:00 Constitutional: WD/WN, vitals as above Eyes: PERRL, conjunctivae normal, anicteric sclerae ENMT: external ear and nose normal, oropharynx normal Respiratory: normal respiratory effort; no respiratory distress Auscultation: + diminished lung sounds (Bilateral bases) Cardiovascular: Rate/Rhythm: regular rate; + abnormal rhythm (Irregularly irregular) Vessels: normal peripheral pulses Extremities: no edema Gastrointestinal (Abdomen): Inspection/Auscultation: normal bowel sounds; abdomen not distended Percussion/Palpation: + abdomen tender (Suprapubic) and abdomen soft; no hepatosplenomegaly Musculoskeletal: Extremities: no cyanosis and no clubbing Strength generally weak throughout, 4/5 throughout all extremities Skin: no rashes, warm and dry Neurologic: PERRL, EOMI, accommodation nl, no face palsy, no dysarthria Psychiatric: Orientation: alert and oriented x 3 Affect: + depressed affect Results & Data Laboratory Results Laboratory Last Values WBC 9.90 K/uL (4.8-10.8) 05/11/18 10:45 RBC 4.11 M/uL (4.2-5.4) L 05/11/18 10:45 Hgb 11.4 g/dL (12.0-16.0) L 05/11/18 10:45 Hct 35.2 % (37-47) L 05/11/18 10:45 MCV 85.6 fL (80-100) 05/11/18 10:45 MCH 27.7 pg (25-34) 05/11/18 10:45 MCHC 32.4 g/dL (32-36) 05/11/18 10:45 RDW Std Deviation 50.8 fL (36.4-46.3) H 05/11/18 10:45 RDW Coeff of Anila 16.1 % (11.5-14.5) H 05/11/18 10:45 Plt Count 307 K/uL (130-400) 05/11/18 10:45 MPV 8.6 fL (7.4-10.4) 05/11/18 10:45 Immature Gran % (Auto) 0.6 % 05/11/18 10:45 Neut % (Auto) 80.3 % 05/11/18 10:45 Lymph % (Auto) 9.4 % 05/11/18 10:45 [place] % (Auto) 9.7 % 05/11/18 10:45 Eos % (Auto) 0.0 % 05/11/18 10:45 Baso % (Auto) 0.0 % 05/11/18 10:45 Immature Gran # (Auto) 0.06 K/uL (0.00-0.02) H 05/11/18 10:45 Neut # (Auto) 7.95 K/uL (1.4-6.5) H 05/11/18 10:45 Lymph # (Auto) 0.93 K/uL (1.2-3.4) L 05/11/18 10:45 [place] # (Auto) 0.96 K/uL (0.11-0.59) H 05/11/18 10:45 Eos # (Auto) 0.00 K/uL (0-0.5) 05/11/18 10:45 Baso # (Auto) 0.00 K/uL (0-0.2) 05/11/18 10:45 PT 16.0 Seconds (9.0-12.0) H 05/11/18 10:45 INR 1.6 (0.9-1.1) H 05/11/18 10:45 APTT 28.2 Seconds (21.0-31.0) 05/11/18 10:45 PTT Ratio 1.0 05/11/18 10:45 Sodium 126 mmol/L (136-145) L 05/11/18 10:45 Potassium 4.7 mmol/L (3.5-5.1) 05/11/18 10:45 Chloride 91 mmol/L (98-107) L 05/11/18 10:45 Carbon Dioxide 24 mmol/L (21-32) 05/11/18 10:45 Anion Gap 11.0 (3-11) 05/11/18 10:45 BUN 21 mg/dl (7-18) H 05/11/18 10:45 Creatinine 1.49 mg/dl (0.6-1.2) H 05/11/18 10:45 Est Cr Clr Drug Dosing 31.0 ml/min 05/11/18 10:45 Est GFR ( Amer) 39.7 05/11/18 10:45 Est GFR (Non-Af Amer) 34.2 05/11/18 10:45 BUN/Creatinine Ratio 13.8 (10-20) 05/11/18 10:45 Glucose 395 mg/dl (70-99) H* 05/11/18 10:45 Calcium 9.2 mg/dl (8.5-10.1) 05/11/18 10:45 Total Bilirubin 0.4 mg/dl (0.2-1) 05/11/18 10:45 AST 32 U/L (15-37) 05/11/18 10:45 ALT 28 U/L (12-78) 05/11/18 10:45 Alkaline Phosphatase 97 U/L (45-117) 05/11/18 10:45 Troponin I < 0.015 ng/ml (0-0.045) 05/11/18 10:45 Total Protein 8.3 gm/dl (6.4-8.2) H 05/11/18 10:45 Albumin 2.4 gm/dl (3.4-5.0) L 05/11/18 10:45 Globulin 5.9 gm/dl (2.5-4.0) H 05/11/18 10:45 Albumin/Globulin Ratio 0.4 (0.9-2) L 05/11/18 10:45 Lipase 90 U/L (73-393) 05/11/18 10:45 Beta-Hydroxybutyric Acd 26.66 mg/dl (0.2-2.81) H 05/11/18 10:45 Urine Color Yellow 05/11/18 10:10 Urine Appearance Turbid (Clear) H 05/11/18 10:10 Urine pH 6.0 (4.5-7.5) 05/11/18 10:10 Ur Specific A[place]da 1.016 (1.000-1.030) 05/11/18 10:10 Urine Protein 1+ (Negative) H 05/11/18 10:10 Urine Glucose (UA) 3+ (Negative) H 05/11/18 10:10 Urine Ketones Trace (Negative) H 05/11/18 10:10 Urine Blood 1+ (Negative) H 05/11/18 10:10 Urine Nitrite Negative (Negative) 05/11/18 10:10 Urine Bilirubin Negative (Negative) 05/11/18 10:10 Urine Urobilinogen Negative (Negative) 05/11/18 10:10 Ur Leukocyte Esterase 3+ (Negative) H 05/11/18 10:10 Urine WBC (Auto) >30 /hpf (0-5) H 05/11/18 10:10 Urine RBC (Auto) 5-10 /hpf (0-4) H 05/11/18 10:10 U Hyaline Cast (Auto) 0 /lpf (0-5) 05/11/18 10:10 U Epithel Cells (Auto) 0-5 /lpf (0-5) 05/11/18 10:10 Urine Bacteria (Auto) 2+ (Negative) H 05/11/18 10:10 Urine Yeast Not Reportable 05/11/18 10:10 Diagnostic Findings CXR IMPRESSION: No acute process. Code Status & VTE Plan VTE Prophylaxis Plan VTE Prophylaxis will be ordered: Yes Supervising Physician Co-Signing Physician Notes Attending addendum; The patient was seen and examined in the emergency room She complains of urinary frequency and dysuria and inability to urinate She has chills but denies any fever She denies any chest pain, shortness of breath, palpitation, nausea no vomiting On examination Moderate distress at rest due to urinary symptoms Hemodynamically stable Chest-clear to auscultate bilaterally Heart-S1-S2, regular Abdomen-tenderness in the hypogastrium, renal angles were nontender, bowel sounds present Extremities-negative for any edema Admission labs and imaging studies noted Has recurrent UTI in a patient with cadaveric renal transplant and ROSSY Reviewed assessment and plan as outlined above by Carmen Lei (1) Diabetes mellitus, type II Diabetes mellitus complication status: with unspecified complications Diabetes mellitus nursing home insulin use: unspecified nursing home insulin use status Qualified Code(s): E11.8 - Type 2 diabetes mellitus with unspecified complications
[2018-05-11] MEDS ORDERED: ONDANSETRON INJ 2 MG/ML 2 ML VIAL ONE (16:06)
[2018-05-11] MEDS ORDERED: HydrALAZINE 10 MG TAB PO ONE (17:35)
[2018-05-11] MEDS ORDERED: TRAMADOL HCL 50 MG TABLET PO PRN (17:35)
[2018-05-11] MEDS ORDERED: MYCOPHENOLATE MOFETIL 250 MG CAP PO ONE (17:35)
[2018-05-11] MEDS ORDERED: PHARMACY GLYCEMIC MGMT CONSULT PRN (17:38)
[2018-05-11] MEDS ORDERED: INSULIN PROTOCOL GOAL RANGE ONE (17:42)
[2018-05-11] MEDS ORDERED: MODERATE STRESS LEVEL ONE (17:42)
--- NOTE | 2018-05-11 17:43 | Emergency Department Note ---
Entered by Jessica Stearns acting as a scribe for Erwin Hicks DO History of Present Illness General Chief complaint: Illness Time Seen by Provider: 05/11/18 10:05 Source: patient and other (nursing staff) History of Present Illness Provider complaint: abdominal pressure Onset (ago): hour(s) (today) Location: abdomen Quality: + other (pressure) Associated symptoms: + denies other symptoms (denies back pain); no fever/chills and no nausea/vomiting The patient is a 73 year old female who presents to the Emergency Room with complaints of abdominal pressure today. She denies having vomiting, back pain, and fevers. She states that she is currently on Coumadin. She states that she is no longer on dialysis and states that she stopped this 10 years ago and reports a history of a kidney transplant. The patient denies tobacco and alcohol use. She states that she follows with Dr. Cain-Nephrology. Nursing staff states that the patient has a history of UTIs and had a urine culture done last week. The patient states that she was not started on an antibiotics. Nursing staff states that the patient has been incontinent of stool and urine Home Medications Home Medications Medication Instructions Recorded Confirmed Type Lantus Solostar U-100 Insulin 15 unit SUBCUT HS 11/23/17 05/11/18 History Novolog Flexpen U-100 Insulin 12 - 22 unit SUBCUT AC 11/23/17 05/11/18 History amlodipine 10 mg PO QAM 11/23/17 05/11/18 History aspirin [Aspirin Low Dose] 81 mg PO QAM 11/23/17 05/11/18 History cholecalciferol (vitamin D3) 1,000 unit PO QAM 11/23/17 05/11/18 History [Vitamin D3] hydralazine 10 mg PO BID 11/23/17 05/11/18 History mycophenolate mofetil 250 mg PO Q12 11/23/17 05/11/18 History sirolimus 1 mg PO QAM 11/23/17 05/11/18 History sotalol 120 mg PO BID 11/23/17 05/11/18 History warfarin 0.5 mg PO SUMOTUWETHSA@0900 11/23/17 05/11/18 History warfarin 1 mg PO FR@0900 11/23/17 05/11/18 History Lactobacillus acidoph-L.bulgar 1 tab PO BID #20 tab 03/23/18 05/11/18 Rx [Lactinex] tramadol 50 mg PO Q8H PRN #10 tab 03/24/18 05/11/18 Rx acetaminophen [Tylenol Extra 500 mg PO Q6H PRN 05/11/18 05/11/18 History Strength] mirtazapine 15 mg PO HS 05/11/18 05/11/18 History Allergies Allergy/AdvReac Type Severity Reaction Status Date / Time KATIA Inhibitors Allergy Unknown Verified 05/11/18 10:45 ARB-Angiotensin Receptor Allergy Unknown Verified 05/11/18 10:45 Antagonist amoxicillin AdvReac Severe nausea Verified 05/11/18 10:45 Past Med/Surg History Medical History 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) Carotid stenosis (Chronic) History of cervical cancer (Chronic) CKD (chronic kidney disease), stage III (Chronic) Hypertension (Chronic) Mitral valve regurgitation (Chronic) Dyslipidemia (Chronic) Paroxysmal A-fib (Chronic) History of herpes zoster (Chronic) Diabetes mellitus, type II (Chronic) 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) Recurrent UTI (Chronic) Surgical History S/P QUINN (total abdominal hysterectomy) (Chronic) History of cataract surgery (Chronic) Status post cholecystectomy (Chronic) S/p cadaver renal transplant (Chronic) Family History Mother Diabetes mellitus with coincident hypertension Social History Preferred Language: Tajik Communication Ability: Effective Personal Assistant Required: No Beliefs That Will Affect Care: None marital status: Current Living Situation: Family Other Information That Helps Us Care for You: No Feels Safe at Home: Yes Safety Concerns: Feels Safe At This Time Smoking Status: Never smoker Hx Alcohol Use: No Hx Substance Use: No Review of Systems See HPI for pertinent positives & negatives. and A total of 10 systems reviewed and were otherwise negative Physical Exam Vital Signs Vital Signs - 24 hr 05/11/18 10:22 05/11/18 10:26 05/11/18 11:29 Temperature 37.0 C Temperature Source Oral Sepsis Recent Fever Within 48 Hours No Sepsis New/Unexplained Change in Mental Status No Sepsis Action Taken by Nursing No Action Required Pulse Rate 90 Pulse Rate [Left Apical] 92 H Pulse Rhythm [Left Apical] Respiratory Rate 16 16 Respiratory Effort / Characteristics Non-Labored Respiratory Depth Normal Blood Pressure 160/91 H Blood Pressure [Right Arm] 154/86 H Blood Pressure Mean 114 Blood Pressure Mean [Right Arm] 108 Pulse Oximetry 100 100 98 Oxygen Delivery Method Room Air Room Air Room Air 05/11/18 13:00 05/11/18 15:36 05/11/18 16:08 Temperature Temperature Source Sepsis Recent Fever Within 48 Hours Sepsis New/Unexplained Change in Mental Status Sepsis Action Taken by Nursing Pulse Rate Pulse Rate [Left Apical] 94 H 120 H Pulse Rhythm [Left Apical] Respiratory Rate 16 20 Respiratory Effort / Characteristics Respiratory Depth Blood Pressure Blood Pressure [Right Arm] 169/87 H 162/82 H Blood Pressure Mean Blood Pressure Mean [Right Arm] 114 108 Pulse Oximetry 100 100 Oxygen Delivery Method Room Air Room Air Room Air 05/11/18 17:06 Temperature Temperature Source Sepsis Recent Fever Within 48 Hours Sepsis New/Unexplained Change in Mental Status Sepsis Action Taken by Nursing Pulse Rate Pulse Rate [Left Apical] 103 H Pulse Rhythm [Left Apical] Irregular Respiratory Rate 25 H Respiratory Effort / Characteristics Respiratory Depth Blood Pressure Blood Pressure [Right Arm] 142/65 H Blood Pressure Mean Blood Pressure Mean [Right Arm] 90 Pulse Oximetry 98 Oxygen Delivery Method Room Air GENERAL: Patient is awake, alert, and in no acute distress.Patient is resting comfortably and showing no signs of anxiety EYES: The conjunctivae are clear. The pupils are round and reactive. EARS, NOSE, MOUTH AND THROAT: The nose is without any evidence of any deformity. Mucous membranes are moist.Tongue is midline NECK: The neck is nontender and supple. RESPIRATORY: Normal respiratory effort is noted. There is no evidence of wheezing rhonchi or rales to auscultation. CARDIOVASCULAR: Regular rate and rhythm noted. There no murmurs rubs or gallops normal S1 normal S2 GASTROINTESTINAL: The abdomen is soft and non-distended. Bowel sounds are present in all quadrants. Suprapubic tenderness to palpation. No guarding or rigidity. BACK: No midline tenderness or or step-off noted range of motion in flexion extension as well as rotation no signs of muscle spasm noted. MUSCULOSKELETAL/EXTREMITIES: There is no evidence of gross deformity. Full range of motion is noted in the hips and shoulders. SKIN: There is no obvious evidence of any rash. There are no petechiae, pallor or cyanosis noted. NEUROLOGIC: Patient is awake alert and oriented x3. Course 1005: The patient was evaluated in room A12B, and a complete history and physical examination were performed. 1325: I checked on the patient who verbalized agreement and understanding of the treatment plan. 1401: I discussed the patient's case with Carmen Martinez who will evaluate the patient for further management. Consultations Consultation #1: Carmen Martinez Time: 14:01 Administered Medications Discontinued Medications Sodium Chloride (Nss 1000ml) 1,000 mls @ 999 mls/hr IV .Q1H1M TE Stop: 05/11/18 11:15 Last Infusion: 05/11/18 12:25 Dose: 0 mls/hr Documented by: [id number] Admin: 05/11/18 11:23 Dose: 999 mls/hr Documented by: [id number] Ceftriaxone Sodium (Rocephin) 1,000 mg in 50 mls @ 100 mls/hr IV NOW STA Stop: 05/11/18 10:41 Last Infusion: 05/11/18 11:30 Dose: 0 mls/hr Documented by: [id number] Admin: 05/11/18 10:57 Dose: 100 mls/hr Documented by: [id number] Sodium Chloride (Nss 1000ml) 1,000 mls @ 999 mls/hr IV .Q1H1M ONE Stop: 05/11/18 13:07 Last Infusion: 05/11/18 15:03 Dose: 0 mls/hr Documented by: [id number] Admin: 05/11/18 14:02 Dose: 999 mls/hr Documented by: [id number] Ondansetron HCl (Zofran) 4 mg IV NOW STA Stop: 05/11/18 10:11 Last Admin: 05/11/18 16:10 Dose: 4 mg Documented by: [id number] Ondansetron HCl (Zofran) Confirm Administered Dose 4 mg .ROUTE .STK-MED ONE Stop: 05/11/18 16:07 Last Admin: 05/11/18 16:10 Dose: Not Given Documented by: [id number] Medical Decision Making Differential Diagnosis Differential diagnosis: Etiologies such as biliary colic,UTI, cholecystitis, hepatitis, perihepatitis, pancreatitis, cardiac disease, pancreatitis, gastritis, peptic ulcer disease, appendicitis, ovarian cyst, ovarian torsion, pelvic inflammatory disease, cystitis, diverticulitis, mesenteric ischemia, inflammatory bowel disease, ileus, bowel obstruction, aortic pathology, shingles, as well as others were considered. Medical Records Attestation: I reviewed the patient's medical records. Home Medications Current Medication List: was personally reviewed by me Laboratory Data Attestation: I reviewed the patient's lab results. Result diagrams: 05/11/18 10:45 05/11/18 10:45 Lab Results 05/11/18 05/11/18 05/11/18 Range/Units 10:10 10:10 10:45 WBC (4.8-10.8) K/uL RBC (4.2-5.4) M/uL Hgb (12.0-16.0) g/dL Hct (37-47) % MCV (80-100) fL MCH (25-34) pg MCHC (32-36) g/dL RDW Std Deviation (36.4-46.3) fL RDW Coeff of Anila (11.5-14.5) % Plt Count (130-400) K/uL MPV (7.4-10.4) fL Immature Gran % (Auto) % Neut % (Auto) % Lymph % (Auto) % [place] % (Auto) % Eos % (Auto) % Baso % (Auto) % Immature Gran # (Auto) (0.00-0.02) K/uL Neut # (Auto) (1.4-6.5) K/uL Lymph # (Auto) (1.2-3.4) K/uL [place] # (Auto) (0.11-0.59) K/uL Eos # (Auto) (0-0.5) K/uL Baso # (Auto) (0-0.2) K/uL PT 16.0 H (9.0-12.0) Seconds INR 1.6 H (0.9-1.1) APTT 28.2 (21.0-31.0) Seconds PTT Ratio 1.0 Sodium (136-145) mmol/L Potassium (3.5-5.1) mmol/L Chloride (98-107) mmol/L Carbon Dioxide (21-32) mmol/L Anion Gap (3-11) BUN (7-18) mg/dl Creatinine (0.6-1.2) mg/dl Est Cr Clr Drug Dosing ml/min Est GFR ( Amer) Est GFR (Non-Af Amer) BUN/Creatinine Ratio (10-20) Glucose (70-99) mg/dl POC Glucose (70-99) Calcium (8.5-10.1) mg/dl Total Bilirubin (0.2-1) mg/dl AST (15-37) U/L ALT (12-78) U/L Alkaline Phosphatase (45-117) U/L Troponin I (0-0.045) ng/ml Total Protein (6.4-8.2) gm/dl Albumin (3.4-5.0) gm/dl Globulin (2.5-4.0) gm/dl Albumin/Globulin Ratio (0.9-2) Lipase (73-393) U/L Beta-Hydroxybutyric Acd (0.2-2.81) mg/dl Urine Color Yellow Urine Appearance Turbid H (Clear) Urine pH 6.0 (4.5-7.5) POC Urine pH Cancelled Ur Specific Peebles 1.016 (1.000-1.030) Urine Protein 1+ H (Negative) POC Urine Protein Cancelled Urine Glucose (UA) 3+ H (Negative) POC Ur Glucose (UA) Cancelled Urine Ketones Trace H (Negative) POC Urine Ketones Cancelled Urine Blood 1+ H (Negative) POC Urine Blood Cancelled Urine Nitrite Negative (Negative) POC Urine Nitrite Cancelled Urine Bilirubin Negative (Negative) POC Urine Bilirubin Cancelled Urine Urobilinogen Negative (Negative) POC Urine Urobilinogen Cancelled Ur Leukocyte Esterase 3+ H (Negative) POC U Leukocyte Esteras Cancelled Urine WBC (Auto) >30 H (0-5) /hpf Urine RBC (Auto) 5-10 H (0-4) /hpf U Hyaline Cast (Auto) 0 (0-5) /lpf U Epithel Cells (Auto) 0-5 (0-5) /lpf Urine Bacteria (Auto) 2+ H (Negative) Urine Yeast Not Reportable 05/11/18 05/11/18 05/11/18 Range/Units 10:45 10:45 10:45 WBC 9.90 (4.8-10.8) K/uL RBC 4.11 L (4.2-5.4) M/uL Hgb 11.4 L (12.0-16.0) g/dL Hct 35.2 L (37-47) % MCV 85.6 (80-100) fL MCH 27.7 (25-34) pg MCHC 32.4 (32-36) g/dL RDW Std Deviation 50.8 H (36.4-46.3) fL RDW Coeff of Anila 16.1 H (11.5-14.5) % Plt Count 307 (130-400) K/uL MPV 8.6 (7.4-10.4) fL Immature Gran % (Auto) 0.6 % Neut % (Auto) 80.3 % Lymph % (Auto) 9.4 % [place] % (Auto) 9.7 % Eos % (Auto) 0.0 % Baso % (Auto) 0.0 % Immature Gran # (Auto) 0.06 H (0.00-0.02) K/uL Neut # (Auto) 7.95 H (1.4-6.5) K/uL Lymph # (Auto) 0.93 L (1.2-3.4) K/uL [place] # (Auto) 0.96 H (0.11-0.59) K/uL Eos # (Auto) 0.00 (0-0.5) K/uL Baso # (Auto) 0.00 (0-0.2) K/uL PT (9.0-12.0) Seconds INR (0.9-1.1) APTT (21.0-31.0) Seconds PTT Ratio Sodium 126 L (136-145) mmol/L Potassium 4.7 (3.5-5.1) mmol/L Chloride 91 L (98-107) mmol/L Carbon Dioxide 24 (21-32) mmol/L Anion Gap 11.0 (3-11) BUN 21 H (7-18) mg/dl Creatinine 1.49 H (0.6-1.2) mg/dl Est Cr Clr Drug Dosing 31.0 ml/min Est GFR ( Amer) 39.7 Est GFR (Non-Af Amer) 34.2 BUN/Creatinine Ratio 13.8 (10-20) Glucose 395 H* (70-99) mg/dl POC Glucose (70-99) Calcium 9.2 (8.5-10.1) mg/dl Total Bilirubin 0.4 (0.2-1) mg/dl AST 32 (15-37) U/L ALT 28 (12-78) U/L Alkaline Phosphatase 97 (45-117) U/L Troponin I < 0.015 (0-0.045) ng/ml Total Protein 8.3 H (6.4-8.2) gm/dl Albumin 2.4 L (3.4-5.0) gm/dl Globulin 5.9 H (2.5-4.0) gm/dl Albumin/Globulin Ratio 0.4 L (0.9-2) Lipase 90 (73-393) U/L Beta-Hydroxybutyric Acd 26.66 H (0.2-2.81) mg/dl Urine Color Urine Appearance (Clear) Urine pH (4.5-7.5) POC Urine pH Ur Specific Peebles (1.000-1.030) Urine Protein (Negative) POC Urine Protein Urine Glucose (UA) (Negative) POC Ur Glucose (UA) Urine Ketones (Negative) POC Urine Ketones Urine Blood (Negative) POC Urine Blood Urine Nitrite (Negative) POC Urine Nitrite Urine Bilirubin (Negative) POC Urine Bilirubin Urine Urobilinogen (Negative) POC Urine Urobilinogen Ur Leukocyte Esterase (Negative) POC U Leukocyte Esteras Urine WBC (Auto) (0-5) /hpf Urine RBC (Auto) (0-4) /hpf U Hyaline Cast (Auto) (0-5) /lpf U Epithel Cells (Auto) (0-5) /lpf Urine Bacteria (Auto) (Negative) Urine Yeast 05/11/18 Range/Units 17:30 WBC (4.8-10.8) K/uL RBC (4.2-5.4) M/uL Hgb (12.0-16.0) g/dL Hct (37-47) % MCV (80-100) fL MCH (25-34) pg MCHC (32-36) g/dL RDW Std Deviation (36.4-46.3) fL RDW Coeff of Anila (11.5-14.5) % Plt Count (130-400) K/uL MPV (7.4-10.4) fL Immature Gran % (Auto) % Neut % (Auto) % Lymph % (Auto) % [place] % (Auto) % Eos % (Auto) % Baso % (Auto) % Immature Gran # (Auto) (0.00-0.02) K/uL Neut # (Auto) (1.4-6.5) K/uL Lymph # (Auto) (1.2-3.4) K/uL [place] # (Auto) (0.11-0.59) K/uL Eos # (Auto) (0-0.5) K/uL Baso # (Auto) (0-0.2) K/uL PT (9.0-12.0) Seconds INR (0.9-1.1) APTT (21.0-31.0) Seconds PTT Ratio Sodium (136-145) mmol/L Potassium (3.5-5.1) mmol/L Chloride (98-107) mmol/L Carbon Dioxide (21-32) mmol/L Anion Gap (3-11) BUN (7-18) mg/dl Creatinine (0.6-1.2) mg/dl Est Cr Clr Drug Dosing ml/min Est GFR ( Amer) Est GFR (Non-Af Amer) BUN/Creatinine Ratio (10-20) Glucose (70-99) mg/dl POC Glucose 357 H* (70-99) Calcium (8.5-10.1) mg/dl Total Bilirubin (0.2-1) mg/dl AST (15-37) U/L ALT (12-78) U/L Alkaline Phosphatase (45-117) U/L Troponin I (0-0.045) ng/ml Total Protein (6.4-8.2) gm/dl Albumin (3.4-5.0) gm/dl Globulin (2.5-4.0) gm/dl Albumin/Globulin Ratio (0.9-2) Lipase (73-393) U/L Beta-Hydroxybutyric Acd (0.2-2.81) mg/dl Urine Color Urine Appearance (Clear) Urine pH (4.5-7.5) POC Urine pH Ur Specific Peebles (1.000-1.030) Urine Protein (Negative) POC Urine Protein Urine Glucose (UA) (Negative) POC Ur Glucose (UA) Urine Ketones (Negative) POC Urine Ketones Urine Blood (Negative) POC Urine Blood Urine Nitrite (Negative) POC Urine Nitrite Urine Bilirubin (Negative) POC Urine Bilirubin Urine Urobilinogen (Negative) POC Urine Urobilinogen Ur Leukocyte Esterase (Negative) POC U Leukocyte Esteras Urine WBC (Auto) (0-5) /hpf Urine RBC (Auto) (0-4) /hpf U Hyaline Cast (Auto) (0-5) /lpf U Epithel Cells (Auto) (0-5) /lpf Urine Bacteria (Auto) (Negative) Urine Yeast Imaging Data Radiologist's Impression: Radiology results as stated below per my review and the radiologist's interpretation: XR chest 1V portable HISTORY: 73 years-old Female nausea acute nausea COMPARISON: Chest radiograph 03/09/2018 TECHNIQUE: Portable AP view the chest FINDINGS: Cardiac silhouette is enlarged, unchanged. Prominence and calcification of the thoracic aortic arch. Study is limited secondary to patient rotation to the left. There is no pneumothorax, large pleural effusion or overt pulmonary edema. No focal airspace consolidation. Linear hyperinflated. Degenerative changes of the shoulders and spine. IMPRESSION: No acute process. The above report was generated using voice recognition software. It may contain grammatical, syntax or spelling errors. Electronically signed by: Antwon Gannon M.D. 05/11/2018 10:30 AM ECG Data Attestation: I personally reviewed and interpreted this ECG as follows: Indication: abdominal pain Rate (beats per minute): 115 Rhythm: atrial fibrillation Findings: + ST depression (lateral); no PAC, no PVC and no ectopy Comparison ECG Date: from (03/08/17) Change: the following changes noted (atrial fibrillation new) Blood Pressure Blood Pressure Findings: Elevated blood pressure Blood Pressure Disposition: further management by hospitalist [facility] Narrative The patient is a 73-year-old female who presented to the emergency department for an evaluation of lower abdominal discomfort. The patient does have a history of renal transplant in the past. The patient was found to have a urinary tract infection as well as hyperglycemia. She was treated with IV fluids as well as IV antibiotics. She was reevaluated multiple times. I discussed the patient's laboratory and radiographic studies with her. Ultimately I did discuss her case with the on-call [facility] hospitalist group. They have agreed to evaluate the patient in the emergency department for further management and disposition. I was concerned given the patient's ketones in the urine that there may be some degree of dehydration and given her history of renal transplant she may be better managed as an inpatient with IV antibiotics and IV hydration. Impression & Plan UTI (urinary tract infection), Hyponatremia, Paroxysmal A-fib, Dehydration, Hyperglycemia, Abdominal pain Discharge Plan Visit Data *Final* Discharge Date/Time: 05/11/18 17:35 Chief Complaint: Illness Other Complaint: Weakness ED Provider: Erwin Hicks Discharge Problem: UTI (urinary tract infection), Hyponatremia, Paroxysmal A-fib, Dehydration, Hyperglycemia, Abdominal pain Patient Disposition: Being Evaluated by Hospitalist Discharge Instructions Interventions: ED Discharge Assessment Last Done: 05/11/18 17:35 The scribe's documentation has been prepared under my direction and personally reviewed by me in its entirety. I confirm that the note above accurately reflects all work, treatment, procedures, and medical decision making performed by me.
[2018-05-11] MEDS ORDERED: GLUCOSE 10 TABS/TUBE PO PRN (18:15)
[2018-05-11] MEDS ORDERED: GLUCAGON FOR INJ 1 MG VIAL IM PRN (18:15)
[2018-05-11] MEDS ORDERED: DEXTROSE 50% 50 ML SYRINGE IV PRN (18:15)
[2018-05-11] MEDS ORDERED: CARBOHYDRATES FOR HYPOGLYCEMIA PO PRN (18:15)
[2018-05-11] MEDS ORDERED: GLUCOSE 40% GEL 15 GM TUBE PO PRN (18:15)
[2018-05-11] MEDS: AMLODIPINE BESYLATE 5 MG TAB PO SCH (18:26)
[2018-05-11] MEDS: SIROLIMUS 0.5 MG TABLET PO SCH (18:28)
[2018-05-11] MEDS: SODIUM CHLORIDE 0.9% 1000ML 1,000 ML IV SCH (18:29)
[2018-05-11] MEDS ORDERED: SOTALOL HCL 80 MG TAB PO ONE (18:30)
[2018-05-11] MEDS ORDERED: INSULIN HUMAN REGULAR IV BOLUS 1.5 UNITS in SYRINGE 0 ML IV ONE (18:30)
[2018-05-11] MEDS ORDERED: INSULIN REGULAR 250 UNITS in SODIUM CHLORIDE 0.9% 247.5 ML IV SCH (18:30)
[2018-05-11] MEDS ORDERED: WARFARIN SOD 1 MG TAB PO SCH (18:30)
[2018-05-11] MEDS: ACETAMINOPHEN 325 MG TAB PO PRN (18:33)
[2018-05-11] MEDS: INSULIN ASPART 100 UNITS/ML 3 ML PEN SC SCH (20:51)
[2018-05-11] MEDS ORDERED: NON-FORMULARY MEDICATION (Lactobacillus Acidoph-L.Bulgar [Lactinex] 1 TAB) PO SCH (21:00)
[2018-05-12] MEDS: ACETAMINOPHEN 325 MG TAB PO PRN (03:33)
[2018-05-12] MEDS: SODIUM CHLORIDE 0.9% 1000ML 1,000 ML IV SCH (03:37)
[2018-05-12 06:16] LABS: Hematocrit (blood only) 29.7 % (37-47); Hemoglobin 9.3 g/dL (12.0-16.0); Mean Corpuscular Hgb Conc 31.3 g/dL (32-36); Mean Corpuscular Volume 87.1 fL (80-100); Mean Platelet Volume 8.6 fL (7.4-10.4); Platelet Count 273 K/uL (130-400); RDW Coefficient of Variation 16.5 % (11.5-14.5); RDW Standard Deviation 52.9 fL (36.4-46.3); Red Blood Count 3.41 M/uL (4.2-5.4); White Blood Count 12.56 K/uL (4.8-10.8)
[2018-05-12] MEDS ORDERED: INSULIN GLARGINE SOLOSTAR 100 UNITS/ML 3 ML PEN SC ONE (06:45)
[2018-05-12 06:51] LABS: BUN Creatinine Ratio 14.8 (10-20); Calcium 8.3 mg/dl (8.5-10.1); Creatinine Clr Calc Pharmacy 43.8 ml/min; Est GFR (African American) 65.1; Est GFR (Non-African American) 56.1; Potassium 3.6 mmol/L (3.5-5.1)
[2018-05-12 07:12] LABS: INR 2.1 (0.9-1.1); Prothrombin Time 20.8 Seconds (9.0-12.0)
[2018-05-12] MEDS: CHOLECALCIFEROL 1,000 UNITS TAB PO SCH (08:04)
[2018-05-12] MEDS: SIROLIMUS 0.5 MG TABLET PO SCH (08:04)
[2018-05-12] MEDS: HydrALAZINE 10 MG TAB PO SCH ×2 (08:04→20:36)
[2018-05-12] MEDS: AMLODIPINE BESYLATE 5 MG TAB PO SCH (08:05)
[2018-05-12] MEDS: MYCOPHENOLATE MOFETIL 250 MG CAP PO SCH ×2 (08:05→20:44)
[2018-05-12] MEDS: ASPIRIN 81 MG ECTAB PO SCH (08:05)
[2018-05-12] MEDS: SOTALOL HCL 80 MG TAB PO SCH ×2 (08:05→20:36)
--- NOTE | 2018-05-12 08:41 | Pharmacy Report ---
Pharmacy Glycemic Short Note 2 - Date of Service May 12, 2018 - Glycemic Short BSG Results (Last 24 hours): 05/11/18 05/11/18 05/11/18 10:45 17:30 19:24 Glucose 395 H* POC Glucose 357 H* 368 H* 05/11/18 05/11/18 05/11/18 20:24 21:22 22:24 Glucose POC Glucose 283 H 254 H 208 H 05/11/18 05/12/18 05/12/18 23:28 00:32 01:28 Glucose POC Glucose 171 H 136 H 94 05/12/18 05/12/18 05/12/18 01:46 02:00 02:37 Glucose POC Glucose 86 81 90 05/12/18 05/12/18 05/12/18 03:33 04:38 05:37 Glucose 150 H POC Glucose 108 H 161 H 05/12/18 05/12/18 06:07 07:10 Glucose POC Glucose 148 H 128 H OUTPATIENT ANTIDIABETIC REGIMEN: * Lantus 15 units Q HS * Novolog 12-22 units with meals * A1c = 10.1% ASSESSMENT: * Type 2 diabetic admitted last evening for UTI, urinary retention in the setting of immunocompromise, as well as hyperglycemia * She is known to the glycemic control service from past admissions * She was started on an IV insulin drip per protocol last evening to quickly control BSGs. She was not acidotic. * Insulin drip ran overnight and was held at one point due to BSGs below goal range, but was resumed again this morning when GLU denia to within goal * Plan to transition patient off the insulin drip this AM. Initial SQ basal/bolus doses will be based upon data from prior admissions. Of note, she ususally requires substantially less prandial insulin while hospitalized and her basal needs do tend to fluctuate based upon severity of underlying illness. PLAN FOR INPATIENT GLYCEMIC CONTROL: * Basal insulin * Lantus 10 units SQ Q AM * 1st dose STAT * Discontinue the insulin drip ~4 hrs after the first dose of Lantus given * Bolus insulin * NovoLog per scale ACHS or Q6hrs while NPO * Goal Range: Low 120 mg/dL - High 150 mg/dL * Correction Factor: 30 mg/dL/unit * Nutritional / Prandial insulin per carb ratio of 1 unit per 9 grams CHO consumed PLAN FOR DISCHARGE: * to be determined
--- NOTE | 2018-05-12 08:43 | Urology Consultation ---
Date of Consultation May 12, 2018 Assessment & Plan (1) Urinary retention: (2) UTI (urinary tract infection): 73yo F with hx donor kidney transplant in 2007, recurrent UTIs, and UR. Pt evaluated with Dr. Kohler today. We had a long discussion with patient regarding these recurrent pansensitive E.coli UTIs, becoming more frequent and severe. We discussed need for evaluation for anatomic reasons for these infections. Need to r/o possible obstruction contributing, ureteral stricture of donor kidney vs ESQUEDA. Hx hysterectomy with radiation adds risk for potential damage to bladder nerve fibers, ?neurogenic bladder component. In the short term, will continue lindquist catheter and abx per Infectious Disease. May benefit from suppression. Once infection cleared, we will arrange for outpatient retrograde cystogram while catheter in place to assess for potential obstruction as previously described. 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 Thank you for allowing us to participate in the acute care of Ms. Seo. We will continue to follow with primary service. History of Present Illness Reason for Consultation: recurrent UTI, UR Requesting Physician: 73yo F with hx of donor kidney transplant in 2007 due to medical renal disease, HTN and DM presents to hospital with weakness and dysuria. Tmax 38.7 on admission. UA suspicious for infection, UC&S prelim positive for E. Coli. Recent hospitalizations in November and February for urosepsis and UR, pansensitive E.coli UTI each time. Treated with lindquist catheter and short term abx, pt does receive relief but symptoms quickly return. ROS: Wears depends for incontinence, changing 2-3 times a day. Lightly saturated. Practice double voiding, with moderate output on second void. Denees need to strain to empty. Denies gross hematuria. Notes dysuria with UTIs only. Denies sensation of "sitting on an egg" consistent with POP. Denies constipation. PMHx hysterectomy with radiation in ~2003, +cervical cancer cells per patient. Pt also relates grieving the loss of her Daughter last year, suddenly to [place]. States she has been ill ever since, lost erwin in her life. Becoming tearful when discussing. Attending Physician: Raheel Valle MD Allergies Allergy/AdvReac Type Severity Reaction Status Date / Time KATIA Inhibitors Allergy Unknown Verified 05/11/18 10:45 ARB-Angiotensin Receptor Allergy Unknown Verified 05/11/18 10:45 Antagonist amoxicillin AdvReac Severe nausea Verified 05/11/18 10:45 Home Medications Home Medications Medication Instructions Recorded Confirmed Type Lantus Solostar U-100 Insulin 15 unit SUBCUT HS 11/23/17 05/11/18 History Novolog Flexpen U-100 Insulin 12 - 22 unit SUBCUT AC 11/23/17 05/11/18 History amlodipine 10 mg PO QAM 11/23/17 05/11/18 History aspirin [Aspirin Low Dose] 81 mg PO QAM 11/23/17 05/11/18 History cholecalciferol (vitamin D3) 1,000 unit PO QAM 11/23/17 05/11/18 History [Vitamin D3] hydralazine 10 mg PO BID 11/23/17 05/11/18 History mycophenolate mofetil 250 mg PO Q12 11/23/17 05/11/18 History sirolimus 1 mg PO QAM 11/23/17 05/11/18 History sotalol 120 mg PO BID 11/23/17 05/11/18 History warfarin 0.5 mg PO SUMOTUWETHSA@0900 11/23/17 05/11/18 History warfarin 1 mg PO FR@0900 11/23/17 05/11/18 History Lactobacillus acidoph-L.bulgar 1 tab PO BID #20 tab 03/23/18 05/11/18 Rx [Lactinex] tramadol 50 mg PO Q8H PRN #10 tab 03/24/18 05/11/18 Rx acetaminophen [Tylenol Extra 500 mg PO Q6H PRN 05/11/18 05/11/18 History Strength] mirtazapine 15 mg PO HS 05/11/18 05/11/18 History Patient History Medical History skilled nursing current use of anticoagulant (Chronic) Carotid stenosis (Chronic) History of cervical cancer (Chronic) CKD (chronic kidney disease), stage III (Chronic) Hypertension (Chronic) Mitral valve regurgitation (Chronic) Dyslipidemia (Chronic) Paroxysmal A-fib (Chronic) History of herpes zoster (Chronic) Diabetes mellitus, type II (Chronic) 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) Recurrent UTI (Chronic) Surgical History S/P QUINN (total abdominal hysterectomy) (Chronic) History of cataract surgery (Chronic) Status post cholecystectomy (Chronic) S/p cadaver renal transplant (Chronic) Family History Mother Diabetes mellitus with coincident hypertension Social History Communication Ability: Effective Beliefs That Will Affect Care: None marital status: Current Living Situation: Family Other Information That Helps Us Care for You: No Feels Safe at Home: Yes Safety Concerns: Feels Safe At This Time Smoking Status: Never smoker Hx Alcohol Use: No Hx Substance Use: No Review of Systems Constitutional: + weakness; no fever, no chills and no body aches Eyes: no problem reported Ear, Nose, Mouth, Throat: no ear pain and no tinnitus Respiratory: no cough and no dyspnea Cardiovascular: no chest pain Gastrointestinal: no abdominal pain, no nausea and no vomiting Genitourinary (Female): + dysuria; no urinary frequency, no urinary hesitancy and no urinary urgency Musculoskeletal: no back pain Integumentary: no acne and no boil Neurologic: no numbness and no paresthesia Psychiatric: + depression; no confusion greiving the loss of her daughter, tearful when discussing. Endocrine: + fatigue; no polydipsia and no polyphagia Hematologic / Lymphatic: no easy bleeding and no easy bruising Physical Exam Vital Signs (Past 24 Hours): Last Vital Signs Temp 36.8 C 05/12/18 07:19 Pulse 75 05/12/18 07:19 Resp 20 05/12/18 07:19 BP 105/58 L 05/12/18 07:19 Pulse Ox 96 05/12/18 07:19 Constitutional: + frail appearing; no acute distress Eyes: no nystagmus ENMT: Ears: no hearing impairment and no external ear abnormality Neck: trachea midline Respiratory: no respiratory distress, no labored breathing and does not use accessory muscles Cardiovascular: Vessels: no JVD Gastrointestinal (Abdomen): Inspection/Auscultation: no abdominal edema Percussion/Palpation: abdomen soft; abdomen nontender Musculoskeletal: Head/Neck/Chest: normocephalic and head atraumatic Skin: no rashes and no ulcers Neurologic: awake; not confused and not obtunded Genitourinary: lindquist draining hazy yellow Results & Data Laboratory Results Laboratory Results - last 48 hr 05/11/18 05/11/18 05/11/18 10:10 10:10 10:45 WBC RBC Hgb Hct MCV MCH MCHC RDW Std Deviation RDW Coeff of Anila Plt Count MPV Immature Gran % (Auto) Neut % (Auto) Lymph % (Auto) [place] % (Auto) Eos % (Auto) Baso % (Auto) Immature Gran # (Auto) Neut # (Auto) Lymph # (Auto) [place] # (Auto) Eos # (Auto) Baso # (Auto) PT 16.0 H INR 1.6 H APTT 28.2 PTT Ratio 1.0 Sodium Potassium Chloride Carbon Dioxide Anion Gap BUN Creatinine Est Cr Clr Drug Dosing Est GFR ( Amer) Est GFR (Non-Af Amer) BUN/Creatinine Ratio Glucose POC Glucose Calcium Total Bilirubin AST ALT Alkaline Phosphatase Troponin I Total Protein Albumin Globulin Albumin/Globulin Ratio Lipase Beta-Hydroxybutyric Acd Urine Color Yellow Urine Appearance Turbid H Urine pH 6.0 POC Urine pH Cancelled Ur Specific [place] 1.016 Urine Protein 1+ H POC Urine Protein Cancelled Urine Glucose (UA) 3+ H POC Ur Glucose (UA) Cancelled Urine Ketones Trace H POC Urine Ketones Cancelled Urine Blood 1+ H POC Urine Blood Cancelled Urine Nitrite Negative POC Urine Nitrite Cancelled Urine Bilirubin Negative POC Urine Bilirubin Cancelled Urine Urobilinogen Negative POC Urine Urobilinogen Cancelled Ur Leukocyte Esterase 3+ H POC U Leukocyte Esteras Cancelled Urine WBC (Auto) >30 H Urine RBC (Auto) 5-10 H U Hyaline Cast (Auto) 0 U Epithel Cells (Auto) 0-5 Urine Bacteria (Auto) 2+ H Urine Yeast Not Reportable 05/11/18 05/11/18 05/11/18 10:45 10:45 10:45 WBC 9.90 RBC 4.11 L Hgb 11.4 L Hct 35.2 L MCV 85.6 MCH 27.7 MCHC 32.4 RDW Std Deviation 50.8 H RDW Coeff of Anila 16.1 H Plt Count 307 MPV 8.6 Immature Gran % (Auto) 0.6 Neut % (Auto) 80.3 Lymph % (Auto) 9.4 [place] % (Auto) 9.7 Eos % (Auto) 0.0 Baso % (Auto) 0.0 Immature Gran # (Auto) 0.06 H Neut # (Auto) 7.95 H Lymph # (Auto) 0.93 L [place] # (Auto) 0.96 H Eos # (Auto) 0.00 Baso # (Auto) 0.00 PT INR APTT PTT Ratio Sodium 126 L Potassium 4.7 Chloride 91 L Carbon Dioxide 24 Anion Gap 11.0 BUN 21 H Creatinine 1.49 H Est Cr Clr Drug Dosing 31.0 Est GFR ( Amer) 39.7 Est GFR (Non-Af Amer) 34.2 BUN/Creatinine Ratio 13.8 Glucose 395 H* POC Glucose Calcium 9.2 Total Bilirubin 0.4 AST 32 ALT 28 Alkaline Phosphatase 97 Troponin I < 0.015 Total Protein 8.3 H Albumin 2.4 L Globulin 5.9 H Albumin/Globulin Ratio 0.4 L Lipase 90 Beta-Hydroxybutyric Acd 26.66 H Urine Color Urine Appearance Urine pH POC Urine pH Ur Specific [place] Urine Protein POC Urine Protein Urine Glucose (UA) POC Ur Glucose (UA) Urine Ketones POC Urine Ketones Urine Blood POC Urine Blood Urine Nitrite POC Urine Nitrite Urine Bilirubin POC Urine Bilirubin Urine Urobilinogen POC Urine Urobilinogen Ur Leukocyte Esterase POC U Leukocyte Esteras Urine WBC (Auto) Urine RBC (Auto) U Hyaline Cast (Auto) U Epithel Cells (Auto) Urine Bacteria (Auto) Urine Yeast 05/11/18 05/11/18 05/11/18 17:30 19:24 20:24 WBC RBC Hgb Hct MCV MCH MCHC RDW Std Deviation RDW Coeff of Anila Plt Count MPV Immature Gran % (Auto) Neut % (Auto) Lymph % (Auto) [place] % (Auto) Eos % (Auto) Baso % (Auto) Immature Gran # (Auto) Neut # (Auto) Lymph # (Auto) [place] # (Auto) Eos # (Auto) Baso # (Auto) PT INR APTT PTT Ratio Sodium Potassium Chloride Carbon Dioxide Anion Gap BUN Creatinine Est Cr Clr Drug Dosing Est GFR ( Amer) Est GFR (Non-Af Amer) BUN/Creatinine Ratio Glucose POC Glucose 357 H* 368 H* 283 H Calcium Total Bilirubin AST ALT Alkaline Phosphatase Troponin I Total Protein Albumin Globulin Albumin/Globulin Ratio Lipase Beta-Hydroxybutyric Acd Urine Color Urine Appearance Urine pH POC Urine pH Ur Specific [place] Urine Protein POC Urine Protein Urine Glucose (UA) POC Ur Glucose (UA) Urine Ketones POC Urine Ketones Urine Blood POC Urine Blood Urine Nitrite POC Urine Nitrite Urine Bilirubin POC Urine Bilirubin Urine Urobilinogen POC Urine Urobilinogen Ur Leukocyte Esterase POC U Leukocyte Esteras Urine WBC (Auto) Urine RBC (Auto) U Hyaline Cast (Auto) U Epithel Cells (Auto) Urine Bacteria (Auto) Urine Yeast 05/11/18 05/11/18 05/11/18 21:22 22:24 23:28 WBC RBC Hgb Hct MCV MCH MCHC RDW Std Deviation RDW Coeff of Anila Plt Count MPV Immature Gran % (Auto) Neut % (Auto) Lymph % (Auto) [place] % (Auto) Eos % (Auto) Baso % (Auto) Immature Gran # (Auto) Neut # (Auto) Lymph # (Auto) [place] # (Auto) Eos # (Auto) Baso # (Auto) PT INR APTT PTT Ratio Sodium Potassium Chloride Carbon Dioxide Anion Gap BUN Creatinine Est Cr Clr Drug Dosing Est GFR ( Amer) Est GFR (Non-Af Amer) BUN/Creatinine Ratio Glucose POC Glucose 254 H 208 H 171 H Calcium Total Bilirubin AST ALT Alkaline Phosphatase Troponin I Total Protein Albumin Globulin Albumin/Globulin Ratio Lipase Beta-Hydroxybutyric Acd Urine Color Urine Appearance Urine pH POC Urine pH Ur Specific [place] Urine Protein POC Urine Protein Urine Glucose (UA) POC Ur Glucose (UA) Urine Ketones POC Urine Ketones Urine Blood POC Urine Blood Urine Nitrite POC Urine Nitrite Urine Bilirubin POC Urine Bilirubin Urine Urobilinogen POC Urine Urobilinogen Ur Leukocyte Esterase POC U Leukocyte Esteras Urine WBC (Auto) Urine RBC (Auto) U Hyaline Cast (Auto) U Epithel Cells (Auto) Urine Bacteria (Auto) Urine Yeast 05/12/18 05/12/18 05/12/18 00:32 01:28 01:46 WBC RBC Hgb Hct MCV MCH MCHC RDW Std Deviation RDW Coeff of Anila Plt Count MPV Immature Gran % (Auto) Neut % (Auto) Lymph % (Auto) [place] % (Auto) Eos % (Auto) Baso % (Auto) Immature Gran # (Auto) Neut # (Auto) Lymph # (Auto) [place] # (Auto) Eos # (Auto) Baso # (Auto) PT INR APTT PTT Ratio Sodium Potassium Chloride Carbon Dioxide Anion Gap BUN Creatinine Est Cr Clr Drug Dosing Est GFR ( Amer) Est GFR (Non-Af Amer) BUN/Creatinine Ratio Glucose POC Glucose 136 H 94 86 Calcium Total Bilirubin AST ALT Alkaline Phosphatase Troponin I Total Protein Albumin Globulin Albumin/Globulin Ratio Lipase Beta-Hydroxybutyric Acd Urine Color Urine Appearance Urine pH POC Urine pH Ur Specific [place] Urine Protein POC Urine Protein Urine Glucose (UA) POC Ur Glucose (UA) Urine Ketones POC Urine Ketones Urine Blood POC Urine Blood Urine Nitrite POC Urine Nitrite Urine Bilirubin POC Urine Bilirubin Urine Urobilinogen POC Urine Urobilinogen Ur Leukocyte Esterase POC U Leukocyte Esteras Urine WBC (Auto) Urine RBC (Auto) U Hyaline Cast (Auto) U Epithel Cells (Auto) Urine Bacteria (Auto) Urine Yeast 05/12/18 05/12/18 05/12/18 02:00 02:37 03:33 WBC RBC Hgb Hct MCV MCH MCHC RDW Std Deviation RDW Coeff of Anila Plt Count MPV Immature Gran % (Auto) Neut % (Auto) Lymph % (Auto) [place] % (Auto) Eos % (Auto) Baso % (Auto) Immature Gran # (Auto) Neut # (Auto) Lymph # (Auto) [place] # (Auto) Eos # (Auto) Baso # (Auto) PT INR APTT PTT Ratio Sodium Potassium Chloride Carbon Dioxide Anion Gap BUN Creatinine Est Cr Clr Drug Dosing Est GFR ( Amer) Est GFR (Non-Af Amer) BUN/Creatinine Ratio Glucose POC Glucose 81 90 108 H Calcium Total Bilirubin AST ALT Alkaline Phosphatase Troponin I Total Protein Albumin Globulin Albumin/Globulin Ratio Lipase Beta-Hydroxybutyric Acd Urine Color Urine Appearance Urine pH POC Urine pH Ur Specific [place] Urine Protein POC Urine Protein Urine Glucose (UA) POC Ur Glucose (UA) Urine Ketones POC Urine Ketones Urine Blood POC Urine Blood Urine Nitrite POC Urine Nitrite Urine Bilirubin POC Urine Bilirubin Urine Urobilinogen POC Urine Urobilinogen Ur Leukocyte Esterase POC U Leukocyte Esteras Urine WBC (Auto) Urine RBC (Auto) U Hyaline Cast (Auto) U Epithel Cells (Auto) Urine Bacteria (Auto) Urine Yeast 05/12/18 05/12/18 05/12/18 04:38 05:37 05:37 WBC 12.56 H RBC 3.41 L Hgb 9.3 L Hct 29.7 L MCV 87.1 MCH 27.3 MCHC 31.3 L RDW Std Deviation 52.9 H RDW Coeff of Anila 16.5 H Plt Count 273 MPV 8.6 Immature Gran % (Auto) Neut % (Auto) Lymph % (Auto) [place] % (Auto) Eos % (Auto) Baso % (Auto) Immature Gran # (Auto) Neut # (Auto) Lymph # (Auto) [place] # (Auto) Eos # (Auto) Baso # (Auto) PT Cancelled INR Cancelled APTT PTT Ratio Sodium Potassium Chloride Carbon Dioxide Anion Gap BUN Creatinine Est Cr Clr Drug Dosing Est GFR ( Amer) Est GFR (Non-Af Amer) BUN/Creatinine Ratio Glucose POC Glucose 161 H Calcium Total Bilirubin AST ALT Alkaline Phosphatase Troponin I Total Protein Albumin Globulin Albumin/Globulin Ratio Lipase Beta-Hydroxybutyric Acd Urine Color Urine Appearance Urine pH POC Urine pH Ur Specific [place] Urine Protein POC Urine Protein Urine Glucose (UA) POC Ur Glucose (UA) Urine Ketones POC Urine Ketones Urine Blood POC Urine Blood Urine Nitrite POC Urine Nitrite Urine Bilirubin POC Urine Bilirubin Urine Urobilinogen POC Urine Urobilinogen Ur Leukocyte Esterase POC U Leukocyte Esteras Urine WBC (Auto) Urine RBC (Auto) U Hyaline Cast (Auto) U Epithel Cells (Auto) Urine Bacteria (Auto) Urine Yeast 05/12/18 05/12/18 05/12/18 05:37 06:07 06:49 WBC RBC Hgb Hct MCV MCH MCHC RDW Std Deviation RDW Coeff of Anila Plt Count MPV Immature Gran % (Auto) Neut % (Auto) Lymph % (Auto) [place] % (Auto) Eos % (Auto) Baso % (Auto) Immature Gran # (Auto) Neut # (Auto) Lymph # (Auto) [place] # (Auto) Eos # (Auto) Baso # (Auto) PT 20.8 H INR 2.1 H APTT PTT Ratio Sodium 133 L D Potassium 3.6 D Chloride 101 Carbon Dioxide 19 L Anion Gap 13.0 H BUN 15 Creatinine 0.99 D Est Cr Clr Drug Dosing 43.8 Est GFR ( Amer) 65.1 Est GFR (Non-Af Amer) 56.1 BUN/Creatinine Ratio 14.8 Glucose 150 H POC Glucose 148 H Calcium 8.3 L Total Bilirubin AST ALT Alkaline Phosphatase Troponin I Total Protein Albumin Globulin Albumin/Globulin Ratio Lipase Beta-Hydroxybutyric Acd Urine Color Urine Appearance Urine pH POC Urine pH Ur Specific [place] Urine Protein POC Urine Protein Urine Glucose (UA) POC Ur Glucose (UA) Urine Ketones POC Urine Ketones Urine Blood POC Urine Blood Urine Nitrite POC Urine Nitrite Urine Bilirubin POC Urine Bilirubin Urine Urobilinogen POC Urine Urobilinogen Ur Leukocyte Esterase POC U Leukocyte Esteras Urine WBC (Auto) Urine RBC (Auto) U Hyaline Cast (Auto) U Epithel Cells (Auto) Urine Bacteria (Auto) Urine Yeast 05/12/18 07:10 WBC RBC Hgb Hct MCV MCH MCHC RDW Std Deviation RDW Coeff of Anila Plt Count MPV Immature Gran % (Auto) Neut % (Auto) Lymph % (Auto) [place] % (Auto) Eos % (Auto) Baso % (Auto) Immature Gran # (Auto) Neut # (Auto) Lymph # (Auto) [place] # (Auto) Eos # (Auto) Baso # (Auto) PT INR APTT PTT Ratio Sodium Potassium Chloride Carbon Dioxide Anion Gap BUN Creatinine Est Cr Clr Drug Dosing Est GFR ( Amer) Est GFR (Non-Af Amer) BUN/Creatinine Ratio Glucose POC Glucose 128 H Calcium Total Bilirubin AST ALT Alkaline Phosphatase Troponin I Total Protein Albumin Globulin Albumin/Globulin Ratio Lipase Beta-Hydroxybutyric Acd Urine Color Urine Appearance Urine pH POC Urine pH Ur Specific [place] Urine Protein POC Urine Protein Urine Glucose (UA) POC Ur Glucose (UA) Urine Ketones POC Urine Ketones Urine Blood POC Urine Blood Urine Nitrite POC Urine Nitrite Urine Bilirubin POC Urine Bilirubin Urine Urobilinogen POC Urine Urobilinogen Ur Leukocyte Esterase POC U Leukocyte Esteras Urine WBC (Auto) Urine RBC (Auto) U Hyaline Cast (Auto) U Epithel Cells (Auto) Urine Bacteria (Auto) Urine Yeast
[2018-05-12] MEDS: INSULIN ASPART 100 UNITS/ML 3 ML PEN SC SCH ×4 (09:33→20:35)
[2018-05-12 10:26] LABS: Albumin Level 1.8 gm/dl (3.4-5.0); Creatinine Clr Calc Pharmacy 40.9 ml/min; Est GFR (African American) 59.9; Est GFR (Non-African American) 51.7; Potassium 3.8 mmol/L (3.5-5.1)
[2018-05-12 10:29] LABS: Albumin Globulin Ratio 0.4 (0.9-2); Bilirubin,Total 0.2 mg/dl (0.2-1); Globulin 4.7 gm/dl (2.5-4.0); Total Protein 6.5 gm/dl (6.4-8.2)
--- NOTE | 2018-05-12 10:44 | Infectious Disease Consult ---
Date of Consultation May 12, 2018 Assessment & Plan (1) UTI (urinary tract infection): Recurrent urinary tract infection with E. coli, agree with urology that anatomic abnormality possible given isolation of same organism. Would continue on IV ceftriaxone for now, hopefully can transition to oral antibiotics in the near future. Will continue patient on antibiotics until further urologic evaluation performed. Will follow. (2) Escherichia coli infection: History of Present Illness Reason for Consultation: Recurrent urinary tract infection, history of renal transplant Attending Physician: Raheel Valle MD History of Present Illness 73-year-old female well-known to me from previous infectious disease consultatio n, with history of recurrent urinary tract infection, admitted in March with urinary retention and E. coli urinary tract infection requiring Nicolas catheter. Catheter was discontinued, the patient now readmitted with several days of progressively worsening dysuria and urinary frequency with weakness and fatigue consistent with prior urinary tract infections. Has again grown E. coli, sensitivities are pending. We currently being treated on IV ceftriaxone with clinical improvement. Blood cultures have been negative. Urology consultation in progress. Currently without flank pain, dysuria is better. Allergies Allergy/AdvReac Type Severity Reaction Status Date / Time KATIA Inhibitors Allergy Unknown Verified 05/11/18 10:45 ARB-Angiotensin Receptor Allergy Unknown Verified 05/11/18 10:45 Antagonist amoxicillin AdvReac Severe nausea Verified 05/11/18 10:45 Home Medications Home Medications Medication Instructions Recorded Confirmed Type Novolog Flexpen U-100 Insulin 12 - 22 unit SUBCUT AC 11/23/17 05/11/18 History amlodipine 10 mg PO QAM 11/23/17 05/11/18 History aspirin [Aspirin Low Dose] 81 mg PO QAM 11/23/17 05/11/18 History cholecalciferol (vitamin D3) 1,000 unit PO QAM 11/23/17 05/11/18 History [Vitamin D3] hydralazine 10 mg PO BID 11/23/17 05/11/18 History mycophenolate mofetil 250 mg PO Q12 11/23/17 05/11/18 History sirolimus 1 mg PO QAM 11/23/17 05/11/18 History sotalol 120 mg PO BID 11/23/17 05/11/18 History Lactinex 1 tab PO BID #20 tab 03/23/18 05/11/18 Rx tramadol 50 mg PO Q8H PRN #10 tab 03/24/18 05/11/18 Rx acetaminophen [Tylenol Extra 500 mg PO Q6H PRN 05/11/18 05/11/18 History Strength] mirtazapine 15 mg PO HS 05/11/18 05/11/18 History cefdinir 300 mg PO Q12 14 Days #28 cap 05/15/18 Rx insulin glargine [Lantus Solostar 18 unit SC HS 30 Days #5.4 ml 05/15/18 Rx U-100 Insulin] warfarin [Coumadin] 1 mg PO DAILY@1600 30 Days #30 tab 05/15/18 Rx Patient History Medical History skilled nursing current use of anticoagulant (Chronic) Carotid stenosis (Chronic) History of cervical cancer (Chronic) CKD (chronic kidney disease), stage III (Chronic) Hypertension (Chronic) Mitral valve regurgitation (Chronic) Dyslipidemia (Chronic) Paroxysmal A-fib (Chronic) History of herpes zoster (Chronic) Diabetes 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, 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 (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) 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) Recurrent UTI (Chronic) Surgical History S/P QUINN (total abdominal hysterectomy) (Chronic) History of cataract surgery (Chronic) Status post cholecystectomy (Chronic) S/p cadaver renal transplant (Chronic) Family History Mother Diabetes mellitus with coincident hypertension Social History Preferred Language: Martiniquais Beliefs That Will Affect Care: None marital status: Current Living Situation: Family Other Information That Helps Us Care for You: No Feels Safe at Home: Yes Safety Concerns: Feels Safe At This Time Smoking Status: Never smoker Hx Alcohol Use: No Hx Substance Use: No Review of Systems Systems were reviewed and are negative except as per HPI Physical Exam Vital Signs (Past 24 Hours): Last Vital Signs Temp 36.8 C 05/12/18 07:19 Pulse 75 05/12/18 07:19 Resp 20 05/12/18 07:19 BP 105/58 L 05/12/18 07:19 Pulse Ox 96 05/12/18 07:19 Constitutional: WD/WN, vitals as above comfortable; no acute distress Eyes: PERRL, conjunctivae normal, anicteric sclerae ENMT: external ear and nose normal, oropharynx normal Neck: trachea midline, no thyromegaly neck nontender Respiratory: normal respiratory effort, lungs clear to auscultation normal percussion; no respiratory distress Cardiovascular: Rate/Rhythm: regular rate and regular rhythm Heart Sounds: normal S1 and normal S2; no gallop, no murmur and no cardiac rub Gastrointestinal (Abdomen): normal bowel sounds, soft, nontender, no hepatosplenomegaly Musculoskeletal: no cyanosis or clubbing, extremities motor strength 5/5 Skin: no rashes, warm and dry no lesions Neurologic: moves all extremities and awake; no focal motor deficits Motor/Sensory: no sensory deficit Psychiatric: A+Ox3, euthymic affect Lymphatic: no cervical or axillary lymphadenopathy no inguinal lymphadenopathy Results & Data Laboratory Results Short CBC 05/11/18 05/12/18 Range/Units 10:45 05:37 WBC 9.90 12.56 H (4.8-10.8) K/uL Hgb 11.4 L 9.3 L (12.0-16.0) g/dL Hct 35.2 L 29.7 L (37-47) % Plt Count 307 273 (130-400) K/uL BMP 05/11/18 05/12/18 05/12/18 10:45 05:37 09:59 Sodium 126 L 133 L D 133 L Potassium 4.7 3.6 D 3.8 Chloride 91 L 101 101 Carbon Dioxide 24 19 L 26 BUN 21 H 15 14 Creatinine 1.49 H 0.99 D 1.06 Glucose 395 H* 150 H 211 H Calcium 9.2 8.3 L 8.0 L Cardiac Enzymes 05/11/18 Range/Units 10:45 Troponin I < 0.015 (0-0.045) ng/ml Liver Function 05/11/18 05/12/18 Range/Units 10:45 09:59 Total Bilirubin 0.4 0.2 (0.2-1) mg/dl AST 32 32 (15-37) U/L ALT 28 19 (12-78) U/L Alkaline Phosphatase 97 72 (45-117) U/L Albumin 2.4 L 1.8 L (3.4-5.0) gm/dl Urine 05/11/18 Range/Units 10:10 Urine Color Yellow Urine Appearance Turbid H (Clear) Urine pH 6.0 (4.5-7.5) Ur Specific [place] 1.016 (1.000-1.030) Urine Protein 1+ H (Negative) Urine Glucose (UA) 3+ H (Negative) Diagnostic Findings Microbiology 05/11/18 10:10 Urine,Clean Catch Urine Culture - Preliminary Escherichia coli XR chest 1V portable HISTORY: 73 years-old Female nausea acute nausea COMPARISON: Chest radiograph 03/09/2018 TECHNIQUE: Portable AP view the chest FINDINGS: Cardiac silhouette is enlarged, unchanged. Prominence and calcification of the thoracic aortic arch. Study is limited secondary to patient rotation to the left. There is no pneumothorax, large pleural effusion or overt pulmonary edema. No focal airspace consolidation. Linear hyperinflated. Degenerative changes of the shoulders and spine. IMPRESSION: No acute process. The above report was generated using voice recognition software. It may contain grammatical, syntax o
[2018-05-12] MEDS ORDERED: [UNRECOGNIZED DRUG - REMARK] ONE (10:45)
[2018-05-12] MEDS: cefTRIAXone SODIUM 1,000 MG in DEXTROSE 5% 50 ML IV SCH (11:08)
--- NOTE | 2018-05-12 15:18 | Hospitalist Progress Note ---
Date of Service May 12, 2018 Assessment & Plan (1) UTI (urinary tract infection): Patient presenting from home with reports of generalized weakness and urinary burning (Recent admission to [facility] 03/09 through 03/23 for UTI, urinary retention, ROSSY in the setting of renal transplant; urine culture grew pansensitive E. coli at that time in the setting of renal transplant) Lindquist catheter has been placed on admission for urinary retention patient was started on ceftriaxone on this admission, Would continue on IV ceftriaxone for now (2) Urinary retention: seen by [facility] for recurrent pansensitive E.coli UTIs, becoming more frequent and severe. continue lindquist catheter and antibiotics Once infection cleared, [facility] Urology service we will arrange for outpatient retrograde cystogram while catheter in place to assess for potential obstruction [facility] urology service also recommended Catheter Clean intermittent cathetering (CIC) teaching in the care home (3) S/p cadaver renal transplant: History of renal transplant Continue CellCept and sirolimus (4) ROSSY (acute kidney injury): admission creatinine of 1.49 creatinine is now back to baseline (5) CKD (chronic kidney disease), stage III: baseline creatinine of 1 (6) Hyponatremia: -Pseudohyponatremia of 126 from hyperglycemia with Corrected sodium 133 -serum sodium is stable as 133 (7) Diabetes mellitus, type II: -Hgb A1c 8.5 04/2018 -admission hyperglycemia has resolved after IV insulin drip -continue insulin as subcutaneously and pharmacy glycemic control consult (8) Paroxysmal A-fib: -Patient currently in atrial fibrillation -Rhythm controlled on sotalol which will be continued -anticoagulated on coumadin, continue coumadin and trend INR (9) Hypertension: -BP controlled -Continue home doses of amlodipine and hydralazine (10) DVT prophylaxis: -INR is 2.1 , continue coumadin Subjective Patient seen and examined at bedside. Patient with lindquist and denies dysuria currently. Patient denies abdominal pain. No chest pain. No shortness of breath. Patient declined to have lindquist removed to start trial of void and reported that she was too tired and did not want to be stressed by trying to run to the bathroom Physical Exam Vital Signs (Past 24 Hours): Last Vital Signs Temp 36.7 C 05/12/18 11:32 Pulse 84 05/12/18 11:32 Resp 20 05/12/18 11:32 BP 106/64 05/12/18 11:32 Pulse Ox 97 05/12/18 11:32 Constitutional: WD/WN, vitals as above Eyes: PERRL, conjunctivae normal, anicteric sclerae EOM intact bilaterally ENMT: external ear and nose normal, oropharynx normal Neck: trachea midline, no thyromegaly normal visual inspection Respiratory: normal respiratory effort, lungs clear to auscultation Cardiovascular: RRR, no murmur, no edema Gastrointestinal (Abdomen): normal bowel sounds, soft, nontender, no hepatosplenomegaly Musculoskeletal: Head/Neck/Chest: normocephalic and head atraumatic Neurologic: PERRL, EOMI, accommodation nl, no face palsy, no dysarthria Psychiatric: A+Ox3, euthymic affect Genitourinary: has lexa (1) Diabetes mellitus, type II Diabetes mellitus complication status: with unspecified complications Diabetes mellitus care home insulin use: unspecified care home insulin use status Qualified Code(s): E11.8 - Type 2 diabetes mellitus with unspecified complications
[2018-05-12] MEDS ORDERED: WARFARIN SOD 0.5 MG TAB PO SCH (16:00)
[2018-05-13] MEDS: ACETAMINOPHEN 325 MG TAB PO PRN ×2 (00:15→20:37)
[2018-05-13 06:43] LABS: Basophils # (auto) 0.01 K/uL (0-0.2); Basophils % (auto) 0.1 %; Eosinophils # (auto) 0.09 K/uL (0-0.5); Eosinophils % (auto) 1.2 %; Hematocrit (blood only) 30.2 % (37-47); Hemoglobin 9.3 g/dL (12.0-16.0); Immature Granulocytes # (auto) 0.03 K/uL (0.00-0.02); Immature Granulocytes % (auto) 0.4 %; Lymphocytes # (auto) 2.07 K/uL (1.2-3.4); Lymphocytes % (auto) 28.6 %; Mean Corpuscular Hgb Conc 30.8 g/dL (32-36); Mean Corpuscular Volume 87.3 fL (80-100); Mean Platelet Volume 8.5 fL (7.4-10.4); Neutrophils # (auto) 4.25 K/uL (1.4-6.5); Neutrophils % (auto) 58.7 %; Platelet Count 274 K/uL (130-400); RDW Coefficient of Variation 16.6 % (11.5-14.5); RDW Standard Deviation 53.2 fL (36.4-46.3); Red Blood Count 3.46 M/uL (4.2-5.4); White Blood Count 7.25 K/uL (4.8-10.8)
[2018-05-13 06:58] LABS: INR 1.7 (0.9-1.1); Prothrombin Time 17.1 Seconds (9.0-12.0)
[2018-05-13 07:04] LABS: BUN Creatinine Ratio 16.2 (10-20); Calcium 8.4 mg/dl (8.5-10.1); Creatinine Clr Calc Pharmacy 43.4 ml/min; Est GFR (African American) 64.3; Est GFR (Non-African American) 55.5; Potassium 3.5 mmol/L (3.5-5.1)
--- NOTE | 2018-05-13 08:29 | Urology Progress Note ---
Date of Service May 13, 2018 Assessment & Plan (1) Escherichia coli infection: A/P 73 yo female with recurrent UTI, improving. Findings reviewed with patient. 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 Will leave lindquist in place and arrange for outpatient CIC teaching for the former, arrange for a refluxing cystogram to evaluate the latter and address issues as they are identified. Will consider suppressive antibiotics in the short to medium term to avoid recurrent admission for UTIs. Outpatient follow-up and evaluation will be arranged by our service. Patient improving, should be stable for DC home with ~2 weeks of antibiotics when clinically amenable. Findings and care plan reviewed with patient. Subjective 73 yo female with recurrent E. Coli UTI admitted for complex infection and weakness. She reports she feels improved today, taking regular diet. Past notes and ID input reviewed and appreciated. Her febrile episodes are decreasing in frequency and amplitude. Her presentation suggests some element of parenchymal involvement, likely her transplanted kidney. Lindquist remains in place as planned, patient in improved spirits today. Constitutional: + fever Eyes: no diplopia Ear, Nose, Mouth, Throat: no ear pain and no ear trauma Respiratory: no hemoptysis Cardiovascular: no chest pain Gastrointestinal: no nausea and no vomiting Genitourinary (Female): + difficulty urinating (lindquist in place) Integumentary: no acne and no boil Neurologic: no paralysis and no numbness Psychiatric: no hopelessness Physical Exam Vital Signs (Past 24 Hours): Last Vital Signs Temp 36.4 C L 05/13/18 08:00 Pulse 67 05/13/18 08:00 Resp 16 05/13/18 08:00 BP 147/63 H 05/13/18 08:00 Pulse Ox 97 05/13/18 08:00 Constitutional: WD/WN, vitals as above ENMT: Ears: no hearing impairment Respiratory: no respiratory distress and does not use accessory muscles Cardiovascular: Vessels: radial pulses present Gastrointestinal (Abdomen): Percussion/Palpation: abdomen soft; abdomen nontender Skin: normal turgor Neurologic: awake; not obtunded Psychiatric: Orientation: oriented x 3 Lymphatic: no lymphadenopathy Results & Data Laboratory Results Laboratory Results - last 48 hr 05/11/18 05/11/18 05/11/18 10:10 10:10 10:45 WBC RBC Hgb Hct MCV MCH MCHC RDW Std Deviation RDW Coeff of Anila Plt Count MPV Immature Gran % (Auto) Neut % (Auto) Lymph % (Auto) [place] % (Auto) Eos % (Auto) Baso % (Auto) Immature Gran # (Auto) Neut # (Auto) Lymph # (Auto) [place] # (Auto) Eos # (Auto) Baso # (Auto) PT 16.0 H INR 1.6 H APTT 28.2 PTT Ratio 1.0 Sodium Potassium Chloride Carbon Dioxide Anion Gap BUN Creatinine Est Cr Clr Drug Dosing Est GFR ( Amer) Est GFR (Non-Af Amer) BUN/Creatinine Ratio Glucose POC Glucose Calcium Total Bilirubin AST ALT Alkaline Phosphatase Troponin I Total Protein Albumin Globulin Albumin/Globulin Ratio Lipase Beta-Hydroxybutyric Acd Urine Color Yellow Urine Appearance Turbid H Urine pH 6.0 POC Urine pH Cancelled Ur Specific [place] 1.016 Urine Protein 1+ H POC Urine Protein Cancelled Urine Glucose (UA) 3+ H POC Ur Glucose (UA) Cancelled Urine Ketones Trace H POC Urine Ketones Cancelled Urine Blood 1+ H POC Urine Blood Cancelled Urine Nitrite Negative POC Urine Nitrite Cancelled Urine Bilirubin Negative POC Urine Bilirubin Cancelled Urine Urobilinogen Negative POC Urine Urobilinogen Cancelled Ur Leukocyte Esterase 3+ H POC U Leukocyte Esteras Cancelled Urine WBC (Auto) >30 H Urine RBC (Auto) 5-10 H U Hyaline Cast (Auto) 0 U Epithel Cells (Auto) 0-5 Urine Bacteria (Auto) 2+ H Urine Yeast Not Reportable 05/11/18 05/11/18 05/11/18 10:45 10:45 10:45 WBC 9.90 RBC 4.11 L Hgb 11.4 L Hct 35.2 L MCV 85.6 MCH 27.7 MCHC 32.4 RDW Std Deviation 50.8 H RDW Coeff of Anila 16.1 H Plt Count 307 MPV 8.6 Immature Gran % (Auto) 0.6 Neut % (Auto) 80.3 Lymph % (Auto) 9.4 [place] % (Auto) 9.7 Eos % (Auto) 0.0 Baso % (Auto) 0.0 Immature Gran # (Auto) 0.06 H Neut # (Auto) 7.95 H Lymph # (Auto) 0.93 L [place] # (Auto) 0.96 H Eos # (Auto) 0.00 Baso # (Auto) 0.00 PT INR APTT PTT Ratio Sodium 126 L Potassium 4.7 Chloride 91 L Carbon Dioxide 24 Anion Gap 11.0 BUN 21 H Creatinine 1.49 H Est Cr Clr Drug Dosing 31.0 Est GFR ( Amer) 39.7 Est GFR (Non-Af Amer) 34.2 BUN/Creatinine Ratio 13.8 Glucose 395 H* POC Glucose Calcium 9.2 Total Bilirubin 0.4 AST 32 ALT 28 Alkaline Phosphatase 97 Troponin I < 0.015 Total Protein 8.3 H Albumin 2.4 L Globulin 5.9 H Albumin/Globulin Ratio 0.4 L Lipase 90 Beta-Hydroxybutyric Acd 26.66 H Urine Color Urine Appearance Urine pH POC Urine pH Ur Specific [place] Urine Protein POC Urine Protein Urine Glucose (UA) POC Ur Glucose (UA) Urine Ketones POC Urine Ketones Urine Blood POC Urine Blood Urine Nitrite POC Urine Nitrite Urine Bilirubin POC Urine Bilirubin Urine Urobilinogen POC Urine Urobilinogen Ur Leukocyte Esterase POC U Leukocyte Esteras Urine WBC (Auto) Urine RBC (Auto) U Hyaline Cast (Auto) U Epithel Cells (Auto) Urine Bacteria (Auto) Urine Yeast 05/11/18 05/11/18 05/11/18 17:30 19:24 20:24 WBC RBC Hgb Hct MCV MCH MCHC RDW Std Deviation RDW Coeff of Anila Plt Count MPV Immature Gran % (Auto) Neut % (Auto) Lymph % (Auto) [place] % (Auto) Eos % (Auto) Baso % (Auto) Immature Gran # (Auto) Neut # (Auto) Lymph # (Auto) [place] # (Auto) Eos # (Auto) Baso # (Auto) PT INR APTT PTT Ratio Sodium Potassium Chloride Carbon Dioxide Anion Gap BUN Creatinine Est Cr Clr Drug Dosing Est GFR ( Amer) Est GFR (Non-Af Amer) BUN/Creatinine Ratio Glucose POC Glucose 357 H* 368 H* 283 H Calcium Total Bilirubin AST ALT Alkaline Phosphatase Troponin I Total Protein Albumin Globulin Albumin/Globulin Ratio Lipase Beta-Hydroxybutyric Acd Urine Color Urine Appearance Urine pH POC Urine pH Ur Specific [place] Urine Protein POC Urine Protein Urine Glucose (UA) POC Ur Glucose (UA) Urine Ketones POC Urine Ketones Urine Blood POC Urine Blood Urine Nitrite POC Urine Nitrite Urine Bilirubin POC Urine Bilirubin Urine Urobilinogen POC Urine Urobilinogen Ur Leukocyte Esterase POC U Leukocyte Esteras Urine WBC (Auto) Urine RBC (Auto) U Hyaline Cast (Auto) U Epithel Cells (Auto) Urine Bacteria (Auto) Urine Yeast 05/11/18 05/11/18 05/11/18 21:22 22:24 23:28 WBC RBC Hgb Hct MCV MCH MCHC RDW Std Deviation RDW Coeff of Anila Plt Count MPV Immature Gran % (Auto) Neut % (Auto) Lymph % (Auto) [place] % (Auto) Eos % (Auto) Baso % (Auto) Immature Gran # (Auto) Neut # (Auto) Lymph # (Auto) [place] # (Auto) Eos # (Auto) Baso # (Auto) PT INR APTT PTT Ratio Sodium Potassium Chloride Carbon Dioxide Anion Gap BUN Creatinine Est Cr Clr Drug Dosing Est GFR ( Amer) Est GFR (Non-Af Amer) BUN/Creatinine Ratio Glucose POC Glucose 254 H 208 H 171 H Calcium Total Bilirubin AST ALT Alkaline Phosphatase Troponin I Total Protein Albumin Globulin Albumin/Globulin Ratio Lipase Beta-Hydroxybutyric Acd Urine Color Urine Appearance Urine pH POC Urine pH Ur Specific [place] Urine Protein POC Urine Protein Urine Glucose (UA) POC Ur Glucose (UA) Urine Ketones POC Urine Ketones Urine Blood POC Urine Blood Urine Nitrite POC Urine Nitrite Urine Bilirubin POC Urine Bilirubin Urine Urobilinogen POC Urine Urobilinogen Ur Leukocyte Esterase POC U Leukocyte Esteras Urine WBC (Auto) Urine RBC (Auto) U Hyaline Cast (Auto) U Epithel Cells (Auto) Urine Bacteria (Auto) Urine Yeast 05/12/18 05/12/18 05/12/18 00:32 01:28 01:46 WBC RBC Hgb Hct MCV MCH MCHC RDW Std Deviation RDW Coeff of Anila Plt Count MPV Immature Gran % (Auto) Neut % (Auto) Lymph % (Auto) [place] % (Auto) Eos % (Auto) Baso % (Auto) Immature Gran # (Auto) Neut # (Auto) Lymph # (Auto) [place] # (Auto) Eos # (Auto) Baso # (Auto) PT INR APTT PTT Ratio Sodium Potassium Chloride Carbon Dioxide Anion Gap BUN Creatinine Est Cr Clr Drug Dosing Est GFR ( Amer) Est GFR (Non-Af Amer) BUN/Creatinine Ratio Glucose POC Glucose 136 H 94 86 Calcium Total Bilirubin AST ALT Alkaline Phosphatase Troponin I Total Protein Albumin Globulin Albumin/Globulin Ratio Lipase Beta-Hydroxybutyric Acd Urine Color Urine Appearance Urine pH POC Urine pH Ur Specific [place] Urine Protein POC Urine Protein Urine Glucose (UA) POC Ur Glucose (UA) Urine Ketones POC Urine Ketones Urine Blood POC Urine Blood Urine Nitrite POC Urine Nitrite Urine Bilirubin POC Urine Bilirubin Urine Urobilinogen POC Urine Urobilinogen Ur Leukocyte Esterase POC U Leukocyte Esteras Urine WBC (Auto) Urine RBC (Auto) U Hyaline Cast (Auto) U Epithel Cells (Auto) Urine Bacteria (Auto) Urine Yeast 05/12/18 05/12/18 05/12/18 02:00 02:37 03:33 WBC RBC Hgb Hct MCV MCH MCHC RDW Std Deviation RDW Coeff of Anila Plt Count MPV Immature Gran % (Auto) Neut % (Auto) Lymph % (Auto) [place] % (Auto) Eos % (Auto) Baso % (Auto) Immature Gran # (Auto) Neut # (Auto) Lymph # (Auto) [place] # (Auto) Eos # (Auto) Baso # (Auto) PT INR APTT PTT Ratio Sodium Potassium Chloride Carbon Dioxide Anion Gap BUN Creatinine Est Cr Clr Drug Dosing Est GFR ( Amer) Est GFR (Non-Af Amer) BUN/Creatinine Ratio Glucose POC Glucose 81 90 108 H Calcium Total Bilirubin AST ALT Alkaline Phosphatase Troponin I Total Protein Albumin Globulin Albumin/Globulin Ratio Lipase Beta-Hydroxybutyric Acd Urine Color Urine Appearance Urine pH POC Urine pH Ur Specific [place] Urine Protein POC Urine Protein Urine Glucose (UA) POC Ur Glucose (UA) Urine Ketones POC Urine Ketones Urine Blood POC Urine Blood Urine Nitrite POC Urine Nitrite Urine Bilirubin POC Urine Bilirubin Urine Urobilinogen POC Urine Urobilinogen Ur Leukocyte Esterase POC U Leukocyte Esteras Urine WBC (Auto) Urine RBC (Auto) U Hyaline Cast (Auto) U Epithel Cells (Auto) Urine Bacteria (Auto) Urine Yeast 05/12/18 05/12/18 05/12/18 04:38 05:37 05:37 WBC 12.56 H RBC 3.41 L Hgb 9.3 L Hct 29.7 L MCV 87.1 MCH 27.3 MCHC 31.3 L RDW Std Deviation 52.9 H RDW Coeff of Ainla 16.5 H Plt Count 273 MPV 8.6 Immature Gran % (Auto) Neut % (Auto) Lymph % (Auto) [place] % (Auto) Eos % (Auto) Baso % (Auto) Immature Gran # (Auto) Neut # (Auto) Lymph # (Auto) [place] # (Auto) Eos # (Auto) Baso # (Auto) PT Cancelled INR Cancelled APTT PTT Ratio Sodium Potassium Chloride Carbon Dioxide Anion Gap BUN Creatinine Est Cr Clr Drug Dosing Est GFR ( Amer) Est GFR (Non-Af Amer) BUN/Creatinine Ratio Glucose POC Glucose 161 H Calcium Total Bilirubin AST ALT Alkaline Phosphatase Troponin I Total Protein Albumin Globulin Albumin/Globulin Ratio Lipase Beta-Hydroxybutyric Acd Urine Color Urine Appearance Urine pH POC Urine pH Ur Specific [place] Urine Protein POC Urine Protein Urine Glucose (UA) POC Ur Glucose (UA) Urine Ketones POC Urine Ketones Urine Blood POC Urine Blood Urine Nitrite POC Urine Nitrite Urine Bilirubin POC Urine Bilirubin Urine Urobilinogen POC Urine Urobilinogen Ur Leukocyte Esterase POC U Leukocyte Esteras Urine WBC (Auto) Urine RBC (Auto) U Hyaline Cast (Auto) U Epithel Cells (Auto) Urine Bacteria (Auto) Urine Yeast 05/12/18 05/12/18 05/12/18 05:37 06:07 06:49 WBC RBC Hgb Hct MCV MCH MCHC RDW Std Deviation RDW Coeff of Anila Plt Count MPV Immature Gran % (Auto) Neut % (Auto) Lymph % (Auto) [place] % (Auto) Eos % (Auto) Baso % (Auto) Immature Gran # (Auto) Neut # (Auto) Lymph # (Auto) [place] # (Auto) Eos # (Auto) Baso # (Auto) PT 20.8 H INR 2.1 H APTT PTT Ratio Sodium 133 L D Potassium 3.6 D Chloride 101 Carbon Dioxide 19 L Anion Gap 13.0 H BUN 15 Creatinine 0.99 D Est Cr Clr Drug Dosing 43.8 Est GFR ( Amer) 65.1 Est GFR (Non-Af Amer) 56.1 BUN/Creatinine Ratio 14.8 Glucose 150 H POC Glucose 148 H Calcium 8.3 L Total Bilirubin AST ALT Alkaline Phosphatase Troponin I Total Protein Albumin Globulin Albumin/Globulin Ratio Lipase Beta-Hydroxybutyric Acd Urine Color Urine Appearance Urine pH POC Urine pH Ur Specific [place] Urine Protein POC Urine Protein Urine Glucose (UA) POC Ur Glucose (UA) Urine Ketones POC Urine Ketones Urine Blood POC Urine Blood Urine Nitrite POC Urine Nitrite Urine Bilirubin POC Urine Bilirubin Urine Urobilinogen POC Urine Urobilinogen Ur Leukocyte Esterase POC U Leukocyte Esteras Urine WBC (Auto) Urine RBC (Auto) U Hyaline Cast (Auto) U Epithel Cells (Auto) Urine Bacteria (Auto) Urine Yeast 05/12/18 05/12/18 05/12/18 07:10 09:59 11:43 WBC RBC Hgb Hct MCV MCH MCHC RDW Std Deviation RDW Coeff of Anila Plt Count MPV Immature Gran % (Auto) Neut % (Auto) Lymph % (Auto) [place] % (Auto) Eos % (Auto) Baso % (Auto) Immature Gran # (Auto) Neut # (Auto) Lymph # (Auto) [place] # (Auto) Eos # (Auto) Baso # (Auto) PT INR APTT PTT Ratio Sodium 133 L Potassium 3.8 Chloride 101 Carbon Dioxide 26 Anion Gap 6.0 BUN 14 Creatinine 1.06 Est Cr Clr Drug Dosing 40.9 Est GFR ( Amer) 59.9 Est GFR (Non-Af Amer) 51.7 BUN/Creatinine Ratio 13.0 Glucose 211 H POC Glucose 128 H 252 H Calcium 8.0 L Total Bilirubin 0.2 AST 32 ALT 19 Alkaline Phosphatase 72 Troponin I Total Protein 6.5 D Albumin 1.8 L Globulin 4.7 H Albumin/Globulin Ratio 0.4 L Lipase Beta-Hydroxybutyric Acd Urine Color Urine Appearance Urine pH POC Urine pH Ur Specific [place] Urine Protein POC Urine Protein Urine Glucose (UA) POC Ur Glucose (UA) Urine Ketones POC Urine Ketones Urine Blood POC Urine Blood Urine Nitrite POC Urine Nitrite Urine Bilirubin POC Urine Bilirubin Urine Urobilinogen POC Urine Urobilinogen Ur Leukocyte Esterase POC U Leukocyte Esteras Urine WBC (Auto) Urine RBC (Auto) U Hyaline Cast (Auto) U Epithel Cells (Auto) Urine Bacteria (Auto) Urine Yeast 05/12/18 05/12/18 05/13/18 16:12 20:11 05:57 WBC 7.25 RBC 3.46 L Hgb 9.3 L Hct 30.2 L MCV 87.3 MCH 26.9 MCHC 30.8 L RDW Std Deviation 53.2 H RDW Coeff of Anila 16.6 H Plt Count 274 MPV 8.5 Immature Gran % (Auto) 0.4 Neut % (Auto) 58.7 Lymph % (Auto) 28.6 [place] % (Auto) 11.0 Eos % (Auto) 1.2 Baso % (Auto) 0.1 Immature Gran # (Auto) 0.03 H Neut # (Auto) 4.25 Lymph # (Auto) 2.07 [place] # (Auto) 0.80 H Eos # (Auto) 0.09 Baso # (Auto) 0.01 PT INR APTT PTT Ratio Sodium Potassium Chloride Carbon Dioxide Anion Gap BUN Creatinine Est Cr Clr Drug Dosing Est GFR ( Amer) Est GFR (Non-Af Amer) BUN/Creatinine Ratio Glucose POC Glucose 172 H 190 H Calcium Total Bilirubin AST ALT Alkaline Phosphatase Troponin I Total Protein Albumin Globulin Albumin/Globulin Ratio Lipase Beta-Hydroxybutyric Acd Urine Color Urine Appearance Urine pH POC Urine pH Ur Specific [place] Urine Protein POC Urine Protein Urine Glucose (UA) POC Ur Glucose (UA) Urine Ketones POC Urine Ketones Urine Blood POC Urine Blood Urine Nitrite POC Urine Nitrite Urine Bilirubin POC Urine Bilirubin Urine Urobilinogen POC Urine Urobilinogen Ur Leukocyte Esterase POC U Leukocyte Esteras Urine WBC (Auto) Urine RBC (Auto) U Hyaline Cast (Auto) U Epithel Cells (Auto) Urine Bacteria (Auto) Urine Yeast 05/13/18 05/13/18 05/13/18 05:57 05:57 07:41 WBC RBC Hgb Hct MCV MCH MCHC RDW Std Deviation RDW Coeff of Anila Plt Count MPV Immature Gran % (Auto) Neut % (Auto) Lymph % (Auto) [place] % (Auto) Eos % (Auto) Baso % (Auto) Immature Gran # (Auto) Neut # (Auto) Lymph # (Auto) [place] # (Auto) Eos # (Auto) Baso # (Auto) PT 17.1 H INR 1.7 H APTT PTT Ratio Sodium 134 L Potassium 3.5 Chloride 101 Carbon Dioxide 25 Anion Gap 8.0 BUN 16 Creatinine 1.00 Est Cr Clr Drug Dosing 43.4 Est GFR ( Amer) 64.3 Est GFR (Non-Af Amer) 55.5 BUN/Creatinine Ratio 16.2 Glucose 182 H POC Glucose 199 H Calcium 8.4 L Total Bilirubin AST ALT Alkaline Phosphatase Troponin I Total Protein Albumin Globulin Albumin/Globulin Ratio Lipase Beta-Hydroxybutyric Acd Urine Color Urine Appearance Urine pH POC Urine pH Ur Specific [place] Urine Protein POC Urine Protein Urine Glucose (UA) POC Ur Glucose (UA) Urine Ketones POC Urine Ketones Urine Blood POC Urine Blood Urine Nitrite POC Urine Nitrite Urine Bilirubin POC Urine Bilirubin Urine Urobilinogen POC Urine Urobilinogen Ur Leukocyte Esterase POC U Leukocyte Esteras Urine WBC (Auto) Urine RBC (Auto) U Hyaline Cast (Auto) U Epithel Cells (Auto) Urine Bacteria (Auto) Urine Yeast
--- NOTE | 2018-05-13 08:30 | Urology Progress Note ---
Date of Service May 13, 2018 Physical Exam Vital Signs (Past 24 Hours): Last Vital Signs Temp 36.4 C L 05/13/18 08:00 Pulse 67 05/13/18 08:00 Resp 16 05/13/18 08:00 BP 147/63 H 05/13/18 08:00 Pulse Ox 97 05/13/18 08:00
[2018-05-13] MEDS: SOTALOL HCL 80 MG TAB PO SCH ×2 (08:52→20:30)
[2018-05-13] MEDS: ASPIRIN 81 MG ECTAB PO SCH (08:53)
[2018-05-13] MEDS: SIROLIMUS 0.5 MG TABLET PO SCH (08:53)
[2018-05-13] MEDS: CHOLECALCIFEROL 1,000 UNITS TAB PO SCH (08:53)
[2018-05-13] MEDS: MYCOPHENOLATE MOFETIL 250 MG CAP PO SCH ×2 (08:53→20:31)
[2018-05-13] MEDS: HydrALAZINE 10 MG TAB PO SCH ×2 (08:53→20:31)
[2018-05-13] MEDS: AMLODIPINE BESYLATE 5 MG TAB PO SCH (08:53)
[2018-05-13] MEDS: INSULIN ASPART 100 UNITS/ML 3 ML PEN SC SCH ×4 (08:56→20:32)
[2018-05-13] MEDS ORDERED: INSULIN GLARGINE SOLOSTAR 100 UNITS/ML 3 ML PEN SC SCH ×2 (09:00)
[2018-05-13] MEDS: cefTRIAXone SODIUM 1,000 MG in DEXTROSE 5% 50 ML IV SCH (10:43)
[2018-05-13] MEDS ORDERED: POTASSIUM CHLORIDE 20 MEQ TABCR PO STA (14:44)
[2018-05-13] MEDS ORDERED: POTASSIUM CHLORIDE / WTR 10 MEQ/100 ML PLCT IV ONE (15:00)
--- NOTE | 2018-05-13 15:02 | Hospitalist Progress Note ---
Date of Service May 13, 2018 Assessment & Plan (1) UTI (urinary tract infection): Patient presenting from home with reports of generalized weakness and urinary burning (Recent admission to [facility] 03/09 through 03/23 for UTI, urinary retention, ROSSY in the setting of renal transplant; urine culture grew pansensitive E. coli at that time in the setting of renal transplant) Lindquist catheter has been placed on admission for urinary retention on this admission patient was started on ceftriaxone on this admission given that this admission urine culture returns as pansensitive E.coli, have discussed with Infectious Disease Dr. Alexander on 05/13/18 and patient being transitioned from IV ceftriaxone to oral cefdinir 300 mg q12 hours starting on 05/13/18 (2) Urinary retention: seen by [facility] for recurrent pansensitive E.coli UTIs, becoming more frequent and severe. 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 (3) S/p cadaver renal transplant: History of renal transplant Continue CellCept and sirolimus (4) ROSSY (acute kidney injury): admission creatinine of 1.49 05/11/18 creatinine is now back to baseline since 05/12/18 (5) CKD (chronic kidney disease), stage III: usual baseline creatinine of 1 (6) Hyponatremia: -Pseudohyponatremia of 126 from hyperglycemia with Corrected sodium 133 -serum sodium was stable as 133, currently 134 on 05/13/18 labs (7) Diabetes mellitus, type II: -Hgb A1c 8.5 04/2018 -admission hyperglycemia with blood sugar 395 has resolved after IV insulin drip which was stopped on 05/12/18 -05/13/18 patient again hyperglycemic with blood glucose above 300 while on subcutaneous insulin, discussed with pharmacy glycemic control about giving small bolus of IV insulin and then resuming subcutaneous Insulin coverage; additional potassium supplements have been ordered to avoid hypokalemia when given IV insulin (8) Paroxysmal A-fib: -Patient currently in atrial fibrillation -Rhythm controlled on sotalol which is continued -on coumadin -INR is subtherapeutic as INR 1.7 on 05/13/18, will increase coumadin from 0.5 mg daily to 1 mg daily for now (9) Hypertension: -BP controlled -Continue home doses of amlodipine and hydralazine (10) DVT prophylaxis: on coumadin Subjective Patient seen and examined at bedside. Patient with lindquist and denies dysuria currently. Patient denies abdominal pain. No chest pain. No shortness of breath. Continues to have lindquist Again with hyperglycemia today with blood sugars above 300. Patient is asymptomatic. baseline mental status Physical Exam Vital Signs (Past 24 Hours): Last Vital Signs Temp 36.8 C 05/13/18 12:19 Pulse 72 05/13/18 12:19 Resp 18 05/13/18 12:19 BP 125/75 05/13/18 12:19 Pulse Ox 99 05/13/18 12:19 Constitutional: WD/WN, vitals as above Eyes: PERRL, conjunctivae normal, anicteric sclerae EOM intact bilaterally ENMT: external ear and nose normal, oropharynx normal Neck: trachea midline, no thyromegaly normal visual inspection Respiratory: normal respiratory effort, lungs clear to auscultation Cardiovascular: RRR, no murmur, no edema Gastrointestinal (Abdomen): normal bowel sounds, soft, nontender, no hepatosplenomegaly Musculoskeletal: Head/Neck/Chest: normocephalic and head atraumatic Neurologic: PERRL, EOMI, accommodation nl, no face palsy, no dysarthria Psychiatric: A+Ox3, euthymic affect Genitourinary: + bladder abnormality (lindquist present) (1) Diabetes mellitus, type II Diabetes mellitus complication status: with unspecified complications Diabetes mellitus [facility] insulin use: 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
[2018-05-13] MEDS ORDERED: INSULIN HUMAN REGULAR PER IV ONE ×2 (15:30→16:00)
[2018-05-13] MEDS: WARFARIN SOD 1 MG TAB PO SCH (15:34)
--- NOTE | 2018-05-13 15:39 | Pharmacy Report ---
Pharmacy Glycemic Short Note 2 - Date of Service May 13, 2018 - Glycemic Short BSG Results (Last 24 hours): 05/12/18 05/12/18 05/13/18 16:12 20:11 05:57 Glucose 182 H POC Glucose 172 H 190 H 05/13/18 05/13/18 05/13/18 07:41 11:53 11:55 Glucose POC Glucose 199 H 357 H* 377 H* 05/13/18 05/13/18 14:32 14:35 Glucose POC Glucose 374 H* 359 H* OUTPATIENT ANTIDIABETIC REGIMEN: * Lantus 15 units Q HS * Novolog 12-22 units with meals * A1c = 10.1% ASSESSMENT: * 05/13 * Fasting BSG still somewhat elevated. Increased today's lantus dose by 20% * Post prandial levels okay yesterday, but lunchtime BSG elevated today. Breakfast carbs and coverage was were given late this morning, likely contributing to lunchtime hyperglycemia. Given the already high dose of novolog given at lunch, I requested a recheck BSG ~ 1430. This was also elevated, but I was informed that the patient had just eaten a yogurt (13g carbs) 10 minutes prior. Thus we do not have a great idea of prandial needs at this time. * Discussed with Dr. Valle, will give a 0.07 unit/kg this afternoon (Dr. Valle will order potassium replacement given K of 3.5 and cardiac med profile) * Will also tighten carb coverage/correction factor (am hesitant to make too many big changes at once, given past admission needs) * 05/12 * Type 2 diabetic admitted last evening for UTI, urinary retention in the setting of immunocompromise, as well as hyperglycemia * She is known to the glycemic control service from past admissions * She was started on an IV insulin drip per protocol last evening to quickly control BSGs. She was not acidotic. * Insulin drip ran overnight and was held at one point due to BSGs below goal range, but was resumed again this morning when GLU denia to within goal * Plan to transition patient off the insulin drip this AM. Initial SQ basal/bolus doses will be based upon data from prior admissions. Of note, she ususally requires substantially less prandial insulin while hospitalized and her basal needs do tend to fluctuate based upon severity of underlying illness. PLAN FOR INPATIENT GLYCEMIC CONTROL: * Basal insulin * Lantus 10 units SQ Q AM * 1st dose STAT * Discontinue the insulin drip ~4 hrs after the first dose of Lantus given * Bolus insulin * NovoLog per scale ACHS or Q6hrs while NPO * Goal Range: Low 120 mg/dL - High 150 mg/dL * Correction Factor: 30 mg/dL/unit * Nutritional / Prandial insulin per carb ratio of 1 unit per 9 grams CHO consumed PLAN FOR DISCHARGE: * to be determined
[2018-05-13] MEDS: CEFDINIR 125 MG/5 ML 60 ML BTL PO SCH (20:32)
[2018-05-14 06:41] LABS: INR 1.7 (0.9-1.1); Prothrombin Time 17.1 Seconds (9.0-12.0)
[2018-05-14 07:41] LABS: Eosinophils # (auto) 0.12 K/uL (0-0.5); Eosinophils % (auto) 1.6 %; Hematocrit (blood only) 31.8 % (37-47); Hemoglobin 9.9 g/dL (12.0-16.0); Immature Granulocytes # (auto) 0.04 K/uL (0.00-0.02); Immature Granulocytes % (auto) 0.5 %; Lymphocytes # (auto) 1.65 K/uL (1.2-3.4); Lymphocytes % (auto) 22.7 %; Mean Corpuscular Volume 87.4 fL (80-100); Mean Platelet Volume 8.7 fL (7.4-10.4); Monocytes # (auto) 0.76 K/uL (0.11-0.59); Monocytes % (auto) 10.4 %; Neutrophils # (auto) 4.71 K/uL (1.4-6.5); Neutrophils % (auto) 64.8 %; Platelet Count 297 K/uL (130-400); RDW Coefficient of Variation 16.5 % (11.5-14.5); Red Blood Count 3.64 M/uL (4.2-5.4); White Blood Count 7.28 K/uL (4.8-10.8)
[2018-05-14 07:44] LABS: Mean Corpuscular Hgb Conc 31.1 g/dL (32-36)
[2018-05-14 07:56] LABS: Albumin Globulin Ratio 0.4 (0.9-2); Albumin Level 1.8 gm/dl (3.4-5.0); BUN Creatinine Ratio 15.5 (10-20); Bilirubin,Total 0.2 mg/dl (0.2-1); Calcium 8.8 mg/dl (8.5-10.1); Creatinine Clr Calc Pharmacy 44.4 ml/min; Est GFR (African American) 65.9; Est GFR (Non-African American) 56.8; Globulin 4.7 gm/dl (2.5-4.0); Potassium 4.2 mmol/L (3.5-5.1); Total Protein 6.5 gm/dl (6.4-8.2)
[2018-05-14] MEDS: HydrALAZINE 10 MG TAB PO SCH ×2 (08:12→20:35)
[2018-05-14] MEDS: ASPIRIN 81 MG ECTAB PO SCH (08:12)
[2018-05-14] MEDS: AMLODIPINE BESYLATE 5 MG TAB PO SCH (08:12)
[2018-05-14] MEDS: MYCOPHENOLATE MOFETIL 250 MG CAP PO SCH ×2 (08:12→20:36)
[2018-05-14] MEDS: SIROLIMUS 0.5 MG TABLET PO SCH (08:12)
[2018-05-14] MEDS: CHOLECALCIFEROL 1,000 UNITS TAB PO SCH (08:12)
[2018-05-14] MEDS: SOTALOL HCL 80 MG TAB PO SCH ×2 (08:13→20:37)
[2018-05-14] MEDS: INSULIN GLARGINE SOLOSTAR 100 UNITS/ML 3 ML PEN SC SCH (08:14)
[2018-05-14] MEDS: INSULIN ASPART 100 UNITS/ML 3 ML PEN SC SCH ×4 (08:16→20:39)
[2018-05-14] MEDS: CEFDINIR 125 MG/5 ML 60 ML BTL PO SCH ×2 (08:26→20:35)
[2018-05-14 09:50] LABS: Estimated Average Glucose 192 mg/dl; Hemoglobin A1C 8.3 % (4.5-5.6)
--- NOTE | 2018-05-14 10:08 | Urology Progress Note ---
Date of Service May 14, 2018 Assessment & Plan (1) Escherichia coli infection: A/P 73 yo female with recurrent UTI, improving. Followup care details discussed with Dr. Kohler today. When clinically stable, okay to discharge with lindquist catheter in place. Will plan for outpatient testing (VCUG) and trial of void/CIC teaching to be arranged by our office. Recommend nitrofurantoin suppression after completion of short term abx(~2 weeks). Appreciate ID's recommendations as always. Careplan reviewed with patient, she verbalizes understanding. Thank you for allowing us to participate in the acute care of Ms. Seo. Please reconsult us with additional questions, concerns or changes in patient status. Subjective 73yo F with complicated E.coli UTI, weakness. Clinically improving, Remains afebrile, VSS. Labs stable, except elevated glucose. Resting comfortably in litter. Sleeping but easily arousable and alert upon verbal stimulation. Tolerating catheter well, denies dysuria, suprapubic pain or bladder spasms. Some fatigue but feels weakness is improvoign. Tolerating PO diet, denies n/v/f/c. Review of Systems All systems reviewed & are unremarkable except as noted in HPI & below Physical Exam Vital Signs (Past 24 Hours): Last Vital Signs Temp 37.0 C 05/14/18 07:50 Pulse 81 05/14/18 07:50 Resp 18 05/14/18 07:50 BP 138/56 L 05/14/18 07:50 Pulse Ox 94 05/14/18 07:50 Physical Exam: A&Ox3 RRR Abd soft, nontender Lindquist catheter draining good amounts of clear yellow Results & Data Laboratory Results Laboratory Results - last 48 hr 05/12/18 05/12/18 05/12/18 09:59 11:43 16:12 WBC RBC Hgb Hct MCV MCH MCHC RDW Std Deviation RDW Coeff of Anila Plt Count MPV Immature Gran % (Auto) Neut % (Auto) Lymph % (Auto) Gillespie % (Auto) Eos % (Auto) Baso % (Auto) Immature Gran # (Auto) Neut # (Auto) Lymph # (Auto) Gillespie # (Auto) Eos # (Auto) Baso # (Auto) PT INR Sodium 133 L Potassium 3.8 Chloride 101 Carbon Dioxide 26 Anion Gap 6.0 BUN 14 Creatinine 1.06 Est Cr Clr Drug Dosing 40.9 Est GFR ( Amer) 59.9 Est GFR (Non-Af Amer) 51.7 BUN/Creatinine Ratio 13.0 Glucose 211 H POC Glucose 252 H 172 H Estimat Average Glucose Hemoglobin A1c Calcium 8.0 L Total Bilirubin 0.2 AST 32 ALT 19 Alkaline Phosphatase 72 Total Protein 6.5 D Albumin 1.8 L Globulin 4.7 H Albumin/Globulin Ratio 0.4 L 05/12/18 05/13/18 05/13/18 20:11 05:57 05:57 WBC 7.25 RBC 3.46 L Hgb 9.3 L Hct 30.2 L MCV 87.3 MCH 26.9 MCHC 30.8 L RDW Std Deviation 53.2 H RDW Coeff of Anila 16.6 H Plt Count 274 MPV 8.5 Immature Gran % (Auto) 0.4 Neut % (Auto) 58.7 Lymph % (Auto) 28.6 Gillespie % (Auto) 11.0 Eos % (Auto) 1.2 Baso % (Auto) 0.1 Immature Gran # (Auto) 0.03 H Neut # (Auto) 4.25 Lymph # (Auto) 2.07 Gillespie # (Auto) 0.80 H Eos # (Auto) 0.09 Baso # (Auto) 0.01 PT 17.1 H INR 1.7 H Sodium Potassium Chloride Carbon Dioxide Anion Gap BUN Creatinine Est Cr Clr Drug Dosing Est GFR ( Amer) Est GFR (Non-Af Amer) BUN/Creatinine Ratio Glucose POC Glucose 190 H Estimat Average Glucose Hemoglobin A1c Calcium Total Bilirubin AST ALT Alkaline Phosphatase Total Protein Albumin Globulin Albumin/Globulin Ratio 05/13/18 05/13/18 05/13/18 05:57 07:41 11:53 WBC RBC Hgb Hct MCV MCH MCHC RDW Std Deviation RDW Coeff of Anila Plt Count MPV Immature Gran % (Auto) Neut % (Auto) Lymph % (Auto) Gillespie % (Auto) Eos % (Auto) Baso % (Auto) Immature Gran # (Auto) Neut # (Auto) Lymph # (Auto) Gillespie # (Auto) Eos # (Auto) Baso # (Auto) PT INR Sodium 134 L Potassium 3.5 Chloride 101 Carbon Dioxide 25 Anion Gap 8.0 BUN 16 Creatinine 1.00 Est Cr Clr Drug Dosing 43.4 Est GFR ( Amer) 64.3 Est GFR (Non-Af Amer) 55.5 BUN/Creatinine Ratio 16.2 Glucose 182 H POC Glucose 199 H 357 H* Estimat Average Glucose Hemoglobin A1c Calcium 8.4 L Total Bilirubin AST ALT Alkaline Phosphatase Total Protein Albumin Globulin Albumin/Globulin Ratio 05/13/18 05/13/18 05/13/18 11:55 14:32 14:35 WBC RBC Hgb Hct MCV MCH MCHC RDW Std Deviation RDW Coeff of Anila Plt Count MPV Immature Gran % (Auto) Neut % (Auto) Lymph % (Auto) Gillespie % (Auto) Eos % (Auto) Baso % (Auto) Immature Gran # (Auto) Neut # (Auto) Lymph # (Auto) Gillespie # (Auto) Eos # (Auto) Baso # (Auto) PT INR Sodium Potassium Chloride Carbon Dioxide Anion Gap BUN Creatinine Est Cr Clr Drug Dosing Est GFR ( Amer) Est GFR (Non-Af Amer) BUN/Creatinine Ratio Glucose POC Glucose 377 H* 374 H* 359 H* Estimat Average Glucose Hemoglobin A1c Calcium Total Bilirubin AST ALT Alkaline Phosphatase Total Protein Albumin Globulin Albumin/Globulin Ratio 05/13/18 05/13/18 05/13/18 15:56 15:57 18:59 WBC RBC Hgb Hct MCV MCH MCHC RDW Std Deviation RDW Coeff of Anila Plt Count MPV Immature Gran % (Auto) Neut % (Auto) Lymph % (Auto) Gillespie % (Auto) Eos % (Auto) Baso % (Auto) Immature Gran # (Auto) Neut # (Auto) Lymph # (Auto) Gillespie # (Auto) Eos # (Auto) Baso # (Auto) PT INR Sodium Potassium Chloride Carbon Dioxide Anion Gap BUN Creatinine Est Cr Clr Drug Dosing Est GFR ( Amer) Est GFR (Non-Af Amer) BUN/Creatinine Ratio Glucose POC Glucose 375 H* 386 H* 261 H Estimat Average Glucose Hemoglobin A1c Calcium Total Bilirubin AST ALT Alkaline Phosphatase Total Protein Albumin Globulin Albumin/Globulin Ratio 05/13/18 05/14/18 05/14/18 20:11 05:45 05:46 WBC 7.28 RBC 3.64 L Hgb 9.9 L Hct 31.8 L MCV 87.4 MCH 27.2 MCHC 31.1 L RDW Std Deviation 53.0 H RDW Coeff of Anila 16.5 H Plt Count 297 MPV 8.7 Immature Gran % (Auto) 0.5 Neut % (Auto) 64.8 Lymph % (Auto) 22.7 Gillespie % (Auto) 10.4 Eos % (Auto) 1.6 Baso % (Auto) 0.0 Immature Gran # (Auto) 0.04 H Neut # (Auto) 4.71 Lymph # (Auto) 1.65 Gillespie # (Auto) 0.76 H Eos # (Auto) 0.12 Baso # (Auto) 0.00 PT 17.1 H INR 1.7 H Sodium Potassium Chloride Carbon Dioxide Anion Gap BUN Creatinine Est Cr Clr Drug Dosing Est GFR ( Amer) Est GFR (Non-Af Amer) BUN/Creatinine Ratio Glucose POC Glucose 182 H Estimat Average Glucose Hemoglobin A1c Calcium Total Bilirubin AST ALT Alkaline Phosphatase Total Protein Albumin Globulin Albumin/Globulin Ratio 05/14/18 05/14/18 05/14/18 05:46 05:46 07:56 WBC RBC Hgb Hct MCV MCH MCHC RDW Std Deviation RDW Coeff of Anila Plt Count MPV Immature Gran % (Auto) Neut % (Auto) Lymph % (Auto) Gillespie % (Auto) Eos % (Auto) Baso % (Auto) Immature Gran # (Auto) Neut # (Auto) Lymph # (Auto) Gillespie # (Auto) Eos # (Auto) Baso # (Auto) PT INR Sodium 135 L Potassium 4.2 D Chloride 102 Carbon Dioxide 27 Anion Gap 6.0 BUN 15 Creatinine 0.98 Est Cr Clr Drug Dosing 44.4 Est GFR ( Amer) 65.9 Est GFR (Non-Af Amer) 56.8 BUN/Creatinine Ratio 15.5 Glucose 149 H POC Glucose 226 H Estimat Average Glucose 192 Hemoglobin A1c 8.3 H Calcium 8.8 Total Bilirubin 0.2 AST 73 H ALT 37 Alkaline Phosphatase 75 Total Protein 6.5 Albumin 1.8 L Globulin 4.7 H Albumin/Globulin Ratio 0.4 L
--- NOTE | 2018-05-14 14:55 | Hospitalist Progress Note ---
Date of Service May 14, 2018 Assessment & Plan (1) UTI (urinary tract infection): Patient presenting from home with reports of generalized weakness and urinary burning (Recent admission to [facility] 03/09 through 03/23 for UTI, urinary retention, ROSSY in the setting of renal transplant; urine culture grew pansensitive E. coli at that time in the setting of renal transplant) Lindquist catheter has been placed on admission for urinary retention on this admission patient was started on ceftriaxone on this admission given that this admission urine culture returns as pansensitive E.coli, have discussed with Infectious Disease Dr. Alexander on 05/13/18 and patient being transitioned from IV ceftriaxone to oral cefdinir 300 mg q12 hours starting on 05/13/18 continue cefdinir (2) Urinary retention: seen by [facility] for recurrent pansensitive E.coli UTIs, becoming more frequent and severe. continue lindquist catheter and antibiotics it would appear based on [facility] notes that patient will likely go home with lindquist and continue antibiotics for 2 weeks and then [facility] will do for outpatient testing (VCUG) and trial of void/CIC teaching to be arranged by our office and then subsequent nitrofurantoin suppression Patient may benefit from Catheter Clean intermittent cathetering (CIC) teaching in the future (3) S/p cadaver renal transplant: History of renal transplant Continue CellCept and sirolimus (4) ROSSY (acute kidney injury): admission creatinine of 1.49 05/11/18 creatinine is now back to baseline since 05/12/18 (5) CKD (chronic kidney disease), stage III: usual baseline creatinine of 1 (6) Hyponatremia: -Pseudohyponatremia of 126 from hyperglycemia with Corrected sodium 133 -serum sodium was stable as 133, currently 134 on 05/13/18 labs (7) Diabetes mellitus, type II: -Hgb A1c 8.5 04/2018 -admission hyperglycemia with blood sugar 395 has resolved after IV insulin drip which was stopped on 05/12/18 -05/13/18 patient again hyperglycemic with blood glucose above 300 while on subcutaneous insulin, discussed with pharmacy glycemic control about giving small bolus of IV insulin and then resuming subcutaneous Insulin coverage; additional potassium supplements have been ordered to avoid hypokalemia when given IV insulin -05/14/18: patient's blood sugars better controlled today in the 200s, plan to continue with subcutaneous insulin as per pharmacy glycemic control (8) Paroxysmal A-fib: -Patient currently in atrial fibrillation -Rhythm controlled on sotalol which is continued -on coumadin -INR is subtherapeutic as INR 1.7 on 05/13/18, and coumadin increased from 0.5 mg daily to 1 mg daily -INR still 1.7 on 05/14/18, continue coumadin 1 mg daily (9) Hypertension: -BP controlled -Continue home doses of amlodipine and hydralazine (10) DVT prophylaxis: on coumadin Disposition: continue to remain in the hospital for stable glucose control, anticipating outpatient urology plans as above when sugars are better controlled Subjective Patient seen and examined at bedside. Patient with lindquist and denies dysuria currently. Patient denies abdominal pain. No chest pain. No shortness of breath. Continues to have lindquist Patient's blood glucose is better controlled today in the 200s Physical Exam Vital Signs (Past 24 Hours): Last Vital Signs Temp 37.1 C 05/14/18 11:45 Pulse 72 05/14/18 11:45 Resp 16 05/14/18 11:45 BP 136/64 05/14/18 11:45 Pulse Ox 93 05/14/18 11:45 Constitutional: WD/WN, vitals as above Eyes: PERRL, conjunctivae normal, anicteric sclerae EOM intact bilaterally ENMT: external ear and nose normal, oropharynx normal Neck: trachea midline, no thyromegaly normal visual inspection Respiratory: normal respiratory effort, lungs clear to auscultation Cardiovascular: Rate/Rhythm: regular rate Gastrointestinal (Abdomen): normal bowel sounds, soft, nontender, no hepatosplenomegaly Musculoskeletal: Head/Neck/Chest: normocephalic and head atraumatic Neurologic: PERRL, EOMI, accommodation nl, no face palsy, no dysarthria Psychiatric: A+Ox3, euthymic affect Genitourinary: + bladder abnormality (lindquist present) (1) Diabetes mellitus, type II 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
--- NOTE | 2018-05-14 15:24 | Infectious Disease Progress Nt ---
Date of Service May 14, 2018 Assessment & Plan (1) UTI (urinary tract infection): Recurrent urinary tract infection with E. coli, agree with urology that anatomic abnormality possible given isolation of same organism. Would continue patient on oral antibiotics at least for several weeks until further evaluation by urology as outpatient. We will continue to follow while in hospital. (2) Escherichia coli infection: Subjective Patient seen in follow-up for recurrent E. coli urinary tract infection. As discussed, now transition to oral cefdinir, tolerating without apparent difficulty so far. Remains afebrile. No increase in abdominal pain or flank pain. No dysuria. Review of Systems All systems reviewed & are unremarkable except as noted in HPI & below Physical Exam Vital Signs (Past 24 Hours): Last Vital Signs Temp 36.9 C 05/14/18 15:00 Pulse 72 05/14/18 15:00 Resp 18 05/14/18 15:00 BP 128/64 05/14/18 15:00 Pulse Ox 94 05/14/18 15:00 Constitutional: WD/WN, vitals as above comfortable; no acute distress Eyes: PERRL, conjunctivae normal, anicteric sclerae ENMT: external ear and nose normal, oropharynx normal Neck: trachea midline, no thyromegaly neck nontender Respiratory: normal respiratory effort, lungs clear to auscultation normal percussion; no respiratory distress Cardiovascular: Rate/Rhythm: regular rate and regular rhythm Heart Sounds: normal S1 and normal S2; no gallop, no murmur and no cardiac rub Gastrointestinal (Abdomen): normal bowel sounds, soft, nontender, no hepatosplenomegaly Musculoskeletal: no cyanosis or clubbing, extremities motor strength 5/5 No spinal tenderness, no joint swelling or erythema Skin: no rashes, warm and dry no lesions Neurologic: moves all extremities and awake; no focal motor deficits Motor/Sensory: no sensory deficit Psychiatric: A+Ox3, euthymic affect Lymphatic: no cervical or axillary lymphadenopathy no inguinal lymphadenopathy Results & Data Laboratory Results Short CBC 05/14/18 Range/Units 05:46 WBC 7.28 (4.8-10.8) K/uL Hgb 9.9 L (12.0-16.0) g/dL Hct 31.8 L (37-47) % Plt Count 297 (130-400) K/uL [facility] 05/14/18 05:46 Sodium 135 L Potassium 4.2 D Chloride 102 Carbon Dioxide 27 BUN 15 Creatinine 0.98 Glucose 149 H Calcium 8.8 Liver Function 05/14/18 Range/Units 05:46 Total Bilirubin 0.2 (0.2-1) mg/dl AST 73 H (15-37) U/L ALT 37 (12-78) U/L Alkaline Phosphatase 75 (45-117) U/L Albumin 1.8 L (3.4-5.0) gm/dl Diagnostic Findings Microbiology 05/11/18 10:10 Urine,Clean Catch Urine Culture - Final Escherichia coli
[2018-05-14] MEDS: WARFARIN SOD 1 MG TAB PO SCH (15:54)
[2018-05-14] MEDS: ACETAMINOPHEN 325 MG TAB PO PRN (17:42)
[2018-05-15] MEDS: INSULIN ASPART 100 UNITS/ML 3 ML PEN SC SCH ×2 (08:36→12:12)
[2018-05-15] MEDS: ASPIRIN 81 MG ECTAB PO SCH (08:37)
[2018-05-15] MEDS: CHOLECALCIFEROL 1,000 UNITS TAB PO SCH (08:37)
[2018-05-15] MEDS: AMLODIPINE BESYLATE 5 MG TAB PO SCH (08:37)
[2018-05-15] MEDS: HydrALAZINE 10 MG TAB PO SCH (08:37)
[2018-05-15] MEDS: CEFDINIR 125 MG/5 ML 60 ML BTL PO SCH (08:38)
[2018-05-15] MEDS: SOTALOL HCL 80 MG TAB PO SCH (08:38)
[2018-05-15] MEDS: SIROLIMUS 0.5 MG TABLET PO SCH (08:38)
[2018-05-15] MEDS: MYCOPHENOLATE MOFETIL 250 MG CAP PO SCH (08:39)
[2018-05-15] MEDS: INSULIN GLARGINE SOLOSTAR 100 UNITS/ML 3 ML PEN SC SCH (08:39)
--- NOTE | 2018-05-15 09:08 | Pharmacy Report ---
Glycemic Control Progress Note - Date of Service May 15, 2018 - Scope Glycemic Pharmacist consulted for glycemic control to write orders per [facility] inpatient glycemic control protocol. - Objective Accuchecks BSG(last 24 hours):: 05/14/18 05/14/18 05/14/18 12:05 16:18 20:12 POC Glucose 201 H 155 H 236 H 05/15/18 07:47 POC Glucose 213 H HbA1c:: Hemoglobin A1c 8.3 % (4.5-5.6) H 05/14/18 05:46 - Recent Pertinent Medications The patient is currently receiving: * Basal insulin: Lantus 15 units every 24 hours in the AM * Correctional Insulin: Novolog Correction per scale ACHS Goal Range: Low 110 mg/dL - High 140 mg/dL Correction Factor: 25 mg/dL/unit * Prandial insulin: Per carb ratio of 1 unit per 8 grams CHO consumed - Outpatient Anti-Diabetic Meds Lantus 15 units in the evening Novolog 12-22 units AC - Assessment & Plan ASSESSMENT: * See progress note from 05/12/18 for more background info, in short: * Pt receiving SQ basal bolus insulin regimen for hyperglycemia secondary to baseline DM (outpatient regimen on hold),stress/infection (on cefdinir for UTI). * Patient is currently receiving an average of 41 units of insulin per day * 15 units of basal insulin * 26 units of prandial/correctional insulin * BSGs ranging 155 - 236 mg/dl over the past 24hrs * Changes needed to insulin regimen: * AM Fasting BSG = 213 mg/dl. This is above goal range but trending down for patient based on inpatient targets and co-morbidities. Therefore Basal insulin will be continued. This is the patient's home dose. May benefit from increase tomorrow. * Post-prandial BSGs are elevated/BSGs rise throughout the day therefore need to tighten CF/CR. * Total daily dose = >50 units. This is extremely odd for the patient as during previous hospitalizations she has required closer to 24-30 units of insulin. Will titrate slowly. PLAN FOR INPATIENT GLYCEMIC CONTROL: * Continuing Lantus 15 units SQ qAM * Changing correction factor to 20 mg/dl/unit * Changing carb ratio to 1 unit per 6 grams CHO consumed * Continuing goal range of Low 110 mg/dL - High 140 mg/dL RECOMMENDATIONS FOR DISCHARGE: * At home patient is on a bolus heavy regimen with what appears to be uncontrolled diabetes. * Lantus - recommend increasing to 18 units (represents around a 15% increase which is reasonable). Patient's blood sugars are typically uncontrolled in the morning while here and appear to be uncontrolled as an outpatient. * Novolog- continue Novolog. Attempting to achieve a more 50/50 split with basal/bolus insulin. This looks like a moderate "sliding scale" for the patient. If she eats consistently, it may be reasonable to start with a fixed dose of around 5 units for meals and then add insulin for elevated blood sugars. * Please note that the plan above was derived based on current level of insulin resistance and hospital stress. These recommendations are appropriate for inpatient admission only. Plan of care upon discharge will need to be reassessed to avoid potential outpatient hypo/hyperglycemia. Thank you.
[2018-05-15 09:33] LABS: INR 1.5 (0.9-1.1); Prothrombin Time 15.4 Seconds (9.0-12.0)
--- NOTE | 2018-05-15 10:50 | Hospitalist Progress Note ---
Date of Service May 15, 2018 Assessment & Plan (1) UTI (urinary tract infection): Patient presenting from home with reports of generalized weakness and urinary burning (Recent admission to [facility] 03/09 through 03/23 for UTI, urinary retention, ROSSY in the setting of renal transplant; urine culture grew pansensitive E. coli at that time in the setting of renal transplant) Lindquist catheter has been placed on admission for urinary retention on this admission patient was started on ceftriaxone on this admission given that this admission urine culture returns as pansensitive E.coli, have discussed with Infectious Disease Dr. Alexander on 05/13/18 and patient being transitioned from IV ceftriaxone to oral cefdinir 300 mg q12 hours starting on 05/13/18 continue cefdinir Discharge home with lindquist Patient should continue to take cefdinir 300 mg every 12 hours for 2 weeks Patient should follow up with [facility] clinic as they plan for outpatient testing (VCUG) and trial of void/CIC teaching [facility] Patient may need chronic nitrofurantoin suppression after completion of cefdinir (2) Urinary retention: seen by [facility] urology for recurrent pansensitive E.coli UTIs, becoming more frequent and severe. continue lindquist catheter and antibiotics Discharge home with lindquist Patient should continue to take cefdinir 300 mg every 12 hours for 2 weeks Patient should follow up with [facility] clinic as they plan for outpatient testing (VCUG) and trial of void/CIC teaching to be arranged [facility] Patient may need chronic nitrofurantoin suppression after completion of cefdinir (3) S/p cadaver renal transplant: History of renal transplant Continue CellCept and sirolimus (4) ROSSY (acute kidney injury): admission creatinine of 1.49 05/11/18 creatinine is now back to baseline since 05/12/18 (5) CKD (chronic kidney disease), stage III: usual baseline creatinine of 1 (6) Hyponatremia: -Pseudohyponatremia of 126 from hyperglycemia with Corrected sodium 133 -serum sodium was stable as 133 then 134 on 05/13/18 labs -mild hyponatremia with serum sodium 135 on 05/15/18 (7) Diabetes mellitus, type II: -Hgb A1c 8.5 04/2018 -admission hyperglycemia with blood sugar 395 has resolved after IV insulin drip which was stopped on 05/12/18 -05/13/18 patient again hyperglycemic with blood glucose above 300 while on subcutaneous insulin, discussed with pharmacy glycemic control about giving small bolus of IV insulin and then resuming subcutaneous Insulin coverage; additional potassium supplements have been ordered to avoid hypokalemia when given IV insulin -05/14/18: patient's blood sugars better controlled today in the 200s, plan to continue with subcutaneous insulin as per pharmacy glycemic control -05/15/18: contineu subcutanous insulin Recent plans for INPATIENT glycemic control Continuing Lantus 15 units SQ qAM Changing correction factor to 20 mg/dl/unit Changing carb ratio to 1 unit per 6 grams CHO consumed Continuing goal range of Low 110 mg/dL - High 140 mg/dL RECOMMENDATIONS FOR DISCHARGE: "At home patient is on a bolus heavy regimen with what appears to be uncontrolled diabetes. Lantus - recommend increasing to 18 units (represents around a 15% increase which is reasonable). Patient's blood sugars are typically uncontrolled in the morning while here and appear to be uncontrolled as an outpatient. Novolog- continue Novolog. Attempting to achieve a more 50/50 split with basal/bolus insulin. This looks like a moderate "sliding scale" for the patient. If she eats consistently, it may be reasonable to start with a fixed dose of around 5 units for meals and then add insulin for elevated blood sugars." Patient should follow up with primary care doctor and continue glucose control recommendations including being on Lantus 18 units daily 05/18/2018 11:00 AM Provider Kate Aguilar MD Department Internal Medicine [facility] (8) Paroxysmal A-fib: -Patient currently in atrial fibrillation -Rhythm controlled on sotalol which is continued -on coumadin -INR is subtherapeutic as INR 1.7 on 05/13/18, and coumadin increased from 0.5 mg daily to 1 mg daily -INR still 1.7 on 05/14/18, continue coumadin 1 mg daily -INR 1.5 on 05/15/18 Take warfarin 1 mg daily until follow up INR labs with 05/18/2018 11:00 AM Provider Kate Aguilar MD Department Internal Medicine [facility] or 05/20/2018 5:30 PM Provider [facility], [facility] (9) Hypertension: -BP controlled -Continue home doses of amlodipine and hydralazine (10) DVT prophylaxis: on coumadin Discharge diagnosis: Urinary Retention, Urinary Tract Infection, Type 2 diabetes mellitus with hyperglycemia with detention current use of insulin, paroxysmal atrial fibrillation, on coumadin, Hypertension, mild hyponatremia Discharge Instructions Discharge home with lindquist Patient should continue to take cefdinir 300 mg every 12 hours for 2 weeks Patient should follow up with [facility] clinic as they plan for outpatient testing (VCUG) and trial of void/CIC teaching to be arranged by [facility] urology office Patient may need chronic nitrofurantoin suppression after completion of cefdinir Take warfarin 1 mg daily until follow up INR labs with 05/18/2018 11:00 AM Provider Kate Aguilar MD Department Internal Medicine [facility] or 05/20/2018 5:30 PM [facility] Patient should follow up with primary care doctor and continue glucose control recommendations including being on Lantus 18 units daily 05/18/2018 11:00 AM Provider Kate Aguilar MD Department Internal Medicine [facility] 05/28/2018 1:00 PM Provider Laurel Renee MD Department Internal Medicine [facility] Recent plans for INPATIENT glycemic control Continuing Lantus 15 units SQ qAM Changing correction factor to 20 mg/dl/unit Changing carb ratio to 1 unit per 6 grams CHO consumed Continuing goal range of Low 110 mg/dL - High 140 mg/dL RECOMMENDATIONS FOR DISCHARGE: "At home patient is on a bolus heavy regimen with what appears to be uncontrolled diabetes. Lantus - recommend increasing to 18 units (represents around a 15% increase which is reasonable). Patient's blood sugars are typically uncontrolled in the morning while here and appear to be uncontrolled as an outpatient. Novolog- continue Novolog. Attempting to achieve a more 50/50 split with basal/bolus insulin. This looks like a moderate "sliding scale" for the patient. If she eats consistently, it may be reasonable to start with a fixed dose of around 5 units for meals and then add insulin for elevated blood sugars." Subjective Patient seen and examined at bedside. Patient with lindquist and denies dysuria currently. Patient denies abdominal pain. No chest pain. No shortness of breath. Continues to have lindquist Physical Exam Vital Signs (Past 24 Hours): Last Vital Signs Temp 37.1 C 05/15/18 07:36 Pulse 66 05/15/18 07:36 Resp 18 05/15/18 07:36 BP 138/57 L 05/15/18 07:36 Pulse Ox 95 05/15/18 07:36 Constitutional: WD/WN, vitals as above Eyes: PERRL, conjunctivae normal, anicteric sclerae EOM intact bilaterally ENMT: external ear and nose normal, oropharynx normal Neck: trachea midline, no thyromegaly normal visual inspection Respiratory: normal respiratory effort, lungs clear to auscultation Cardiovascular: RRR, no murmur, no edema Rate/Rhythm: regular rate Gastrointestinal (Abdomen): normal bowel sounds, soft, nontender, no hepatosplenomegaly Musculoskeletal: Head/Neck/Chest: normocephalic and head atraumatic Neurologic: PERRL, EOMI, accommodation nl, no face palsy, no dysarthria Psychiatric: A+Ox3, euthymic affect Genitourinary: + bladder abnormality (lindquist present) (1) Diabetes mellitus, type II Diabetes mellitus complication status: with unspecified complications Diabetes mellitus detention insulin use: unspecified manager long term care insulin use status Qualified Code(s): E11.8 - Type 2 diabetes mellitus with unspecified complications
--- NOTE | 2018-05-15 10:56 | Discharge Summary ---
Date of Service May 15, 2018 Admission HPI Per Admitting Provider 73-year-old female who presents to the ED with generalized weakness and burning with urination. Patient was recently admitted to [facility] 03/09 through 03/23 for UTI, urinary retention, ROSSY. Patient's urine culture grew a pansensitive E. coli, she was discharged on a course of cephalexin. Patient had a Lindquist catheter in place during admission however he was able to be discontinued prior to discharge and patient was urinating without difficulty. Patient reports she had been feeling pretty well since being home from the hospital. She reports that last evening, she developed generalized weakness. She was having diff iculty standing up from the toilet. She also has developed some urinary burning. She does not feel as though she is emptying her bladder the entire way. She denies fevers and chills. No back pain or flank pain. She denies lightheadedness, dizziness, diaphoresis, syncopal events. She has some suprapubic abdominal pain. No nausea, vomiting, diarrhea. In the ED, patient's UA suggest UTI. She is hemodynamically stable without signs of sepsis. Creatinine is 1.4 (baseline ~1.0). She was given IVF and a dose of IV Rocephin. Admission Exam Per Admitting Provider Constitutional: WD/WN, vitals as above Eyes: PERRL, conjunctivae normal, anicteric sclerae ENMT: external ear and nose normal, oropharynx normal Respiratory: normal respiratory effort; no respiratory distress Auscultation: + diminished lung sounds (Bilateral bases) Cardiovascular: Rate/Rhythm: regular rate; + abnormal rhythm (Irregularly ir regular) Vessels: normal peripheral pulses Extremities: no edema Gastrointestinal (Abdomen): Inspection/Auscultation: normal bowel sounds; abdomen not distended Percussion/Palpation: + abdomen tender (Suprapubic) and abdomen soft; no hepatosplenomegaly Musculoskeletal: Extremities: no cyanosis and no clubbing Strength generally weak throughout, 4/5 throughout all extremities Skin: no rashes, warm and dry Neurologic: PERRL, EOMI, accommodation nl, no face palsy, no dysarthria Psychiatric: Orientation: alert and oriented x 3 Affect: + depressed affect Principal Diagnosis Urinary Retention, Urinary Tract Infection, Type 2 diabetes mellitus with hyperglycemia with intermediate manager current use of insulin, paroxysmal atrial fibrillation, on coumadin, Hypertension, mild hyponatremia Discharge Exam Constitutional WD/WN, vitals as above Eyes PERRL, conjunctivae normal, anicteric sclerae EOM intact bilaterally ENMT external ear and nose normal, oropharynx normal Neck trachea midline, no thyromegaly normal visual inspection Respiratory normal respiratory effort, lungs clear to auscultation Cardiovascular RRR, no murmur, no edema Rate/Rhythm: regular rate Gastrointestinal (Abdomen) normal bowel sounds, soft, nontender, no hepatosplenomegaly Musculoskeletal Head/Neck/Chest: normocephalic and head atraumatic Neurologic PERRL, EOMI, accommodation nl, no face palsy, no dysarthria Psychiatric A+Ox3, euthymic affect Genitourinary + bladder abnormality (lindquist present) Discharge Data Allergies Allergy/AdvReac Type Severity Reaction Status Date / Time KATIA Inhibitors Allergy Unknown Verified 05/11/18 10:45 ARB-Angiotensin Receptor Allergy Unknown Verified 05/11/18 10:45 Antagonist amoxicillin AdvReac Severe nausea Verified 05/11/18 10:45 Consultations 05/11/18 14:14 ED Decision to Admit Stat 05/11/18 17:35 Consult Case Management - Discharge Planning Routine Consult Infectious Diseases Routine Consult Urology Routine Hospital Course (1) UTI (urinary tract infection): Patient presenting from home with reports of generalized weakness and urinary burning (Recent admission to [facility] 03/09 through 03/23 for UTI, urinary retention, ROSSY in the setting of renal transplant; urine culture grew pansensitive E. coli at that time in the setting of renal transplant) Lindquist catheter has been placed on admission for urinary retention on this admission patient was started on ceftriaxone on this admission given that this admission urine culture returns as pansensitive E.coli, have discussed with Infectious Disease Dr. Alexander on 05/13/18 and patient being tr ansitioned from IV ceftriaxone to oral cefdinir 300 mg q12 hours starting on 05/13/18 continue cefdinir Discharge home with lindquist Patient should continue to take cefdinir 300 mg every 12 hours for 2 weeks Patient should follow up with [facility] as they plan for outpatient testing (VCUG) and trial of void/CIC teaching to be arranged by [facility] Patient may need chronic nitrofurantoin suppression after completion of cefdinir (2) Urinary retention: seen by [facility] for recurrent pansensitive E.coli UTIs, becoming more frequent and severe. continue lindquist catheter and antibiotics Discharge home with lindquist Patient should continue to take cefdinir 300 mg every 12 hours for 2 weeks Patient should follow up with [facility] clinic as they plan for outpatient testing (VCUG) and trial of void/CIC teaching to be arranged by [facility] urology office Patient may need chronic nitrofurantoin suppression after completion of cefdinir (3) S/p cadaver renal transplant: History of renal transplant Continue CellCept and sirolimus (4) ROSSY (acute kidney injury): admission creatinine of 1.49 05/11/18 creatinine is now back to baseline since 05/12/18 (5) CKD (chronic kidney disease), stage III: usual baseline creatinine of 1 (6) Hyponatremia: -Pseudohyponatremia of 126 from hyperglycemia with Corrected sodium 133 -serum sodium was stable as 133 then 134 on 05/13/18 labs -mild hyponatremia with serum sodium 135 on 05/15/18 (7) Diabetes mellitus, type II: -Hgb A1c 8.5 04/2018 -admission hyperglycemia with blood sugar 395 has resolved after IV insulin drip which was stopped on 05/12/18 -05/13/18 patient again hyperglycemic with blood glucose above 300 while on subcutaneous insulin, discussed with pharmacy glycemic control about giving small bolus of IV insulin and then resuming subcutaneous Insulin coverage; additional potassium supplements have been ordered to avoid hypokalemia when given IV insulin -05/14/18: patient's blood sugars better controlled today in the 200s, plan to continue with subcutaneous insulin as per pharmacy glycemic control -05/15/18: contineu subcutanous insulin Recent plans for INPATIENT glycemic control Continuing Lantus 15 units SQ qAM Changing correction factor to 20 mg/dl/unit Changing carb ratio to 1 unit per 6 grams CHO consumed Continuing goal range of Low 110 mg/dL - High 140 mg/dL RECOMMENDATIONS FOR DISCHARGE: "At home patient is on a bolus heavy regimen with what appears to be uncontrolled diabetes. Lantus - recommend increasing to 18 units (represents around a 15% increase which is reasonable). Patient's blood sugars are typically uncontrolled in the morning while here and appear to be uncontrolled as an outpatient. Novolog- continue Novolog. Attempting to achieve a more 50/50 split with basal/bolus insulin. This looks like a moderate "sliding scale" for the patient. If she eats consistently, it may be reasonable to start with a fixed dose of around 5 units for meals and then add insulin for elevated blood sugars." Patient should follow up with primary care doctor and continue glucose control recommendations including being on Lantus 18 units daily 05/18/2018 11:00 AM Provider Kate Aguilar MD Department Internal Medicine [facility] (8) Paroxysmal A-fib: -Patient currently in atrial fibrillation -Rhythm controlled on sotalol which is continued -on coumadin -INR is subtherapeutic as INR 1.7 on 05/13/18, and coumadin increased from 0.5 mg daily to 1 mg daily -INR still 1.7 on 05/14/18, continue coumadin 1 mg daily -INR 1.5 on 05/15/18 Take warfarin 1 mg daily until follow up INR labs with 05/18/2018 11:00 AM Provider Kate Aguilar MD Department Internal Medicine [facility] or 05/20/2018 5:30 PM Provider [facility] ([facility] Hypertension: -BP controlled -Continue home doses of amlodipine and hydralazine (10) DVT prophylaxis: on coumadin Discharge diagnosis: Urinary Retention, Urinary Tract Infection, Type 2 diabetes mellitus with hyperglycemia with retirement current use of insulin, paroxysmal atrial fibrillation, on coumadin, Hypertension, mild hyponatremia Discharge Instructions Discharge home with lindquist Patient should continue to take cefdinir 300 mg every 12 hours for 2 weeks Patient should follow up with [facility] clinic as they plan for outpatient testing (VCUG) and trial of void/CIC teaching to be arranged by [facility] urology office Patient may need chronic nitrofurantoin suppression after completion of cefdinir Take warfarin 1 mg daily until follow up INR labs with 05/18/2018 11:00 AM Provider Kate Aguilar MD Department Internal Medicine [facility] or 05/20/2018 5:30 PM Provider [facility], [facility] Patient should follow up with primary care doctor and continue glucose control recommendations including being on Lantus 18 units daily 05/18/2018 11:00 AM Provider Kate Aguilar MD Department Internal Medicine [facility] 05/28/2018 1:00 PM Provider Laurel Renee MD Department Internal Medicine [facility] Recent plans for INPATIENT glycemic control Continuing Lantus 15 units SQ qAM Changing correction factor to 20 mg/dl/unit Changing carb ratio to 1 unit per 6 grams CHO consumed Continuing goal range of Low 110 mg/dL - High 140 mg/dL RECOMMENDATIONS FOR DISCHARGE: "At home patient is on a bolus heavy regimen with what appears to be uncontrolled diabetes. Lantus - recommend increasing to 18 units (represents around a 15% increase which is reasonable). Patient's blood sugars are typically uncontrolled in the morning while here and appear to be uncontrolled as an outpatient. Novolog- continue Novolog. Attempting to achieve a more 50/50 split with basal/bolus insulin. This looks like a moderate "sliding scale" for the patient. If she eats consistently, it may be reasonable to start with a fixed dose of around 5 units for meals and then add insulin for elevated blood sugars." Total Time Total Time Spent Total Time Spent (In Minutes): 40 minutes Total Time Includes: Examination of the Patient, Discharge Planning and Medication Reconciliation Discharge Plan Discharge Items Patient Disposition: Home - Self-Care Reason For Visit: UTI Discharge Diagnosis: Urinary Retention, Urinary Tract Infection, Type 2 diabetes mellitus with hyperglycemia with retirement current use of insulin, paroxysmal atrial fibrillation, on coumadin, Hypertension, mild hyponatremia Condition: Good Discharge Goals: Improve disease control Activity: Resume your previous activity Non-emergency contact: Primary Care Provider and Urologist Call non-emergency contact if: you have any medication questions Follow-up/Referrals: Laurel Renee MD [Primary Care Provider] - Diet: Carb Consistent or DM2 Addtl Provider Instructions: Discharge home with lidnquist Patient should continue to take cefdinir 300 mg every 12 hours for 2 weeks Patient should follow up with [facility] clinic as they plan for outpatient testing (VCUG) and trial of void/CIC teaching to be arranged by [facility] urology office Patient may need chronic nitrofurantoin suppression after completion of cefdinir Take warfarin 1 mg daily until follow up INR labs with 05/18/2018 11:00 AM Provider Kate Aguilar MD Department Internal Medicine [facility] or 05/20/2018 5:30 PM Provider [facility], [facility] Patient should follow up with primary care doctor and continue glucose control recommendations including being on Lantus 18 units daily 05/18/2018 11:00 AM Provider Kate Aguilar MD Department Internal Medicine [facility] 05/28/2018 1:00 PM Provider Laurel Renee MD Department Internal Medicine [facility] Recent plans for INPATIENT glycemic control Continuing Lantus 15 units SQ qAM Changing correction factor to 20 mg/dl/unit Changing carb ratio to 1 unit per 6 grams CHO consumed Continuing goal range of Low 110 mg/dL - High 140 mg/dL RECOMMENDATIONS FOR DISCHARGE: "At home patient is on a bolus heavy regimen with what appears to be un controlled diabetes. Lantus - recommend increasing to 18 units (represents around a 15% increase which is reasonable). Patient's blood sugars are typically uncontrolled in the morning while here and appear to be uncontrolled as an outpatient. Novolog- continue Novolog. Attempting to achieve a more 50/50 split with basal/bolus insulin. This looks like a moderate "sliding scale" for the patient. If she eats consistently, it may be reasonable to start with a fixed dose of around 5 units for meals and then add insulin for elevated blood sugars." Prescriptions: New warfarin [Coumadin] 1 mg Tablet 1 mg PO DAILY@1600 30 Days Qty: 30 RF: 0 Lantus Solostar U-100 Insulin 100 unit/mL (3 mL) Insulin Pen 18 unit SC HS 30 Days Qty: 5.4 RF: 0 cefdinir 300 mg capsule 300 mg PO Q12 14 Days Qty: 28 RF: 0 Continued Lactinex 1 million cell tablet,chewable 1 tab PO BID Qty: 20 RF: 0 tramadol 50 mg tablet 50 mg PO Q8H PRN (Reason: pain) Qty: 10 RF: 0 acetaminophen [Tylenol Extra Strength] 500 mg Tablet 500 mg PO Q6H PRN (Reason: Pain) RF: 0 mirtazapine 15 mg tablet 15 mg PO HS RF: 0 hydralazine 10 mg Tablet 10 mg PO BID RF: 0 mycophenolate mofetil 250 mg Capsule 250 mg PO Q12 RF: 0 aspirin [Aspirin Low Dose] 81 mg Tablet,Delayed Release (Dr/Ec) 81 mg PO QAM RF: 0 sotalol 120 mg Tablet 120 mg PO BID RF: 0 sirolimus 1 mg Tablet 1 mg PO QAM RF: 0 amlodipine 10 mg Tablet 10 mg PO QAM RF: 0 cholecalciferol (vitamin D3) [Vitamin D3] 1,000 unit Capsule 1,000 unit PO QAM RF: 0 Novolog Flexpen U-100 Insulin 100 unit/mL Insulin Pen 12 - 22 unit SUBCUT AC RF: 0 Discontinued warfarin 1 mg Tablet 0.5 mg PO SUMOTUWETHSA@0900 RF: 0 Lantus Solostar U-100 Insulin 100 unit/mL (3 mL) Insulin Pen 15 unit SUBCUT HS RF: 0 warfarin 2 mg Tablet 1 mg PO FR@0900 RF: 0 Stand-Alone Forms: [facility] Discharge Orders: Discharge Order (Routine); Ordered 05/15/18 Ordered By: Raheel Valle Admission Data Admit Date/Time: 05/11/18 14:44 Attending Provider: Raheel Valle Admit Provider: Aiyana Lei Primary Care Provider: Laurel Renee Other Providers: Aiyana Lei ; Eric Alexander ; Nicholas Wall Service: Telemetry Medical
== END 2018-05-15 15:30 | disposition home health service (06) | DRG 683 ==
LOC: ED 10:02 → 2N 14:44 → SUATTDRO 14:44 → 2N 17:35
DX: R33.9 Retention of urine, unspecified; I48.0 Paroxysmal atrial fibrillation; Z88.1 Allergy status to other antibiotic agents; Z79.82 Long term (current) use of aspirin; N39.0 Urinary tract infection, site not specified; N18.3 Chronic kidney disease, stage 3 (moderate); E87.1 Hypo-osmolality and hyponatremia; E11.22 Type 2 diabetes mellitus with diabetic chronic kidney disease; B96.20 Unspecified Escherichia coli [E. coli] as the cause of diseases classified elsewhere; N17.9 Acute kidney failure, unspecified; Z98.49 Cataract extraction status, unspecified eye; Z87.440 Personal history of urinary (tract) infections; I34.0 Nonrheumatic mitral (valve) insufficiency; E86.0 Dehydration; I12.9 Hypertensive chronic kidney disease with stage 1 through stage 4 chronic kidney disease, or unspecified chronic kidney disease; Z94.0 Kidney transplant status; Z79.899 Other long term (current) drug therapy; E78.5 Hyperlipidemia, unspecified; E11.65 Type 2 diabetes mellitus with hyperglycemia; Z79.01 Long term (current) use of anticoagulants; Z90.710 Acquired absence of both cervix and uterus

== ENCOUNTER 2018-05-26 13:46 | Inpatient (IN) ==
[2018-05-26] MEDS ORDERED: ONDANSETRON INJ 2 MG/ML 2 ML VIAL IV STA (14:25)
[2018-05-26] MEDS ORDERED: SODIUM CHLORIDE 0.9% 1000ML 1,000 ML IV ONE (14:25)
[2018-05-26 15:48] LABS: Appearance Urine Cloudy (Clear); Bilirubin Urine Negative (Negative); Blood Urine 2+ (Negative); Color Urine Yellow; Glucose Urine UA 3+ (Negative); Ketones Urine 1+ (Negative); Leukocyte Esterase Urine 2+ (Negative); Nitrite Urine Negative (Negative); Protein Urine 2+ (Negative); Specific Gravity Urine 1.019 (1.000-1.030); Urobilinogen Urine Negative (Negative); WBC Urine Automated >30 /hpf (0-5); pH Urine 6.5 (4.5-7.5)
[2018-05-26 16:10] LABS: Bacteria Urine Automated 2+ (Negative)
[2018-05-26 16:15] LABS: Alanine Aminotransferase 15 U/L (12-78); Albumin Level 2.5 gm/dl (3.4-5.0); Aspartate Aminotransferase 21 U/L (15-37); BUN Creatinine Ratio 9.9 (10-20); Bilirubin Direct 0.2 mg/dl (0-0.2); Blood Urea Nitrogen 11 mg/dl (7-18); Calcium 9.5 mg/dl (8.5-10.1); Carbon Dioxide 26 mmol/L (21-32); Chloride 90 mmol/L (98-107); Creatinine Clr Calc Pharmacy 37.2 ml/min; Est GFR (African American) 55.4; Est GFR (Non-African American) 47.8; Glucose 246 mg/dl (70-99); Sodium 126 mmol/L (136-145)
[2018-05-26 16:18] LABS: Alkaline Phosphatase 126 U/L (45-117); Bilirubin,Total 0.5 mg/dl (0.2-1); Total Protein 8.6 gm/dl (6.4-8.2)
[2018-05-26 16:49] LABS: Basophils # (auto) 0.01 K/uL (0-0.2); Basophils % (auto) 0.1 %; Hematocrit (blood only) 38.3 % (37-47); Hemoglobin 12.1 g/dL (12.0-16.0); Immature Granulocytes % (auto) 0.6 %; Lymphocytes # (auto) 1.74 K/uL (1.2-3.4); Lymphocytes % (auto) 10.1 %; Mean Corpuscular Hgb Conc 31.6 g/dL (32-36); Mean Corpuscular Volume 84.5 fL (80-100); Mean Platelet Volume 8.8 fL (7.4-10.4); Monocytes # (auto) 0.86 K/uL (0.11-0.59); Neutrophils # (auto) 14.46 K/uL (1.4-6.5); Neutrophils % (auto) 84.2 %; Platelet Count 380 K/uL (130-400); RDW Coefficient of Variation 16.8 % (11.5-14.5); RDW Standard Deviation 52.3 fL (36.4-46.3); Red Blood Count 4.53 M/uL (4.2-5.4); White Blood Count 17.17 K/uL (4.8-10.8)
[2018-05-26] MEDS ORDERED: cefTRIAXone SODIUM 1,000 MG/50 ML BAG IV STA (17:21)
[2018-05-26] MEDS ORDERED: CIPROFLOXACIN 400 MG/200 ML BAG IV STA (17:25)
[2018-05-26] MEDS ORDERED: METOCLOPRAMIDE HCL INJ 5 MG/ML 2 ML VIAL IV ONE (17:26)
[2018-05-26] MEDS ORDERED: DiphenhydrAMINE HCL 50 MG/ML VIAL IV STA (17:26)
--- NOTE | 2018-05-26 18:26 | History & Physical Report ---
Date of Service May 26, 2018 Assessment & Plan (1) Sepsis: (2) UTI (urinary tract infection): This is a 73-year-old female who has a significant past medical history of renal transplant on CellCept and sirolimus 10 years ago, PAF anticoagulated with warfarin, HTN, HLD, CKD stage III, T2 DM, history of FENG 70% R ICA who presents to [facility] secondary to nausea and ill feeling x 1 week. Patient recently admitted and discharged 05/11-05/15 secondary to E. coli pansensiti ve UTI treated with IV Rocephin and transitioned to cefdinir 300 mg twice daily times 2 weeks. Further she was diagnosed with urinary retention requiring Nicolas placement and was to follow-up with urology 05/27 for voiding trial. Patient comes to ED with nausea and feeling times 1 week In ED WBC 17 K, sodium 126, BUN 11, creatinine 1.13, glucose 246, urine concerning for unresolved UTI Patient met sepsis criteria on admission per current [facility] guidelines WBC 17k, HR > 90 Source of infection: Urine Received 1 L IVF and IV Cipro 400mg secondary to recent failure with rocephin/cefnidir Admit to med/surg telemetry obtain CT Scan abd/pelvis given abdominal pain with nausea obtain blood cultures, lactate level, troponin, PT/INR Continue IV cipro dosed per pharmacy Consult Infectious disease and urology IVF 80cc/hr x 1 L Change Nicolas cath repeat cbc, bmp in a.m. antiemetics (3) Hyponatremia: corrected Na hyperglycemia 130 Obtain urine sodium, urine osm, serum osm IVF x 1 L repeat bmp in a.m. hyponatremia unlikely cause of nausea given with consistently low sodium (4) Urinary retention: Nicolas in place, was to have follow-up with urology for voiding trial tomorrow will consult urology (5) Paroxysmal A-fib: Rate controlled on sotalol Anticoagulated with warfarin Check PT/INR (6) Diabetes mellitus, type II: Last A1c 04/27 8.5 At most recent discharge recommendations were to increase Lantus to 18 units e very morning. While in house implemented Novolog 20:6 Lantus/novolog per protocol, titrate accordingly (7) Hypertension: Blood pressure elevated likely in the setting of not taking meds consistently given nausea and ill feeling Continue amlodipine, sotalol (8) CKD (chronic kidney disease), stage III: BUN/creatinine at baseline 11 and 1.13 Monitor BMP (9) S/p cadaver renal transplant: Continue CellCept and sirolimus (10) DVT prophylaxis: continue warfarin check PT/INR Disposition: to be determined Follow up: PCP Dr. Renee upon discharge Patient was seen and examined in collaboration with Dr. Bonds, please see addendum History of Present Illness Chief Complaint: Nausea and ill feeling x 1 week. Primary Care Provider: Laurel Renee MD This is a 73-year-old female who has a significant past medical history of renal transplant on CellCept and sirolimus 10 years ago, PAF anticoagulated with warfarin, HTN, HLD, CKD stage III, T2 DM, history of FENG 70% R ICA who presents to [facility] secondary to nausea and ill feeling x 1 week. Unfortunately patient has recurrent hospitalizations including 03/09-03/23 secondary to E. coli UTI, urinary retention, ROSSY. Most recently hospitalized/discharge 05/11-05/15/18 secondary to again pansensitive E. coli UTI treated with IV Rocephin. She was transitioned to a 2-week course of cefdinir 300 mg twice daily. Unfortunately she again had urinary retention requiring Nicolas placement. She was discharged with Nicolas and scheduled for urology follow-up and voiding trial on 05/27. Patient has been taking antibiotics as prescribed. For the past week she has been experiencing nausea, ill feeling, dry, upper abdominal discomfort. Symptoms are constant. Appetite has been a little decreased for the past week. She also elicits to loose watery stool intermittently for the past week. Today she had a BM that was formed. She denies any documented fever, chills, sweats, lightheadedness, dizziness, chest pain, shortness of breath, palpitations, cough, hemoptysis, hematemesis, burning around catheter site, hematuria, hematochezia or melena. Over past 2 days sx significantly worsened and she admits to missing several of her medications. She states daughter and was present at bedside, recently left. Allergies Allergy/AdvReac Type Severity Reaction Status Date / Time KATIA Inhibitors Allergy Unknown Unknown Verified 05/26/18 15:29 ARB-Angiotensin Receptor Allergy Unknown Unknown Verified 05/26/18 15:29 Antagonist amoxicillin AdvReac Severe nausea Verified 05/26/18 15:29 Home Medications Home Medications Medication Instructions Recorded Confirmed Type Novolog Flexpen U-100 Insulin 12 - 22 unit SUBCUT AC 11/23/17 05/26/18 History amlodipine 10 mg PO QAM 11/23/17 05/26/18 History aspirin [Aspirin Low Dose] 81 mg PO QAM 11/23/17 05/26/18 History cholecalciferol (vitamin D3) 1,000 unit PO QAM 11/23/17 05/26/18 History [Vitamin D3] hydralazine 10 mg PO BID 11/23/17 05/26/18 History mycophenolate mofetil 250 mg PO Q12 11/23/17 05/26/18 History sirolimus 1 mg PO QAM 11/23/17 05/26/18 History sotalol 120 mg PO BID 11/23/17 05/26/18 History Lactinex 1 tab PO BID #20 tab 03/23/18 05/26/18 Rx tramadol 50 mg PO Q8H PRN #10 tab 03/24/18 05/26/18 Rx acetaminophen [Tylenol Extra 500 mg PO Q6H PRN 05/11/18 05/26/18 History Strength] mirtazapine 15 mg PO HS 05/11/18 05/26/18 History cefdinir 300 mg PO Q12 14 Days #28 cap 05/15/18 05/26/18 Rx insulin glargine [Lantus Solostar 18 unit SC HS 30 Days #5.4 ml 05/15/18 05/26/18 Rx U-100 Insulin] warfarin 0.5 mg PO 3XWK 05/26/18 05/26/18 History warfarin [Coumadin] 1 mg PO 4XWK 05/26/18 05/26/18 History Past Med/Surg History Medical History half-way current use of anticoagulant (Chronic) Carotid stenosis (Chronic) History of cervical cancer (Chronic) CKD (chronic kidney disease), stage III (Chronic) Hypertension (Chronic) Mitral valve regurgitation (Chronic) Dyslipidemia (Chronic) Paroxysmal A-fib (Chronic) History of herpes zoster (Chronic) Diabetes mellitus, type II (Chronic) half-way current use of antiarrhythmic drug (Chronic) Recurrent UTI (Chronic) Surgical History S/P QUINN (total abdominal hysterectomy) (Chronic) History of cataract surgery (Chronic) Status post cholecystectomy (Chronic) S/p cadaver renal transplant (Chronic) Family History Mother Diabetes mellitus with coincident hypertension Social History Preferred Language: Barbadian Communication Ability: Effective Beliefs That Will Affect Care: None marital status: Current Living Situation: Family Feels Safe at Home: Yes Smoking Status: Never smoker Second Hand Exposure: No Hx Alcohol Use: No Hx Substance Use: No Review of Systems Review of Systems: All systems reviewed & are unremarkable except as noted in HPI & below Physical Exam Vital Signs (Past 24 Hours): Last Vital Signs Temp 37.3 C 05/26/18 13:53 Pulse 87 05/26/18 17:30 Resp 20 05/26/18 17:30 BP 134/68 05/26/18 17:30 Pulse Ox 98 05/26/18 17:30 Physical Exam: Gen: Elderly, female lying in bed, appears chronically ill, NAD, flat affect, answers questions appropriately, Head: Normocephalic, Atraumatic Eyes: Sclera normal, no conjunctival injection, PERRLA, EOMI ENT: Gross hearing intact, normal pharynx, mucous membranes moist Neck: supple, no adenopathy, No JVD, no bruit, Resp: Clear to auscultation b/l, no wheeze, rales, rhonchi. 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 Extremities: No edema bilaterally, bilateral pedal pulses +1 and equal Skin: warm, moist, no rash, negative turgor, cap refill < 2sec Neuro: Alert and oriented x 3, speech normal, flat mood/affect, cran nerve 2-12 intact grossly : + Nicolas in place draining clear yellow urine Results & Data Laboratory Results Short CBC 05/26/18 Range/Units 15:40 WBC 17.17 H (4.8-10.8) K/uL Hgb 12.1 (12.0-16.0) g/dL Hct 38.3 (37-47) % Plt Count 380 (130-400) K/uL BMP 05/26/18 15:40 Sodium 126 L Potassium 4.0 Chloride 90 L Carbon Dioxide 26 BUN 11 Creatinine 1.13 Glucose 246 H Calcium 9.5 Liver Function 05/26/18 Range/Units 15:40 Total Bilirubin 0.5 (0.2-1) mg/dl Direct Bilirubin 0.2 (0-0.2) mg/dl AST 21 (15-37) U/L ALT 15 (12-78) U/L Alkaline Phosphatase 126 H (45-117) U/L Albumin 2.5 L (3.4-5.0) gm/dl Urine 05/26/18 Range/Units 14:58 Urine Color Yellow Urine Appearance Cloudy H (Clear) Urine pH 6.5 (4.5-7.5) Ur Specific [place] 1.019 (1.000-1.030) Urine Protein 2+ H (Negative) Urine Glucose (UA) 3+ H (Negative) Medications Administered Discontinued Medications Diphenhydramine HCl (Benadryl) 25 mg IV NOW STA Stop: 05/26/18 17:27 Last Admin: 05/26/18 17:33 Dose: 25 mg Documented by: [id number] Sodium Chloride (Nss 1000ml) 1,000 mls @ 999 mls/hr IV .Q1H1M ONE Stop: 05/26/18 15:25 Last Admin: 05/26/18 15:48 Dose: 999 mls/hr Documented by: [id number] Ciprofloxacin (Cipro) 400 mg in 200 mls @ 200 mls/hr IV NOW STA Stop: 05/26/18 18:24 Last Admin: 05/26/18 17:34 Dose: 200 mls/hr Documented by: [id number] Metoclopramide HCl (Reglan) 5 mg IV ONE ONE Stop: 05/26/18 17:27 Last Admin: 05/26/18 17:33 Dose: 5 mg Documented by: [id number] Ondansetron HCl (Zofran) 4 mg IV NOW STA Stop: 05/26/18 14:26 Last Admin: 05/26/18 15:48 Dose: 4 mg Documented by: [id number] Code Status & VTE Plan Code Status Full code VTE Prophylaxis Plan VTE Prophylaxis will be ordered: Yes Supervising Physician Co-Signing Physician Notes Patient is a 73-year-old female with the history of renal transplant on CellCept, sirolimus, CKD III, chronic atrial fibrillation on Coumadin, recurrent UTI, urinary retention and other problems presents with history of nausea and generalized weakness since 1 week duration. She also reports having diarrhea intermittently, generalized abdominal pain. She had recurrent hospitalization secondary to E. coli UTI. Patient was noted to have elevated white count at 17.1 7K, subtherapeutic INR at 1.5, hyponatremia, hypochloremia glucose is elevated to 246, CT abdomen is suggestive of nonspecific colitis involving the descending and sigmoid colon, mild jesse-colonic infiltrative change. No evidence of obstruction noted. No evidence of abscess or collection. On exam patient is thin, chronic ill-appearing, no apparent distress, lungs are clear to auscultation, irregularly irregular rhythm, +murmur, trace pedal edema, generalized mild abdominal tenderness,+ Nicolas catheter, grossly no neurological focal deficits. Patient is admitted for management of sepsis likely related to UTI from chronic Nicolas catheter. Also need to treat colitis, to rule out C. difficile. Patient will be started on Cipro, Flagyl. Check stool studies for C. difficile. IV fluids. Monitor sodium and chloride. Urology consulted for chronic urinary retention. ID is consulted for recurrent sepsis UTI. Continue Coumadin for anticoagulation, monitor INR. I personally reviewed the record. Patient is interviewed and examined at bedside. Patient's care is coordinated with Deidra Guerra PA-C. Please refer to the documentation above for details of patient's presentation and for discussion of other issues. 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
[2018-05-26 19:02] LABS: Troponin I < 0.015 ng/ml (0-0.045)
--- NOTE | 2018-05-26 20:12 | CT Scan Report ---
CT abd pelvis wo con CT DOSE: 278.17 mGy.cm HISTORY: Pain abdominal pain TECHNIQUE: Multiaxial CT images of the abdomen and pelvis were performed without contrast. A dose lo wering technique was utilized adhering to the principles of ALARA. COMPARISON STUDY: 03/08/2018 FINDINGS: Very small bilateral pleural effusions. Mild bibasilar atelectasis. Atrophy of the [place] id[place] bilaterally. Prior cholecystectomy. Pancreatic atrophy. Moderate wall edematous change of the descending and sigmoid colonic regions. Moderate pericolonic in filtrative change. This consistent with a nonspecific colitis. Right pelvic renal transplant showing air within the collecting system. This potentially relates to F oley catheter within a collapsed bladder. No current evidence for hydronephrosis. Mild infiltrative changes subcutaneous fat over the anterior abdominal wall unchanging considered chr onic. IMPRESSION: 1. Nonspecific colitis involving the descending and sigmoid colon. 2. Mild pericolonic infiltrative change. 3. No evidence for abscess or collection. No evidence for obstruction.. 4. Atrophy of the [place] kidneys with a right pelvic renal transplant 5. The renal transplant demonstrates air within the collecting system which may be secondary to place ment of Nicolas catheter within a collapsed bladder. The above report was generated using voice recognition software. It may contain grammatical, syntax or spelling errors. Electronically signed by: Taco Lee M.D. 05/26/2018 8:10 PM
[2018-05-26] MEDS ORDERED: DEXTROSE 50% 50 ML SYRINGE IV PRN (20:35)
[2018-05-26] MEDS ORDERED: GLUCAGON FOR INJ 1 MG VIAL SQ PRN (20:35)
[2018-05-26] MEDS ORDERED: TRAMADOL HCL 50 MG TABLET PO PRN (20:35)
[2018-05-26] MEDS ORDERED: ACETAMINOPHEN 325 MG TAB PO PRN (20:35)
[2018-05-26] MEDS ORDERED: POLYETHYLENE (MIRALAX) 17 GM PACK PO PRN (20:35)
[2018-05-26] MEDS ORDERED: GLUCOSE 40% GEL 15 GM TUBE PO PRN (20:35)
[2018-05-26] MEDS ORDERED: CARBOHYDRATES FOR HYPOGLYCEMIA PO PRN (20:35)
[2018-05-26] MEDS ORDERED: MAGNESIUM HYDROXIDE SUSP 30 ML UDC PO PRN (20:35)
[2018-05-26] MEDS ORDERED: ALUMINUM/MAGNESIUM SUSP 30 ML UDC PO PRN (20:35)
[2018-05-26] MEDS ORDERED: GLUCOSE 10 TABS/TUBE PO PRN (20:35)
[2018-05-26] MEDS ORDERED: CIPROFLOXACIN CONSULT ACTIVE PRN (20:56)
[2018-05-26] MEDS ORDERED: MIRTAZAPINE TAB 15 MG TAB PO SCH (21:00)
[2018-05-26] MEDS ORDERED: METRONIDAZOLE CONSULT ACTIVE PRN (21:00)
[2018-05-26] MEDS: SODIUM CHLORIDE 0.9% 1000ML 1,000 ML IV SCH (21:41)
[2018-05-26] MEDS: metroNIDAZOLE 500 MG/100 ML BAG IV SCH (21:41)
[2018-05-26] MEDS: SOTALOL HCL 80 MG TAB PO SCH (21:45)
[2018-05-26] MEDS: HydrALAZINE 10 MG TAB PO SCH (21:45)
[2018-05-26] MEDS: INSULIN GLARGINE SOLOSTAR 100 UNITS/ML 3 ML PEN SC SCH (21:46)
[2018-05-26] MEDS: MYCOPHENOLATE MOFETIL 250 MG CAP PO SCH (21:46)
--- NOTE | 2018-05-26 21:46 | Emergency Department Note ---
Entered by Davis Mcneill acting as a scribe for Marquez Singleton History of Present Illness General Chief complaint: Nausea Stated complaint: SEVERE NAUSEA,BACK PAIN Time Seen by Provider: 05/26/18 14:10 Source: patient and family Limitations: no limitations History of Present Illness Provider complaint: Nausea Onset (ago): week(s) (2) Location: abdomen Pain Consistency: + other (worsening) Maximum Pain Intensity: 10 Quality: + other (Nausea) Associated symptoms: + other (ABD Pain) Treatments prior to arrival: other (Cefdinir) The patient is a 73 year old female who presents to the Emergency Room with complaints of worsening nausea. The patient and her family states that she was here in the emergency department 2 weeks ago and was started on Cefdinir for a urinary tract infection. She notes that she has been nauseous since she started taking the Cefdinir. She "tries to vomit" but cannot. The patient does have a history of right sided kidney transplant. No fevers, mild abdominal pain diffusely. No melena, hematochezia, chest pain or difficulty breathing. Home Medications Home Medications Medication Instructions Recorded Confirmed Type Novolog Flexpen U-100 Insulin 12 - 22 unit SUBCUT AC 11/23/17 05/26/18 History amlodipine 10 mg PO QAM 11/23/17 05/26/18 History aspirin [Aspirin Low Dose] 81 mg PO QAM 11/23/17 05/26/18 History cholecalciferol (vitamin D3) 1,000 unit PO QAM 11/23/17 05/26/18 History [Vitamin D3] hydralazine 10 mg PO BID 11/23/17 05/26/18 History mycophenolate mofetil 250 mg PO Q12 11/23/17 05/26/18 History sirolimus 1 mg PO QAM 11/23/17 05/26/18 History sotalol 120 mg PO BID 11/23/17 05/26/18 History Lactinex 1 tab PO BID #20 tab 03/23/18 05/26/18 Rx tramadol 50 mg PO Q8H PRN #10 tab 03/24/18 05/26/18 Rx acetaminophen [Tylenol Extra 500 mg PO Q6H PRN 05/11/18 05/26/18 History Strength] mirtazapine 15 mg PO HS 05/11/18 05/26/18 History cefdinir 300 mg PO Q12 14 Days #28 cap 05/15/18 05/26/18 Rx insulin glargine [Lantus Solostar 18 unit SC HS 30 Days #5.4 ml 05/15/18 05/26/18 Rx U-100 Insulin] warfarin 0.5 mg PO 3XWK 05/26/18 05/26/18 History warfarin [Coumadin] 1 mg PO 4XWK 05/26/18 05/26/18 History Allergies Allergy/AdvReac Type Severity Reaction Status Date / Time KATIA Inhibitors Allergy Unknown Unknown Verified 05/26/18 15:29 ARB-Angiotensin Receptor Allergy Unknown Unknown Verified 05/26/18 15:29 Antagonist amoxicillin AdvReac Severe nausea Verified 05/26/18 15:29 Past Med/Surg History Medical History skilled nursing current use of anticoagulant (Chronic) Carotid stenosis (Chronic) History of cervical cancer (Chronic) CKD (chronic kidney disease), stage III (Chronic) Hypertension (Chronic) Mitral valve regurgitation (Chronic) Dyslipidemia (Chronic) Paroxysmal A-fib (Chronic) History of herpes zoster (Chronic) Diabetes mellitus, type II (Chronic) skilled nursing current use of antiarrhythmic drug (Chronic) Recurrent UTI (Chronic) Surgical History S/P QUINN (total abdominal hysterectomy) (Chronic) History of cataract surgery (Chronic) Status post cholecystectomy (Chronic) S/p cadaver renal transplant (Chronic) Family History Mother Diabetes mellitus with coincident hypertension Social History Preferred Language: Latvian Communication Ability: Effective Beliefs That Will Affect Care: None marital status: Current Living Situation: Family Feels Safe at Home: Yes Smoking Status: Never smoker Second Hand Exposure: No Hx Alcohol Use: No Hx Substance Use: No Review of Systems See HPI for pertinent positives & negatives. and A total of 10 systems reviewed and were otherwise negative Physical Exam Vital Signs Vital Signs - 24 hr 05/26/18 13:53 05/26/18 14:11 05/26/18 15:50 Temperature 37.3 C Temperature Source Oral Sepsis Recent Fever Within 48 Hours No Sepsis New/Unexplained Change in Mental Status No Sepsis Action Taken by Nursing No Action Required Pulse Rate 94 H Pulse Rate [Apical] 89 Respiratory Rate 16 17 Blood Pressure 126/60 Blood Pressure [Right Arm] 165/67 H Blood Pressure Mean 82 Blood Pressure Mean [Right Arm] 99 Blood Pressure Position [Right Arm] Lying Pulse Oximetry 99 98 99 Oxygen Delivery Method Room Air Room Air Room Air 05/26/18 17:30 05/26/18 18:31 05/26/18 18:53 Temperature Temperature Source Sepsis Recent Fever Within 48 Hours Sepsis New/Unexplained Change in Mental Status Sepsis Action Taken by Nursing Pulse Rate Pulse Rate [Apical] 87 91 H Respiratory Rate 20 22 Blood Pressure Blood Pressure [Right Arm] 134/68 142/65 H Blood Pressure Mean Blood Pressure Mean [Right Arm] 90 90 Blood Pressure Position [Right Arm] Pulse Oximetry 98 95 Oxygen Delivery Method Room Air Room Air Physical Exam GENERAL: He is oriented to person, place, and time. He appears well-developed and well-nourished. He does not appear distressed. ____ HENT: Exam performed. - Head: Normocephalic and atraumatic. - Right Ear: External ear normal. No mastoid tenderness. - Left Ear: External ear normal. No mastoid tenderness. - Mouth/Throat: The oropharynx is clear and moist. No trismus in the jaw. No dental abscesses or uvula swelling. No oropharyngeal exudate or tonsillar abscesses. ____ EYES: Conjunctivae and EOM are normal. Pupils are equal, round, and reactive to light. Right eye exhibits no discharge. Left eye exhibits no discharge. No scleral icterus. ____ NECK: Normal range of motion. Neck supple. No JVD present. No spinous process tenderness present. No carotid bruit present. No rigidity. No tracheal deviation and normal range of motion present. No Brudzinski's sign and no Kernig's sign noted. ____ CV: Normal rate, regular rhythm, normal heart sounds and intact distal pulses. Heart murmur noted. There is no peripheral edema. Palpable radial pulses bue. ____ PULM/CHEST: Effort normal and breath sounds normal. No respiratory distress. No stridor. He has no wheezes. He has no rales. - Chest Wall: He exhibits no tenderness. ____ ABD: The abdomen is soft. Bowel sounds are normal. He has no distension. No mass is present. There is no tenderness. There is no rebound, no guarding, no Zurita's sign and no tenderness at McBurney's point. Rovsig negative MUSC/SKEL: Normal range of motion. There is an AV fistula present in the left upper extremity, palpable thrill. There is no peripheral edema, tenderness or deformity. LYMPH: No cervical adenopathy. ____ : Urinary catheter in place. NEURO: He is alert and oriented to person, place, and time. He has normal strength. No cranial nerve deficit or sensory deficit. Coordination and gait normal. GCS eye subscore is 4. GCS verbal subscore is 5. GCS motor subscore is 6. cerbellar tests wnl. ____ SKIN: Skin is warm and dry. He is not diaphoretic. ____ PSYCH: He has a normal mood and affect. His behavior is normal. Judgment and thought content normal. ____ Course 1422: The patient was evaluated in room B12A, and a complete history and physical examination were performed. 1724: Vital signs stable. Labs show a leukocytosis of 17.17 on previous blood work, there was now leukocytosis. Sodium 126. Lactic acid level is elevated. Urine appears infected. Patient's urine culture from previous visit was positive for E. coli. Sensitivities showed that it was susceptible to ceftriaxone as well as ciprofloxacin. Given the patient has been on Ceftin ear outpatient and has no resolution of symptoms, patient will be admitted to the hospital treated with IV antibiotics. I reviewed the patient's case with Deidra Silverio [facility] Hospitalist АНДРЕЙ for Dr. Bonds. She will evaluate the patient for further management. We agreed to start the patient on Cipro and not ceftriaxone as she has been on a cephalosporin with no resolution of her symptoms. Administered Medications Discontinued Medications Diphenhydramine HCl (Benadryl) 25 mg IV NOW STA Stop: 05/26/18 17:27 Last Admin: 05/26/18 17:33 Dose: 25 mg Documented by: [id number] Sodium Chloride (Nss 1000ml) 1,000 mls @ 999 mls/hr IV .Q1H1M ONE Stop: 05/26/18 15:25 Last Infusion: 05/26/18 19:55 Dose: 0 mls/hr Documented by: [id number] Admin: 05/26/18 15:48 Dose: 999 mls/hr Documented by: [id number] Ceftriaxone Sodium (Rocephin) 1,000 mg in 50 mls @ 100 mls/hr IV NOW STA Stop: 05/26/18 17:50 Last Admin: 05/26/18 18:39 Dose: Not Given Documented by: [id number] Ciprofloxacin (Cipro) 400 mg in 200 mls @ 200 mls/hr IV NOW STA Stop: 05/26/18 18:24 Last Infusion: 05/26/18 19:55 Dose: 0 mls/hr Documented by: [id number] Admin: 05/26/18 17:34 Dose: 200 mls/hr Documented by: [id number] Metoclopramide HCl (Reglan) 5 mg IV ONE ONE Stop: 05/26/18 17:27 Last Admin: 05/26/18 17:33 Dose: 5 mg Documented by: [id number] Ondansetron HCl (Zofran) 4 mg IV NOW STA Stop: 05/26/18 14:26 Last Admin: 05/26/18 15:48 Dose: 4 mg Documented by: [id number] Medical Decision Making Medical Records Attestation: I reviewed the patient's medical records. Home Medications Current Medication List: was personally reviewed by me Laboratory Data Attestation: I reviewed the patient's lab results. Result diagrams: 05/26/18 15:40 05/26/18 15:40 Lab Results 05/26/18 05/26/18 05/26/18 Range/Units 14:58 15:40 15:40 WBC 17.17 H (4.8-10.8) K/uL RBC 4.53 (4.2-5.4) M/uL Hgb 12.1 (12.0-16.0) g/dL Hct 38.3 (37-47) % MCV 84.5 (80-100) fL MCH 26.7 (25-34) pg MCHC 31.6 L (32-36) g/dL RDW Std Deviation 52.3 H (36.4-46.3) fL RDW Coeff of Anila 16.8 H (11.5-14.5) % Plt Count 380 (130-400) K/uL MPV 8.8 (7.4-10.4) fL Immature Gran % (Auto) 0.6 % Neut % (Auto) 84.2 % Lymph % (Auto) 10.1 % [place] % (Auto) 5.0 % Eos % (Auto) 0.0 % Baso % (Auto) 0.1 % Immature Gran # (Auto) 0.10 H (0.00-0.02) K/uL Neut # (Auto) 14.46 H (1.4-6.5) K/uL Lymph # (Auto) 1.74 (1.2-3.4) K/uL [place] # (Auto) 0.86 H (0.11-0.59) K/uL Eos # (Auto) 0.00 (0-0.5) K/uL Baso # (Auto) 0.01 (0-0.2) K/uL Sodium 126 L (136-145) mmol/L Potassium 4.0 (3.5-5.1) mmol/L Chloride 90 L (98-107) mmol/L Carbon Dioxide 26 (21-32) mmol/L Anion Gap 10.0 (3-11) BUN 11 (7-18) mg/dl Creatinine 1.13 (0.6-1.2) mg/dl Est Cr Clr Drug Dosing 37.2 ml/min Est GFR ( Amer) 55.4 Est GFR (Non-Af Amer) 47.8 BUN/Creatinine Ratio 9.9 L (10-20) Glucose 246 H (70-99) mg/dl Calcium 9.5 (8.5-10.1) mg/dl Total Bilirubin 0.5 (0.2-1) mg/dl Direct Bilirubin 0.2 (0-0.2) mg/dl AST 21 (15-37) U/L ALT 15 (12-78) U/L Alkaline Phosphatase 126 H (45-117) U/L Troponin I < 0.015 (0-0.045) ng/ml Total Protein 8.6 H (6.4-8.2) gm/dl Albumin 2.5 L (3.4-5.0) gm/dl Lipase 55 L (73-393) U/L Urine Color Yellow Urine Appearance Cloudy H (Clear) Urine pH 6.5 (4.5-7.5) Ur Specific [place] 1.019 (1.000-1.030) Urine Protein 2+ H (Negative) Urine Glucose (UA) 3+ H (Negative) Urine Ketones 1+ H (Negative) Urine Blood 2+ H (Negative) Urine Nitrite Negative (Negative) Urine Bilirubin Negative (Negative) Urine Urobilinogen Negative (Negative) Ur Leukocyte Esterase 2+ H (Negative) Urine WBC (Auto) >30 H (0-5) /hpf Urine RBC (Auto) 10-30 H (0-4) /hpf U Hyaline Cast (Auto) 1-5 (0-5) /lpf U Epithel Cells (Auto) 10-20 H (0-5) /lpf Urine Bacteria (Auto) 2+ H (Negative) Urine Yeast Not Reportable 05/26/18 Range/Units 15:40 WBC (4.8-10.8) K/uL RBC (4.2-5.4) M/uL Hgb (12.0-16.0) g/dL Hct (37-47) % MCV (80-100) fL MCH (25-34) pg MCHC (32-36) g/dL RDW Std Deviation (36.4-46.3) fL RDW Coeff of Anila (11.5-14.5) % Plt Count (130-400) K/uL MPV (7.4-10.4) fL Immature Gran % (Auto) % Neut % (Auto) % Lymph % (Auto) % [place] % (Auto) % Eos % (Auto) % Baso % (Auto) % Immature Gran # (Auto) (0.00-0.02) K/uL Neut # (Auto) (1.4-6.5) K/uL Lymph # (Auto) (1.2-3.4) K/uL [place] # (Auto) (0.11-0.59) K/uL Eos # (Auto) (0-0.5) K/uL Baso # (Auto) (0-0.2) K/uL Sodium (136-145) mmol/L Potassium (3.5-5.1) mmol/L Chloride (98-107) mmol/L Carbon Dioxide (21-32) mmol/L Anion Gap (3-11) BUN (7-18) mg/dl Creatinine (0.6-1.2) mg/dl Est Cr Clr Drug Dosing ml/min Est GFR ( Amer) Est GFR (Non-Af Amer) BUN/Creatinine Ratio (10-20) Glucose (70-99) mg/dl Calcium (8.5-10.1) mg/dl Total Bilirubin (0.2-1) mg/dl Direct Bilirubin (0-0.2) mg/dl AST (15-37) U/L ALT (12-78) U/L Alkaline Phosphatase (45-117) U/L Troponin I Cancelled (0-0.045) ng/ml Total Protein (6.4-8.2) gm/dl Albumin (3.4-5.0) gm/dl Lipase (73-393) U/L Urine Color Urine Appearance (Clear) Urine pH (4.5-7.5) Ur Specific [place] (1.000-1.030) Urine Protein (Negative) Urine Glucose (UA) (Negative) Urine Ketones (Negative) Urine Blood (Negative) Urine Nitrite (Negative) Urine Bilirubin (Negative) Urine Urobilinogen (Negative) Ur Leukocyte Esterase (Negative) Urine WBC (Auto) (0-5) /hpf Urine RBC (Auto) (0-4) /hpf U Hyaline Cast (Auto) (0-5) /lpf U Epithel Cells (Auto) (0-5) /lpf Urine Bacteria (Auto) (Negative) Urine Yeast Blood Pressure Blood Pressure Findings: Elevated blood pressure Blood Pressure Disposition: further management by hospitalist CATRACHITO Narrative Vital signs stable. Labs show a leukocytosis of 17.17 on previous blood work, there was now leukocytosis. Sodium 126. Lactic acid level is elevated. Urine appears infected. Patient's urine culture from previous visit was positive for E. coli. Sensitivities showed that it was susceptible to ceftriaxone as well as ciprofloxacin. Given the patient has been on Ceftin ear outpatient and has no resolution of symptoms, patient will be admitted to the hospital treated with IV antibiotics. I reviewed the patient's case with Deidra Silverio [facility] Hospitalist АНДРЕЙ for Dr. Bonds. She will evaluate the patient for further management. We agreed to start the patient on Cipro and not ceftriaxone as she has been on a cephalosporin with no resolution of her symptoms. Impression & Plan UTI (urinary tract infection), Sepsis, Failure of outpatient treatment Discharge Plan Visit Data *Final* Discharge Date/Time: 05/26/18 18:53 Chief Complaint: Nausea Stated Complaint: SEVERE NAUSEA,BACK PAIN ED Provider: Marquez Singleton Discharge Problem: UTI (urinary tract infection), Sepsis, Failure of outpatient treatment Patient Disposition: Admitted As Inpatient Discharge Instructions Interventions: ED Discharge Assessment Last Done: 05/26/18 18:53 The scribe's documentation has been prepared under my direction and personally reviewed by me in its entirety. I confirm that the note above accurately ref lects all work, treatment, procedures, and medical decision making performed by me.
[2018-05-26] MEDS: INSULIN ASPART 100 UNITS/ML 3 ML PEN SC SCH (21:48)
[2018-05-27] MEDS: metroNIDAZOLE 500 MG/100 ML BAG IV SCH ×3 (04:44→22:39)
[2018-05-27 05:40] LABS: Hematocrit (blood only) 29.9 % (37-47); Hemoglobin 9.5 g/dL (12.0-16.0); Mean Corpuscular Hgb Conc 31.8 g/dL (32-36); Mean Corpuscular Volume 84.5 fL (80-100); Mean Platelet Volume 8.1 fL (7.4-10.4); Platelet Count 334 K/uL (130-400); RDW Coefficient of Variation 16.7 % (11.5-14.5); RDW Standard Deviation 52.6 fL (36.4-46.3); Red Blood Count 3.54 M/uL (4.2-5.4)
[2018-05-27] MEDS: CIPROFLOXACIN 400 MG/200 ML BAG IV SCH ×2 (05:51→17:42)
[2018-05-27 06:14] LABS: BUN Creatinine Ratio 11.1 (10-20); Est GFR (Non-African American) 64.7; Potassium 3.1 mmol/L (3.5-5.1)
[2018-05-27 06:20] LABS: Calcium 8.2 mg/dl (8.5-10.1)
[2018-05-27] MEDS: INSULIN ASPART 100 UNITS/ML 3 ML PEN SC SCH ×4 (08:44→21:32)
[2018-05-27] MEDS: LACTOBACILLUS ACIDOPHILUS (FLORANEX) TAB PO SCH ×2 (08:46→17:47)
[2018-05-27] MEDS: SOTALOL HCL 80 MG TAB PO SCH ×2 (08:46→21:57)
[2018-05-27] MEDS: HydrALAZINE 10 MG TAB PO SCH (08:46)
[2018-05-27] MEDS: SIROLIMUS 0.5 MG TABLET PO SCH (08:47)
[2018-05-27] MEDS: SODIUM CHLORIDE 0.9% 1000ML 1,000 ML IV SCH (08:47)
[2018-05-27] MEDS: MYCOPHENOLATE MOFETIL 250 MG CAP PO SCH ×2 (08:47→21:57)
[2018-05-27] MEDS: ONDANSETRON INJ 2 MG/ML 2 ML VIAL IV PRN ×2 (08:47→17:41)
--- NOTE | 2018-05-27 08:47 | Infectious Disease Consult ---
Date of Consultation May 27, 2018 Assessment & Plan (1) Sepsis: Patient with clinical picture of sepsis with possible recurrent urinary tract infection in the setting of chronic Nicolas catheter with previously history of recurrent E. coli infections. Pending final culture results, Patient to continue on current IV antibiotics. Await stool studies. Will adjust once these are available. (2) UTI (urinary tract infection): (3) Escherichia coli infection: History of Present Illness Reason for Consultation: Recurrent E. coli urinary tract infection Attending Physician: Georgina Morris MD History of Present Illness 73-year-old female well-known to me with history of prior renal transplant, on immunosuppressive therapy, urinary retention with indwelling Nicolas catheter, history of recurrent E. coli urinary tract infections, stage III chronic kidney disease, atrial fibrillation, recently hospitalized for recurrent E. coli infection and discharged home on cefdinir. Past week or so, patient has been complaining of progressively worsening nausea with some vomiting and diarrhea along with weakness and fatigue. Complaining of bilateral back pain. Patient came to the emergency department and admitted for possible recurrent sepsis. Started on IV ciprofloxacin. CT scan of the abdomen shows nonspecific colitis, no other significant urinary tract findings. No reported significant fevers. Back pain currently 1-2 out of 10 in intensity at present. Allergies Allergy/AdvReac Type Severity Reaction Status Date / Time KATIA Inhibitors Allergy Unknown Unknown Verified 05/26/18 15:29 ARB-Angiotensin Receptor Allergy Unknown Unknown Verified 05/26/18 15:29 Antagonist amoxicillin AdvReac Severe nausea Verified 05/26/18 15:29 Home Medications Home Medications Medication Instructions Recorded Confirmed Type Novolog Flexpen U-100 Insulin 12 - 22 unit SUBCUT AC 11/23/17 05/26/18 History amlodipine 10 mg PO QAM 11/23/17 05/26/18 History aspirin [Aspirin Low Dose] 81 mg PO QAM 11/23/17 05/26/18 History cholecalciferol (vitamin D3) 1,000 unit PO QAM 11/23/17 05/26/18 History [Vitamin D3] hydralazine 10 mg PO BID 11/23/17 05/26/18 History mycophenolate mofetil 250 mg PO Q12 11/23/17 05/26/18 History sirolimus 1 mg PO QAM 11/23/17 05/26/18 History sotalol 120 mg PO BID 11/23/17 05/26/18 History Lactinex 1 tab PO BID #20 tab 03/23/18 05/26/18 Rx tramadol 50 mg PO Q8H PRN #10 tab 03/24/18 05/26/18 Rx acetaminophen [Tylenol Extra 500 mg PO Q6H PRN 05/11/18 05/26/18 History Strength] mirtazapine 15 mg PO HS 05/11/18 05/26/18 History insulin glargine [Lantus Solostar 18 unit SC HS 30 Days #5.4 ml 05/15/18 05/26/18 Rx U-100 Insulin] warfarin 0.5 mg PO 3XWK 05/26/18 05/26/18 History warfarin [Coumadin] 1 mg PO 4XWK 05/26/18 05/26/18 History Patient History Medical History halfway current use of anticoagulant (Chronic) Carotid stenosis (Chronic) History of cervical cancer (Chronic) CKD (chronic kidney disease), stage III (Chronic) Hypertension (Chronic) Mitral valve regurgitation (Chronic) Dyslipidemia (Chronic) Paroxysmal A-fib (Chronic) History of herpes zoster (Chronic) Diabetes mellitus, type II (Chronic) 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 use of antiarrhythmic drug (Chronic) Recurrent UTI (Chronic) Surgical History S/P QUINN (total abdominal hysterectomy) (Chronic) History of cataract surgery (Chronic) Status post cholecystectomy (Chronic) S/p cadaver renal transplant (Chronic) Family History Mother Diabetes mellitus with coincident hypertension Social History Preferred Language: Syriac Communication Ability: Effective Crop Insurance Claims Adjuster Required: No Beliefs That Will Affect Care: None marital status: Current Living Situation: Family Other Information That Helps Us Care for You: No Feels Safe at Home: Yes Safety Concerns: Feels Safe At This Time Smoking Status: Never smoker Second Hand Exposure: No Hx Alcohol Use: No Hx Substance Use: No Review of Systems Review of Systems: All systems reviewed & are unremarkable except as noted in HPI & below Physical Exam Constitutional: WD/WN, vitals as above + ill appearing (Chronically) and comfortable; no acute distress Eyes: PERRL, conjunctivae normal, anicteric sclerae ENMT: external ear and nose normal, oropharynx normal Neck: trachea midline, no thyromegaly neck nontender Respiratory: normal respiratory effort, lungs clear to auscultation normal percussion; does not use accessory muscles Cardiovascular: Rate/Rhythm: + irregularly irregular Heart Sounds: normal S1, normal S2 and + murmur (Systolic); no gallop and no cardiac rub Vessels: normal peripheral pulses; no JVD Gastrointestinal (Abdomen): normal bowel sounds, soft, nontender, no hepatosplenomegaly Musculoskeletal: no cyanosis or clubbing, extremities motor strength 5/5 Spine: thoracic spine normal to inspection and lumbar spine normal to inspection; no cervical spinal tenderness Skin: no rashes, warm and dry normal turgor; no lesions Neurologic: patellar DTR's 2+ bilat, sensation intact no focal motor deficits Psychiatric: A+Ox3, euthymic affect Orientation: cooperative Genitourinary: Nicolas catheter in place draining cloudy urine Lymphatic: no cervical or axillary lymphadenopathy no inguinal lymphadenopathy Results & Data Vital Signs (Past 12 Hours) Vital Signs Temp Pulse Resp BP Pulse Ox 05/27/18 07:27 37.5 C 91 H 18 147/73 H 95 05/27/18 04:26 37.0 C 78 16 136/69 95 05/26/18 21:00 37.2 C 85 18 125/65 97 Laboratory Results Short CBC 05/26/18 05/27/18 Range/Units 15:40 05:29 WBC 17.17 H 21.70 H (4.8-10.8) K/uL Hgb 12.1 9.5 L (12.0-16.0) g/dL Hct 38.3 29.9 L (37-47) % Plt Count 380 334 (130-400) K/uL BMP 05/26/18 05/27/18 15:40 05:29 Sodium 126 L 129 L Potassium 4.0 3.1 L D Chloride 90 L 99 Carbon Dioxide 26 27 BUN 11 10 Creatinine 1.13 0.88 Glucose 246 H 98 Calcium 9.5 8.2 L Cardiac Enzymes 05/26/18 05/26/18 Range/Units 15:40 15:40 Troponin I < 0.015 Cancelled (0-0.045) ng/ml Liver Function 05/26/18 Range/Units 15:40 Total Bilirubin 0.5 (0.2-1) mg/dl Direct Bilirubin 0.2 (0-0.2) mg/dl AST 21 (15-37) U/L ALT 15 (12-78) U/L Alkaline Phosphatase 126 H (45-117) U/L Albumin 2.5 L (3.4-5.0) gm/dl Urine 05/26/18 Range/Units 14:58 Urine Color Yellow Urine Appearance Cloudy H (Clear) Urine pH 6.5 (4.5-7.5) Ur Specific [place] 1.019 (1.000-1.030) Urine Protein 2+ H (Negative) Urine Glucose (UA) 3+ H (Negative) Diagnostic Findings CT abd pelvis wo con CT DOSE: 278.17 mGy.cm HISTORY: Pain abdominal pain TECHNIQUE: Multiaxial CT images of the abdomen and pelvis were performed without contrast. A dose lowering technique was utilized adhering to the principles of ALARA. COMPARISON STUDY: 03/08/2018 FINDINGS: Very small bilateral pleural effusions. Mild bibasilar atelectasis. Atrophy of the [place] kidneys bilaterally. Prior cholecystectomy. Pancreatic atrophy. Moderate wall edematous change of the descending and sigmoid colonic regions. Moderate pericolonic infiltrative change. This consistent with a nonspecific colitis. Right pelvic renal transplant showing air within the collecting system. This potentially relates to Nicolas catheter within a collapsed bladder. No current evidence for hydronephrosis. Mild infiltrative changes subcutaneous fat over the anterior abdominal wall unchanging considered chronic. IMPRESSION: 1. Nonspecific colitis involving the descending and sigmoid colon. 2. Mild pericolonic infiltrative change. 3. No evidence for abscess or collection. No evidence for obstruction.. 4. Atrophy of the [place] kidneys with a right pelvic renal transplant 5. The renal transplant demonstrates air within the collecting system which may be secondary to placement of Nicolas catheter within a collapsed bladder. The above report was generated using voice recognition software. It may contain grammatical, syntax or spelling errors. Electronically signed by: Taco Lee M.D. 05/26/2018 8:10 PM
[2018-05-27] MEDS ORDERED: CHOLECALCIFEROL 1,000 UNITS TAB PO SCH (09:00)
[2018-05-27] MEDS ORDERED: AMLODIPINE BESYLATE 5 MG TAB PO SCH (09:00)
[2018-05-27] MEDS ORDERED: ASPIRIN 81 MG ECTAB PO SCH (09:00)
--- NOTE | 2018-05-27 11:03 | Urology Consultation ---
Date of Consultation May 27, 2018 Assessment & Plan (1) Sepsis: (2) Urinary retention: (3) UTI (urinary tract infection): 73yo F with complex medical history, suffering from recurrent UTIs, UR with indwelling catheter, hx donor kidney on immunosuppression. Unfortunately our outpatient plan from last admission was not pursued due to patient's intolerance of PO abx, discontinued on her own multiple days ago. VCUG not performed. She is not a candidate for this study presently due to recurrence of possible UTI.. CT imaging concerning for possible gas forming organisms. Maintain lindquist catheter - has repeatedly failed voiding trials in the past. IV abx per ID, appreciate their input. I am also very concerned about this patient's mental health. May benefit from evaluation while inpatient. No suicidal ideation, but continues to be very down regarding the loss of her daughter. Thank you for the consultation. No surgical intervention indicated at this time. We will continue to monitor with primary team. History of Present Illness Reason for Consultation: UTI with chronic indwelling catheter, hx donor kidney Requesting Physician: Dr. Morris Attending Physician: Georgina Morris MD History of Present Illness 73yo F with Hx renal transplant, CKDIII, recurrent E.Coli UTIs, urinary retention with indwelling catheter presented back to [facility] for severe nausea. Recent hospitalization for complex E.Coli UTI, discharged on cefdinir. Over the past week developed progressive nausea/emesis, diarrhea, weakness and fatigue. Bilat back pain as well. Pt relates this to cefdinir, feels she was not able to tolerate and discontinued it on her own multiple days ago. Pt appears very depressed, poor historian. No family members at bedside. Past notes and records reviewed. Pt now with significant leukocytosis at 22,000. Soft BPs, Tmax 38.2C. CT scan imaging reviewed by myself and Dr. Kohler which demonstrates air within collecting system of donor kidney, new when compared to CT from February. This could be explained lindquist catheter, or possible gas-forming UTI with refluxing anastomosis. Allergies Allergy/AdvReac Type Severity Reaction Status Date / Time KATIA Inhibitors Allergy Unknown Unknown Verified 05/26/18 15:29 ARB-Angiotensin Receptor Allergy Unknown Unknown Verified 05/26/18 15:29 Antagonist amoxicillin AdvReac Severe nausea Verified 05/26/18 15:29 Home Medications Home Medications Medication Instructions Recorded Confirmed Type Novolog Flexpen U-100 Insulin unit SUBCUT AC 11/23/17 05/26/18 History amlodipine 10 mg PO QAM 11/23/17 05/26/18 History aspirin [Aspirin Low Dose] 81 mg PO QAM 11/23/17 05/26/18 History cholecalciferol (vitamin D3) 1,000 unit PO QAM 11/23/17 05/26/18 History [Vitamin D3] hydralazine 10 mg PO BID 11/23/17 05/26/18 History mycophenolate mofetil 250 mg PO Q12 11/23/17 05/26/18 History sirolimus 1 mg PO QAM 11/23/17 05/26/18 History sotalol 120 mg PO BID 11/23/17 05/26/18 History Lactinex 1 tab PO BID #20 tab 03/23/18 05/26/18 Rx tramadol 50 mg PO Q8H PRN #10 tab 03/24/18 05/26/18 Rx acetaminophen [Tylenol Extra 500 mg PO Q6H PRN 05/11/18 05/26/18 History Strength] mirtazapine 15 mg PO HS 05/11/18 05/26/18 History cefdinir 300 mg PO Q12 14 Days #28 cap 05/15/18 05/26/18 Rx insulin glargine [Lantus Solostar 18 unit SC HS 30 Days #5.4 ml 05/15/18 05/26/18 Rx U-100 Insulin] warfarin 0.5 mg PO 3XWK 05/26/18 05/26/18 History warfarin [Coumadin] 1 mg PO 4XWK 05/26/18 05/26/18 History Patient History Medical History USP current use of anticoagulant (Chronic) Carotid stenosis (Chronic) History of cervical cancer (Chronic) CKD (chronic kidney disease), stage III (Chronic) Hypertension (Chronic) Mitral valve regurgitation (Chronic) Dyslipidemia (Chronic) Paroxysmal A-fib (Chronic) History of herpes zoster (Chronic) Diabetes mellitus, type II (Chronic) USP current use of antiarrhythmic drug (Chronic) Recurrent UTI (Chronic) Surgical History S/P QUINN (total abdominal hysterectomy) (Chronic) History of cataract surgery (Chronic) Status post cholecystectomy (Chronic) S/p cadaver renal transplant (Chronic) Family History Mother Diabetes mellitus with coincident hypertension Social History Preferred Language: Thai Communication Ability: Effective Fabrication Specialist Required: No Beliefs That Will Affect Care: None marital status: Current Living Situation: Family Other Information That Helps Us Care for You: No Feels Safe at Home: Yes Safety Concerns: Feels Safe At This Time Smoking Status: Never smoker Second Hand Exposure: No Hx Alcohol Use: No Hx Substance Use: No Review of Systems Constitutional: + malaise and + weakness; no fever and no chills Eyes: no problem reported Ear, Nose, Mouth, Throat: no ear pain and no tinnitus Respiratory: no cough and no dyspnea Cardiovascular: no chest pain and no radiating jaw, neck or arm pain Gastrointestinal: + nausea; no abdominal pain and no vomiting Genitourinary: no dysuria and no urinary hesitancy denies bladder pain or spasm with lindquist in place. Musculoskeletal: no back pain Integumentary: no acne and no rash Neurologic: no paralysis and no numbness Psychiatric: + depression; no confusion Endocrine: + fatigue; no polydipsia and no polyphagia Hematologic / Lymphatic: no easy bleeding Allergy / Immunological: no urticaria Physical Exam Constitutional: + ill appearing and + thin; no acute distress Eyes: no nystagmus ENMT: Ears: no hearing impairment Nose: no external nose abnormality Neck: trachea midline Respiratory: no respiratory distress and does not use accessory muscles Cardiovascular: Vessels: no JVD Gastrointestinal (Abdomen): Inspection/Auscultation: abdomen not distended and no abdominal edema Percussion/Palpation: abdomen soft Musculoskeletal: Head/Neck/Chest: normocephalic and head atraumatic Skin: no rashes, warm and dry (in exposed areas) Neurologic: awake; not confused and not obtunded Psychiatric: Orientation: alert and oriented x 3 Eye Contact: + poor eye contact Affect: + flat affect Mood: + depressed mood Genitourinary: lindquist draining clear yellow, adequate amounts. Results & Data Vital Signs (Past 12 Hours) Vital Signs Temp Pulse Pulse Resp BP Pulse Ox 05/27/18 09:44 92 H 05/27/18 07:27 37.5 C 91 H 18 147/73 H 95 05/27/18 04:26 37.0 C 78 16 136/69 95 Laboratory Results Laboratory Results - last 48 hr 05/26/18 05/26/18 05/26/18 14:58 15:40 15:40 WBC 17.17 H RBC 4.53 Hgb 12.1 Hct 38.3 MCV 84.5 MCH 26.7 MCHC 31.6 L RDW Std Deviation 52.3 H RDW Coeff of Anila 16.8 H Plt Count 380 MPV 8.8 Immature Gran % (Auto) 0.6 Neut % (Auto) 84.2 Lymph % (Auto) 10.1 [place] % (Auto) 5.0 Eos % (Auto) 0.0 Baso % (Auto) 0.1 Immature Gran # (Auto) 0.10 H Neut # (Auto) 14.46 H Lymph # (Auto) 1.74 [place] # (Auto) 0.86 H Eos # (Auto) 0.00 Baso # (Auto) 0.01 PT INR Sodium 126 L Potassium 4.0 Chloride 90 L Carbon Dioxide 26 Anion Gap 10.0 BUN 11 Creatinine 1.13 Est Cr Clr Drug Dosing 37.2 Est GFR ( Amer) 55.4 Est GFR (Non-Af Amer) 47.8 BUN/Creatinine Ratio 9.9 L Glucose 246 H POC Glucose Osmolality POC Lactic Acid Iggy Lactate Calcium 9.5 Total Bilirubin 0.5 Direct Bilirubin 0.2 AST 21 ALT 15 Alkaline Phosphatase 126 H Troponin I < 0.015 Total Protein 8.6 H Albumin 2.5 L Lipase 55 L Urine Color Yellow Urine Appearance Cloudy H Urine pH 6.5 Ur Specific Seibert 1.019 Urine Protein 2+ H Urine Glucose (UA) 3+ H Urine Ketones 1+ H Urine Blood 2+ H Urine Nitrite Negative Urine Bilirubin Negative Urine Urobilinogen Negative Ur Leukocyte Esterase 2+ H Urine WBC (Auto) >30 H Urine RBC (Auto) 10-30 H U Hyaline Cast (Auto) 1-5 U Epithel Cells (Auto) 10-20 H Urine Bacteria (Auto) 2+ H Urine Yeast Not Reportable Stl C. diff Tox B Gene 05/26/18 05/26/18 05/26/18 15:40 16:22 21:28 WBC RBC Hgb Hct MCV MCH MCHC RDW Std Deviation RDW Coeff of Anila Plt Count MPV Immature Gran % (Auto) Neut % (Auto) Lymph % (Auto) [place] % (Auto) Eos % (Auto) Baso % (Auto) Immature Gran # (Auto) Neut # (Auto) Lymph # (Auto) [place] # (Auto) Eos # (Auto) Baso # (Auto) PT INR Sodium Potassium Chloride Carbon Dioxide Anion Gap BUN Creatinine Est Cr Clr Drug Dosing Est GFR ( Amer) Est GFR (Non-Af Amer) BUN/Creatinine Ratio Glucose POC Glucose Osmolality POC Lactic Acid Iggy 2.63 H Lactate 2.4 H* Calcium Total Bilirubin Direct Bilirubin AST ALT Alkaline Phosphatase Troponin I Cancelled Total Protein Albumin Lipase Urine Color Urine Appearance Urine pH Ur Specific Se[place]ert Urine Protein Urine Glucose (UA) Urine Ketones Urine Blood Urine Nitrite Urine Bilirubin Urine Urobilinogen Ur Leukocyte Esterase Urine WBC (Auto) Urine RBC (Auto) U Hyaline Cast (Auto) U Epithel Cells (Auto) Urine Bacteria (Auto) Urine Yeast Stl C. diff Tox B Gene 05/26/18 05/27/18 05/27/18 21:39 05:29 05:29 WBC RBC Hgb Hct MCV MCH MCHC RDW Std Deviation RDW Coeff of Anila Plt Count MPV Immature Gran % (Auto) Neut % (Auto) Lymph % (Auto) [place] % (Auto) Eos % (Auto) Baso % (Auto) Immature Gran # (Auto) Neut # (Auto) Lymph # (Auto) [place] # (Auto) Eos # (Auto) Baso # (Auto) PT 46.0 H INR 5.0 H Sodium Potassium Chloride Carbon Dioxide Anion Gap BUN Creatinine Est Cr Clr Drug Dosing Est GFR ( Amer) Est GFR (Non-Af Amer) BUN/Creatinine Ratio Glucose POC Glucose 235 H Osmolality 265 L POC Lactic Acid Iggy Lactate Calcium Total Bilirubin Direct Bilirubin AST ALT Alkaline Phosphatase Troponin I Total Protein Albumin Lipase Urine Color Urine Appearance Urine pH Ur Specific Se[place]ert Urine Protein Urine Glucose (UA) Urine Ketones Urine Blood Urine Nitrite Urine Bilirubin Urine Urobilinogen Ur Leukocyte Esterase Urine WBC (Auto) Urine RBC (Auto) U Hyaline Cast (Auto) U Epithel Cells (Auto) Urine Bacteria (Auto) Urine Yeast Stl C. diff Tox B Gene 0405/27/18 05/27/18 05:29 05:29 05:29 WBC 21.70 H RBC 3.54 L Hgb 9.5 L Hct 29.9 L MCV 84.5 MCH 26.8 MCHC 31.8 L RDW Std Deviation 52.6 H RDW Coeff of Anila 16.7 H Plt Count 334 MPV 8.1 Immature Gran % (Auto) Neut % (Auto) Lymph % (Auto) [place] % (Auto) Eos % (Auto) Baso % (Auto) Immature Gran # (Auto) Neut # (Auto) Lymph # (Auto) [place] # (Auto) Eos # (Auto) Baso # (Auto) PT INR Sodium 129 L Potassium 3.1 L D Chloride 99 Carbon Dioxide 27 Anion Gap 3.0 BUN 10 Creatinine 0.88 Est Cr Clr Drug Dosing 49.0 Est GFR ( Amer) 75.0 Est GFR (Non-Af Amer) 64.7 BUN/Creatinine Ratio 11.1 Glucose 98 POC Glucose Osmolality POC Lactic Acid Iggy Lactate 0.9 Calcium 8.2 L Total Bilirubin Direct Bilirubin AST ALT Alkaline Phosphatase Troponin I Total Protein Albumin Lipase Urine Color Urine Appearance Urine pH Ur Specific [place] Urine Protein Urine Glucose (UA) Urine Ketones Urine Blood Urine Nitrite Urine Bilirubin Urine Urobilinogen Ur Leukocyte Esterase Urine WBC (Auto) Urine RBC (Auto) U Hyaline Cast (Auto) U Epithel Cells (Auto) Urine Bacteria (Auto) Urine Yeast Stl C. diff Tox B Gene 05/27/18 05/27/18 05/27/18 07:43 11:42 Unknown WBC RBC Hgb Hct MCV MCH MCHC RDW Std Deviation RDW Coeff of Anila Plt Count MPV Immature Gran % (Auto) Neut % (Auto) Lymph % (Auto) [place] % (Auto) Eos % (Auto) Baso % (Auto) Immature Gran # (Auto) Neut # (Auto) Lymph # (Auto) [place] # (Auto) Eos # (Auto) Baso # (Auto) PT INR Sodium Potassium Chloride Carbon Dioxide Anion Gap BUN Creatinine Est Cr Clr Drug Dosing Est GFR ( Amer) Est GFR (Non-Af Amer) BUN/Creatinine Ratio Glucose POC Glucose 135 H 137 H Osmolality POC Lactic Acid Iggy Lactate Calcium Total Bilirubin Direct Bilirubin AST ALT Alkaline Phosphatase Troponin I Total Protein Albumin Lipase Urine Color Urine Appearance Urine pH Ur Specific [place] Urine Protein Urine Glucose (UA) Urine Ketones Urine Blood Urine Nitrite Urine Bilirubin Urine Urobilinogen Ur Leukocyte Esterase Urine WBC (Auto) Urine RBC (Auto) U Hyaline Cast (Auto) U Epithel Cells (Auto) Urine Bacteria (Auto) Urine Yeast Stl C. diff Tox B Gene
[2018-05-27] MEDS ORDERED: POTASSIUM CHLORIDE 10 MEQ TABCR PO STA ×2 (13:56→17:50)
[2018-05-27] MEDS: POTASSIUM CHLORIDE / WTR 10 MEQ/100 ML PLCT IV SCH ×2 (14:00→14:02)
--- NOTE | 2018-05-27 14:07 | Hospitalist Progress Note ---
Date of Service May 27, 2018 Assessment & Plan (1) Sepsis: Meets criteria with sepsis:, Admitted with leukocytosis, elevated lactic acid level Tachycardic Possible source of infection: Complicated UTI, has chronic indwelling catheter, Rule out colitis/gastrointestinal intestinal infection, C. difficile-patient had recent admission to hospital, had treatment with antibiotic for more than 2 weeks Patient started with empiric antibiotic with IV Cipro and Flagyl, Blood, urine culture ordered, report pending ID input requested Given presentation with diarrhea, marked leukocytosis, patient will be empirically started with p.o. vancomycin for possible C. difficile Stool C. difficile assay ordered, report pending Present on Admission?: Yes (2) Leukocytosis: WBC elevated 17 K to 22K, for ongoing sepsis, concern for possible C. difficile colitis Started on p.o. vancomycin empirically Continue to monitor daily CBC, (3) Hypokalemia: Due to ongoing GI loss, having diarrhea, potassium replaced, repeat BMP (4) UTI (urinary tract infection): Complicated UTI with chronic indwelling catheter: Patient continued with broad-spectrum antibiotic, ID following, Urology consulted for chronic urinary retention Patient recently admitted and discharged 05/11-05/15 secondary to E. coli pansensitive UTI treated with IV Rocephin and transitioned to cefdinir 300 mg twice daily times 2 weeks. Further she was diagnosed with urinary retention requiring Nicolas placement and was to follow-up with urology 05/27 for voiding trial. (5) Hyponatremia: Possible secondary to GI loss, nausea vomiting diarrhea Ordered for IV fluids NSS at 80 mL/h Follow BMP Nephro input requested (6) Urinary retention: Nicolas in place, Urology consulted, appreciate input (7) Paroxysmal A-fib: Rate controlled on sotalol Anticoagulated with warfarin (8) Diabetes mellitus, type II: Last A1c 04/27 8.5 Lantus/novolog per protocol, titrate accordingly (9) Hypertension: Continue amlodipine, s (10) CKD (chronic kidney disease), stage III: BUN/creatinine at baseline 11 and 1.13 Monitor BMP (11) S/p cadaver renal transplant: Continue CellCept and sirolimus (12) DVT prophylaxis: continue warfarin check PT/INR Disposition: With significant generalized weakness, functional decline, PT OT eval requested Follow up: PCP Dr. Renee upon discharge Subjective Patient reports of feeling very tired and weak, afebrile, had one watery bowel movement this morning, no complaint of abdominal pain Physical Exam Constitutional: + ill appearing and + thin; no acute distress Eyes: PERRL, conjunctivae normal, anicteric sclerae ENMT: external ear and nose normal, oropharynx normal Neck: trachea midline, no thyromegaly Respiratory: normal respiratory effort, lungs clear to auscultation no respiratory distress and does not use accessory muscles Cardiovascular: Rate/Rhythm: + irregularly irregular Heart Sounds: normal S1 and normal S2 Vessels: normal peripheral pulses; no JVD Gastrointestinal (Abdomen): Inspection/Auscultation: abdomen not distended Percussion/Palpation: abdomen soft Musculoskeletal: no cyanosis or clubbing, extremities motor strength 5/5 Head/Neck/Chest: normocephalic and head atraumatic Skin: normal turgor Neurologic: awake; no focal motor deficits, not confused and not obtunded Psychiatric: A+Ox3, euthymic affect Orientation: alert, oriented x 3 and cooperative Affect: + flat affect Results & Data Vital Signs (Past 12 Hours) Vital Signs Temp Pulse Pulse Resp BP Pulse Ox 05/27/18 12:19 36.9 C 05/27/18 11:19 38.2 C H 90 20 94/51 L 98 05/27/18 09:44 92 H 05/27/18 07:27 37.5 C 91 H 18 147/73 H 95 05/27/18 04:26 37.0 C 78 16 136/69 95 (1) Sepsis Sepsis type: sepsis due to unspecified organism Qualified Code(s): A41.9 - Sepsis, unspecified organism (2) UTI (urinary tract infection) Urinary tract infection type: site unspecified Hematuria presence: without hematuria Qualified Code(s): N39.0 - Urinary tract infection, site not specified (3) Diabetes mellitus, type II Diabetes mellitus shelter insulin use: unspecified termite helper insulin use status Diabetes mellitus complication status: with unspecified complications Qualified Code(s): E11.8 - Type 2 diabetes mellitus with unspecified complications (4) Hypertension Hypertension type: essential hypertension Qualified Code(s): I10 - Essential (primary) hypertension (5) Leukocytosis Leukocytosis type: unspecified Qualified Code(s): D72.829 - Elevated white blood cell count, unspecified
[2018-05-27] MEDS: RASPBERRY SYRUP 5 ML UDP PO SCH ×3 (14:35→23:46)
[2018-05-27] MEDS: VANCOMYCIN HCL 250 MG/5 ML SOLN PO SCH ×3 (14:35→23:46)
[2018-05-27] MEDS ORDERED: WARFARIN SOD 2 MG TAB PO SCH (16:00)
[2018-05-27 16:38] LABS: BUN Creatinine Ratio 10.9 (10-20); Calcium 8.3 mg/dl (8.5-10.1); Creatinine Clr Calc Pharmacy 42.7 ml/min; Est GFR (African American) 63.5; Est GFR (Non-African American) 54.8; Potassium 3.3 mmol/L (3.5-5.1)
--- NOTE | 2018-05-27 17:04 | Nephrology Consultation ---
Date of Consultation May 27, 2018 Assessment & Plan (1) S/p cadaver renal transplant: for now continue sirolimus and MMF current doses which are her OP doses; may need to lower MMF depending on clinical course but would maintain for now Present on Admission?: Yes (2) Escherichia coli infection: recurrent infection in setting of chronic immunosuppression, chronic indwelling lindquist, chronic UR >> bacteremia versus recurrent uti versus infectious colitis -per inf dzs recommendations; f/u cxs Present on Admission?: Yes (3) Hypokalemia: IVF as below; recheck bmp daily Present on Admission?: Yes (4) Sepsis: clinically improving; lactate normalized; was febrile this am however; abtx per primary service and ID -change NS to normosol same rate-still a crystalloid appropriate for fluid resuscitation in sepsis but w/ more acceptable chemistry profile Present on Admission?: Yes (5) Hyponatremia: suspect hypovolemic hyponatremia; 126 on presentation w/ low osms; improved to 129 already -cont iVF as above Present on Admission?: Yes History of Present Illness Attending Physician: Georgina Morris MD History of Present Illness 73 y/o F whom I'm asked to see to assist w/ mgt of renal txplt status in setting of sepsis possibly from recurrent uti w/ chronic lindquist versus colitis; febrile today to 38.2. Other PMH includes IDDM2, pAF, HTN, remote cervical CA hx, significant depression. she had DDRTx 2007 at [facility] [place] for ESRD d/t DM and is maintained on sirolimus and MMF. 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 she has had chronic/recurrent uti with multiple admissions here and in [place] since at least 2013; w/ chronic urinary retention and lindquist dependent since earlier this year. she was admitted here in november 2017 w/ hypovolemic hyponatremia, dehydration, uti, urinary retention requiring d/c w/ lindquist which she had for about a week. also admitted in March w/fall at home w/ f (t max 39.2), pain over allograft, acute urinary retention. And admitted here earlier this month again w/ uti. she had been for OP urology f/u but did no keep appts and stopped her po cefdinir on her own d/t worsening N w/ some vomiting, diarrhea, fatigue, worsening weakness. she is well known to inf dzs and urology here, both of whom are following. her allograft function has been remarkably preserved, w/ creati nine running 0.9-1.1 generally and since admission here yesterday. Slight low Na, low K. Allergies Allergy/AdvReac Type Severity Reaction Status Date / Time KATIA Inhibitors Allergy Unknown Unknown Verified 05/26/18 15:29 ARB-Angiotensin Receptor Allergy Unknown Unknown Verified 05/26/18 15:29 Antagonist amoxicillin AdvReac Severe nausea Verified 05/26/18 15:29 Home Medications Home Medications Medication Instructions Recorded Confirmed Type Novolog Flexpen U-100 Insulin 12 - 22 unit SUBCUT AC 11/23/17 05/26/18 History amlodipine 10 mg PO QAM 11/23/17 05/26/18 History aspirin [Aspirin Low Dose] 81 mg PO QAM 11/23/17 05/26/18 History cholecalciferol (vitamin D3) 1,000 unit PO QAM 11/23/17 05/26/18 History [Vitamin D3] hydralazine 10 mg PO BID 11/23/17 05/26/18 History mycophenolate mofetil 250 mg PO Q12 11/23/17 05/26/18 History sirolimus 1 mg PO QAM 11/23/17 05/26/18 History sotalol 120 mg PO BID 11/23/17 05/26/18 History Lactinex 1 tab PO BID #20 tab 03/23/18 05/26/18 Rx tramadol 50 mg PO Q8H PRN #10 tab 03/24/18 05/26/18 Rx acetaminophen [Tylenol Extra 500 mg PO Q6H PRN 05/11/18 05/26/18 History Strength] mirtazapine 15 mg PO HS 05/11/18 05/26/18 History cefdinir 300 mg PO Q12 14 Days #28 cap 05/15/18 05/26/18 Rx insulin glargine [Lantus Solostar 18 unit SC HS 30 Days #5.4 ml 05/15/18 05/26/18 Rx U-100 Insulin] warfarin 0.5 mg PO 3XWK 05/26/18 05/26/18 History warfarin [Coumadin] 1 mg PO 4XWK 05/26/18 05/26/18 History Patient History Medical 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) Carotid stenosis (Chronic) History of cervical cancer (Chronic) CKD (chronic kidney disease), stage III (Chronic) Hypertension (Chronic) Mitral valve regurgitation (Chronic) Dyslipidemia (Chronic) Paroxysmal A-fib (Chronic) History of herpes zoster (Chronic) Diabetes mellitus, type II (Chronic) nursing home current use of antiarrhythmic drug (Chronic) Recurrent UTI (Chronic) Surgical History S/P QUINN (total abdominal hysterectomy) (Chronic) History of cataract surgery (Chronic) Status post cholecystectomy (Chronic) S/p cadaver renal transplant (Chronic) Family History Mother Diabetes mellitus with coincident hypertension Social History Preferred Language: Thai Communication Ability: Effective Radiology Teacher Required: No Beliefs That Will Affect Care: None marital status: Current Living Situation: Family Other Information That Helps Us Care for You: No Feels Safe at Home: Yes Safety Concerns: Feels Safe At This Time Smoking Status: Never smoker Second Hand Exposure: No Hx Alcohol Use: No Hx Substance Use: No Review of Systems Review of Systems: All systems reviewed & are unremarkable except as noted in HPI & below Constitutional: + fatigue, + malaise, + weakness, + anorexia and + weight loss Eyes: no worsening vision Ear, Nose, Mouth, Throat: + dry mouth Respiratory: no cough and no dyspnea Cardiovascular: no chest pain, no palpitations and no edema Gastrointestinal: + abdominal pain and + nausea Genitourinary: chronic lindquist; no pain specifically over allograft Endocrine: + fatigue Hematologic / Lymphatic: no easy bleeding Physical Exam Constitutional: well developed, + thin, + frail appearing and cooperative on RA, tired, frustrated Eyes: EOM intact bilaterally ENMT: Ears: no external ear abnormality Nose: no external nose abnormality Mouth: + dry oral mucous membranes Neck: no nuchal rigidity Respiratory: normal respiratory effort Auscultation: + diminished lung sounds Cardiovascular: Rate/Rhythm: regular rate and + irregularly irregular Extremities: + AV fistula (+ t/b); no edema Gastrointestinal (Abdomen): Inspection/Auscultation: + abdomen distended and normal bowel sounds Percussion/Palpation: + abdomen tender (BL lower quadrants ), + guarding and abdomen soft; abdomen not rigid allograft nt Musculoskeletal: Extremities: strength 5/5 throughout Skin: no rashes, warm and dry + turgor decreased Neurologic: jung, fluent speech, no tremor, generalized weakness Psychiatric: Orientation: alert and oriented x 3 Affect: + flat affect Genitourinary: lindquist w/ yellow urine Results & Data Vital Signs (Past 12 Hours) Vital Signs Temp Pulse Pulse Pulse Resp BP Pulse Ox 05/27/18 16:27 37.3 C 88 20 111/65 97 05/27/18 12:19 36.9 C 05/27/18 11:19 38.2 C H 90 20 94/51 L 98 05/27/18 09:44 92 H 05/27/18 07:27 37.5 C 91 H 18 147/73 H 95 Laboratory Results Abnormal lab results 05/26/18 05/26/18 05/26/18 Range/Units 15:40 16:22 21:28 WBC 17.17 H (4.8-10.8) K/uL RBC (4.2-5.4) M/uL Hgb (12.0-16.0) g/dL Hct (37-47) % MCHC 31.6 L (32-36) g/dL RDW Std Deviation 52.3 H (36.4-46.3) fL RDW Coeff of Anila 16.8 H (11.5-14.5) % Immature Gran # (Auto) 0.10 H (0.00-0.02) K/uL Neut # (Auto) 14.46 H (1.4-6.5) K/uL [place] # (Auto) 0.86 H (0.11-0.59) K/uL PT (9.0-12.0) Seconds INR (0.9-1.1) Sodium (136-145) mmol/L Potassium (3.5-5.1) mmol/L Glucose (70-99) mg/dl POC Glucose (70-99) Osmolality (280-300) mOsm/kg POC Lactic Acid Iggy 2.63 H (0.90-1.70) mmol/L Lactate 2.4 H* (0.4-2.0) mmol/L Calcium (8.5-10.1) mg/dl 05/26/18 05/27/18 05/27/18 Range/Units 21:39 05:29 05:29 WBC (4.8-10.8) K/uL RBC (4.2-5.4) M/uL Hgb (12.0-16.0) g/dL Hct (37-47) % MCHC (32-36) g/dL RDW Std Deviation (36.4-46.3) fL RDW Coeff of Anila (11.5-14.5) % Immature Gran # (Auto) (0.00-0.02) K/uL Neut # (Auto) (1.4-6.5) K/uL [place] # (Auto) (0.11-0.59) K/uL PT 46.0 H (9.0-12.0) Seconds INR 5.0 H (0.9-1.1) Sodium (136-145) mmol/L Potassium (3.5-5.1) mmol/L Glucose (70-99) mg/dl POC Glucose 235 H (70-99) Osmolality 265 L (280-300) mOsm/kg POC Lactic Acid Iggy (0.90-1.70) mmol/L Lactate (0.4-2.0) mmol/L Calcium (8.5-10.1) mg/dl 05/27/18 05/27/18 05/27/18 Range/Units 05:29 05:29 07:43 WBC 21.70 H (4.8-10.8) K/uL RBC 3.54 L (4.2-5.4) M/uL Hgb 9.5 L (12.0-16.0) g/dL Hct 29.9 L (37-47) % MCHC 31.8 L (32-36) g/dL RDW Std Deviation 52.6 H (36.4-46.3) fL RDW Coeff of Anila 16.7 H (11.5-14.5) % Immature Gran # (Auto) (0.00-0.02) K/uL Neut # (Auto) (1.4-6.5) K/uL [place] # (Auto) (0.11-0.59) K/uL PT (9.0-12.0) Seconds INR (0.9-1.1) Sodium 129 L (136-145) mmol/L Potassium 3.1 L D (3.5-5.1) mmol/L Glucose (70-99) mg/dl POC Glucose 135 H (70-99) Osmolality (280-300) mOsm/kg POC Lactic Acid Iggy (0.90-1.70) mmol/L Lactate (0.4-2.0) mmol/L Calcium 8.2 L (8.5-10.1) mg/dl 05/27/18 05/27/18 Range/Units 11:42 16:12 WBC (4.8-10.8) K/uL RBC (4.2-5.4) M/uL Hgb (12.0-16.0) g/dL Hct (37-47) % MCHC (32-36) g/dL RDW Std Deviation (36.4-46.3) fL RDW Coeff of Anila (11.5-14.5) % Immature Gran # (Auto) (0.00-0.02) K/uL Neut # (Auto) (1.4-6.5) K/uL [place] # (Auto) (0.11-0.59) K/uL PT (9.0-12.0) Seconds INR (0.9-1.1) Sodium 129 L (136-145) mmol/L Potassium 3.3 L (3.5-5.1) mmol/L Glucose 137 H (70-99) mg/dl POC Glucose 137 H (70-99) Osmolality (280-300) mOsm/kg POC Lactic Acid Iggy (0.90-1.70) mmol/L Lactate (0.4-2.0) mmol/L Calcium 8.3 L (8.5-10.1) mg/dl Diagnostic Findings ct abd/pelvis FINDINGS: Very small bilateral pleural effusions. Mild bibasilar atelectasis. Atrophy of the [place] kidneys bilaterally. Prior cholecystectomy. Pancreatic atrophy. Moderate wall edematous change of the descending and sigmoid colonic regions. Moderate pericolonic infiltrative change. This consistent with a nonspecific colitis. Right pelvi renal transplant showing air within the collecting system. This potentially relates to Lindquist catheter within a collapsed bladder. No current evidence for hydronephrosis. Mild infiltrative changes subcutaneous fat over the anterior abdominal wall unchanging considered chronic. IMPRESSION: 1. Nonspecific colitis involving the descending and sigmoid colon. 2. Mild pericolonic infiltrative change. 3. No evidence for abscess or collection. No evidence for obstruction.. 4. Atrophy of the [place] kidneys with a right pelvic renal transplant 5. The renal transplant demonstrates air within the collecting system which may be secondary to placement of Lindquist catheter within a collapsed bladder. (1) Sepsis Sepsis type: sepsis due to unspecified organism Qualified Code(s): A41.9 - Sepsis, unspecified organism
[2018-05-27] MEDS ORDERED: PROMETHAZINE HCL 12.5 MG in SODIUM CHLORIDE 0.9% 50 ML IV PRN (18:03)
--- NOTE | 2018-05-27 18:29 | XRay Report ---
XR KUB/Abdomen 1 view CLINICAL HISTORY: nausea /vomiting COMPARISON STUDY: 04/12/2017 FINDINGS: There are upper abdominal surgical clips. There are surgical clips within the right lower q uadrant, likely vascular. There is mild gaseous prominence of the colon. There is no conventional rad iographic evidence of a high-grade bowel obstruction. There are stable pelvic basin calcifications. IMPRESSION: 1. Postsurgical change 2. No conventional radiographic evidence of bowel obstruction. Electronically signed by: Akhil Meadows M.D. 05/27/2018 6:28 PM
[2018-05-27] MEDS: NORMOSOL-R 1,000 ML IV SCH (18:51)
[2018-05-27] MEDS ORDERED: VANCOMYCIN HCL 1,250 MG in SODIUM CHLORIDE 0.9% 250 ML IV SCH (19:00)
[2018-05-27] MEDS: CEFEPIME 2,000 MG in SYRINGE 7.5 ML IV SCH (19:17)
[2018-05-27 19:31] LABS: Basophils # (auto) 0.03 K/uL (0-0.2); Basophils % (auto) 0.1 %; Eosinophils % (auto) 0.4 %; Hematocrit (blood only) 31.3 % (37-47); Hemoglobin 9.9 g/dL (12.0-16.0); Immature Granulocytes # (auto) 0.23 K/uL (0.00-0.02); Lymphocytes # (auto) 1.53 K/uL (1.2-3.4); Lymphocytes % (auto) 6.3 %; Mean Corpuscular Volume 83.7 fL (80-100); Mean Platelet Volume 8.4 fL (7.4-10.4); Monocytes # (auto) 2.26 K/uL (0.11-0.59); Monocytes % (auto) 9.4 %; Neutrophils # (auto) 19.99 K/uL (1.4-6.5); Neutrophils % (auto) 82.8 %; Platelet Count 335 K/uL (130-400); RDW Coefficient of Variation 16.7 % (11.5-14.5); RDW Standard Deviation 51.4 fL (36.4-46.3); Red Blood Count 3.74 M/uL (4.2-5.4); White Blood Count 24.14 K/uL (4.8-10.8)
[2018-05-27 19:32] LABS: Mean Corpuscular Hgb Conc 31.6 g/dL (32-36)
[2018-05-27] MEDS: INSULIN GLARGINE SOLOSTAR 100 UNITS/ML 3 ML PEN SC SCH (21:31)
[2018-05-27 22:31] LABS: Cdiff Antigen Positive
[2018-05-27 22:32] LABS: Cdiff Toxin A+B Positive Cdiff Toxin (Negative)
[2018-05-28] MEDS: NORMOSOL-R 1,000 ML IV SCH ×2 (05:54→14:05)
[2018-05-28] MEDS: INSULIN ASPART 100 UNITS/ML 3 ML PEN SC SCH ×4 (06:12→22:04)
[2018-05-28] MEDS: VANCOMYCIN HCL 250 MG/5 ML SOLN PO SCH (06:13)
[2018-05-28] MEDS: metroNIDAZOLE 500 MG/100 ML BAG IV SCH ×3 (06:13→22:40)
[2018-05-28] MEDS: CEFEPIME 2,000 MG in SYRINGE 7.5 ML IV SCH (06:13)
[2018-05-28] MEDS: RASPBERRY SYRUP 5 ML UDP PO SCH ×3 (06:13→18:05)
[2018-05-28 07:47] LABS: Basophils # (auto) 0.01 K/uL (0-0.2); Basophils % (auto) 0.1 %; Eosinophils # (auto) 0.15 K/uL (0-0.5); Eosinophils % (auto) 0.8 %; Immature Granulocytes # (auto) 0.11 K/uL (0.00-0.02); Immature Granulocytes % (auto) 0.6 %; Lymphocytes # (auto) 1.28 K/uL (1.2-3.4); Mean Corpuscular Hgb Conc 31.3 g/dL (32-36); Mean Corpuscular Volume 84.7 fL (80-100); Mean Platelet Volume 8.4 fL (7.4-10.4); Monocytes # (auto) 1.74 K/uL (0.11-0.59); Monocytes % (auto) 9.6 %; Neutrophils # (auto) 14.91 K/uL (1.4-6.5); Neutrophils % (auto) 81.9 %; Platelet Count 343 K/uL (130-400); RDW Coefficient of Variation 16.8 % (11.5-14.5); RDW Standard Deviation 52.1 fL (36.4-46.3); Red Blood Count 3.78 M/uL (4.2-5.4)
[2018-05-28 08:04] LABS: Prothrombin Time 57.8 Seconds (9.0-12.0)
[2018-05-28 08:12] LABS: BUN Creatinine Ratio 11.3 (10-20); Calcium 8.3 mg/dl (8.5-10.1); Creatinine Clr Calc Pharmacy 46.1 ml/min; Est GFR (African American) 70.2; Est GFR (Non-African American) 60.5; Magnesium 1.9 mg/dl (1.8-2.4); Potassium 3.2 mmol/L (3.5-5.1)
[2018-05-28] MEDS: LACTOBACILLUS ACIDOPHILUS (FLORANEX) TAB PO SCH ×2 (08:28→16:17)
[2018-05-28] MEDS: SIROLIMUS 0.5 MG TABLET PO SCH (08:28)
[2018-05-28] MEDS: MYCOPHENOLATE MOFETIL 250 MG CAP PO SCH ×2 (08:29→21:13)
[2018-05-28] MEDS: SOTALOL HCL 80 MG TAB PO SCH ×2 (08:29→21:11)
[2018-05-28] MEDS: ONDANSETRON INJ 2 MG/ML 2 ML VIAL IV PRN (08:31)
[2018-05-28 08:34] LABS: INR 6.4 (0.9-1.1)
--- NOTE | 2018-05-28 10:05 | Urology Progress Note ---
Date of Service May 28, 2018 Assessment & Plan (1) Leukocytosis: (2) Sepsis: (3) Urinary retention: 73yo F with recurrent UTIs, UR with indwelling catheter, donor kidney on immunosuppression Cdiff positive - treatment per ID. UC&S prelim with no growth. Maintain lindquist catheter, okay to exchange if she is due. Should be done every 3- 4 weeks. May need case management to call home nursing to check date of last change. No acute intervention indicated. Will arrange for outpatient f/u in 3-4 weeks to discuss possible CIC teaching. Thank you for the consultation and allowing us to participate in the acute care of Ms. Seo. Subjective Pt resting, easily arousable again to verbal stimulation. She is aware she is being treated for c.diff. No new complaints. Very quiet, withdrawn, flat affect. Some nausea/no emesis. No fevers/chills. Overall fatigued, malaise. Review of Systems Review of Systems: All systems reviewed & are unremarkable except as noted in HPI & below Physical Exam Physical Exam: A&Ox3 flat affect, withdrawn RRR abd soft,non-distended, diffusely tender : lindquist draining clear yellow. Results & Data Vital Signs (Past 12 Hours) Vital Signs Temp Pulse Resp BP Pulse Ox 05/28/18 07:02 37.4 C 84 17 114/60 97 05/28/18 03:59 37.0 C 85 17 134/68 98 05/27/18 23:19 36.9 C 98 H 17 125/69 98 (1) Leukocytosis Leukocytosis type: unspecified Qualified Code(s): D72.829 - Elevated white blood cell count, unspecified (2) Sepsis Sepsis type: sepsis due to unspecified organism Qualified Code(s): A41.9 - Sepsis, unspecified organism
[2018-05-28] MEDS ORDERED: PHYTONADIONE 5 MG TAB PO STA (10:16)
[2018-05-28] MEDS ORDERED: POTASSIUM CHLORIDE 20 MEQ TABCR PO ONE (10:45)
[2018-05-28] MEDS: VANCOMYCIN HCL 500 MG/10 ML SOLN PO SCH ×2 (10:55→18:05)
--- NOTE | 2018-05-28 20:01 | Nephrology Progress Note ---
Date of Service May 28, 2018 Assessment & Plan (1) S/p cadaver renal transplant: for now continue sirolimus and MMF current doses which are her OP doses; She is improving, no need to lower MMF (2) Escherichia coli infection: recurrent infection in setting of chronic immunosuppression, chronic indwelling lindquist, chronic UR >>Urine cx negative so far. She is high risk for UTI in setting of Immune suppression -per inf dzs recommendations; f/u cxs (3) Hypokalemia: Recommend Po kcl 40meq daily; recheck bmp daily (4) Sepsis: Due to C.Dif colitis. Improving with treatment per primary team (5) Hyponatremia: suspect hypovolemic hyponatremia; 126 on presentation w/ low osms; improved to 133 today Subjective Patient seen in f/u on morning rounds. She is a DDKT recipient many yrs ago now admitted with CDiff colitis. Still has diarrhoea. Has nausea. She has a lindquist Review of Systems Review of Systems: All systems reviewed & are unremarkable except as noted in HPI & below Physical Exam Physical Exam: General exam: Appears comfortable, no acute distress HEENT: Pupils are equal and reactive to light Neck: No JVD, neck is supple trachea is midline Respiratory system: Clear breath sounds bilaterally. Gastrointestinal: Abdomen is soft, non distended, non tender, bowel sounds are present CVS: Regular rate and rhythm. No murmurs, rubs or gallops Musculoskeletal: No joint or muscle tenderness Extremities: Non tender, no edema, peripheral pulses are present Neuro: Oriented, no tremors, no focal neurological deficits Skin: No rashes Results & Data Vital Signs (Past 12 Hours) Vital Signs Temp Pulse Resp BP Pulse Ox 05/28/18 15:50 37.1 C 82 18 138/72 97 05/28/18 12:00 37.3 C 85 18 114/67 97 Laboratory Results k 3.2, hb 10, cr 0.9 (1) Sepsis Sepsis type: sepsis due to unspecified organism Qualified Code(s): A41.9 - Sepsis, unspecified organism
--- NOTE | 2018-05-28 20:22 | Hospitalist Progress Note ---
Date of Service May 28, 2018 Assessment & Plan (1) Sepsis: Meets criteria with sepsis:, Admitted with leukocytosis, elevated lactic acid level Tachycardic source of infection: C. difficile colitis Stool C. difficile positive Started on p.o. vancomycin Contact isolation ID input requested (2) Leukocytosis: WBC elevated 17 K to 22K, for ongoing sepsis, due to C. difficile colitis Started on p.o. vancomycin empirically Continue to monitor daily CBC, (3) Hypokalemia: Due to ongoing GI loss, having diarrhea, potassium replaced, repeat BMP (4) UTI (urinary tract infection): Complicated UTI with chronic indwelling catheter: Patient continued with broad-spectrum antibiotic, ID following, Urology consulted for chronic urinary retention Urine culture negative, IV cefepime discontinued: Need to limit antibiotics in the setting of C. difficile colitis Patient recently admitted and discharged 05/11-05/15 secondary to E. coli pansensitive UTI treated with IV Rocephin and transitioned to cefdinir 300 mg twice daily times 2 weeks. Further she was diagnosed with urinary retention requiring Nicolas placement and was to follow-up with urology 05/27 for voiding trial. (5) Hyponatremia: Possible secondary to GI loss, nausea vomiting diarrhea Ordered for IV fluids, follow BMP (6) Urinary retention: Nicolas in place, Urology consulted, appreciate input (7) Paroxysmal A-fib: Rate controlled on sotalol Coumadin on hold, as INR elevated more than 6 (possible secondary to drug interaction with Flagyl Ordered low-dose vitamin K 2.5 mg PO PT INR tomorrow (8) Diabetes mellitus, type II: Last A1c 04/27 8.5 Lantus/novolog per protocol, titrate accordingly (9) Hypertension: Continue amlodipine, s (10) CKD (chronic kidney disease), stage III: BUN/creatinine at baseline 11 and 1.13 Monitor BMP (11) S/p cadaver renal transplant: Continue CellCept and sirolimus (12) DVT prophylaxis: elevated INR Disposition: With significant generalized weakness, functional decline, PT OT eval requested Follow up: PCP Dr. Renee upon discharge Subjective This much better today, awake and alert, nausea has resolved, tolerating clear liquids, denies of any abdominal pain, has ongoing diarrhea, afebrile Physical Exam Constitutional: + ill appearing and + thin; no acute distress Eyes: PERRL, conjunctivae normal, anicteric sclerae ENMT: external ear and nose normal, oropharynx normal Neck: trachea midline, no thyromegaly Respiratory: normal respiratory effort, lungs clear to auscultation no respiratory distress and does not use accessory muscles Cardiovascular: Rate/Rhythm: + irregularly irregular Heart Sounds: normal S1 and normal S2 Vessels: normal peripheral pulses; no JVD Gastrointestinal (Abdomen): Inspection/Auscultation: abdomen not distended Percussion/Palpation: abdomen soft Musculoskeletal: no cyanosis or clubbing, extremities motor strength 5/5 Head/Neck/Chest: normocephalic and head atraumatic Skin: normal turgor Neurologic: awake; no focal motor deficits, not confused and not obtunded Psychiatric: A+Ox3, euthymic affect Orientation: alert, oriented x 3 and cooperative Affect: + flat affect Results & Data Vital Signs (Past 12 Hours) Vital Signs Temp Pulse Resp BP Pulse Ox 05/28/18 19:59 37.2 C 85 129/73 95 05/28/18 15:50 37.1 C 82 18 138/72 97 05/28/18 12:00 37.3 C 85 18 114/67 97 (1) UTI (urinary tract infection) Hematuria presence: without hematuria Urinary tract infection type: site unspecified Qualified Code(s): N39.0 - Urinary tract infection, site not specified (2) Diabetes mellitus, type II Diabetes mellitus complication status: with unspecified complications Diabetes mellitus superintendent terminal insulin use: unspecified superintendent terminal insulin use status Qualified Code(s): E11.8 - Type 2 diabetes mellitus with unspecified complications (3) Leukocytosis Leukocytosis type: unspecified Qualified Code(s): D72.829 - Elevated white blood cell count, unspecified (4) Sepsis Sepsis type: sepsis due to unspecified organism Qualified Code(s): A41.9 - Sepsis, unspecified organism (5) Hypertension Hypertension type: essential hypertension Qualified Code(s): I10 - Essential (primary) hypertension
[2018-05-28] MEDS ORDERED: TRAMADOL HCL 50 MG TABLET ONE (21:07)
[2018-05-28] MEDS: INSULIN GLARGINE SOLOSTAR 100 UNITS/ML 3 ML PEN SC SCH (21:21)
--- NOTE | 2018-05-28 22:40 | Infectious Disease Progress Nt ---
Date of Service May 28, 2018 Assessment & Plan (1) Sepsis: Patient with clinical picture of sepsis with possible recurrent urinary tract infection in the setting of chronic Nicolas catheter with previously history of recurrent E. coli infections. Now found to have C. difficile colitis. To treat with vancomycin. Will follow. (2) UTI (urinary tract infection): (3) Escherichia coli infection: Subjective . Feels a bit better today, diet advanced to solid, Diarrhea is improved, only 2 episodes so far, afebrile No complaint of abdominal pain, no nausea Review of Systems Review of Systems: All systems reviewed & are unremarkable except as noted in HPI & below Physical Exam Constitutional: WD/WN, vitals as above + ill appearing (Chronically) and comfortable; no acute distress Eyes: PERRL, conjunctivae normal, anicteric sclerae ENMT: external ear and nose normal, oropharynx normal Neck: trachea midline, no thyromegaly neck nontender Respiratory: normal respiratory effort, lungs clear to auscultation normal percussion; does not use accessory muscles Cardiovascular: Rate/Rhythm: + irregularly irregular Heart Sounds: normal S1, normal S2 and + murmur (Systolic); no gallop and no cardiac rub Vessels: normal peripheral pulses; no JVD Gastrointestinal (Abdomen): normal bowel sounds, soft, nontender, no hepatosplenomegaly Musculoskeletal: no cyanosis or clubbing, extremities motor strength 5/5 Spine: thoracic spine normal to inspection and lumbar spine normal to inspection; no cervical spinal tenderness Skin: no rashes, warm and dry normal turgor; no lesions Neurologic: patellar DTR's 2+ bilat, sensation intact no focal motor deficits Psychiatric: A+Ox3, euthymic affect Orientation: cooperative Lymphatic: no cervical or axillary lymphadenopathy no inguinal lymphadenopathy Results & Data Vital Signs (Past 12 Hours) Vital Signs Temp Pulse Resp BP Pulse Ox 05/28/18 19:59 37.2 C 85 129/73 95 05/28/18 15:50 37.1 C 82 18 138/72 97 05/28/18 12:00 37.3 C 85 18 114/67 97 Laboratory Results Short CBC 05/28/18 Range/Units 07:12 WBC 18.20 H (4.8-10.8) K/uL Hgb 10.0 L (12.0-16.0) g/dL Hct 32.0 L (37-47) % Plt Count 343 (130-400) K/uL BMP 05/28/18 07:12 Sodium 133 L Potassium 3.2 L Chloride 102 Carbon Dioxide 23 BUN 11 Creatinine 0.93 Glucose 136 H Calcium 8.3 L Diagnostic Findings Microbiology 05/26/18 14:58 Urine,Straight Cath Urine Culture - Final More than three types of organisms present, all low counts mixed probable skin summer. No further identifications or sensitivities to follow. 05/26/18 21:28 Blood Blood Culture - Preliminary No growth to date. 05/26/18 21:05 Blood Blood Culture - Preliminary No growth to date. (1) Sepsis Sepsis type: sepsis due to unspecified organism Qualified Code(s): A41.9 - Sepsis, unspecified organism (2) UTI (urinary tract infection) Urinary tract infection type: site unspecified Hematuria presence: without hematuria Qualified Code(s): N39.0 - Urinary tract infection, site not specified
[2018-05-29] MEDS: NORMOSOL-R 1,000 ML IV SCH ×4 (00:02→23:34)
[2018-05-29] MEDS: VANCOMYCIN HCL 500 MG/10 ML SOLN PO SCH ×5 (00:06→23:33)
[2018-05-29] MEDS: RASPBERRY SYRUP 5 ML UDP PO SCH ×5 (00:07→23:34)
[2018-05-29] MEDS: metroNIDAZOLE 500 MG/100 ML BAG IV SCH ×2 (06:06→14:54)
[2018-05-29 07:10] LABS: Basophils # (auto) 0.02 K/uL (0-0.2); Basophils % (auto) 0.2 %; Eosinophils # (auto) 0.43 K/uL (0-0.5); Eosinophils % (auto) 3.9 %; Hematocrit (blood only) 31.1 % (37-47); Hemoglobin 10.2 g/dL (12.0-16.0); Immature Granulocytes # (auto) 0.07 K/uL (0.00-0.02); Immature Granulocytes % (auto) 0.6 %; Lymphocytes # (auto) 1.55 K/uL (1.2-3.4); Lymphocytes % (auto) 13.9 %; Mean Corpuscular Hgb Conc 32.8 g/dL (32-36); Mean Corpuscular Volume 83.6 fL (80-100); Mean Platelet Volume 8.3 fL (7.4-10.4); Monocytes # (auto) 1.55 K/uL (0.11-0.59); Monocytes % (auto) 13.9 %; Neutrophils # (auto) 7.53 K/uL (1.4-6.5); Neutrophils % (auto) 67.5 %; Platelet Count 330 K/uL (130-400); RDW Coefficient of Variation 16.8 % (11.5-14.5); RDW Standard Deviation 51.7 fL (36.4-46.3); Red Blood Count 3.72 M/uL (4.2-5.4); White Blood Count 11.15 K/uL (4.8-10.8)
[2018-05-29 07:31] LABS: INR 1.6 (0.9-1.1); Prothrombin Time 16.2 Seconds (9.0-12.0)
[2018-05-29 07:44] LABS: BUN Creatinine Ratio 7.6 (10-20); Calcium 7.8 mg/dl (8.5-10.1); Creatinine Clr Calc Pharmacy 47.9 ml/min; Est GFR (African American) 67.5; Est GFR (Non-African American) 58.3; Magnesium 2.1 mg/dl (1.8-2.4); Potassium 3.1 mmol/L (3.5-5.1)
[2018-05-29] MEDS: LACTOBACILLUS ACIDOPHILUS (FLORANEX) TAB PO SCH ×2 (08:15→17:13)
[2018-05-29] MEDS: MYCOPHENOLATE MOFETIL 250 MG CAP PO SCH ×2 (08:15→20:05)
[2018-05-29] MEDS: SIROLIMUS 0.5 MG TABLET PO SCH (08:16)
[2018-05-29] MEDS: SOTALOL HCL 80 MG TAB PO SCH ×2 (08:16→20:05)
[2018-05-29] MEDS: INSULIN ASPART 100 UNITS/ML 3 ML PEN SC SCH ×4 (08:25→20:10)
[2018-05-29] MEDS: POTASSIUM CHLORIDE 20 MEQ/15 ML UDC PO SCH ×2 (12:19→20:08)
[2018-05-29] MEDS ORDERED: WARFARIN SOD 2 MG TAB PO STA (19:43)
--- NOTE | 2018-05-29 19:43 | Hospitalist Progress Note ---
Date of Service May 29, 2018 Assessment & Plan (1) Sepsis: Meets criteria with sepsis:, Admitted with leukocytosis, elevated lactic acid level Tachycardic source of infection: C. difficile colitis Stool C. difficile positive Started on p.o. vancomycin Contact isolation ID input requested appreciate input (2) Leukocytosis: due to C. difficile colitis Started on p.o. vancomycin empirically Continue to monitor daily CBC, (3) Hypokalemia: Due to GI loss, having diarrhea, potassium replaced, repeat BMP (4) UTI (urinary tract infection): No evidence of urinary tract infection during this admission Complicated UTI with chronic indwelling catheter: Patient continued with broad-spectrum antibiotic, ID following, Urology consulted for chronic urinary retention Urine culture negative, IV cefepime discontinued: Need to limit antibiotics in the setting of C. difficile colitis (5) Hyponatremia: Possible secondary to dehydration GI loss, nausea vomiting diarrhea Na level improved 132 with IV hydration , follow BMP (6) Urinary retention: chronic developed urinary retention on last admission Nicolas in place, Urology consulted, appreciate input continue Nicolas -in setting of acute illness out pt follow up with Urology for voiding trial (7) Paroxysmal A-fib: Rate controlled on sotalol Coumadin was on hold, as INR was elevated more than 6 (possible secondary to drug interaction with Flagyl given low-dose vitamin K 2.5 mg PO on 05/28 INR 1.6 today coumadin resumed with lower dose follow Pt/INR (8) Diabetes mellitus, type II: Last A1c 04/27 8.5 Lantus/novolog per protocol, titrate accordingly (9) Hypertension: Continue amlodipine, (10) CKD (chronic kidney disease), stage III: BUN/creatinine at baseline 11 and 1.13 Monitor BMP Nephrology following (11) S/p cadaver renal transplant: Continue CellCept and sirolimus no evidence of transplant rejection (12) DVT prophylaxis: Coumadin Disposition: was living at home , with and daughter uses walker presents With significant generalized weakness, functional decline, PT OT eval requested pt will benefit with short term rehab CODE status : Full code Follow up: PCP Dr. Renee upon discharge Subjective Feels a bit better today, diet advanced to solid, Diarrhea is improved, only 2 episodes so far, afebrile No complaint of abdominal pain, no nausea Physical Exam Constitutional: + ill appearing and + thin; no acute distress Eyes: PERRL, conjunctivae normal, anicteric sclerae ENMT: external ear and nose normal, oropharynx normal Neck: trachea midline, no thyromegaly Respiratory: normal respiratory effort, lungs clear to auscultation no respiratory distress and does not use accessory muscles Cardiovascular: Rate/Rhythm: + irregularly irregular Heart Sounds: normal S1 and normal S2 Vessels: normal peripheral pulses; no JVD Gastrointestinal (Abdomen): Inspection/Auscultation: abdomen not distended Percussion/Palpation: abdomen soft Musculoskeletal: no cyanosis or clubbing, extremities motor strength 5/5 Head/Neck/Chest: normocephalic and head atraumatic Skin: normal turgor Neurologic: awake; no focal motor deficits, not confused and not obtunded Psychiatric: A+Ox3, euthymic affect Orientation: alert, oriented x 3 and cooperative Affect: + flat affect Results & Data Vital Signs (Past 12 Hours) Vital Signs Temp Pulse Pulse Resp BP Pulse Ox 05/29/18 18:59 36.8 C 78 18 133/67 95 05/29/18 16:34 74 05/29/18 16:26 36.8 C 78 18 119/71 97 05/29/18 12:39 36.5 C 83 18 120/72 98 05/29/18 08:00 80 (1) UTI (urinary tract infection) Hematuria presence: without hematuria Urinary tract infection type: site unspecified Qualified Code(s): N39.0 - Urinary tract infection, site not specified (2) Diabetes mellitus, type II Diabetes mellitus complication status: with unspecified complications Diabetes mellitus shelter insulin use: 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
[2018-05-29] MEDS: TRAMADOL HCL 50 MG TABLET PO PRN (20:08)
[2018-05-29] MEDS: INSULIN GLARGINE SOLOSTAR 100 UNITS/ML 3 ML PEN SC SCH (20:11)
[2018-05-30] MEDS: NORMOSOL-R 1,000 ML IV SCH (06:22)
[2018-05-30] MEDS: RASPBERRY SYRUP 5 ML UDP PO SCH ×3 (06:22→17:53)
[2018-05-30] MEDS: VANCOMYCIN HCL 500 MG/10 ML SOLN PO SCH ×3 (06:22→17:53)
[2018-05-30 06:33] LABS: Basophils # (auto) 0.02 K/uL (0-0.2); Basophils % (auto) 0.3 %; Eosinophils # (auto) 0.38 K/uL (0-0.5); Eosinophils % (auto) 5.6 %; Hemoglobin 9.5 g/dL (12.0-16.0); Immature Granulocytes % (auto) 1.5 %; Lymphocytes # (auto) 1.82 K/uL (1.2-3.4); Mean Corpuscular Hgb Conc 31.7 g/dL (32-36); Mean Corpuscular Volume 83.1 fL (80-100); Mean Platelet Volume 8.4 fL (7.4-10.4); Monocytes # (auto) 1.15 K/uL (0.11-0.59); Neutrophils # (auto) 3.28 K/uL (1.4-6.5); Neutrophils % (auto) 48.6 %; Platelet Count 357 K/uL (130-400); RDW Coefficient of Variation 16.5 % (11.5-14.5); RDW Standard Deviation 50.5 fL (36.4-46.3); Red Blood Count 3.61 M/uL (4.2-5.4); White Blood Count 6.75 K/uL (4.8-10.8)
[2018-05-30 06:45] LABS: INR 1.4 (0.9-1.1)
[2018-05-30 07:05] LABS: BUN Creatinine Ratio 8.1 (10-20); Calcium 7.8 mg/dl (8.5-10.1); Creatinine Clr Calc Pharmacy 55.7 ml/min; Est GFR (African American) 80.5; Est GFR (Non-African American) 69.5; Magnesium 2.1 mg/dl (1.8-2.4); Potassium 3.9 mmol/L (3.5-5.1)
[2018-05-30] MEDS: MYCOPHENOLATE MOFETIL 250 MG CAP PO SCH ×2 (08:28→21:17)
[2018-05-30] MEDS: INSULIN ASPART 100 UNITS/ML 3 ML PEN SC SCH ×4 (08:28→21:16)
[2018-05-30] MEDS: SIROLIMUS 0.5 MG TABLET PO SCH (08:29)
[2018-05-30] MEDS: SOTALOL HCL 80 MG TAB PO SCH ×2 (08:30→21:16)
[2018-05-30] MEDS: POTASSIUM CHLORIDE 20 MEQ/15 ML UDC PO SCH ×2 (08:30→21:17)
[2018-05-30] MEDS: LACTOBACILLUS ACIDOPHILUS (FLORANEX) TAB PO SCH ×2 (09:43→17:53)
--- NOTE | 2018-05-30 11:47 | Hospitalist Progress Note ---
Date of Service May 30, 2018 Assessment & Plan (1) Sepsis: On admission met criteria criteria with sepsis:, Admitted with leukocytosis, elevated lactic acid level Tachycardic source of infection: C. difficile colitis Stool C. difficile positive Started on p.o. vancomycin Contact isolation ID input requested appreciate input (2) Leukocytosis: Continues to improve due to C. difficile colitis Started on p.o. vancomycin empirically Continue to monitor daily CBC, (3) Hypokalemia: Due to GI loss, having diarrhea, potassium replaced, repeat BMP (4) Hyponatremia: Possible secondary to dehydration GI loss, nausea vomiting diarrhea Corrected with IV fluids (5) Urinary retention: chronic developed urinary retention on last admission Nicolas in place, Urology consulted, appreciate input continue Nicolas -in setting of acute illness out pt follow up with Urology for voiding trial (6) Paroxysmal A-fib: Rate controlled on sotalol Coumadin was on hold, as INR was elevated more than 6 (possible secondary to drug interaction with Flagyl given low-dose vitamin K 2.5 mg PO on 05/28 Coumadin will be resumed when INR less than 3, follow daily PT/INR (7) Diabetes mellitus, type II: Last A1c 04/27 8.5 Lantus/novolog per protocol, titrate accordingly (8) Hypertension: Continue amlodipine, (9) CKD (chronic kidney disease), stage III: BUN/creatinine at baseline 11 and 1.13 Monitor BMP Nephrology following (10) S/p cadaver renal transplant: Continue CellCept and sirolimus no evidence of transplant rejection (11) DVT prophylaxis: Coumadin Disposition: was living at home , with and daughter uses walker presents With significant generalized weakness, functional decline, PT OT eval requested pt will benefit with short term rehab CODE status : Full code Follow up: PCP Dr. Renee upon discharge Subjective Continues to feel well, diarrhea has resolved, appetite improved no nausea vomiting Physical Exam Constitutional: + ill appearing and + thin; no acute distress Eyes: PERRL, conjunctivae normal, anicteric sclerae ENMT: external ear and nose normal, oropharynx normal Neck: trachea midline, no thyromegaly Respiratory: normal respiratory effort, lungs clear to auscultation no respiratory distress and does not use accessory muscles Cardiovascular: Rate/Rhythm: + irregularly irregular Heart Sounds: normal S1 and normal S2 Vessels: normal peripheral pulses; no JVD Gastrointestinal (Abdomen): Inspection/Auscultation: abdomen not distended Percussion/Palpation: abdomen soft Musculoskeletal: no cyanosis or clubbing, extremities motor strength 5/5 Head/Neck/Chest: normocephalic and head atraumatic Skin: normal turgor Neurologic: awake; no focal motor deficits, not confused and not obtunded Psychiatric: A+Ox3, euthymic affect Orientation: alert, oriented x 3 and cooperative Affect: + flat affect Results & Data Vital Signs (Past 12 Hours) Vital Signs Temp Pulse Pulse Resp BP Pulse Ox 05/30/18 10:54 36.8 C 71 16 116/70 97 05/30/18 08:00 78 05/30/18 07:00 36.6 C 79 18 125/65 95 05/30/18 03:53 36.5 C 80 19 130/66 95 05/29/18 23:57 36.7 C 87 18 119/63 94 (1) Diabetes mellitus, type II Diabetes mellitus complication status: with unspecified complications Diabetes mellitus long term care pharmacist insulin use: unspecified long term care pharmacist insulin use status Qualified Code(s): E11.8 - Type 2 diabetes mellitus with unspecified complications (2) Leukocytosis Leukocytosis type: unspecified Qualified Code(s): D72.829 - Elevated white blood cell count, unspecified (3) Sepsis Sepsis type: sepsis due to unspecified organism Qualified Code(s): A41.9 - Sepsis, unspecified organism (4) Hypertension Hypertension type: essential hypertension Qualified Code(s): I10 - Essential (primary) hypertension
[2018-05-30] MEDS ORDERED: ACETAMINOPHEN 500 MG TAB PO PRN (14:02)
[2018-05-30] MEDS: INSULIN GLARGINE SOLOSTAR 100 UNITS/ML 3 ML PEN SC SCH (21:15)
[2018-05-30] MEDS: TRAMADOL HCL 50 MG TABLET PO PRN (21:25)
[2018-05-31] MEDS: VANCOMYCIN HCL 500 MG/10 ML SOLN PO SCH ×5 (00:23→23:58)
[2018-05-31] MEDS: RASPBERRY SYRUP 5 ML UDP PO SCH ×5 (00:23→23:57)
[2018-05-31 06:02] LABS: INR 1.5 (0.9-1.1); Prothrombin Time 14.7 Seconds (9.0-12.0)
[2018-05-31] MEDS: SOTALOL HCL 80 MG TAB PO SCH ×2 (08:20→22:01)
[2018-05-31] MEDS: MYCOPHENOLATE MOFETIL 250 MG CAP PO SCH ×2 (08:20→22:04)
[2018-05-31] MEDS: LACTOBACILLUS ACIDOPHILUS (FLORANEX) TAB PO SCH ×2 (08:20→18:14)
[2018-05-31] MEDS: POTASSIUM CHLORIDE 20 MEQ/15 ML UDC PO SCH ×2 (08:21→22:04)
[2018-05-31] MEDS: SIROLIMUS 0.5 MG TABLET PO SCH (08:21)
[2018-05-31] MEDS: INSULIN ASPART 100 UNITS/ML 3 ML PEN SC SCH ×4 (08:26→22:11)
--- NOTE | 2018-05-31 14:31 | Infectious Disease Progress Nt ---
Date of Service May 31, 2018 Assessment & Plan (1) C. difficile colitis: 73-year-old female with recurrent urinary tract infections, now with acute C. difficile colitis. Patient appears to be clinically responding to vancomycin. Given significant risk for relapse/recurrence, would recommend prolonged tapering course of vancomycin. Would also recommend discontinuation of IV antibiotic. Will discuss with all involved. Will follow. (2) UTI (urinary tract infection): Subjective Patient seen in follow-up for C. difficile colitis and recurrent urinary tract infection. Vision feeling significantly better today. No nausea and vomiting, diarrhea better. No abdominal pain. No fever. White count improved. Cultures remain negative. Review of Systems Review of Systems: All systems reviewed & are unremarkable except as noted in HPI & below Physical Exam Constitutional: WD/WN, vitals as above + ill appearing (Chronically) and comfortable; no acute distress Eyes: PERRL, conjunctivae normal, anicteric sclerae ENMT: external ear and nose normal, oropharynx normal Neck: trachea midline, no thyromegaly neck nontender Respiratory: normal respiratory effort, lungs clear to auscultation normal percussion; does not use accessory muscles Cardiovascular: Rate/Rhythm: + irregularly irregular Heart Sounds: normal S1, normal S2 and + murmur (Systolic); no gallop and no cardiac rub Vessels: normal peripheral pulses; no JVD Gastrointestinal (Abdomen): normal bowel sounds, soft, nontender, no hepatosplenomegaly Musculoskeletal: no cyanosis or clubbing, extremities motor strength 5/5 Spine: thoracic spine normal to inspection and lumbar spine normal to inspection; no cervical spinal tenderness Skin: no rashes, warm and dry normal turgor; no lesions Neurologic: patellar DTR's 2+ bilat, sensation intact no focal motor deficits Psychiatric: A+Ox3, euthymic affect Orientation: cooperative Lymphatic: no cervical or axillary lymphadenopathy no inguinal l ymphadenopathy Results & Data Vital Signs (Past 12 Hours) Vital Signs Temp Pulse Resp BP Pulse Ox 05/31/18 07:07 36.6 C 80 20 137/74 97 Laboratory Results Laboratory Results - last 48 hr 05/29/18 05/29/18 05/30/18 16:17 20:06 06:07 WBC 6.75 RBC 3.61 L Hgb 9.5 L Hct 30.0 L MCV 83.1 MCH 26.3 MCHC 31.7 L RDW Std Deviation 50.5 H RDW Coeff of Anila 16.5 H Plt Count 357 MPV 8.4 Immature Gran % (Auto) 1.5 Neut % (Auto) 48.6 Lymph % (Auto) 27.0 Caroline % (Auto) 17.0 Eos % (Auto) 5.6 Baso % (Auto) 0.3 Immature Gran # (Auto) 0.10 H Neut # (Auto) 3.28 Lymph # (Auto) 1.82 Caroline # (Auto) 1.15 H Eos # (Auto) 0.38 Baso # (Auto) 0.02 PT INR Sodium Potassium Chloride Carbon Dioxide Anion Gap BUN Creatinine Est Cr Clr Drug Dosing Est GFR ( Amer) Est GFR (Non-Af Amer) BUN/Creatinine Ratio Glucose POC Glucose 165 H 154 H Calcium Magnesium 05/30/18 05/30/18 05/30/18 06:07 06:07 07:26 WBC RBC Hgb Hct MCV MCH MCHC RDW Std Deviation RDW Coeff of Anila Plt Count MPV Immature Gran % (Auto) Neut % (Auto) Lymph % (Auto) Caroline % (Auto) Eos % (Auto) Baso % (Auto) Immature Gran # (Auto) Neut # (Auto) Lymph # (Auto) Caroline # (Auto) Eos # (Auto) Baso # (Auto) PT 14.0 H INR 1.4 H Sodium 137 Potassium 3.9 D Chloride 103 Carbon Dioxide 27 Anion Gap 7.0 BUN 7 Creatinine 0.83 Est Cr Clr Drug Dosing 55.7 Est GFR ( Amer) 80.5 Est GFR (Non-Af Amer) 69.5 BUN/Creatinine Ratio 8.1 L Glucose 123 H POC Glucose 142 H Calcium 7.8 L Magnesium 2.1 05/30/18 05/30/18 05/30/18 10:53 16:53 20:27 WBC RBC Hgb Hct MCV MCH MCHC RDW Std Deviation RDW Coeff of Anila Plt Count MPV Immature Gran % (Auto) Neut % (Auto) Lymph % (Auto) Caroline % (Auto) Eos % (Auto) Baso % (Auto) Immature Gran # (Auto) Neut # (Auto) Lymph # (Auto) Caroline # (Auto) Eos # (Auto) Baso # (Auto) PT INR Sodium Potassium Chloride Carbon Dioxide Anion Gap BUN Creatinine Est Cr Clr Drug Dosing Est GFR ( Amer) Est GFR (Non-Af Amer) BUN/Creatinine Ratio Glucose POC Glucose 199 H 165 H 206 H Calcium Magnesium 05/31/18 05/31/18 05/31/18 05:38 07:40 11:47 WBC RBC Hgb Hct MCV MCH MCHC RDW Std Deviation RDW Coeff of Anila Plt Count MPV Immature Gran % (Auto) Neut % (Auto) Lymph % (Auto) Caroline % (Auto) Eos % (Auto) Baso % (Auto) Immature Gran # (Auto) Neut # (Auto) Lymph # (Auto) Caroline # (Auto) Eos # (Auto) Baso # (Auto) PT 14.7 H INR 1.5 H Sodium Potassium Chloride Carbon Dioxide Anion Gap BUN Creatinine Est Cr Clr Drug Dosing Est GFR ( Amer) Est GFR (Non-Af Amer) BUN/Creatinine Ratio Glucose POC Glucose 159 H 193 H Calcium Magnesium Diagnostic Findings Microbiology 05/27/18 18:58 Blood Blood Culture - Preliminary No growth to date. 05/26/18 14:58 Urine,Straight Cath Urine Culture - Final More than three types of organisms present, all low counts mixed probable skin summer. No further identifications or sensitivities to follow. 05/26/18 21:28 Blood Blood Culture - Preliminary No growth to date. 05/26/18 21:05 Blood Blood Culture - Preliminary No growth to date. (1) UTI (urinary tract infection) Urinary tract infection type: site unspecified Hematuria presence: without hematuria Qualified Code(s): N39.0 - Urinary tract infection, site not specified
[2018-05-31] MEDS: WARFARIN SOD 2 MG TAB PO SCH (18:14)
--- NOTE | 2018-05-31 20:46 | Hospitalist Progress Note ---
Date of Service May 31, 2018 Assessment & Plan (1) Sepsis: On admission meets criteria with sepsis:, Admitted with leukocytosis, elevated lactic acid level Tachycardic source of infection: C. difficile colitis Stool C. difficile positive Started on p.o. vancomycin Contact isolation ID input requested appreciate input patient will need prolonged vancomycin taper dose (2) Leukocytosis: Improved due to C. difficile colitis Started on p.o. vancomycin empirically Continue to monitor daily CBC, (3) Hypokalemia: Corrected, due to GI loss, having diarrhea, potassium replaced, repeat BMP (4) Hyponatremia: Possible secondary to dehydration GI loss, nausea vomiting diarrhea Resolved, IV fluids discontinued, patient is tolerating diet (5) Urinary retention: chronic developed urinary retention on last admission Nicolas in place, Urology consulted, appreciate input continue Nicolas -in setting of acute illness out pt follow up with Urology for voiding trial (6) Paroxysmal A-fib: Rate controlled on sotalol Coumadin was on hold, as INR was elevated more than 6 (possible secondary to drug interaction with Flagyl given low-dose vitamin K 2.5 mg PO on 05/28 Final less than 2 coumadin resumed with lower dose follow Pt/INR (7) Diabetes mellitus, type II: Last A1c 04/27 8.5 Lantus/novolog per protocol, titrate accordingly (8) Hypertension: Continue amlodipine, (9) CKD (chronic kidney disease), stage III: BUN/creatinine at baseline 11 and 1.13 Monitor BMP Nephrology following (10) S/p cadaver renal transplant: Continue CellCept and sirolimus no evidence of transplant rejection (11) DVT prophylaxis: Coumadin Disposition: Since with significant functional decline, multiple recent admissions PT OT evaluation requested Has been updated over phone CODE status : Full code Follow up: PCP Dr. Renee upon discharge Subjective Continues to feel well, diarrhea has resolved, appetite improved no nausea vomiting Physical Exam Constitutional: + ill appearing and + thin; no acute distress Eyes: PERRL, conjunctivae normal, anicteric sclerae ENMT: external ear and nose normal, oropharynx normal Neck: trachea midline, no thyromegaly Respiratory: normal respiratory effort, lungs clear to auscultation no respiratory distress and does not use accessory muscles Cardiovascular: Rate/Rhythm: + irregularly irregular Heart Sounds: normal S1 and normal S2 Vessels: normal peripheral pulses; no JVD Gastrointestinal (Abdomen): Inspection/Auscultation: abdomen not distended Percussion/Palpation: abdomen soft Musculoskeletal: no cyanosis or clubbing, extremities motor strength 5/5 Head/Neck/Chest: normocephalic and head atraumatic Skin: normal turgor Neurologic: awake; no focal motor deficits, not confused and not obtunded Psychiatric: A+Ox3, euthymic affect Orientation: alert, oriented x 3 and cooperative Affect: + flat affect Results & Data Vital Signs (Past 12 Hours) Vital Signs Temp Pulse Resp BP Pulse Ox 05/31/18 14:49 36.8 C 80 18 147/76 H 98 (1) Diabetes mellitus, type II Diabetes mellitus complication status: with unspecified complications Diabetes mellitus intermediate project manager insulin use: unspecified fdc insulin use status Qualified Code(s): E11.8 - Type 2 diabetes mellitus with unspecified complications (2) Leukocytosis Leukocytosis type: unspecified Qualified Code(s): D72.829 - Elevated white blood cell count, unspecified (3) Sepsis Sepsis type: sepsis due to unspecified organism Qualified Code(s): A41.9 - Sepsis, unspecified organism (4) Hypertension Hypertension type: essential hypertension Qualified Code(s): I10 - Essential (primary) hypertension
--- NOTE | 2018-05-31 21:24 | Nephrology Progress Note ---
Date of Service May 31, 2018 Assessment & Plan (1) S/p cadaver renal transplant: Patient id improving. 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 She is high risk for UTI in setting of Immune suppression -Patient should f/u with urology to consider lindquist removal (3) Sepsis: Due to C.Dif colitis. Improving on po vanco Subjective Patient seen in f/u for management of immune suppression. No vomiting. Diarrhoea has improved. She has a chronic linduqist Review of Systems Review of Systems: All systems reviewed & are unremarkable except as noted in HPI & below Physical Exam Physical Exam: General exam: Appears comfortable, no acute distress HEENT: Pupils are equal and reactive to light Neck: No JVD, neck is supple trachea is midline Respiratory system: Clear breath sounds bilaterally. Gastrointestinal: Abdomen is soft, non distended, non tender, bowel sounds are present CVS: Regular rate and rhythm. No murmurs, rubs or gallops Musculoskeletal: No joint or muscle tenderness Extremities: Non tender, no edema, peripheral pulses are present Neuro: Oriented, no tremors, no focal neurological deficits Skin: No rashes Results & Data Vital Signs (Past 12 Hours) Vital Signs Temp Pulse Resp BP Pulse Ox 05/31/18 14:49 36.8 C 80 18 147/76 H 98 Laboratory Results Hb 9.5 (1) Sepsis Sepsis type: sepsis due to unspecified organism Qualified Code(s): A41.9 - Sepsis, unspecified organism
[2018-05-31] MEDS: TRAMADOL HCL 50 MG TABLET PO PRN (22:10)
[2018-05-31] MEDS: INSULIN GLARGINE SOLOSTAR 100 UNITS/ML 3 ML PEN SC SCH (22:13)
[2018-06-01] MEDS: VANCOMYCIN HCL 500 MG/10 ML SOLN PO SCH ×4 (06:15→23:55)
[2018-06-01] MEDS: RASPBERRY SYRUP 5 ML UDP PO SCH ×4 (06:15→23:55)
[2018-06-01 07:46] LABS: INR 1.7 (0.9-1.1); Prothrombin Time 16.9 Seconds (9.0-12.0)
[2018-06-01] MEDS: LACTOBACILLUS ACIDOPHILUS (FLORANEX) TAB PO SCH ×2 (08:33→17:45)
[2018-06-01] MEDS: POTASSIUM CHLORIDE 20 MEQ/15 ML UDC PO SCH ×2 (08:34→20:48)
[2018-06-01] MEDS: SOTALOL HCL 80 MG TAB PO SCH ×2 (08:34→20:50)
[2018-06-01] MEDS: SIROLIMUS 0.5 MG TABLET PO SCH (08:34)
[2018-06-01] MEDS: MYCOPHENOLATE MOFETIL 250 MG CAP PO SCH ×2 (08:34→20:50)
[2018-06-01] MEDS: INSULIN ASPART 100 UNITS/ML 3 ML PEN SC SCH ×4 (08:37→20:50)
[2018-06-01] MEDS: TRAMADOL HCL 50 MG TABLET PO PRN ×2 (11:37→20:55)
--- NOTE | 2018-06-01 17:01 | Nephrology Progress Note ---
Date of Service June 01, 2018 Assessment & Plan (1) S/p cadaver renal transplant: Patient is improving. continue sirolimus and MMF at current doses which are her OP doses; no need to lower MMF. Sirolimus level is pending. BP is slightly above target but acceptable. No changes. 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 She is high risk for UTI in setting of Immune suppression -Patient should f/u with urology to consider lindquist removal (3) Sepsis: Sepsis Due to C.Dif colitis resolved. She continues on po vanco for C.Diff Subjective Renal transplant patient seen in f/u for immune suppression management. She is being treated for C.Diff colits. Diarrhoea has slowed down. No vomiting. She is eating well. No SOB or leg swelling. She has a lindquist Review of Systems Review of Systems: All systems reviewed & are unremarkable except as noted in HPI & below Physical Exam Physical Exam: General exam: Appears comfortable, no acute distress HEENT: Pupils are equal and reactive to light Neck: No JVD, neck is supple trachea is midline Respiratory system: Clear breath sounds bilaterally. Gastrointestinal: Abdomen is soft, non distended, non tender, bowel sounds are present CVS: Regular rate and rhythm. No murmurs, rubs or gallops Musculoskeletal: No joint or muscle tenderness Extremities: Non tender, no edema, peripheral pulses are present Neuro: Oriented, no tremors, no focal neurological deficits Skin: No rashes Results & Data Vital Signs (Past 12 Hours) Vital Signs Temp Pulse Resp BP Pulse Ox 06/01/18 15:30 36.3 C L 71 18 146/75 H 98 06/01/18 07:19 36.7 C 82 22 118/72 98 (1) Sepsis Sepsis type: sepsis due to unspecified organism Qualified Code(s): A41.9 - Sepsis, unspecified organism
[2018-06-01] MEDS: WARFARIN SOD 2 MG TAB PO SCH (17:45)
--- NOTE | 2018-06-01 17:54 | Infectious Disease Progress Nt ---
Date of Service June 01, 2018 Assessment & Plan (1) C. difficile colitis: 73-year-old female with recurrent urinary tract infections, now with acute C. difficile colitis. Patient appears to be clinically responding to vancomycin. Given significant risk for relapse/recurrence, would recommend prolonged tapering course of vancomycin. Would also recommend discontinuation of IV antibiotic. Will discuss with all involved. Will follow. (2) UTI (urinary tract infection): Subjective Continues to feel well, diarrhea has resolved, appetite improved no nausea vomiting Physical Exam Constitutional: WD/WN, vitals as above + ill appearing (Chronically) and comfortable; no acute distress Eyes: PERRL, conjunctivae normal, anicteric sclerae ENMT: external ear and nose normal, oropharynx normal Neck: trachea midline, no thyromegaly neck nontender Respiratory: normal respiratory effort, lungs clear to auscultation normal percussion; does not use accessory muscles Cardiovascular: Rate/Rhythm: + irregularly irregular Heart Sounds: normal S1, normal S2 and + murmur (Systolic); no gallop and no cardiac rub Vessels: normal peripheral pulses; no JVD Gastrointestinal (Abdomen): normal bowel sounds, soft, nontender, no hepatosplenomegaly Musculoskeletal: no cyanosis or clubbing, extremities motor strength 5/5 Spine: thoracic spine normal to inspection and lumbar spine normal to inspectio n; no cervical spinal tenderness Skin: no rashes, warm and dry normal turgor; no lesions Neurologic: patellar DTR's 2+ bilat, sensation intact no focal motor deficits Psychiatric: A+Ox3, euthymic affect Orientation: cooperative Lymphatic: no cervical or axillary lymphadenopathy no inguinal lymphadenopathy Results & Data Vital Signs (Past 12 Hours) Vital Signs Temp Pulse Resp BP Pulse Ox 06/01/18 15:30 36.3 C L 71 18 146/75 H 98 06/01/18 07:19 36.7 C 82 22 118/72 98 Laboratory Results Laboratory Results - last 48 hr 05/30/18 05/31/18 05/31/18 20:27 05:38 07:40 PT 14.7 H INR 1.5 H POC Glucose 206 H 159 H 05/31/18 05/31/18 05/31/18 11:47 16:41 20:49 PT INR POC Glucose 193 H 130 H 196 H 06/01/18 06/01/18 06/01/18 07:12 07:40 11:23 PT 16.9 H INR 1.7 H POC Glucose 191 H 175 H 06/01/18 16:39 PT INR POC Glucose 229 H Diagnostic Findings Microbiology 05/26/18 21:05 Blood Blood Culture - Final 05/26/18 21:28 Blood Blood Culture - Final No growth 05/27/18 18:58 Blood Blood Culture - Preliminary No growth to date. 05/26/18 14:58 Urine,Straight Cath Urine Culture - Final More than three types of organisms present, all low counts mixed probable skin summer. No further identifications or sensitivities to follow. (1) UTI (urinary tract infection) Urinary tract infection type: site unspecified Hematuria presence: without hematuria Qualified Code(s): N39.0 - Urinary tract infection, site not specified
[2018-06-01] MEDS: INSULIN GLARGINE SOLOSTAR 100 UNITS/ML 3 ML PEN SC SCH (20:52)
--- NOTE | 2018-06-01 22:13 | Hospitalist Progress Note ---
Date of Service June 01, 2018 Assessment & Plan (1) Sepsis: resolved On admission met criteria criteria with sepsis:, Admitted with leukocytosis, elevated lactic acid level Tachycardic source of infection: C. difficile colitis Started on p.o. vancomycin Contact isolation will need prolong taper ID input requested appreciate input (2) Leukocytosis: due to C. difficile colitis Started on p.o. vancomycin empirically Continue to monitor daily CBC, (3) Hypokalemia: Due to GI loss, having diarrhea, potassium replaced, repeat BMP (4) Hyponatremia: Possible secondary to dehydration GI loss, nausea vomiting diarrhea Corrected with IV fluids (5) Urinary retention: chronic developed urinary retention on last admission Nicolas in place, Urology consulted, appreciate input continue Nicolas -in setting of acute illness out pt follow up with Urology for voiding trial (6) Paroxysmal A-fib: Rate controlled on sotalol Coumadin was on hold, as INR was elevated more than 6 (possible secondary to drug interaction with Flagyl given low-dose vitamin K 2.5 mg PO on 05/28 Coumadin will be resumed when INR less than 3, follow daily PT/INR (7) Diabetes mellitus, type II: Last A1c 04/27 8.5 Lantus/novolog per protocol, titrate accordingly (8) Hypertension: Continue amlodipine, (9) CKD (chronic kidney disease), stage III: BUN/creatinine at baseline 11 and 1.13 Monitor BMP Nephrology following (10) S/p cadaver renal transplant: Continue CellCept and sirolimus no evidence of transplant rejection (11) DVT prophylaxis: Coumadin Disposition: Since with significant functional decline, multiple recent admissions PT OT evaluation requested CODE status : Full code Follow up: PCP Dr. Renee upon discharge Subjective sitting up been OOB to chair managed to walk few steps with PT no fever or chills no diarrhea no nausea or vomiting Physical Exam Constitutional: WD/WN, vitals as above + ill appearing and + thin Eyes: PERRL, conjunctivae normal, anicteric sclerae ENMT: external ear and nose normal, oropharynx normal Neck: trachea midline, no thyromegaly Respiratory: normal respiratory effort, lungs clear to auscultation Cardiovascular: RRR, no murmur, no edema Gastrointestinal (Abdomen): normal bowel sounds, soft, nontender, no hepatosplenomegaly Skin: no rashes, warm and dry Neurologic: PERRL, EOMI, accommodation nl, no face palsy, no dysarthria Psychiatric: Orientation: alert and oriented x 3 Affect: + flat affect Results & Data Vital Signs (Past 12 Hours) Vital Signs Temp Pulse Resp BP Pulse Ox 06/01/18 15:30 36.3 C L 71 18 146/75 H 98 (1) Diabetes mellitus, type II Diabetes mellitus complication status: with unspecified complications Diabetes mellitus retirement insulin use: unspecified retirement insulin use status Qualified Code(s): E11.8 - Type 2 diabetes mellitus with unspecified complications (2) Leukocytosis Leukocytosis type: unspecified Qualified Code(s): D72.829 - Elevated white blood cell count, unspecified (3) Sepsis Sepsis type: sepsis due to unspecified organism Qualified Code(s): A41.9 - Sepsis, unspecified organism (4) Hypertension Hypertension type: essential hypertension Qualified Code(s): I10 - Essential (primary) hypertension
[2018-06-02] MEDS: VANCOMYCIN HCL 500 MG/10 ML SOLN PO SCH ×4 (06:26→23:33)
[2018-06-02] MEDS: RASPBERRY SYRUP 5 ML UDP PO SCH ×4 (06:26→23:33)
[2018-06-02] MEDS: LACTOBACILLUS ACIDOPHILUS (FLORANEX) TAB PO SCH ×4 (08:56→20:12)
[2018-06-02] MEDS: SIROLIMUS 0.5 MG TABLET PO SCH (08:57)
[2018-06-02] MEDS: SOTALOL HCL 80 MG TAB PO SCH ×2 (08:57→20:10)
[2018-06-02] MEDS: POTASSIUM CHLORIDE 20 MEQ/15 ML UDC PO SCH ×2 (08:57→20:11)
[2018-06-02] MEDS: MYCOPHENOLATE MOFETIL 250 MG CAP PO SCH ×2 (08:57→20:11)
[2018-06-02] MEDS: INSULIN ASPART 100 UNITS/ML 3 ML PEN SC SCH ×4 (08:58→20:14)
[2018-06-02] MEDS: TRAMADOL HCL 50 MG TABLET PO PRN ×2 (09:02→20:23)
--- NOTE | 2018-06-02 10:56 | Nephrology Progress Note ---
Date of Service June 02, 2018 Assessment & Plan (1) S/p cadaver renal transplant: Patient is improving. continue sirolimus and MMF at current doses which are her OP doses; no need to lower MMF. Sirolimus level is pending. BP is at target. No changes. 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 She is high risk for UTI in setting of Immune suppression -Patient should f/u with urology to consider lindquist removal (3) Sepsis: Sepsis Due to C.Dif colitis resolved. She continues on po vanco for C.Diff Subjective Renal transplant patient seen in follow-up for management of immune suppression. She is being treated for C. difficile colitis. Diarrhea has subsided. No shortness of breath or lower extremity swelling. She has a Lindquist catheter. She is eating and drinking well, no vomiting. She remains weak and doing physical therapy. Review of Systems Review of Systems: All systems reviewed & are unremarkable except as noted in HPI & below Physical Exam Physical Exam: General exam: Appears comfortable, no acute distress HEENT: Pupils are equal and reactive to light Neck: No JVD, neck is supple trachea is midline Respiratory system: Clear breath sounds bilaterally. Gastrointestinal: Abdomen is soft, non distended, non tender, bowel sounds are present. lindquist catheter CVS: Regular rate and rhythm. No murmurs, rubs or gallops Musculoskeletal: No joint or muscle tenderness Extremities: Non tender, no edema, peripheral pulses are present Neuro: Oriented, no tremors, no focal neurological deficits Skin: No rashes Results & Data Vital Signs (Past 12 Hours) Vital Signs Temp Pulse Resp BP Pulse Ox 06/02/18 07:12 36.6 C 69 20 128/72 94 Laboratory Results Laboratory Results - last 24 hr 06/01/18 06/01/18 06/01/18 11:23 16:39 20:25 POC Glucose 175 H 229 H 200 H 06/02/18 07:39 POC Glucose 129 H (1) Sepsis Sepsis type: sepsis due to unspecified organism Qualified Code(s): A41.9 - Sepsis, unspecified organism
[2018-06-02 12:02] LABS: BUN Creatinine Ratio 6.2 (10-20); Calcium 8.6 mg/dl (8.5-10.1); Creatinine Clr Calc Pharmacy 52.5 ml/min; Est GFR (Non-African American) 64.7; Magnesium 1.9 mg/dl (1.8-2.4); Potassium 4.6 mmol/L (3.5-5.1)
[2018-06-02] MEDS: ONDANSETRON INJ 2 MG/ML 2 ML VIAL IV PRN (12:25)
--- NOTE | 2018-06-02 14:36 | Hospitalist Progress Note ---
Date of Service June 02, 2018 Assessment & Plan (1) Sepsis: on admission met criteria for Sepsis per CMS guideline Admitted with leukocytosis, elevated lactic acid level ,Tachycardic pt had recent 2 admissions with complicated UTI due to chronic indwelling Nicolas was started with Broad spectrum abx source of infection: C. difficile colitis abdominal pain , nausea /vomiting /diarrhea /stool C diff toxin assay positive Started on p.o. vancomycin 500 mg PO QID ( higher dose due to severely of illness /per pharmacy recommendation Contact isolation on day # 6/114days tx lactic acid level normalized with IV hydration , normal white count pt will need prolong taper ID input requested appreciate input-recommends given significant risk for relapse/recurrence, recommends prolonged tapering course of vancomycin, e.g. 125 mg 4 times daily to complete 2 weeks then 125 mg twice daily for 2 weeks, then 125 mg daily for 2 more weeks. (2) Leukocytosis: due to C. difficile colitis Started on p.o. vancomycin empirically WBC count normalized after IV hydration and PO Vancomycin therapy (3) Hypokalemia: Due to GI loss, having diarrhea, potassium replaced, repeat BMP (4) Hyponatremia: Possible secondary to dehydration GI loss, nausea vomiting diarrhea Corrected with IV fluids (5) Urinary retention: chronic developed urinary retention on last admission Nicolas in place, Urology consulted, appreciate input continue Nicolas -in setting of acute illness out pt follow up with Urology for voiding trial (6) Paroxysmal A-fib: Rate controlled on sotalol Coumadin was on hold, as INR was elevated more than 6 (possible secondary to drug interaction with Flagyl given low-dose vitamin K 2.5 mg PO on 05/28 coumadin resumed as INR < 2 cont to monitor daily Pt/INR goal INR 2-3 (7) Diabetes mellitus, type II: Last A1c 04/27 8.5 Lantus/novolog per protocol, titrate accordingly (8) Hypertension: Continue amlodipine, (9) CKD (chronic kidney disease), stage III: BUN/creatinine at baseline 11 and 1.13 Monitor BMP Nephrology following (10) S/p cadaver renal transplant: Continue CellCept and sirolimus no evidence of transplant rejection Nephrology following closely (11) DVT prophylaxis: Coumadin Disposition: Since with significant functional decline, multiple recent admissions PT OT evaluation appreciated , recommends rehab this is pt's 2nd admission in past few weeks pt is adement to return home lives with and daughter-family is worried about her retunring home too quickly -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 Renee upon discharge Subjective feels nauseous with lower abdominal pain had 2 episodeds of loose bowel movement today no blood in stool not doing well , appetite is poor, more weak and tired today felt dizzy and lightheaded while going to bathroom afebrile Physical Exam Constitutional: WD/WN, vitals as above + ill appearing and + thin; no acute distress appears to be vey pale , with generalized weakness Eyes: PERRL, conjunctivae normal, anicteric sclerae ENMT: external ear and nose normal, oropharynx normal Neck: trachea midline, no thyromegaly Respiratory: normal respiratory effort, lungs clear to auscultation no respiratory distress and does not use accessory muscles Cardiovascular: RRR, no murmur, no edema Rate/Rhythm: regular rate and regular rhythm Heart Sounds: normal S1 and normal S2 Vessels: normal peripheral pulses; no JVD Gastrointestinal (Abdomen): normal bowel sounds, soft, nontender, no hepatosplenomegaly Inspection/Auscultation: abdomen not distended Percus abdirahman/Palpation: abdomen soft Musculoskeletal: no cyanosis or clubbing, extremities motor strength 5/5 Head/Neck/Chest: normocephalic and head atraumatic Skin: no rashes, warm and dry normal turgor Neurologic: PERRL, EOMI, accommodation nl, no face palsy, no dysarthria awake; no focal motor deficits, not confused and not obtunded Psychiatric: A+Ox3, euthymic affect Orientation: alert, oriented x 3 and cooperative Affect: + flat affect Results & Data Vital Signs (Past 12 Hours) Vital Signs Temp Pulse Resp BP Pulse Ox 06/02/18 07:12 36.6 C 69 20 128/72 94 (1) Diabetes mellitus, type II Diabetes mellitus complication status: with unspecified complications Diabetes mellitus terminal worker insulin use: unspecified terminal worker insulin use status Qualified Code(s): E11.8 - Type 2 diabetes mellitus with unspecified complications (2) Leukocytosis Leukocytosis type: unspecified Qualified Code(s): D72.829 - Elevated white blood cell count, unspecified (3) Sepsis Sepsis type: sepsis due to unspecified organism Qualified Code(s): A41.9 - Sepsis, unspecified organism (4) Hypertension Hypertension type: essential hypertension Qualified Code(s): I10 - Essential (primary) hypertension
[2018-06-02] MEDS: WARFARIN SOD 2 MG TAB PO SCH (16:50)
--- NOTE | 2018-06-02 18:30 | Infectious Disease Progress Nt ---
Date of Service June 02, 2018 Assessment & Plan (1) C. difficile colitis: 73-year-old female with recurrent urinary tract infections, now with acute C. difficile colitis. Patient appears to be clinically responding to vancomycin. Given significant risk for relapse/recurrence, would recommend prolonged tapering course of vancomycin. Would also recommend discontinuation of IV antibiotic. Will discuss with all involved. Will follow. (2) UTI (urinary tract infection): Subjective Patient seen in follow-up for C. difficile colitis. Offers no new complaints today. Diarrhea better. No abdominal pain. No fever. Review of Systems Review of Systems: All systems reviewed & are unremarkable except as noted in HPI & below Physical Exam Constitutional: WD/WN, vitals as above + ill appearing (Chronically) and comfortable; no acute distress Eyes: PERRL, conjunctivae normal, anicteric sclerae ENMT: external ear and nose normal, oropharynx normal Neck: trachea midline, no thyromegaly neck nontender Respiratory: normal respiratory effort, lungs clear to auscultation normal percussion; does not use accessory muscles Cardiovascular: Rate/Rhythm: + irregularly irregular Heart Sounds: normal S1, normal S2 and + murmur (Systolic); no gallop and no cardiac rub Vessels: normal peripheral pulses; no JVD Gastrointestinal (Abdomen): normal bowel sounds, soft, nontender, no hepatosplenomegaly Musculoskeletal: no cyanosis or clubbing, extremities motor strength 5/5 Spine: thoracic spine normal to inspection and lumbar spine normal to inspection; no cervical spinal tenderness Skin: no rashes, warm and dry normal turgor; no lesions Neurologic: patellar DTR's 2+ bilat, sensation intact no focal motor deficits Psychiatric: A+Ox3, euthymic affect Orientation: cooperative Lymphatic: no cervical or axillary lymphadenopathy no inguinal lymphadenopathy Results & Data Vital Signs (Past 12 Hours) Vital Signs Temp Pulse Resp BP Pulse Ox 06/02/18 14:56 36.7 C 73 18 131/71 99 06/02/18 07:12 36.6 C 69 20 128/[address] [facility] 06/02/18 11:34 Sodium 137 Potassium 4.6 Chloride 103 Carbon Dioxide 29 BUN 5 L Creatinine 0.88 Glucose 135 H Calcium 8.6 Diagnostic Findings Microbiology 05/27/18 18:58 Blood Blood Culture - Final No growth 05/26/18 21:05 Blood Blood Culture - Final 05/26/18 21:28 Blood Blood Culture - Final No growth 05/26/18 14:58 Urine,Straight Cath Urine Culture - Final More than three types of organisms present, all low counts mixed probable skin summer. No further identifications or sensitivities to follow. (1) UTI (urinary tract infection) Hematuria presence: without hematuria Urinary tract infection type: site unspecified Qualified Code(s): N39.0 - Urinary tract infection, site not specified
[2018-06-02] MEDS: INSULIN GLARGINE SOLOSTAR 100 UNITS/ML 3 ML PEN SC SCH (20:15)
[2018-06-03 05:56] LABS: Basophils # (auto) 0.02 K/uL (0-0.2); Basophils % (auto) 0.3 %; Eosinophils # (auto) 0.55 K/uL (0-0.5); Eosinophils % (auto) 8.1 %; Hematocrit (blood only) 34.6 % (37-47); Hemoglobin 10.6 g/dL (12.0-16.0); Immature Granulocytes % (auto) 1.5 %; Lymphocytes # (auto) 2.57 K/uL (1.2-3.4); Mean Corpuscular Hgb Conc 30.6 g/dL (32-36); Mean Corpuscular Volume 85.2 fL (80-100); Mean Platelet Volume 8.3 fL (7.4-10.4); Monocytes # (auto) 0.77 K/uL (0.11-0.59); Monocytes % (auto) 11.4 %; Neutrophils # (auto) 2.75 K/uL (1.4-6.5); Neutrophils % (auto) 40.7 %; Platelet Count 368 K/uL (130-400); RDW Coefficient of Variation 17.8 % (11.5-14.5); RDW Standard Deviation 54.2 fL (36.4-46.3); Red Blood Count 4.06 M/uL (4.2-5.4); White Blood Count 6.76 K/uL (4.8-10.8)
[2018-06-03] MEDS: RASPBERRY SYRUP 5 ML UDP PO SCH ×4 (06:03→23:50)
[2018-06-03] MEDS: VANCOMYCIN HCL 500 MG/10 ML SOLN PO SCH ×4 (06:03→23:50)
[2018-06-03 06:06] LABS: INR 2.7 (0.9-1.1); Prothrombin Time 25.7 Seconds (9.0-12.0)
[2018-06-03 06:29] LABS: BUN Creatinine Ratio 6.6 (10-20); Calcium 8.4 mg/dl (8.5-10.1); Creatinine Clr Calc Pharmacy 55.7 ml/min; Est GFR (African American) 80.5; Est GFR (Non-African American) 69.5
[2018-06-03] MEDS: LACTOBACILLUS ACIDOPHILUS (FLORANEX) TAB PO SCH ×4 (08:23→21:43)
[2018-06-03] MEDS: SOTALOL HCL 80 MG TAB PO SCH ×2 (08:24→21:43)
[2018-06-03] MEDS: SIROLIMUS 0.5 MG TABLET PO SCH (08:24)
[2018-06-03] MEDS: MYCOPHENOLATE MOFETIL 250 MG CAP PO SCH ×2 (08:24→21:43)
[2018-06-03] MEDS: POTASSIUM CHLORIDE 20 MEQ/15 ML UDC PO SCH ×2 (08:24→21:43)
[2018-06-03] MEDS: TRAMADOL HCL 50 MG TABLET PO PRN ×2 (08:24→21:59)
[2018-06-03] MEDS: INSULIN ASPART 100 UNITS/ML 3 ML PEN SC SCH ×4 (08:30→21:54)
--- NOTE | 2018-06-03 10:14 | Nephrology Progress Note ---
Date of Service June 03, 2018 Assessment & Plan (1) S/p cadaver renal transplant: She has excellent graft function with a creatinine of 0.8 today. Continue sirolimus 1 mg daily and CellCept 250 mg twice daily. Patient will need nephrology follow-up in 2 weeks after discharge Renal will sign off. Please call if additional questions or concerns. (2) Sepsis: Sepsis Due to C.Dif colitis resolved. She continues on po vanco for C.Diff (3) Hypokalemia: Continue p.o. potassium chloride 20 equivalents twice daily. Patient should be discharged on the same dose until follow-up by nephrology or PCP outpatient Subjective Kidney transplant recipient seen in follow-up for management of immunosuppression. She is being treated for C. difficile colitis. She feels better this morning. No shortness of breath. Diarrhea has improved but she has had 2 loose bowel movements overnight. No leg swelling. She has a chronic Nicolas catheter. Review of Systems Review of Systems: All systems reviewed & are unremarkable except as noted in HPI & below Physical Exam 2 Physical Exam: General exam: Appears comfortable, no acute distress HEENT: Pupils are equal and reactive to light Neck: No JVD, neck is supple trachea is midline Respiratory system: Clear breath sounds bilaterally. Gastrointestinal: Abdomen is soft, non distended, non tender, bowel sounds are present CVS: Regular rate and rhythm. No murmurs, rubs or gallops Musculoskeletal: No joint or muscle tenderness Extremities: Non tender, no edema, peripheral pulses are present Neuro: Oriented, no tremors, no focal neurological deficits Skin: No rashes Results & Data Vital Signs (Past 12 Hours) Vital Signs Temp Pulse Resp BP Pulse Ox 06/03/18 08:17 36.7 C 118 H 20 113/73 98 Laboratory Results Laboratory Results - last 24 hr 06/02/18 06/02/18 06/02/18 11:34 11:45 16:57 WBC RBC Hgb Hct MCV MCH MCHC RDW Std Deviation RDW Coeff of Anila Plt Count MPV Immature Gran % (Auto) Neut % (Auto) Lymph % (Auto) [place] % (Auto) Eos % (Auto) Baso % (Auto) Immature Gran # (Auto) Neut # (Auto) Lymph # (Auto) [place] # (Auto) Eos # (Auto) Baso # (Auto) PT INR Sodium 137 Potassium 4.6 Chloride 103 Carbon Dioxide 29 Anion Gap 5.0 BUN 5 L Creatinine 0.88 Est Cr Clr Drug Dosing 52.5 Est GFR ( Amer) 75.0 Est GFR (Non-Af Amer) 64.7 BUN/Creatinine Ratio 6.2 L Glucose 135 H POC Glucose 141 H 142 H Calcium 8.6 Magnesium 1.9 06/02/18 06/03/18 06/03/18 20:00 05:36 05:36 WBC 6.76 RBC 4.06 L Hgb 10.6 L Hct 34.6 L MCV 85.2 MCH 26.1 MCHC 30.6 L RDW Std Deviation 54.2 H RDW Coeff of Anila 17.8 H Plt Count 368 MPV 8.3 Immature Gran % (Auto) 1.5 Neut % (Auto) 40.7 Lymph % (Auto) 38.0 [place] % (Auto) 11.4 Eos % (Auto) 8.1 Baso % (Auto) 0.3 Immature Gran # (Auto) 0.10 H Neut # (Auto) 2.75 Lymph # (Auto) 2.57 [place] # (Auto) 0.77 H Eos # (Auto) 0.55 H Baso # (Auto) 0.02 PT INR Sodium 138 Potassium 4.0 Chloride 103 Carbon Dioxide 29 Anion Gap 5.0 BUN 6 L Creatinine 0.83 Est Cr Clr Drug Dosing 55.7 Est GFR ( Amer) 80.5 Est GFR (Non-Af Amer) 69.5 BUN/Creatinine Ratio 6.6 L Glucose 105 H POC Glucose 187 H Calcium 8.4 L Magnesium 06/03/18 06/03/18 05:36 07:56 WBC RBC Hgb Hct MCV MCH MCHC RDW Std Deviation RDW Coeff of Anila Plt Count MPV Immature Gran % (Auto) Neut % (Auto) Lymph % (Auto) [place] % (Auto) Eos % (Auto) Baso % (Auto) Immature Gran # (Auto) Neut # (Auto) Lymph # (Auto) [place] # (Auto) Eos # (Auto) Baso # (Auto) PT 25.7 H INR 2.7 H Sodium Potassium Chloride Carbon Dioxide Anion Gap BUN Creatinine Est Cr Clr Drug Dosing Est GFR ( Amer) Est GFR (Non-Af Amer) BUN/Creatinine Ratio Glucose POC Glucose 127 H Calcium Magnesium (1) Sepsis Sepsis type: sepsis due to unspecified organism Qualified Code(s): A41.9 - Sepsis, unspecified organism
--- NOTE | 2018-06-03 10:19 | Infectious Disease Progress Nt ---
Date of Service June 03, 2018 Assessment & Plan (1) C. difficile colitis: 73-year-old female with recurrent urinary tract infections, now with acute C. difficile colitis. Patient appears to be clinically responding to vancomycin. Given significant risk for relapse/recurrence, would recommend prolonged tapering course of vancomycin, e.g. 125 mg 4 times daily to complete 2 weeks then 125 mg twice daily for 2 weeks, then 125 mg daily for 2 more weeks. Will follow. (2) UTI (urinary tract infection): Subjective Patient seen in follow-up for C. difficile colitis. Offers no new complaints today. Diarrhea better. No abdominal pain. No fever. Review of Systems Review of Systems: All systems reviewed & are unremarkable except as noted in HPI & below Physical Exam Constitutional: WD/WN, vitals as above + ill appearing (Chronically) and comfortable; no acute distress Eyes: PERRL, conjunctivae normal, anicteric sclerae ENMT: external ear and nose normal, oropharynx normal Neck: trachea midline, no thyromegaly neck nontender Respiratory: normal respiratory effort, lungs clear to auscultation normal percussion; does not use accessory muscles Cardiovascular: Rate/Rhythm: + irregularly irregular Heart Sounds: normal S1, normal S2 and + murmur (Systolic); no gallop and no cardiac rub Vessels: normal peripheral pulses; no JVD Gastrointestinal (Abdomen): normal bowel sounds, soft, nontender, no hepatosplenomegaly Musculoskeletal: no cyanosis or clubbing, extremities motor strength 5/5 Spine: thoracic spine normal to inspection and lumbar spine normal to inspection; no cervical spinal tenderness Skin: no rashes, warm and dry normal turgor; no lesions Neurologic: patellar DTR's 2+ bilat, sensation intact no focal motor deficits Psychiatric: A+Ox3, euthymic affect Orientation: cooperative Lymphatic: no cervical or axillary lymphadenopathy no inguinal lymphadenopathy Results & Data Vital Signs (Past 12 Hours) Vital Signs Temp Pulse Resp BP Pulse Ox 06/03/18 08:17 36.7 C 118 H 20 113/73 98 Laboratory Results Short CBC 06/03/18 Range/Units 05:36 WBC 6.76 (4.8-10.8) K/uL Hgb 10.6 L (12.0-16.0) g/dL Hct 34.6 L (37-47) % Plt Count 368 (130-400) K/uL BMP 06/02/18 06/03/18 11:34 05:36 Sodium 137 138 Potassium 4.6 4.0 Chloride 103 103 Carbon Dioxide 29 29 BUN 5 L 6 L Creatinine 0.88 0.83 Glucose 135 H 105 H Calcium 8.6 8.4 L Diagnostic Findings Microbiology 05/27/18 18:58 Blood Blood Culture - Final No growth 05/26/18 21:05 Blood Blood Culture - Final 05/26/18 21:28 Blood Blood Culture - Final No growth 05/26/18 14:58 Urine,Straight Cath Urine Culture - Final More than three types of organisms present, all low counts mixed probable skin summer. No further identifications or sensitivities to follow. (1) UTI (urinary tract infection) Urinary tract infection type: site unspecified Hematuria presence: without hematuria Qualified Code(s): N39.0 - Urinary tract infection, site not specified
[2018-06-03] MEDS ORDERED: WARFARIN SOD 0.5 MG TAB PO SCH (16:00)
--- NOTE | 2018-06-03 19:31 | Hospitalist Progress Note ---
Date of Service June 03, 2018 Assessment & Plan (1) Sepsis: C.diff colitis H/O complicated UTI due to chronic indwelling Nicolas Needs prolonged course of PO Vancomycin Continue Contact precautions Received IV fluids Continue PO Vancomycin Day # Appreciate ID Input (2) Leukocytosis: Due to C. difficile colitis management as above (3) Hypokalemia: Due to GI loss, having diarrhea, Replace potassium as needed (4) Hyponatremia: Possible secondary to dehydration GI loss, nausea vomiting diarrhea Corrected with IV fluids Monitor sodium levels (5) Urinary retention: chronic developed urinary retention on last admission Nicolas in place Urology consulted, appreciate input continue Nicolas -in setting of acute illness out pt follow up with Urology for voiding trial (6) Paroxysmal A-fib: Continue sotalol Continue Coumadin Monitor INR: 2.7 today (7) Diabetes mellitus, type II: Last A1c 04/27 8.5 Lantus/novolog per protocol, titrate accordingly (8) Hypertension: Stable Continue current meds (9) CKD (chronic kidney disease), stage III: Cr at baseline Monitor Renal function Appreciate Nephrology Input Needs FU with Nephrology upon discharge (10) S/p cadaver renal transplant: Continue CellCept and sirolimus no evidence of transplant rejection Nephrology on board (11) DVT prophylaxis: On Coumadin Disposition: Plan to discharge home with social service following for discharge planning CODE status : Full code Follow up: PCP Dr. Renee upon discharge Subjective Patient is seen and examined Clinically improving Had 2 BM today Feels tired Patient feels she is not ready for discharge today Denies nausea, vomiting, abd pain, chest pain, SOB No other complaints Review of Systems Review of Systems: All systems reviewed & are unremarkable except as noted in HPI & below Physical Exam Physical Exam: Physical Exam: Vitals signs as noted above General Appearance:Moderately built and nourished, no apparent distress Head: normocephalic, Atraumatic Eyes: normal inspection, EOMI Neck: supple, Trachea midline Respiratory/Chest: Normal breath sounds, CTA Cardiovascular: S1, S2, No murmur Abdomen/GI:Soft, mild tender, Bowel sounds present Extremities/Musculoskelatal:normal inspection, no edema Neurologic/Psych:AAOX3, grossly no focal neurological deficits Skin: normal color, warm Results & Data Vital Signs (Past 12 Hours) Vital Signs Temp Pulse Resp BP Pulse Ox 06/03/18 15:12 36.8 C 77 20 124/70 100 06/03/18 08:17 36.7 C 118 H 20 113/73 98 Laboratory Results Short CBC 06/03/18 Range/Units 05:36 WBC 6.76 (4.8-10.8) K/uL Hgb 10.6 L (12.0-16.0) g/dL Hct 34.6 L (37-47) % Plt Count 368 (130-400) K/uL BMP 06/03/18 05:36 Sodium 138 Potassium 4.0 Chloride 103 Carbon Dioxide 29 BUN 6 L Creatinine 0.83 Glucose 105 H Calcium 8.4 L (1) Diabetes mellitus, type II Diabetes mellitus complication status: with unspecified complications Diabetes mellitus meterman insulin use: unspecified meterman insulin use status Qualified Code(s): E11.8 - Type 2 diabetes mellitus with unspecified complications (2) Leukocytosis Leukocytosis type: unspecified Qualified Code(s): D72.829 - Elevated white blood cell count, unspecified (3) Sepsis Sepsis type: sepsis due to unspecified organism Qualified Code(s): A41.9 - Sepsis, unspecified organism (4) Hypertension Hypertension type: essential hypertension Qualified Code(s): I10 - Essential (primary) hypertension
[2018-06-03] MEDS: INSULIN GLARGINE SOLOSTAR 100 UNITS/ML 3 ML PEN SC SCH (21:54)
[2018-06-04] MEDS: VANCOMYCIN HCL 500 MG/10 ML SOLN PO SCH ×2 (05:54→13:38)
[2018-06-04] MEDS: RASPBERRY SYRUP 5 ML UDP PO SCH ×2 (05:54→13:38)
[2018-06-04 06:16] LABS: INR 3.2 (0.9-1.1); Prothrombin Time 29.8 Seconds (9.0-12.0)
[2018-06-04 06:28] LABS: BUN Creatinine Ratio 6.2 (10-20); Calcium 8.3 mg/dl (8.5-10.1); Creatinine Clr Calc Pharmacy 52.5 ml/min; Est GFR (Non-African American) 64.7
[2018-06-04] MEDS: INSULIN ASPART 100 UNITS/ML 3 ML PEN SC SCH ×2 (09:39→13:12)
[2018-06-04] MEDS: LACTOBACILLUS ACIDOPHILUS (FLORANEX) TAB PO SCH ×2 (09:49→13:37)
[2018-06-04] MEDS: SOTALOL HCL 80 MG TAB PO SCH (09:49)
[2018-06-04] MEDS: POTASSIUM CHLORIDE 20 MEQ/15 ML UDC PO SCH (09:50)
[2018-06-04] MEDS: MYCOPHENOLATE MOFETIL 250 MG CAP PO SCH (09:50)
[2018-06-04] MEDS: SIROLIMUS 0.5 MG TABLET PO SCH (09:51)
--- NOTE | 2018-06-04 13:26 | Hospitalist Progress Note ---
Date of Service June 04, 2018 Assessment & Plan (1) Sepsis: C.diff colitis H/O complicated UTI due to chronic indwelling Nicolas Needs prolonged course of PO Vancomycin Continue Contact precautions Received IV fluids Continue PO Vancomycin Day # Appreciate ID Input Continue supportive care Clinically improved (2) Leukocytosis: Due to C. difficile colitis management as above (3) Hypokalemia: Due to GI loss, having diarrhea Replace potassium as needed (4) Hyponatremia: Possible secondary to dehydration GI loss, nausea vomiting diarrhea Corrected with IV fluids Monitor sodium levels Resolved (5) Urinary retention: chronic developed urinary retention on last admission Nicolas in place Urology consulted, appreciate input continue Nicolas -in setting of acute illness out pt follow up with Urology for voiding trial (6) Paroxysmal A-fib: Continue sotalol Hold Coumadin Monitor INR: 3.2 today Needs follow up with Coumadin clinic upon discharge (7) Diabetes mellitus, type II: Last A1c 04/27 8.5 Lantus/novolog per protocol, titrate accordingly (8) Hypertension: Stable Continue current meds (9) CKD (chronic kidney disease), stage III: Cr at baseline Monitor Renal function Appreciate Nephrology Input Needs FU with Nephrology upon discharge (10) S/p cadaver renal transplant: Continue CellCept and sirolimus no evidence of transplant rejection Nephrology on board (11) DVT prophylaxis: On Coumadin Disposition: Refuses rehab placement despite counselling Plan to discharge home with social service on board CODE status : Full code Follow up: PCP Dr. Renee upon discharge Subjective Patient is seen and examined at bedside Doing well today Had 1 BM overnight as per patient Denies nausea, vomiting, abd pain, chest pain, SOB No other complaints No bleeding issues Review of Systems Review of Systems: All systems reviewed & are unremarkable except as noted in HPI & below Physical Exam Physical Exam: Physical Exam: Vitals signs as noted above General Appearance:Moderately built and nourished, no apparent distress Head: normocephalic, Atraumatic Eyes: normal inspection, EOMI Neck: supple, Trachea midline Respiratory/Chest: Normal breath sounds, CTA Cardiovascular: S1, S2, No murmur Abdomen/GI:Soft, non tender, Bowel sounds present Extremities/Musculoskelatal:normal inspection, no edema Neurologic/Psych:AAOX3, grossly no focal neurological deficits Skin: normal color, warm Results & Data Vital Signs (Past 12 Hours) Vital Signs Temp Pulse Resp BP Pulse Ox 06/04/18 07:13 36.9 C 67 20 121/67 96 Laboratory Results BMP 06/04/18 05:46 Sodium 137 Potassium 4.0 Chloride 104 Carbon Dioxide 27 BUN 6 L Creatinine 0.88 Glucose 107 H Calcium 8.3 L (1) Sepsis Sepsis type: sepsis due to unspecified organism Qualified Code(s): A41.9 - Sepsis, unspecified organism (2) Leukocytosis Leukocytosis type: unspecified Qualified Code(s): D72.829 - Elevated white blood cell count, unspecified (3) Diabetes mellitus, type II Diabetes mellitus residential insulin use: unspecified terminal system operator insulin use status Diabetes mellitus complication status: with unspecified complications Qualified Code(s): E11.8 - Type 2 diabetes mellitus with unspecified complications (4) Hypertension Hypertension type: essential hypertension Qualified Code(s): I10 - Essential (primary) hypertension
--- NOTE | 2018-06-04 13:41 | Discharge Summary ---
Date of Service June 04, 2018 Admission HPI Per Admitting Provider This is a 73-year-old female who has a significant past medical history of renal transplant on CellCept and sirolimus 10 years ago, PAF anticoagulated with warfarin, HTN, HLD, CKD stage III, T2 DM, history of FENG 70% R ICA who presents to [facility] secondary to nausea and ill feeling x 1 week. Unfortunately patient has recurrent hospitalizations including 03/09-03/23 secondary to E. coli UTI, urinary retention, ROSSY. Most recently hospitalized/discharge 05/11-05/15/18 secondary to again pansensitive E. coli UTI treated with IV Rocephin. She was transitioned to a 2-week course of cefdinir 300 mg twice daily. Unfortunately she again had urinary retention requiring Nicolas placement. She was discharged with Nicolas and scheduled for urology follow-up and voiding trial on 05/27. Patient has been taking antibiotics as prescribed. For the past week she has been experiencing nausea, ill feeling, dry, upper abdominal discomfort. Symptoms are constant. Appetite has been a little decreased for the past week. She also elicits to loose watery stool intermittently for the past week. Today she had a BM that was formed. She denies any documented fever, chills, sweats, lightheadedness, dizziness, chest pain, shortness of breath, palpitations, cough, hemoptysis, hematemesis, burning around catheter site, hematuria, hematochezia or melena. Over past 2 days sx significantly worsened and she admits to missing several of her medications. She states daughter and was present at bedside, recently left. Admission Exam Per Admitting Provider Gen: Elderly, female lying in bed, appears chronically ill, NAD, flat affect, answers questions appropriately, Head: Normocephalic, Atraumatic Eyes: Sclera normal, no conjunctival injection, PERRLA, EOMI ENT: Gross hearing intact, normal pharynx, mucous membranes moist Neck: supple, no adenopathy, No JVD, no bruit, Resp: Clear to auscultation b/l, no wheeze, rales, rhonchi. Normal insp/exp effort, no accessory muscle use CV: irregular rate, irregular rhythm, harsh JENNIFER noted throughout precordium, best at cardiac apex, no rub, gallop, or ectopy Abd: +BS x 4, soft, minimally distended, diffusely tender throughout to light and deep palpation, no rebound, guarding or rigidity Musculoskeletal: moves extremities active rom x 4, strength intact, good youth associate strength Extremities: No edema bilaterally, bilateral pedal pulses +1 and equal Skin: warm, moist, no rash, negative turgor, cap refill < 2sec Neuro: Alert and oriented x 3, speech normal, flat mood/affect, cran nerve 2-12 intact grossly : + Nicolas in place draining clear yellow urine Principal Diagnosis Discharge Information Discharge Diagnosis C DIFF COLITIS /SEPSIS Hypokalemia/Hyponatremia Discharge Goals Decrease discomfort,Therapeutic intervention, Improve disease control,Improve function Discharge Activity Limitations Resume your previous activity Discharge Data Allergies Allergy/AdvReac Type Severity Reaction Status Date / Time KATIA Inhibitors Allergy Unknown Unknown Verified 05/26/18 15:29 ARB-Angiotensin Receptor Allergy Unknown Unknown Verified 05/26/18 15:29 Antagonist amoxicillin AdvReac Severe nausea Verified 05/26/18 15:29 Consultations 05/26/18 17:26 ED Decision to Admit Stat 05/26/18 18:14 Consult Infectious Diseases Routine Consult Urology Routine 05/27/18 12:21 Consult Nephrology Routine Procedures Performed CT ABD: 1. Nonspecific colitis involving the descending and sigmoid colon. 2. Mild pericolonic infiltrative change. 3. No evidence for abscess or collection. No evidence for obstruction.. 4. Atrophy of the [place] kidneys with a right pelvic renal transplant 5. The renal transplant demonstrates air within the collecting system which may be secondary to placement of Nicolas catheter within a collapsed bladder. Ordered Studies 05/26/18 18:14 CT abd pelvis wo con Urgent Hospital Course (1) Sepsis: C.diff colitis H/O complicated UTI due to chronic indwelling Nicolas Needs prolonged course of PO Vancomycin Continue Contact precautions Received IV fluids Continue PO Vancomycin Day # Appreciate ID Input Continue supportive care Clinically improved (2) Leukocytosis: Due to C. difficile colitis management as above (3) Hypokalemia: Due to GI loss, having diarrhea Replace potassium as needed (4) Hyponatremia: Possible secondary to dehydration GI loss, nausea vomiting diarrhea Corrected with IV fluids Monitor sodium levels Resolved (5) Urinary retention: chronic developed urinary retention on last admission Nicolas in place Urology consulted, appreciate input continue Nicolas -in setting of acute illness out pt follow up with Urology for voiding trial (6) Paroxysmal A-fib: Continue sotalol Hold Coumadin Monitor INR: 3.2 today Needs follow up with Coumadin clinic upon discharge (7) Diabetes mellitus, type II: Last A1c 04/27 8.5 Lantus/novolog per protocol, titrate accordingly (8) Hypertension: Stable Continue current meds (9) CKD (chronic kidney disease), stage III: Cr at baseline Monitor Renal function Appreciate Nephrology Input Needs FU with Nephrology upon discharge (10) S/p cadaver renal transplant: Continue CellCept and sirolimus no evidence of transplant rejection Nephrology on board (11) DVT prophylaxis: On Coumadin Disposition: Refuses rehab placement despite counselling Plan to discharge home with social service on board CODE status : Full code Follow up: PCP Dr. Renee upon discharge Total Time Total Time Spent Total Time Spent (In Minutes): 42 minutes Total Time Includes: Examination of the Patient, Discharge Planning, Medication Reconciliation, Communication With Other Providers and Other Discharge Plan Discharge Items Patient Disposition: Home - Home Health Services Reason For Visit: NAUSEA,RECURRENT UTI,FAILED OUTPT THERAPY Discharge Diagnosis: C DIFF COLITIS /SEPSIS Hypokalemia/Hyponatremia Discharge Goals: Decrease discomfort, Improve disease control, Improve function and Therapeutic intervention Activity: Resume your previous activity Exercise/Sports: Gradually increase as tolerated Non-emergency contact: Primary Care Provider, Sales And Marketing Professional and Urologist Call non-emergency contact if: you have any medication questions, your symptoms worsen, your pain is not controlled, your pain is worsening, your pain is unusual for you, your pain is concerning for you and you have a fever Follow-up/Referrals: Laurel Renee MD [Primary Care Provider] - Diet: Carb Consistent or DM2 Addtl Provider Instructions: Follow up with on June 08, 2018 at 2:00pm Follow up with your Sales And Marketing Professional in 2 weeks as advised Follow up with your Urologist in 3 weeks as advised Follow up with your infectious disease as needed Complete the PO Vancomycin course as prescribed Follow up with Coumadin clinic for dosing of your coumadin Do not take Coumadin today (06/04/18) and tomorrow (06/05/18) as your INR is 3.2. Further recommendations as per your physician Seek immediate medical attention if your symptoms reoccur or worsen WASH YOUR HAND WITH SOAP AND WATER ADVISED Prescriptions: New Probiotic 3 billion cell capsule 3,000 mmu cells PO DAILY Qty: 30 RF: 0 vancomycin 125 mg capsule 125 mg PO UD 35 Days Qty: 70 RF: 0 potassium chloride 20 mEq packet 20 meq PO BID 14 Days Qty: 28 RF: 0 Continued Lactinex 1 million cell tablet,chewable 1 tab PO BID Qty: 20 RF: 0 tramadol 50 mg tablet 50 mg PO Q8H PRN (Reason: pain) Qty: 10 RF: 0 acetaminophen [Tylenol Extra Strength] 500 mg Tablet 500 mg PO Q6H PRN (Reason: Pain) RF: 0 mirtazapine 15 mg tablet 15 mg PO HS RF: 0 Lantus Solostar U-100 Insulin 100 unit/mL (3 mL) Insulin Pen 18 unit SC HS 30 Days Qty: 5.4 RF: 0 warfarin 1 mg tablet 0.5 mg PO 3XWK RF: 0 warfarin [Coumadin] 1 mg tablet 1 mg PO 4XWK RF: 0 hydralazine 10 mg Tablet 10 mg PO BID RF: 0 mycophenolate mofetil 250 mg Capsule 250 mg PO Q12 RF: 0 aspirin [Aspirin Low Dose] 81 mg Tablet,Delayed Release (Dr/Ec) 81 mg PO QAM RF: 0 sotalol 120 mg Tablet 120 mg PO BID RF: 0 sirolimus 1 mg Tablet 1 mg PO QAM RF: 0 amlodipine 10 mg Tablet 10 mg PO QAM RF: 0 cholecalciferol (vitamin D3) [Vitamin D3] 1,000 unit Capsule 1,000 unit PO QAM RF: 0 Novolog Flexpen U-100 Insulin 100 unit/mL Insulin Pen 12 - 22 unit SUBCUT AC RF: 0 Stand-Alone Forms: [facility]/Other Patient Handouts: Clostridium Difficile Toxin Stool, Infec Clostridium Difficile Discharge Orders: Discharge Order (Routine); Ordered 06/04/18 Ordered By: Gregg Bonds Admission Data Admit Date/Time: 05/26/18 18:14 Attending Provider: Gregg Bonds Admit Provider: Gregg Bonds Primary Care Provider: Laurel Renee Other Providers: Gregg Bonds ; Eric Alexander ; Nicholas Wall ; Sweetie Colon ; Georgina Morris Service: Medical Other Interventions: Discharge Summary Assessment (RN) Last Done: 06/04/18 14:21 Pending Studies at Discharge: No DC Date/Time DO NOT enter until pt leaves facility: 06/04/18 15:45
[2018-06-04] MEDS: TRAMADOL HCL 50 MG TABLET PO PRN (14:00)
--- NOTE | 2018-06-04 14:33 | Infectious Disease Progress Nt ---
Date of Service June 04, 2018 Assessment & Plan (1) C. difficile colitis: 73-year-old female with recurrent urinary tract infections, now with acute C. difficile colitis. Patient appears to be clinically responding to vancomycin. Given significant risk for relapse/recurrence, would recommend prolonged tapering course of vancomycin, e.g. 125 mg 4 times daily to complete 2 weeks then 125 mg twice daily for 2 weeks, then 125 mg daily for 2 more weeks. (2) UTI (urinary tract infection): Subjective Patient seen in follow-up for C. difficile colitis. Offers no new complaints today. Remains afebrile. Anticipating discharge. Review of Systems Review of Systems: All systems reviewed & are unremarkable except as noted in HPI & below Physical Exam Constitutional: WD/WN, vitals as above + ill appearing (Chronically) and comfortable; no acute distress Eyes: PERRL, conjunctivae normal, anicteric sclerae ENMT: external ear and nose normal, oropharynx normal Neck: trachea midline, no thyromegaly neck nontender Respiratory: normal respiratory effort, lungs clear to auscultation normal percussion; does not use accessory muscles Cardiovascular: Rate/Rhythm: + irregularly irregular Heart Sounds: normal S1, normal S2 and + murmur (Systolic); no gallop and no cardiac rub Vessels: normal peripheral pulses; no JVD Gastrointestinal (Abdomen): normal bowel sounds, soft, nontender, no hepatosplenomegaly Musculoskeletal: no cyanosis or clubbing, extremities motor strength 5/5 Spine: thoracic spine normal to inspection and lumbar spine normal to inspection; no cervical spinal tenderness Skin: no rashes, warm and dry normal turgor; no lesions Neurologic: patellar DTR's 2+ bilat, sensation intact no focal motor deficits Psychiatric: A+Ox3, euthymic affect Orientation: cooperative Lymphatic: no cervical or axillary lymphadenopathy no inguinal lymphadenopathy Results & Data Vital Signs (Past 12 Hours) Vital Signs Temp Pulse Pulse Resp BP Pulse Ox 06/04/18 14:21 36.9 C 73 67 20 121/ 96 06/04/18 07:13 36.9 C 67 20 121/ 96 (1) UTI (urinary tract infection) Urinary tract infection type: site unspecified Hematuria presence: without hematuria Qualified Code(s): N39.0 - Urinary tract infection, site not specified
== END 2018-06-04 15:45 | disposition home health service (06) | DRG 872 ==
LOC: ED 13:46 → 2W 18:14 → SUATTDRO 18:14 → 2W 18:53 → 2S 05-27 18:10 → 4E 05-30 13:52
DX: R33.9 Retention of urine, unspecified; Z79.899 Other long term (current) drug therapy; N18.3 Chronic kidney disease, stage 3 (moderate); I12.9 Hypertensive chronic kidney disease with stage 1 through stage 4 chronic kidney disease, or unspecified chronic kidney disease; E78.5 Hyperlipidemia, unspecified; Z79.4 Long term (current) use of insulin; I48.0 Paroxysmal atrial fibrillation; A41.9 Sepsis, unspecified organism; Z79.82 Long term (current) use of aspirin; Z79.01 Long term (current) use of anticoagulants; A04.72 Enterocolitis due to Clostridium difficile, not specified as recurrent; E87.1 Hypo-osmolality and hyponatremia; Z94.0 Kidney transplant status; E11.22 Type 2 diabetes mellitus with diabetic chronic kidney disease; E86.0 Dehydration

== ENCOUNTER 2018-07-25 16:25 | Inpatient (IN) ==
--- OUTSIDE RECORDS SUMMARY | 2018-07-25 16:31 | External Medical Summary | Continuity of Care Document ---
:1945 Author Name Nanette Sofia, Provider Address Unavailable Unavailable , Care Team Providers Name Role Phone Chata Sofia, Provider Unavailable [email or web address] Jake HAZEL Unavailable Unavailable Unavailable Unavailable Unavailable Problems Urinary tract infection (599.0) (N39.0) Urinary retention (788.20) (R33.9) Proteinuria (791.0) (R80.9) Paroxysmal atrial fibrillation (427.31) (I48.0) Dyslipidemia (272.4) (E78.5) Cataract (366.9) (H26.9) Acidosis (276.2) (E87.2) Carotid stenosis, non-symptomatic (433.10) (I65.29) Vitamin D deficiency (268.9) (E55.9) Mitral valve regurgitation (424.0) (I34.0) Thrombocytopenia (287.5) (D69.6) Menopause (627.2) (Z78.0) Hypertension (401.9) (I10) Type 2 diabetes mellitus (250.00) (E11.9) Allergies and Adverse Reactions No Known Drug Allergies (Allergy) Medications Sulfamethoxazole-TMP DS 800-160 MG TABS; TAKE ONE TABL ET BY MOUTH EVERY DAY Kimberlyn Alexander Start: 12-Jan-2014 Quantity: 21 Refills: 5 Doxycycline Hyclate 100 MG Oral Capsule; TAKE 1 CAPSUL E Daily Kimberlyn Alexander Start: 12-Jan-2014 Quantity: 30 Refills: 5 Cephalexin 250 MG Oral Capsule; TAKE 1 CAPSULE DAILY. Kimberlyn Alexander Start: 12-Jan-2014 Quantity: 30 Refills: 3 Atorvastatin Calcium 80 MG Oral Tablet; TAKE 1 TABLET DAILY. Refills: 0 Mycophenolate Mofetil 250 MG Oral Capsule; TAKE 1 CAPSULE TW ICE DAILY. Refills: 0 Rapamune 1 MG Oral Tablet; Take 1 tablet daily Refills: 0 NovoLOG FlexPen 100 UNIT/ML SOLN; 10 uni ts with breakfast, 12 units with lunch, 14 units with dinnerCF 1:30 over 140 Refills: 0 Lantus 100 UNIT/ML Subcutaneous Solution; 20 untis at bedtim e Refills: 0 Warfarin Sodium 1 MG Oral Tablet; TAKE 1 TABLET DAILY DIR ECTED. Refills: 0 amLODIPine Besylate 10 MG Oral Tablet; TAKE 1 TABLET DAILY A S DIRECTED. Refills: 0 Sotalol HCl - 80 MG Oral Tablet; TAKE 1 AND 1/2 TABLET BY [facility] TWICE A DAY Refills: 0 Procedures Ultrasound, Renal/Bladder (Retroperitoneal) Date: 9 History of Cadaver Donor Nephrectomy Sta tus: Completed History of kidney transplantation cadaveric Status: Completed Immunizations Immunizations not documented Family History Mother Family history of diabetes mellitus (V18.0) (Z83.3) Status: Active Social History - Smoking Status Never smoker Plan of Treatment Planned Observations Planned Goals not documented Results No Known Results Results not documented Encounters Appointment; Urology, Nursing Station 08-Dec-2017 14:35 Encounter Diagnosis: Problem not documented Appointment; Jen Lynn CRNP 08-Dec-2017 13:40 Encounter Diagnosis: Problem not documented
[2018-07-25] MEDS ORDERED: SODIUM CHLORIDE 0.9% 1000ML 1,000 ML IV SCH (16:45)
[2018-07-25 16:48] LABS: Appearance Urine Cloudy (Clear); Bacteria Urine Automated 1+ (Negative); Bilirubin Urine Negative (Negative); Blood Urine Trace (Negative); Color Urine Dark Yellow; Glucose Urine UA 2+ (Negative); Ketones Urine 2+ (Negative); Leukocyte Esterase Urine 3+ (Negative); Nitrite Urine Positive (Negative); Protein Urine 2+ (Negative); Specific Gravity Urine 1.013 (1.000-1.030); Urobilinogen Urine Negative (Negative); WBC Urine Automated >30 /hpf (0-5); pH Urine 6.5 (4.5-7.5)
[2018-07-25 17:15] LABS: RBC Urine Automated 0-4 /hpf (0-4)
[2018-07-25 18:05] LABS: Basophils # (auto) 0.01 K/uL (0-0.2); Basophils % (auto) 0.1 %; Eosinophils # (auto) 0.05 K/uL (0-0.5); Eosinophils % (auto) 0.3 %; Hematocrit (blood only) 39.6 % (37-47); Hemoglobin 13.3 g/dL (12.0-16.0); Immature Granulocytes # (auto) 0.06 K/uL (0.00-0.02); Immature Granulocytes % (auto) 0.4 %; Lymphocytes # (auto) 2.06 K/uL (1.2-3.4); Mean Corpuscular Hgb Conc 33.6 g/dL (32-36); Mean Corpuscular Volume 83.5 fL (80-100); Monocytes # (auto) 1.08 K/uL (0.11-0.59); Monocytes % (auto) 6.8 %; Neutrophils # (auto) 12.61 K/uL (1.4-6.5); Neutrophils % (auto) 79.4 %; Platelet Count 234 K/uL (130-400); RDW Coefficient of Variation 17.1 % (11.5-14.5); RDW Standard Deviation 52.1 fL (36.4-46.3); Red Blood Count 4.74 M/uL (4.2-5.4); White Blood Count 15.87 K/uL (4.8-10.8)
[2018-07-25 18:24] LABS: INR 1.5 (0.9-1.1); Prothrombin Time 15.3 Seconds (9.0-12.0)
[2018-07-25 18:27] LABS: Albumin Level 3.2 gm/dl (3.4-5.0); BUN Creatinine Ratio 10.8 (10-20); Calcium 9.3 mg/dl (8.5-10.1); Creatinine Clr Calc Pharmacy 39.8 ml/min; Est GFR (Non-African American) 53.5; Potassium 3.4 mmol/L (3.5-5.1)
[2018-07-25 18:30] LABS: Albumin Globulin Ratio 0.6 (0.9-2); Bilirubin,Total 1.1 mg/dl (0.2-1); Total Protein 8.2 gm/dl (6.4-8.2)
--- NOTE | 2018-07-25 19:05 | XRay Report ---
PA CHEST RADIOGRAPH AND UPRIGHT AND SUPINE AP RADIOGRAPHS OF THE ABDOMEN CLINICAL HISTORY: Abdominal pain. COMPARISON STUDY: CT of the abdomen and pelvis May 26, 2018. Chest radiograph May 11, 2018. Abdom inal series May 27, 2018. FINDINGS: Slight blunting of the left costophrenic angle is noted. Note is made of cardiomegaly with out evidence for pulmonary edema. There may be a trace left pleural effusion. There is no consolidati on to suggest pneumonia. No free air is present. Bowel gas pattern is normal. Extensive vascular calc ification is noted. Abdominal and pelvic surgical clips are present. IMPRESSION: 1. No free air or evidence of bowel obstruction. 2. Possible trace left pleural effusion. Electronically signed by: Bill Arredondo M.D. 07/25/2018 7:03 PM
[2018-07-25] MEDS ORDERED: cefTRIAXone SODIUM 1,000 MG/50 ML BAG IV STA (19:26)
[2018-07-25] MEDS ORDERED: VANCOMYCIN HCL 250 MG/5 ML SOLN PO STA (19:26)
[2018-07-25] MEDS ORDERED: WARFARIN SOD 1 MG TAB PO STA (20:12)
[2018-07-25] MEDS ORDERED: ONDANSETRON INJ 2 MG/ML 2 ML VIAL IV PRN (21:38)
[2018-07-25] MEDS ORDERED: ONDANSETRON 4 MG TAB PO PRN (21:38)
[2018-07-25] MEDS ORDERED: POTASSIUM CHLORIDE 10 MEQ TABCR PO STA (22:03)
[2018-07-25] MEDS: SODIUM CHLORIDE 0.9% 1000ML 1,000 ML IV SCH (22:16)
--- NOTE | 2018-07-25 23:04 | Emergency Department Note ---
Entered by Katey Krishnamurthy acting as a scribe for Maverick Camp DO History of Present Illness General Chief complaint: Illness Stated complaint: ILLNESS, NAUSEA,DIARRHEA Source: patient History of Present Illness Provider complaint: diarrhea Onset (ago): day(s) 3 Severity: similar to prior episodes Pain Consistency: + other (persistent) Relieved By: + none Associated symptoms: + cough, + nausea/vomiting (-vomiting, +nausea) and + other (-runny nose, +dry heaving); no chest pain and no shortness of breath The patient is a 73 year old female who presents to the Emergency Room with complaints of persistent diarrhea. Per the nursing staff, the patient had nausea and diarrhea that started on Thursday and has had 2 episodes of diarrhea yesterday and 3 episodes today. They state that the patient has not been eating or drinking normally. They state that the patient has had a renal transplant in 2007. They state that the patient has a history of C. diff and is experiencing similar symptoms. They state that the patient had a catheter placed in May that was change in June. The patient reports that she has had abdominal pain and diarrhea or liquid stools. The patient states that the she has a cough and has been dry heaving. 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 She denies any runny nose, shortness of breath, or chest pain. No other exacerbating or remitting factors. Home Medications Home Medications Medication Instructions Recorded Confirmed Type Novolog Flexpen U-100 Insulin 0 unit SUBCUT AC 11/23/17 07/25/18 History hydralazine 10 mg PO BID 11/23/17 07/25/18 History mycophenolate mofetil 250 mg PO Q12 11/23/17 07/25/18 History sirolimus 1 mg PO QAM 11/23/17 07/25/18 History sotalol 120 mg PO BID 11/23/17 07/25/18 History Lactinex 1 tab PO BID #20 tab 03/23/18 07/25/18 Rx warfarin 0.5 mg PO [id number] 05/26/18 07/25/18 History warfarin [Coumadin] 1 mg PO WK 05/26/18 07/25/18 History Aspirin Low Dose 81 mg PO DAILY 07/25/18 07/25/18 History amlodipine 10 mg PO DAILY 07/25/18 07/25/18 History insulin glargine [Lantus U-100 18 unit SUBCUT QPM 07/25/18 07/25/18 History Insulin] lactobacillus combination no.4 3,000 mmu cells PO QDD 07/25/18 07/25/18 History [Probiotic] mirtazapine [Remeron] 15 mg PO HS 07/25/18 07/25/18 History nitrofurantoin macrocrystal 100 mg PO BID 07/25/18 07/25/18 History ondansetron HCl [Zofran] 4 mg PO Q6 PRN 07/25/18 07/25/18 History tramadol 50 mg PO Q6 PRN 07/25/18 07/25/18 History Allergies Allergy/AdvReac Type Severity Reaction Status Date / Time KATIA Inhibitors Allergy Unknown Unknown Verified 07/25/18 17:06 ARB-Angiotensin Receptor Allergy Unknown Unknown Verified 07/25/18 17:06 Antagonist amoxicillin AdvReac Severe nausea Verified 07/25/18 17:06 Past Med/Surg History Medical History longterm current use of anticoagulant (Chronic) Carotid stenosis (Chronic) History of cervical cancer (Chronic) CKD (chronic kidney disease), stage III (Chronic) Hypertension (Chronic) Mitral valve regurgitation (Chronic) Dyslipidemia (Chronic) Paroxysmal A-fib (Chronic) History of herpes zoster (Chronic) Diabetes mellitus, type II (Chronic) 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) Recurrent UTI (Chronic) Surgical History S/P QUINN (total abdominal hysterectomy) (Chronic) History of cataract surgery (Chronic) Status post cholecystectomy (Chronic) S/p cadaver renal transplant (Chronic) Family History Mother Diabetes mellitus with coincident hypertension Social History Preferred Language: Amharic Communication Ability: Effective History Card Clerk Required: No Beliefs That Will Affect Care: Mandaen Mandaen Beliefs: Zoroastrian marital status: Current Living Situation: Spouse Feels Safe at Home: Yes Safety Concerns: Feels Safe At This Time Smoking Status: Never smoker Do You Dip or Chew Tobacco: No Second Hand E xposure: No Hx Alcohol Use: No Hx Substance Use: No Review of Systems See HPI for pertinent positives & negatives. and A total of 10 systems reviewed and were otherwise negative Physical Exam Vital Signs Vital Signs - 24 hr 07/25/18 16:38 07/25/18 18:39 07/25/18 18:42 Temperature 36.7 C Temperature Source Oral Sepsis Recent Fever Within 48 Hours No Sepsis New/Unexplained Change in Mental Status No Sepsis Action Taken by Nursing No Action Required Pulse Rate 85 82 96 H Pulse Rate [Left] Pulse Rate from SpO2 Sensor 87 96 H Respiratory Rate 16 18 14 Respiratory Effort / Characteristics Non-Labored Spontaneous Respiratory Depth Normal Respiratory Pattern Regular Blood Pressure 139/74 153/84 H Blood Pressure [Left Arm] Blood Pressure Mean 95 107 Blood Pressure Mean [Left Arm] Blood Pressure Position [Left Arm] Pulse Oximetry 100 99 98 Oxygen Delivery Method Room Air 07/25/18 19:00 07/25/18 19:30 07/25/18 20:00 Temperature Temperature Source Sepsis Recent Fever Within 48 Hours Sepsis New/Unexplained Change in Mental Status Sepsis Action Taken by Nursing Pulse Rate 82 82 83 Pulse Rate [Left] 79 Pulse Rate from SpO2 Sensor 87 85 85 Respiratory Rate 18 16 16 Respiratory Effort / Characteristics Spontaneous Respiratory Depth Respiratory Pattern Blood Pressure 145/70 H 161/89 H 161/75 H Blood Pressure [Left Arm] 145/70 H Blood Pressure Mean 95 113 103 Blood Pressure Mean [Left Arm] 95 Blood Pressure Position [Left Arm] Lying Pulse Oximetry 100 99 99 Oxygen Delivery Method Room Air GENERAL: alert, chronically-ill, well nourished, disheveled, non-toxic EYE EXAM: normal conjunctiva OROPHARYNX: no exudate, no erythema, lips, buccal mucosa, and tongue normal and mucous membranes are dry NECK: supple, no nuchal rigidity, no adenopathy, non-tender LUNGS: Clear to auscultation. Normal chest wall mechanics HEART: no murmurs, S1 normal and S2 normal ABDOMEN: old right midline incision, firm ass posteriorly, abdomen soft, non- tender, normo-active bowel sounds, no rebound or guarding. BACK: Back is symmetrical on inspection and there is no deformity, no midline tenderness, no CVA tenderness. : fully in place with clear yellow urine SKIN: no rashes and no bruising UPPER EXTREMITIES: upper extremities are grossly normal. LOWER EXTREMITIES: No pitting edema. NEURO EXAM: Normal sensorium, cranial nerves II-XII grossly intact, normal speech, no gross weakness of arms, no gross weakness of legs. No drift. Finger to nose intact. Gross sensation intact. Course 1628: The patient was evaluated in room B2, and a complete history and physical examination were performed. 1929: I reviewed the patient's case with Dr. Enriqueta Hayden. He will evaluate the patient for further management. Consultations Consultation #1: Dr. Enriqueta Hayden Time: 19:30 Administered Medications Sodium Chloride (Nss 1000ml) 1,000 mls @ 75 mls/hr IV .[id number] TE Stop: 08/24/18 21:59 Last Admin: 07/25/18 22:16 Dose: 75 mls/hr Documented by: [id number] Discontinued Medications Sodium Chloride (Nss 1000ml) 1,000 mls @ 999 mls/hr IV .[id number] TE Stop: 07/25/18 17:45 Last Infusion: 07/25/18 19:52 Dose: 0 mls/hr Documented by: [id number] Admin: 07/25/18 18:37 Dose: 999 mls/hr Documented by: [id number] Ceftriaxone Sodium (Rocephin) 1,000 mg in 50 mls @ 100 mls/hr IV NOW STA Stop: 07/25/18 19:55 Last Infusion: 07/25/18 20:45 Dose: 0 mls/hr Documented by: [id number] Admin: 07/25/18 20:13 Dose: 100 mls/hr Documented by: [id number] Raspberry (Raspberry) 5 ml PO Q6 TE Stop: 08/09/18 00:00 Last Admin: 07/25/18 20:27 Dose: 5 ml Documented by: [id number] Vancomycin HCl (Vancomycin Hcl) 250 mg PO NOW STA Stop: 07/25/18 19:27 Last Admin: 07/25/18 20:26 Dose: 250 mg Documented by: [id number] Warfarin Sodium (Coumadin) 1 mg PO NOW STA Stop: 07/25/18 20:13 Last Admin: 07/25/18 20:26 Dose: 1 mg Documented by: [id number] Cosigned by: [id number] Medical Decision Making Differential Diagnosis Differential diagnosis: Etiologies such as appendicitis, diverticulitis, PUD, biliary pathology, UTI, pancreatitis, obstruction, mesenteric ischemia, aortic pathology, infections, inflammatory bowel disease, renal colic, as well as othe rs were entertained. Medical Records Attestation: I reviewed the patient's medical records. Home Medications Current Medication List: was personally reviewed by me Laboratory Data Attestation: I reviewed the patient's lab results. Result diagrams: 07/25/18 17:57 07/25/18 17:57 Lab Results 07/25/18 07/25/18 07/25/18 Range/Units 16:35 17:57 17:57 WBC 15.87 H (4.8-10.8) K/uL RBC 4.74 (4.2-5.4) M/uL Hgb 13.3 (12.0-16.0) g/dL Hct 39.6 (37-47) % MCV 83.5 (80-100) fL MCH 28.1 (25-34) pg MCHC 33.6 (32-36) g/dL RDW Std Deviation 52.1 H (36.4-46.3) fL RDW Coeff of Anila 17.1 H (11.5-14.5) % Plt Count 234 (130-400) K/uL MPV 9.0 (7.4-10.4) fL Immature Gran % (Auto) 0.4 % Neut % (Auto) 79.4 % Lymph % (Auto) 13.0 % Elliott % (Auto) 6.8 % Eos % (Auto) 0.3 % Baso % (Auto) 0.1 % Immature Gran # (Auto) 0.06 H (0.00-0.02) K/uL Neut # (Auto) 12.61 H (1.4-6.5) K/uL Lymph # (Auto) 2.06 (1.2-3.4) K/uL Elliott # (Auto) 1.08 H (0.11-0.59) K/uL Eos # (Auto) 0.05 (0-0.5) K/uL Baso # (Auto) 0.01 (0-0.2) K/uL PT 15.3 H (9.0-12.0) Seconds INR 1.5 H (0.9-1.1) Sodium (136-145) mmol/L Potassium (3.5-5.1) mmol/L Chloride (98-107) mmol/L Carbon Dioxide (21-32) mmol/L Anion Gap (3-11) BUN (7-18) mg/dl Creatinine (0.6-1.2) mg/dl Est Cr Clr Drug Dosing ml/min Est GFR ( Amer) Est GFR (Non-Af Amer) BUN/Creatinine Ratio (10-20) Glucose (70-99) mg/dl Calcium (8.5-10.1) mg/dl Total Bilirubin (0.2-1) mg/dl AST (15-37) U/L ALT (12-78) U/L Alkaline Phosphatase (45-117) U/L Total Protein (6.4-8.2) gm/dl Albumin (3.4-5.0) gm/dl Globulin (2.5-4.0) gm/dl Albumin/Globulin Ratio (0.9-2) Lipase (73-393) U/L Urine Color Dark Yellow Urine Appearance Cloudy A (Clear) Urine pH 6.5 (4.5-7.5) Ur Specific [place] 1.013 (1.000-1.030) Urine Protein 2+ H (Negative) Urine Glucose (UA) 2+ H (Negative) Urine Ketones 2+ H (Negative) Urine Blood Trace H (Negative) Urine Nitrite Positive A (Negative) Urine Bilirubin Negative (Negative) Urine Urobilinogen Negative (Negative) Ur Leukocyte Esterase 3+ H (Negative) Urine WBC (Auto) >30 H (0-5) /hpf Urine RBC (Auto) 0-4 (0-4) /hpf U Hyaline Cast (Auto) 1-5 (0-5) /lpf U Epithel Cells (Auto) 5-10 H (0-5) /lpf Urine Bacteria (Auto) 1+ H (Negative) Urine Yeast Not Reportable 07/25/18 Range/Units 17:57 WBC (4.8-10.8) K/uL RBC (4.2-5.4) M/uL Hgb (12.0-16.0) g/dL Hct (37-47) % MCV (80-100) fL MCH (25-34) pg MCHC (32-36) g/dL RDW Std Deviation (36.4-46.3) fL RDW Coeff of Anila (11.5-14.5) % Plt Count (130-400) K/uL MPV (7.4-10.4) fL Immature Gran % (Auto) % Neut % (Auto) % Lymph % (Auto) % Elliott % (Auto) % Eos % (Auto) % Baso % (Auto) % Immature Gran # (Auto) (0.00-0.02) K/uL Neut # (Auto) (1.4-6.5) K/uL Lymph # (Auto) (1.2-3.4) K/uL Elliott # (Auto) (0.11-0.59) K/uL Eos # (Auto) (0-0.5) K/uL Baso # (Auto) (0-0.2) K/uL PT (9.0-12.0) Seconds INR (0.9-1.1) Sodium 127 L (136-145) mmol/L Potassium 3.4 L (3.5-5.1) mmol/L Chloride 93 L (98-107) mmol/L Carbon Dioxide 25 (21-32) mmol/L Anion Gap 9.0 (3-11) BUN 11 (7-18) mg/dl Creatinine 1.03 (0.6-1.2) mg/dl Est Cr Clr Drug Dosing 39.8 ml/min Est GFR ( Amer) 62.0 Est GFR (Non-Af Amer) 53.5 BUN/Creatinine Ratio 10.8 (10-20) Glucose 248 H (70-99) mg/dl Calcium 9.3 (8.5-10.1) mg/dl Total Bilirubin 1.1 H (0.2-1) mg/dl AST 15 (15-37) U/L ALT 12 (12-78) U/L Alkaline Phosphatase 130 H (45-117) U/L Total Protein 8.2 (6.4-8.2) gm/dl Albumin 3.2 L (3.4-5.0) gm/dl Globulin 5.0 H (2.5-4.0) gm/dl Albumin/Globulin Ratio 0.6 L (0.9-2) Lipase 50 L (73-393) U/L Urine Color Urine Appearance (Clear) Urine pH (4.5-7.5) Ur Specific [place] (1.000-1.030) Urine Protein (Negative) Urine Glucose (UA) (Negative) Urine Ketones (Negative) Urine Blood (Negative) Urine Nitrite (Negative) Urine Bilirubin (Negative) Urine Urobilinogen (Negative) Ur Leukocyte Esterase (Negative) Urine WBC (Auto) (0-5) /hpf Urine RBC (Auto) (0-4) /hpf U Hyaline Cast (Auto) (0-5) /lpf U Epithel Cells (Auto) (0-5) /lpf Urine Bacteria (Auto) (Negative) Urine Yeast Imaging Data Radiologist's Impression: Radiology results as stated below per my review and the radiologist's interpretation: PA CHEST RADIOGRAPH AND UPRIGHT AND SUPINE AP RADIOGRAPHS OF THE ABDOMEN CLINICAL HISTORY: Abdominal pain. COMPARISON STUDY: CT of the abdomen and pelvis May 26, 2018. Chest radiograph May 11, 2018. Abdominal series May 27, 2018. FINDINGS: Slight blunting of the left costophrenic angle is noted. Note is made of cardiomegaly without evidence for pulmonary edema. There may be a trace left pleural effusion. There is no consolidation to suggest pneumonia. No free air is present. Bowel gas pattern is normal. Extensive vascular calcification is noted. Abdominal and pelvic surgical clips are present. IMPRESSION: 1. No free air or evidence of bowel obstruction. 2. Possible trace left pleural effusion. Electronically signed by: Bill Arredondo M.D. 07/25/2018 7:03 PM Blood Pressure Blood Pressure Findings: Elevated blood pressure Blood Pressure Disposition: elevated BP felt to be situational MDM Narrative Patient is a 73-year-old female who presents the ER for nausea vomiting diarrhea which started Thursday. Patient had a previous C. difficile infection in May. History of renal transplant on CellCept and tacrolimus. IV was established blood work was obtained showed a leukocytosis of 15,000. INR was subtherapeutic at 1.5. BMP with hyponatremia and hypokalemia. LFTs bilirubin and lipase is unremarkable. UA with a clear UTI. Patient does have an indwelling Nicolas. She is given IV antibiotics in combination with oral vancomycin in case she does have C. difficile which I do question. C. difficile is still pending. Patient was given IV fluids. Updated bedside. Discussed with the hospitalist and will be admitted for further work-up. Impression & Plan UTI (urinary tract infection), Hyponatremia, Leukocytosis, C. difficile colitis Discharge Plan Visit Data *Final* Discharge Date/Time: 07/25/18 20:51 Chief Complaint: Illness Stated Complaint: ILLNESS, NAUSEA,DIARRHEA ED Provider: Maverick Camp Discharge Problem: UTI (urinary tract infection), Hyponatremia, Leukocytosis, C. difficile colitis Patient Disposition: Admitted As Inpatient Discharge Instructions Interventions: ED Discharge Assessment Last Done: 07/25/18 20:51 Discharge Problem: UTI (urinary tract infection) Qualifiers: Urinary tract infection type: site unspecified Hematuria presence: without hematuria Qualified Code(s): N39.0 - Urinary tract infection, site not specified Leukocytosis Qualifiers: Leukocytosis type: unspecified Qualified Code(s): D72.829 - Elevated white blood cell count, unspecified The scribe's documentation has been prepared under my direction and personally reviewed by me in its entirety. I confirm that the note above accurately reflects all work, treatment, procedures, and medical decision making performed by me.
[2018-07-25] MEDS: MYCOPHENOLATE MOFETIL 250 MG CAP PO SCH (23:18)
[2018-07-25] MEDS: HydrALAZINE 10 MG TAB PO SCH (23:19)
[2018-07-25] MEDS: LACTOBACILLUS ACIDOPHILUS (FLORANEX) TAB PO SCH (23:20)
[2018-07-25] MEDS: MIRTAZAPINE TAB 15 MG TAB PO SCH (23:21)
[2018-07-25] MEDS: NITROFURANTOIN MACROCRYSTAL 50 MG CAP PO SCH (23:21)
[2018-07-25] MEDS: SOTALOL HCL 80 MG TAB PO SCH (23:22)
[2018-07-25] MEDS: INSULIN ASPART 100 UNITS/ML 3 ML PEN SC SCH (23:23)
[2018-07-25] MEDS: TRAMADOL HCL 50 MG TABLET PO PRN (23:25)
[2018-07-26] MEDS ORDERED: RASPBERRY SYRUP 5 ML UDP PO SCH
[2018-07-26] MEDS: VANCOMYCIN HCL 125 MG/2.5ML SOLN PO SCH ×5 (00:43→23:42)
[2018-07-26] MEDS: RASPBERRY SYRUP 5 ML UDP PO SCH ×5 (00:44→23:42)
[2018-07-26 06:21] LABS: Basophils # (auto) 0.01 K/uL (0-0.2); Basophils % (auto) 0.1 %; Eosinophils % (auto) 2.7 %; Hematocrit (blood only) 33.4 % (37-47); Hemoglobin 10.8 g/dL (12.0-16.0); Immature Granulocytes # (auto) 0.04 K/uL (0.00-0.02); Immature Granulocytes % (auto) 0.4 %; Lymphocytes # (auto) 1.75 K/uL (1.2-3.4); Lymphocytes % (auto) 15.8 %; Mean Corpuscular Hgb Conc 32.3 g/dL (32-36); Mean Corpuscular Volume 84.6 fL (80-100); Mean Platelet Volume 9.1 fL (7.4-10.4); Monocytes # (auto) 1.04 K/uL (0.11-0.59); Monocytes % (auto) 9.4 %; Neutrophils # (auto) 7.94 K/uL (1.4-6.5); Neutrophils % (auto) 71.6 %; Platelet Count 232 K/uL (130-400); RDW Coefficient of Variation 17.3 % (11.5-14.5); Red Blood Count 3.95 M/uL (4.2-5.4); White Blood Count 11.08 K/uL (4.8-10.8)
[2018-07-26 06:31] LABS: INR 1.7 (0.9-1.1); Prothrombin Time 16.8 Seconds (9.0-12.0)
[2018-07-26 06:41] LABS: Estimated Average Glucose 148 mg/dl; Hemoglobin A1C 6.8 % (4.5-5.6)
--- NOTE | 2018-07-26 06:53 | History and Physical Report ---
DATE OF ADMISSION: 07/25/2018 CHIEF COMPLAINT: Diarrhea, not feeling well. HISTORY OF PRESENT ILLNESS: This is a 73-year-old female with past medical history significant for type 2 diabetes, hyperlipidemia, paroxysmal atrial fibrillation, on Coumadin; history of mitral valve regurgitation, carotid stenosis, hypertension, chronic kidney disease stage III, status post cadaver renal transplant, history of cervical cancer, KATIA inhibitor intolerance, history of recurrent UTI and urinary retention on chronic Nicolas, Nicolas was changed on 07/07/2018, she was supposed to follow with urology and also in May, she was admitted for sepsis and C. diff colitis for which she had a prolonged p.o. vancomycin course, which she finished about 4-5 weeks ago, presents again with diarrhea and abdominal discomfort. The patient since last Thursday developed some diarrhea, 3 episodes a day,today was watery and also having abdominal discomfort and she was worried about C. diff and came to the ER. In the ER, she was found to have elevated leukocytosis. Hemodynamics are okay. Urinalysis is positive possible colonization from the Nicolas catheter, but patient did not have any urinary symptoms, afebrile. Denies any headache, no blurred vision, no earache, no runny nose, no sore throat, no difficulty swallowing, appetite is down last few days. No chest pain, no shortness of breath, no cough. Feels somewhat nauseous. No swelling in the legs. Lives with her . Ambulates with a walker. ALLERGIES: KATIA INHIBITORS. PAST MEDICAL HISTORY: As mentioned above. PAST SURGICAL HISTORY: Laparoscopic cholecystectomy, open reduction and internal fixation left ankle fracture, bilateral cataract surgeries, renal transplant in 2007. MEDICATIONS: Patient is on currently Macrobid 100 mg p.o. b.i.d., Coumadin 2 tablets on Saturdays and 1 tablet all other days, tramadol 50 mg p.o. q.6 hours p.r.n., Lactinex 1 tablet p.o. b.i.d., CellCept 250 mg p.o. b.i.d., insulin glargine 18 units under skin daily, Remeron 50 mg p.o. at bedtime, Zofran 4 mg p.o. q.6 hours p.r.n., sotalol 120 mg p.o. b.i.d., amlodipine 10 mg p.o. daily, hydralazine 10 mg p.o. b.i.d., sirolimus 1 mg daily, NovoLog sliding scale, vitamin D 2000 units p.o. daily, aspirin 81 mg p.o. daily, Tylenol extra strength as needed. FAMILY HISTORY: Significant for mother had diabetes, hypertension. Maternal grandfather has diabetes. SOCIAL HISTORY: , lives with her and 4 children. No smoking, no alcohol, no drug use. REVIEW OF SYMPTOMS: As per HPI. Rest of review of symptoms negative. PHYSICAL EXAMINATION: GENERAL: The patient is old and frail, not in acute distress. VITAL SIGNS: Temperature 36.7, pulse 82, respiratory rate 16, blood pressure 161/89, oxygen 99% room air. HEENT: No pallor, no icterus. Pupils equal, round, and reactive to light. NECK: No JVD, no neck mass, no carotid bruit. CARDIOVASCULAR: S1, S2 heard, regular rate and rhythm, no murmur, no gallop. RESPIRATORY SYSTEM: Normal AP diameter. No accessory muscle use. No wheezing, no crackles. ABDOMEN: Soft, bowel sounds present. Mild abdominal diffuse discomfort. No guarding, no rigidity. No distention. CENTRAL NERVOUS SYSTEM: Cranial nerves II-XII grossly intact, nonfocal. EXTREMITIES: No edema, no erythema. LABS: WBC 15, hemoglobin 13.2, hematocrit 39.6, platelets 234. PT 15.3, INR 1.5. Sodium 127, potassium 3.4, chloride 93, CO2 25, BUN 11, creatinine 1.03, serum glucose 248, calcium 9.3. Total bilirubin is 1.1, AST 115, ALT 12, alkaline phosphatase is 134, lipase 50. Urinalysis positive for leukocyte esterase and nitrite. Chest and abdominal x-ray unremarkable. ASSESSMENT AND PLAN: 1. This is a 73-year-old female presents with possible recurrent Clostridium difficile. The patient was diagnosed with sepsis with C. diff colitis in May and had a prolonged 6-week course of p.o. vancomycin, again comes with abdominal discomfort and diarrhea since last 3 days, poor appetite. White count is elevated. We will empirically start her on p.o. vancomycin 125 mg q.i.d. Continue Lactinex probiotic and clear liquid diet and gentle fluids and consult ID in the a.m. 2. Possible recurrent urinary tract infection. UA is positive. The patient currently on Macrobid an outpatient, started on 07/20/2018 for 1 week, has couple more days of antibiotic, will continue the same and follow the urine cultures. Await ID input. 3. Hyponatremia, possibly from poor appetite and diarrhea, getting gentle fluids. Follow the labs. 4. Hypokalemia, will replace, possibly from fluid losses. 5. History of atrial fibrillation, rate control with sotalol. INR is 1.5, will give extra 1 mg Coumadin and continue home dose of Coumadin and follow the PT/INR. 6. Urinary retention, chronic recently in May,was placed on on Nicolas, supposed to follow with urology, but because of C. diff, she did not see, continue Nicolas for now and may need to follow with urology for a voiding trial. Nicolas was changed on 07/07/2018. 7. Diabetes type 2. We will follow HbA1c levels on Lantus 18 units at home, but since poor appetite and starting on clear liquid diet will place on Lantus 10units and ISS and monitor his blood sugars. 8. Hypertension. Continue home medications of amlodipine, hydralazine, monitor the blood pressure. 9. Chronic kidney disease, stage III, baseline. We will follow the renal function status post cadaver renal transplant, on CellCept and sirolimus. If any issues, we will consult nephrology. 9. Deep venous thrombosis prophylaxis, on Coumadin and will place her on SCDs until INR is therapeutic. DISPOSITION: Admit to medical floor. Level 1 full code. PT and OT prior to discharge. Social Service to help with discharge planning. [id number]
[2018-07-26 06:54] LABS: BUN Creatinine Ratio 12.1 (10-20); Calcium 8.5 mg/dl (8.5-10.1); Creatinine Clr Calc Pharmacy 52.2 ml/min; Est GFR (African American) 88.2; Est GFR (Non-African American) 76.1; Magnesium 1.6 mg/dl (1.8-2.4); Potassium 3.2 mmol/L (3.5-5.1)
[2018-07-26 07:07] LABS: Cdiff Antigen Positive; Cdiff Toxin A+B Negative Cdiff Toxin (Negative)
[2018-07-26] MEDS: AMLODIPINE BESYLATE 5 MG TAB PO SCH (08:50)
[2018-07-26] MEDS: NITROFURANTOIN MACROCRYSTAL 50 MG CAP PO SCH ×2 (08:51→21:33)
[2018-07-26] MEDS: ASPIRIN 81 MG ECTAB PO SCH (08:52)
[2018-07-26] MEDS: LACTOBACILLUS ACIDOPHILUS (FLORANEX) TAB PO SCH ×3 (08:52→21:34)
[2018-07-26] MEDS: MYCOPHENOLATE MOFETIL 250 MG CAP PO SCH ×2 (08:53→21:32)
[2018-07-26] MEDS: SOTALOL HCL 80 MG TAB PO SCH ×2 (08:53→21:42)
[2018-07-26] MEDS: HydrALAZINE 10 MG TAB PO SCH ×2 (08:53→21:33)
[2018-07-26] MEDS: SIROLIMUS 0.5 MG TABLET PO SCH (08:53)
[2018-07-26] MEDS: INSULIN GLARGINE SOLOSTAR 100 UNITS/ML 3 ML PEN SC SCH (08:59)
[2018-07-26] MEDS: INSULIN ASPART 100 UNITS/ML 3 ML PEN SC SCH ×4 (09:00→20:49)
[2018-07-26] MEDS: SODIUM CHLORIDE 0.9% 1000ML 1,000 ML IV SCH ×2 (10:27→23:42)
--- NOTE | 2018-07-26 10:35 | Infectious Disease Consult ---
Date of Consultation July 26, 2018 Assessment & Plan (1) Leukocytosis: doubt uti, suspect colonization for chronic lindquist. unclear outpatient duration of macrobid but would stop after 7 days therapy. diarrhea and h/o c diff with prolonged course of vanco, wbc improved, would suggest continued probiotic use and would give 14 days of po vanco as she seems to be clinically improving. History of Present Illness Attending Physician: Aiyana Lei MD pt admitted due to abd pain and diarrhea, she has a h/o of c diff in 05/2018 and was treated with a prolonged course of vanco. she recently was started on macrobid as an outpatient for suspected uti, has lindquist in place. UA in ER >30 wbc and +1 bacteris, culture grew > 3 organisms. wbc was initially 15, improved to 11. remains on macrobid, po vanco emperically due to h/o c diff and new onset of diarrhea, tolerating well. c diff gene +, toxin negative. afebrile since admission. cxr negative, no abd imaging done. she remains afebrie. lethargic on my exam, resting comfortably, no pain, tolerating abx well. Allergies Allergy/AdvReac Type Severity Reaction Status Date / Time KATIA Inhibitors Allergy Unknown Unknown Verified 07/25/18 17:06 ARB-Angiotensin Receptor Allergy Unknown Unknown Verified 07/25/18 17:06 Antagonist amoxicillin AdvReac Severe nausea Verified 07/25/18 17:06 Home Medications Home Medications Medication Instructions Recorded Confirmed Type Novolog Flexpen U-100 Insulin 0 unit SUBCUT AC 11/23/17 07/25/18 History hydralazine 10 mg PO BID 11/23/17 07/25/18 History mycophenolate mofetil 250 mg PO Q12 11/23/17 07/25/18 History sirolimus 1 mg PO QAM 11/23/17 07/25/18 History sotalol 120 mg PO BID 11/23/17 07/25/18 History Lactinex 1 tab PO BID #20 tab 03/23/18 07/25/18 Rx warfarin 0.5 mg PO 6XWK 05/26/18 07/25/18 History warfarin [Coumadin] 1 mg PO WK 05/26/18 07/25/18 History Aspirin Low Dose 81 mg PO DAILY 07/25/18 07/25/18 History amlodipine 10 mg PO DAILY 07/25/18 07/25/18 History insulin glargine [Lantus U-100 18 unit SUBCUT QPM 07/25/18 07/25/18 History Insulin] lactobacillus combination no.4 3,000 mmu cells PO QDD 07/25/18 07/25/18 History [Probiotic] mirtazapine [Remeron] 15 mg PO HS 07/25/18 07/25/18 History nitrofurantoin macrocrystal 100 mg PO BID 07/25/18 07/25/18 History ondansetron HCl [Zofran] 4 mg PO Q6 PRN 07/25/18 07/25/18 History tramadol 50 mg PO Q6 PRN 07/25/18 07/25/18 History Patient History Medical History [facility] current use of anticoagulant (Chronic) Carotid stenosis (Chronic) History of cervical cancer (Chronic) CKD (chronic kidney disease), stage III (Chronic) Hypertension (Chronic) Mitral valve regurgitation (Chronic) Dyslipidemia (Chronic) Paroxysmal A-fib (Chronic) History of herpes zoster (Chronic) Diabetes mellitus, type II (Chronic) 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) Recurrent UTI (Chronic) Surgical History S/P QUINN (total abdominal hysterectomy) (Chronic) History of cataract surgery (Chronic) Status post cholecystectomy (Chronic) S/p cadaver renal transplant (Chronic) Family History Mother Diabetes mellitus with coincident hypertension Social History Preferred Language: Cypriot Communication Ability: Effective Ram Car Operator Required: No Beliefs That Will Affect Care: Faith Faith Beliefs: Caodaism marital status: Current Living Situation: Spouse Feels Safe at Home: Yes Safety Concerns: Feels Safe At This Time Smoking Status: Never smoker Do You Dip or Chew Tobacco: No Second Hand Exposure: No Hx Alcohol Use: No Hx Substance Use: No Review of Systems Review of Systems: All systems reviewed & are unremarkable except as noted in HPI & below limited but negative. Physical Exam Constitutional: WD/WN, vitals as above Eyes: PERRL, conjunctivae normal, anicteric sclerae ENMT: external ear and nose normal, oropharynx normal Neck: normal visual inspection Respiratory: normal respiratory effort, lungs clear to auscultation Auscultation: + diminished lung sounds Cardiovascular: RRR, no murmur, no edema Gastrointestinal (Abdomen): Inspection/Auscultation: abdomen normal to inspection; abdomen not distended Percussion/Palpation: abdomen nontender Musculoskeletal: no cyanosis or clubbing, extremities motor strength 5/5 Skin: no rashes, warm and dry Psychiatric: A+Ox3, euthymic affect lethargic Results & Data Vital Signs (Past 12 Hours) Vital Signs Temp Pulse Resp BP Pulse Ox 07/26/18 07:43 36.2 C L 77 16 147/69 H 99 07/25/18 23:21 36.6 C 86 16 164/67 H 95 Laboratory Results Microbiology 07/25/18 16:35 Urine,Straight Cath Urine Culture - Final Three types of organisms present, all moderate counts. Repeat collection recommended. No further identifications or sensitivities to follow. (1) Leukocytosis Leukocytosis type: unspecified Qualified Code(s): D72.829 - Elevated white blood cell count, unspecified
--- NOTE | 2018-07-26 14:54 | Hospitalist Progress Note ---
Date of Service July 26, 2018 Assessment & Plan (1) Chronic diarrhea: She was admitted with chronic diarrhea and abdominal pain Recent history of C. difficile colitis and finished prolonged course of vancomycin Vancomycin was started during this admission and awaiting stool culture ID consulted for direction (2) UTI (urinary tract infection): Has chronic indwelling Nicolas catheter May have recurrent UTI We will continue current antibiotic (3) Paroxysmal A-fib: Rate is controlled Has been on Coumadin (4) S/p cadaver renal transplant: Continue current immunosuppressants Has CKD stage III We will monitor kidney function (5) Diabetes mellitus, type II: Coverage (6) Electrolyte imbalance: Likely secondary to ongoing diarrhea We will supplement and recheck Subjective 07/16 Patient was seen and examined in medical floor This is a 73-year-old female with past medical history significant for type 2 diabetes, hyperlipidemia, paroxysmal atrial fibrillation,history of mitral valve regurgitation, carotid stenosis, hypertension, chronic kidney disease stage III, status post cadaver renal transplant, history of cervical cancer,history of recurrent UTI and urinary retention on chronic Nicolas, Nicolas was changed on 07/07/2018, she was supposed to follow with urology and also in May, she was admitted for sepsis and C. diff colitis for which she had a prolonged p.o. vancomycin course, which she finished about 4-5 weeks ago, presents again with diarrhea and abdominal discomfort. Clinically better today Diarrhea seems to be controlled Complains of minimal abdominal pain but no fever no chills Review of Systems Review of Systems: All systems reviewed and are unremarkable except as noted below Constitutional: + fatigue and + anorexia Respiratory: no cough and no dyspnea Gastrointestinal: + abdominal pain, + bloating and + diarrhea/loose stools (Seems to be improving) Physical Exam Physical Exam: No apparent distress at rest Constitutional: + ill appearing and + thin; no acute distress Eyes: PERRL, conjunctivae normal, anicteric sclerae ENMT: external ear and nose normal, oropharynx normal Neck: trachea midline, no thyromegaly Respiratory: normal respiratory effort; no respiratory distress Auscult ation: lungs clear to auscultation bilaterally Cardiovascular: Rate/Rhythm: regular rate and regular rhythm Gastrointestinal (Abdomen): Inspection/Auscultation: abdomen normal to inspection and normal bowel sounds Percussion/Palpation: + abdomen tender (Minimally tender right lower quadrant) and abdomen soft; no guarding Musculoskeletal: No acute arthritis Neurologic: Alert, awake and oriented x3. Generally weak but no focal neuro deficit Lymphatic: no cervical or axillary lymphadenopathy Results & Data Vital Signs (Past 12 Hours) Vital Signs Temp Pulse Resp BP Pulse Ox 07/26/18 07:43 36.2 C L 77 16 147/69 H 99 Laboratory Results Short CBC 07/25/18 07/26/18 Range/Units 17:57 05:33 WBC 15.87 H 11.08 H (4.8-10.8) K/uL Hgb 13.3 10.8 L (12.0-16.0) g/dL Hct 39.6 33.4 L (37-47) % Plt Count 234 232 (130-400) K/uL BMP 07/25/18 07/26/18 17:57 05:33 Sodium 127 L 135 L D Potassium 3.4 L 3.2 L Chloride 93 L 103 Carbon Dioxide 25 24 BUN 11 9 Creatinine 1.03 0.77 Glucose 248 H 125 H Calcium 9.3 8.5 Liver Function 07/25/18 Range/Units 17:57 Total Bilirubin 1.1 H (0.2-1) mg/dl AST 15 (15-37) U/L ALT 12 (12-78) U/L Alkaline Phosphatase 130 H (45-117) U/L Albumin 3.2 L (3.4-5.0) gm/dl Urine 07/25/18 Range/Units 16:35 Urine Color Dark Yellow Urine Appearance Cloudy A (Clear) Urine pH 6.5 (4.5-7.5) Ur Specific [place] 1.013 (1.000-1.030) Urine Protein 2+ H (Negative) Urine Glucose (UA) 2+ H (Negative) Medications Administered Current Inpatient Medications Acetaminophen (Tylenol) 650 mg PO Q4H PRN PRN Reason: pain/fever Stop: 08/24/18 21:37 Amlodipine Besylate (Norvasc) 10 mg PO DAILY [facility] Stop: 08/25/18 08:59 Last Admin: 07/26/18 08:50 Dose: 10 mg Documented by: Aspirin (Ecotrin Ectab) 81 mg PO DAILY TE Stop: 08/25/18 08:59 Last Admin: 07/26/18 08:52 Dose: 81 mg Documented by: Hydralazine HCl (Apresoline) 10 mg PO BID [facility] Stop: 08/24/18 21:59 Last Admin: 07/26/18 08:53 Dose: 10 mg Documented by: Sodium Chloride (Nss 1000ml) 1,000 mls @ 75 mls/hr IV .[id number] TE Stop: 08/24/18 21:59 Last Admin: 07/26/18 10:27 Dose: 75 mls/hr Documented by: Insulin Aspart (Novolog Flexpen) 0 units SC ACHS TE Stop: 08/24/18 21:59 Last Admin: 07/26/18 12:36 Dose: 3 units Documented by: Insulin Glargine (Lantus Solostar Pen) 10 units SC DAILY TE Stop: 08/25/18 08:59 Last Admin: 07/26/18 08:59 Dose: 10 units Documented by: Lactobacillus Acidophilus (Floranex) 1 tab PO BID TE Stop: 08/24/18 21:59 Last Admin: 07/26/18 08:52 Dose: 1 tab Documented by: Lactobacillus Acidophilus (Floranex) 1 tab PO QDD [facility] Stop: 08/25/18 16:29 Mirtazapine (Remeron) 15 mg PO HS [facility] Stop: 08/24/18 21:59 Last Admin: 07/25/18 23:21 Dose: 15 mg Documented by: Mycophenolate Mofetil (Cellcept) 250 mg PO Q12 TE Stop: 08/24/18 21:59 Last Admin: 07/26/18 08:53 Dose: 250 mg Documented by: Nitrofurantoin Macrocrystals (Macrodantin) 100 mg PO BID [facility] Stop: 08/04/18 21:59 Last Admin: 07/26/18 08:51 Dose: 100 mg Documented by: Ondansetron HCl (Zofran Tab) 4 mg PO Q6 PRN PRN Reason: Nausea Stop: 08/24/18 21:37 Ondansetron HCl (Zofran) 4 mg IV Q6H PRN PRN Reason: Nausea Stop: 08/24/18 21:37 Raspberry (Raspberry) 5 ml PO Q6 [facility] Stop: 08/09/18 00:00 Last Admin: 07/26/18 12:37 Dose: 5 ml Documented by: Sirolimus (Sirolimus) 1 mg PO QAM [facility] Stop: 08/25/18 08:59 Last Admin: 07/26/18 08:53 Dose: 1 mg Documented by: Sotalol HCl (Betapace) 120 mg PO BID [facility] Stop: 08/24/18 21:59 Last Admin: 07/26/18 08:53 Dose: 120 mg Documented by: Tramadol HCl (Ultram) 50 mg PO Q6 PRN PRN Reason: pain Stop: 08/24/18 21:37 Last Admin: 07/25/18 23:25 Dose: 50 mg Documented by: Vancomycin HCl (Vancomycin Hcl) 125 mg PO Q6 [facility] Stop: 08/05/18 00:00 Last Admin: 07/26/18 12:37 Dose: 125 mg Documented by: Warfarin Sodium (Coumadin) 1 mg PO Q7D@1600 [facility] Stop: 08/30/18 15:59 Warfarin Sodium (Coumadin) 0.5 mg PO SuMoTuWeThFr@1600 [facility] Stop: 08/25/18 15:59 (1) UTI (urinary tract infection) Hematuria presence: without hematuria Urinary tract infection type: site unspecified Qualified Code(s): N39.0 - Urinary tract infection, site not specified (2) Diabetes mellitus, type II 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
[2018-07-26] MEDS: WARFARIN SOD 0.5 MG TAB PO SCH (16:57)
[2018-07-26] MEDS: TRAMADOL HCL 50 MG TABLET PO PRN (21:31)
[2018-07-26] MEDS: MIRTAZAPINE TAB 15 MG TAB PO SCH (21:32)
[2018-07-27] MEDS: VANCOMYCIN HCL 125 MG/2.5ML SOLN PO SCH ×4 (06:13→23:38)
[2018-07-27] MEDS: RASPBERRY SYRUP 5 ML UDP PO SCH ×4 (06:13→23:38)
[2018-07-27 07:48] LABS: Basophils # (auto) 0.02 K/uL (0-0.2); Basophils % (auto) 0.4 %; Eosinophils # (auto) 0.48 K/uL (0-0.5); Eosinophils % (auto) 8.6 %; Hematocrit (blood only) 37.3 % (37-47); Hemoglobin 11.6 g/dL (12.0-16.0); Immature Granulocytes # (auto) 0.02 K/uL (0.00-0.02); Immature Granulocytes % (auto) 0.4 %; Lymphocytes # (auto) 1.53 K/uL (1.2-3.4); Lymphocytes % (auto) 27.5 %; Mean Corpuscular Hgb Conc 31.1 g/dL (32-36); Mean Corpuscular Volume 87.8 fL (80-100); Mean Platelet Volume 8.9 fL (7.4-10.4); Monocytes # (auto) 0.73 K/uL (0.11-0.59); Monocytes % (auto) 13.1 %; Neutrophils # (auto) 2.79 K/uL (1.4-6.5); Platelet Count 238 K/uL (130-400); RDW Coefficient of Variation 17.5 % (11.5-14.5); RDW Standard Deviation 56.3 fL (36.4-46.3); Red Blood Count 4.25 M/uL (4.2-5.4); White Blood Count 5.57 K/uL (4.8-10.8)
[2018-07-27 08:00] LABS: Prothrombin Time 19.5 Seconds (9.0-12.0)
[2018-07-27] MEDS: AMLODIPINE BESYLATE 5 MG TAB PO SCH (08:18)
[2018-07-27] MEDS: HydrALAZINE 10 MG TAB PO SCH ×2 (08:18→21:35)
[2018-07-27] MEDS: SOTALOL HCL 80 MG TAB PO SCH ×2 (08:18→21:36)
[2018-07-27] MEDS: MYCOPHENOLATE MOFETIL 250 MG CAP PO SCH ×2 (08:19→21:37)
[2018-07-27] MEDS: LACTOBACILLUS ACIDOPHILUS (FLORANEX) TAB PO SCH ×3 (08:19→21:36)
[2018-07-27] MEDS: SIROLIMUS 0.5 MG TABLET PO SCH (08:19)
[2018-07-27] MEDS: ASPIRIN 81 MG ECTAB PO SCH (08:19)
[2018-07-27] MEDS: NITROFURANTOIN MACROCRYSTAL 50 MG CAP PO SCH ×2 (08:19→21:37)
[2018-07-27 08:20] LABS: BUN Creatinine Ratio 8.9 (10-20); Calcium 8.8 mg/dl (8.5-10.1); Creatinine Clr Calc Pharmacy 49.6 ml/min; Est GFR (African American) 82.9; Est GFR (Non-African American) 71.5; Magnesium 1.8 mg/dl (1.8-2.4); Potassium 3.2 mmol/L (3.5-5.1)
[2018-07-27 08:21] LABS: Phosphorus 3.3 mg/dl (2.5-4.9)
[2018-07-27] MEDS: INSULIN ASPART 100 UNITS/ML 3 ML PEN SC SCH ×4 (09:04→21:41)
[2018-07-27] MEDS: INSULIN GLARGINE SOLOSTAR 100 UNITS/ML 3 ML PEN SC SCH (09:05)
[2018-07-27] MEDS: TRAMADOL HCL 50 MG TABLET PO PRN ×2 (09:09→21:34)
[2018-07-27] MEDS ORDERED: POTASSIUM CHLORIDE 20 MEQ TABCR PO STA (11:02)
--- NOTE | 2018-07-27 14:31 | Infectious Disease Progress Nt ---
Date of Service July 27, 2018 Assessment & Plan (1) Leukocytosis: doubt uti, suspect colonization for chronic lindquist. unclear outpatient duration of macrobid but would stop after 7 days therapy. diarrhea and h/o c diff with prolonged course of vanco, wbc improved, would suggest continued probiotic use and would give 14 days of po vanco as she seems to be clinically improving. Subjective repeat urine culture pending, remains on macrobid, remains on emperic due to h/o c diff colitis and prolonged vanco course. afebrile overnight, toleraitng abx. Results & Data Vital Signs (Past 12 Hours) Vital Signs Temp Pulse Resp BP Pulse Ox 07/27/18 07:58 36.8 C 69 19 166/83 H 98 Laboratory Results Microbiology 07/26/18 Unknown Urine,Indwelling Cath Urine Culture - Preliminary No growth - Less than 1,000 colonies/mL, Final report to follow. 07/25/18 16:35 Urine,Straight Cath Urine Culture - Final Three types of organisms present, all moderate counts. Repeat collection recommended. No further identifications or sensitivities to follow. (1) Leukocytosis Leukocytosis type: unspecified Qualified Code(s): D72.829 - Elevated white blood cell count, unspecified
[2018-07-27] MEDS: WARFARIN SOD 0.5 MG TAB PO SCH (15:46)
--- NOTE | 2018-07-27 17:06 | Hospitalist Progress Note ---
Date of Service July 27, 2018 Assessment & Plan (1) Chronic diarrhea: She was admitted with chronic diarrhea and abdominal pain Recent history of C. difficile colitis and finished prolonged course of vancomycin Vancomycin was started during this admission Stool is positive for C. difficile gene H but negative for C. difficile toxin Appreciate ID input and recommendation We will continue probiotics and vancomycin for 14 days in total Patient is clinically better (2) UTI (urinary tract infection): Has chronic indwelling Nicolas catheter May have recurrent UTI We will continue current antibiotic with Macrobid for a total of 7 days course Nicolas catheter changed on May Will need to have an outpatient urology appointment on discharge (3) Paroxysmal A-fib: Rate is controlled Has been on Coumadin INR 2.0 on 07/27 (4) S/p cadaver renal transplant: Continue current immunosuppressants Has CKD stage III We will monitor kidney function-remains stable (5) Diabetes mellitus, type II: SSI Coverage (6) Electrolyte imbalance: Likely secondary to ongoing diarrhea We will supplement and recheck Normalized Clinically improved but remains weak and lethargic Not yet ready to be discharged Subjective 07/26 Patient was seen and examined in medical floor This is a 73-year-old female with past medical history significant for type 2 diabetes, hyperlipidemia, paroxysmal atrial fibrillation,history of mitral valve regurgitation, carotid stenosis, hypertension, chronic kidney disease stage III, status post cadaver renal transplant, history of cervical cancer,history of recurrent UTI and urinary retention on chronic Nicolas, Nicolas was changed on 07/07/2018, she was supposed to follow with urology and also in May, she was admitted for sepsis and C. diff colitis for which she had a prolonged p.o. vancomycin course, which she finished about 4-5 weeks ago, presents again with diarrhea and abdominal discomfort. Clinically better today Diarrhea seems to be controlled Complains of minimal abdominal pain but no fever no chills 07/27 The patient was seen and examined in medical floor She complains to have weakness and ongoing abdominal discomfort Still has diarrhea but the frequency is reduced Denies any nausea and vomiting, any fever and/or chills Review of Systems Review of Systems: All systems reviewed and are unremarkable except as noted below Constitutional: + fatigue and + anorexia Gastrointestinal: + abdominal pain, + bloating and + diarrhea/loose stools (Seems to be improving) Physical Exam Physical Exam: Generally weak but no apparent distress at rest Constitutional: + ill appearing and + thin; no acute distress Eyes: PERRL, conjunctivae normal, anicteric sclerae ENMT: external ear and nose normal, oropharynx normal Neck: trachea midline, no thyromegaly Respiratory: normal respiratory effort; no respiratory distress Auscultation: lungs clear to auscultation bilaterally Cardiovascular: Rate/Rhythm: regular rate and regular rhythm Gastrointestinal (Abdomen): Inspection/Auscultation: abdomen normal to inspection and normal bowel sounds Percussion/Palpation: + abdomen tender (Minimally tender right lower quadrant) and abdomen soft; no guarding Neurologic: Alert, awake and oriented x3. Generally weak, no focal neuro deficit Genitourinary: Has indwelling Nicolas catheter Lymphatic: no cervical or axillary lymphadenopathy Results & Data Vital Signs (Past 12 Hours) Vital Signs Temp Pulse Resp BP Pulse Ox 07/27/18 07:58 36.8 C 69 19 166/83 H 98 Laboratory Results Short CBC 07/27/18 Range/Units 07:04 WBC 5.57 (4.8-10.8) K/uL Hgb 11.6 L (12.0-16.0) g/dL Hct 37.3 (37-47) % Plt Count 238 (130-400) K/uL BMP 07/27/18 07:04 Sodium 138 Potassium 3.2 L Chloride 106 Carbon Dioxide 25 BUN 7 Creatinine 0.81 Glucose 94 Calcium 8.8 Medications Administered Current Inpatient Medications Acetaminophen (Tylenol) 650 mg PO Q4H PRN PRN Reason: pain/fever Stop: 08/24/18 21:37 Amlodipine Besylate (Norvasc) 10 mg PO DAILY TE Stop: 08/25/18 08:59 Last Admin: 07/27/18 08:18 Dose: 10 mg Documented by: Aspirin (Ecotrin Ectab) 81 mg PO DAILY TE Stop: 08/25/18 08:59 Last Admin: 07/27/18 08:19 Dose: 81 mg Documented by: Hydralazine HCl (Apresoline) 10 mg PO BID TE Stop: 08/24/18 21:59 Last Admin: 07/27/18 08:18 Dose: 10 mg Documented by: Insulin Aspart (Novolog Flexpen) 0 units SC ACHS TE Stop: 08/24/18 21:59 Last Admin: 07/27/18 12:51 Dose: 8 units Documented by: Insulin Glargine (Lantus Solostar Pen) 10 units SC DAILY TE Stop: 08/25/18 08:59 Last Admin: 07/27/18 09:05 Dose: 10 units Documented by: Lactobacillus Acidophilus (Floranex) 1 tab PO BID TE Stop: 08/24/18 21:59 Last Admin: 07/27/18 08:19 Dose: 1 tab Documented by: Lactobacillus Acidophilus (Floranex) 1 tab PO QDD TE Stop: 08/25/18 16:29 Last Admin: 07/27/18 15:48 Dose: 1 tab Documented by: Mirtazapine (Remeron) 15 mg PO HS TE Stop: 08/24/18 21:59 Last Admin: 07/26/18 21:32 Dose: 15 mg Documented by: Mycophenolate Mofetil (Cellcept) 250 mg PO Q12 TE Stop: 08/24/18 21:59 Last Admin: 07/27/18 08:19 Dose: 250 mg Documented by: Nitrofurantoin Macrocrystals (Macrodantin) 100 mg PO BID TE Stop: 08/04/18 21:59 Last Admin: 07/27/18 08:19 Dose: 100 mg Documented by: Ondansetron HCl (Zofran Tab) 4 mg PO Q6 PRN PRN Reason: Nausea Stop: 08/24/18 21:37 Ondansetron HCl (Zofran) 4 mg IV Q6H PRN PRN Reason: Nausea Stop: 08/24/18 21:37 Raspberry (Raspberry) 5 ml PO Q6 TE Stop: 08/09/18 00:00 Last Admin: 07/27/18 12:40 Dose: 5 ml Documented by: Sirolimus (Sirolimus) 1 mg PO QAM TE Stop: 08/25/18 08:59 Last Admin: 07/27/18 08:19 Dose: 1 mg Documented by: Sotalol HCl (Betapace) 120 mg PO BID TE Stop: 08/24/18 21:59 Last Admin: 07/27/18 08:18 Dose: 120 mg Documented by: Tramadol HCl (Ultram) 50 mg PO Q6 PRN PRN Reason: pain Stop: 08/24/18 21:37 Last Admin: 07/27/18 09:09 Dose: 50 mg Documented by: Vancomycin HCl (Vancomycin Hcl) 125 mg PO Q6 [facility] Stop: 08/05/18 00:00 Last Admin: 07/27/18 12:40 Dose: 125 mg Documented by: Warfarin Sodium (Coumadin) 1 mg PO Q7D@1600 [facility] Stop: 08/30/18 15:59 Warfarin Sodium (Coumadin) 0.5 mg PO SuMoTuWeThFr@1600 [facility] Stop: 08/25/18 15:59 Last Admin: 07/27/18 15:46 Dose: 0.5 mg Documented by: (1) UTI (urinary tract infection) Hematuria presence: without hematuria Urinary tract infection type: site unspecified Qualified Code(s): N39.0 - Urinary tract infection, site not specified (2) Diabetes mellitus, type II Diabetes mellitus snf insulin use: unspecified intermediate 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
[2018-07-27] MEDS: MIRTAZAPINE TAB 15 MG TAB PO SCH (21:35)
[2018-07-28] MEDS: RASPBERRY SYRUP 5 ML UDP PO SCH ×4 (05:34→23:30)
[2018-07-28] MEDS: VANCOMYCIN HCL 125 MG/2.5ML SOLN PO SCH ×4 (05:34→23:30)
[2018-07-28 05:56] LABS: Basophils # (auto) 0.02 K/uL (0-0.2); Basophils % (auto) 0.4 %; Eosinophils # (auto) 0.58 K/uL (0-0.5); Eosinophils % (auto) 11.8 %; Hematocrit (blood only) 32.7 % (37-47); Hemoglobin 10.1 g/dL (12.0-16.0); Immature Granulocytes # (auto) 0.01 K/uL (0.00-0.02); Immature Granulocytes % (auto) 0.2 %; Lymphocytes # (auto) 2.17 K/uL (1.2-3.4); Mean Corpuscular Hgb Conc 30.9 g/dL (32-36); Mean Corpuscular Volume 87.2 fL (80-100); Mean Platelet Volume 8.9 fL (7.4-10.4); Monocytes # (auto) 0.55 K/uL (0.11-0.59); Monocytes % (auto) 11.2 %; Neutrophils % (auto) 32.4 %; Platelet Count 234 K/uL (130-400); RDW Coefficient of Variation 17.3 % (11.5-14.5); RDW Standard Deviation 55.3 fL (36.4-46.3); Red Blood Count 3.75 M/uL (4.2-5.4); White Blood Count 4.93 K/uL (4.8-10.8)
[2018-07-28 06:04] LABS: Prothrombin Time 19.8 Seconds (9.0-12.0)
[2018-07-28 06:38] LABS: BUN Creatinine Ratio 12.4 (10-20); Calcium 8.4 mg/dl (8.5-10.1); Est GFR (African American) 81.7; Est GFR (Non-African American) 70.5; Magnesium 1.6 mg/dl (1.8-2.4); Phosphorus 2.9 mg/dl (2.5-4.9); Potassium 3.9 mmol/L (3.5-5.1)
[2018-07-28] MEDS: NITROFURANTOIN MACROCRYSTAL 50 MG CAP PO SCH ×2 (08:16→21:49)
[2018-07-28] MEDS: AMLODIPINE BESYLATE 5 MG TAB PO SCH (08:16)
[2018-07-28] MEDS: SOTALOL HCL 80 MG TAB PO SCH ×2 (08:16→20:54)
[2018-07-28] MEDS: MYCOPHENOLATE MOFETIL 250 MG CAP PO SCH ×2 (08:16→20:55)
[2018-07-28] MEDS: SIROLIMUS 0.5 MG TABLET PO SCH (08:16)
[2018-07-28] MEDS: ASPIRIN 81 MG ECTAB PO SCH (08:16)
[2018-07-28] MEDS: INSULIN GLARGINE SOLOSTAR 100 UNITS/ML 3 ML PEN SC SCH (08:17)
[2018-07-28] MEDS: LACTOBACILLUS ACIDOPHILUS (FLORANEX) TAB PO SCH ×3 (08:17→20:54)
[2018-07-28] MEDS: HydrALAZINE 10 MG TAB PO SCH ×2 (08:17→20:53)
[2018-07-28] MEDS: INSULIN ASPART 100 UNITS/ML 3 ML PEN SC SCH ×4 (08:18→21:14)
[2018-07-28] MEDS: TRAMADOL HCL 50 MG TABLET PO PRN ×2 (08:24→20:59)
[2018-07-28] MEDS ORDERED: MAGNESIUM SULFATE / D5W 1 GM/100 ML BAG IV ONE (09:00)
[2018-07-28] MEDS ORDERED: INSULIN GLARGINE SOLOSTAR 100 UNITS/ML 3 ML PEN SC ONE (12:00)
[2018-07-28] MEDS: ACETAMINOPHEN 325 MG TAB PO PRN (12:29)
--- NOTE | 2018-07-28 16:19 | Hospitalist Progress Note ---
Date of Service July 28, 2018 Assessment & Plan (1) Chronic diarrhea: She was admitted with chronic diarrhea and abdominal pain H/O C. difficile colitis and finished prolonged course of vancomycin Continue Vancomycin Day 3/14 Stool is positive for C. difficile gene H but negative for C. difficile toxin Appreciate ID input and recommendation Continue probiotics Diarrhea improving (2) UTI (urinary tract infection): Has chronic indwelling Nicolas catheter May have recurrent UTI Continue Macrobid: Day 05/16 Nicolas catheter changed on May Need to follow up with urology as outpatient (3) Paroxysmal A-fib: Rate is controlled Continue Sotalol Continue Coumadin Monitor INR 2.0 (4) S/p cadaver renal transplant: Continue current immunosuppressants Has CKD stage III Renal function stable (5) Diabetes mellitus, type II: Continue SSI (6) Electrolyte imbalance: secondary to ongoing diarrhea Monitor and replace electrolytes as needed DVT Px: Coumadin Disposition: PT/OT: Needs HH Subjective Patient is seen and examined at bedside Diarrhea improving Has mild abdominal discomfort Denies any chest pain, shortness of breath, dizziness Review of Systems Review of Systems: All systems reviewed & are unremarkable except as noted in HPI & below Physical Exam Physical Exam: Physical Exam: Vitals signs as noted above General Appearance:Thin, no apparent distress Head: normocephalic, Atraumatic Eyes: normal inspection, EOMI Neck: supple, Trachea midline Respiratory/Chest: Normal breath sounds, CTA Cardiovascular: S1, S2, No murmur Abdomen/GI:Soft, mild tender, Bowel sounds present Extremities/Musculoskelatal:normal inspection, no edema Neurologic/Psych:AAOX3, grossly no focal neurological deficits Skin: normal color, warm Results & Data Vital Signs (Past 12 Hours) Vital Signs Temp Pulse Pulse Resp BP Pulse Ox 07/28/18 16:01 36.8 C 54 L 20 123/71 98 07/28/18 07:44 36.5 C 76 18 168/72 H 100 Laboratory Results Short CBC 07/28/18 Range/Units 05:14 WBC 4.93 (4.8-10.8) K/uL Hgb 10.1 L (12.0-16.0) g/dL Hct 32.7 L (37-47) % Plt Count 234 (130-400) K/uL BMP 07/28/18 05:14 Sodium 137 Potassium 3.9 D Chloride 106 Carbon Dioxide 25 BUN 10 Creatinine 0.82 Glucose 168 H Calcium 8.4 L (1) UTI (urinary tract infection) Hematuria presence: without hematuria Urinary tract infection type: site unspecified Qualified Code(s): N39.0 - Urinary tract infection, site not specified (2) Diabetes mellitus, type II 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
[2018-07-28] MEDS: WARFARIN SOD 0.5 MG TAB PO SCH (17:12)
[2018-07-28] MEDS: MIRTAZAPINE TAB 15 MG TAB PO SCH (21:10)
[2018-07-29] MEDS: VANCOMYCIN HCL 125 MG/2.5ML SOLN PO SCH ×3 (05:55→17:49)
[2018-07-29] MEDS: RASPBERRY SYRUP 5 ML UDP PO SCH ×3 (05:55→17:50)
[2018-07-29 06:42] LABS: INR 1.8 (0.9-1.1); Prothrombin Time 17.7 Seconds (9.0-12.0)
[2018-07-29 07:03] LABS: Creatinine Clr Calc Pharmacy 45.2 ml/min; Est GFR (Non-African American) 63.8; Magnesium 1.9 mg/dl (1.8-2.4)
[2018-07-29] MEDS: AMLODIPINE BESYLATE 5 MG TAB PO SCH (08:21)
[2018-07-29] MEDS: LACTOBACILLUS ACIDOPHILUS (FLORANEX) TAB PO SCH ×3 (08:22→21:06)
[2018-07-29] MEDS: NITROFURANTOIN MACROCRYSTAL 50 MG CAP PO SCH ×2 (08:22→21:07)
[2018-07-29] MEDS: HydrALAZINE 10 MG TAB PO SCH ×2 (08:22→21:08)
[2018-07-29] MEDS: MYCOPHENOLATE MOFETIL 250 MG CAP PO SCH ×2 (08:22→21:38)
[2018-07-29] MEDS: SOTALOL HCL 80 MG TAB PO SCH ×2 (08:23→21:06)
[2018-07-29] MEDS: SIROLIMUS 0.5 MG TABLET PO SCH (08:23)
[2018-07-29] MEDS: ASPIRIN 81 MG ECTAB PO SCH (08:27)
[2018-07-29] MEDS: INSULIN ASPART 100 UNITS/ML 3 ML PEN SC SCH ×4 (08:29→21:09)
[2018-07-29] MEDS: INSULIN GLARGINE SOLOSTAR 100 UNITS/ML 3 ML PEN SC SCH (08:30)
[2018-07-29] MEDS: TRAMADOL HCL 50 MG TABLET PO PRN ×2 (08:36→15:45)
[2018-07-29] MEDS: WARFARIN SOD 0.5 MG TAB PO SCH (15:39)
[2018-07-29] MEDS ORDERED: WARFARIN SOD 0.5 MG TAB PO SCH (16:00)
--- NOTE | 2018-07-29 16:47 | Hospitalist Progress Note ---
Date of Service July 29, 2018 Assessment & Plan (1) Chronic diarrhea: She was admitted with chronic diarrhea and abdominal pain H/O C. difficile colitis and finished prolonged course of vancomycin Continue Vancomycin Day 05/23 Stool is positive for C. difficile gene H but negative for C. difficile toxin Appreciate ID input and recommendation Continue probiotics Diarrhea continues to improve (2) UTI (urinary tract infection): Has chronic indwelling Nicolas catheter May have recurrent UTI Continue Macrobid: Day 06/15 Nicolas catheter changed on May Need to follow up with urology as outpatient (3) Paroxysmal A-fib: Rate is controlled Continue Sotalol Continue Coumadin Monitor INR:1.8 Adjust coumadin dose as needed (4) S/p cadaver renal transplant: Continue current immunosuppressants Has CKD stage III Renal function stable Discussed with Nephrology regarding Tacrolimus levels Will advise patient to follow up with Nephrology as outpatient (5) Diabetes mellitus, type II: Continue SSI (6) Electrolyte imbalance: secondary to ongoing diarrhea Monitor and replace electrolytes as needed DVT Px: Coumadin Disposition: PT/OT: Needs HH Subjective Patient is seen and examined at bedside Abdominal pain much improved Diarrhea slowly improving Denies any chest pain, shortness of breath, dizziness No other complaints Review of Systems Review of Systems: All systems reviewed & are unremarkable except as noted in HPI & below Physical Exam Physical Exam: Physical Exam: Vitals signs as noted above General Appearance:Thin, no apparent distress Head: normocephalic, Atraumatic Eyes: normal inspection, EOMI Neck: supple, Trachea midline Respiratory/Chest: Normal breath sounds, CTA Cardiovascular: S1, S2, No murmur Abdomen/GI:Soft, non tender, Bowel sounds present Extremities/Musculoskelatal:normal inspection, no edema Neurologic/Psych:AAOX3, grossly no focal neurological deficits Skin: normal color, warm Results & Data Vital Signs (Past 12 Hours) Vital Signs Temp Pulse Resp BP Pulse Ox 07/29/18 15:40 37 C 72 16 155/69 H 94 07/29/18 07:16 36.8 C 70 20 151/65 H 98 Laboratory Results [facility] 07/29/18 06:04 Creatinine 0.89 (1) UTI (urinary tract infection) Hematuria presence: without hematuria Urinary tract infection type: site unspecified Qualified Code(s): N39.0 - Urinary tract infection, site not specified (2) Diabetes mellitus, type II Diabetes mellitus media relations manager insulin use: unspecified chcf insulin use status Diabetes mellitus complication status: with unspecified complications Qualified Code(s): E11.8 - Type 2 diabetes mellitus with unspecified complications
[2018-07-29] MEDS: MIRTAZAPINE TAB 15 MG TAB PO SCH (21:08)
[2018-07-30] MEDS: ACETAMINOPHEN 325 MG TAB PO PRN (00:08)
[2018-07-30] MEDS: VANCOMYCIN HCL 125 MG/2.5ML SOLN PO SCH ×5 (05:52→23:48)
[2018-07-30] MEDS: RASPBERRY SYRUP 5 ML UDP PO SCH ×5 (05:53→23:48)
[2018-07-30 08:23] LABS: INR 1.6 (0.9-1.1); Prothrombin Time 15.7 Seconds (9.0-12.0)
[2018-07-30] MEDS: MYCOPHENOLATE MOFETIL 250 MG CAP PO SCH ×2 (08:40→20:36)
[2018-07-30] MEDS: HydrALAZINE 10 MG TAB PO SCH ×2 (08:40→20:35)
[2018-07-30] MEDS: AMLODIPINE BESYLATE 5 MG TAB PO SCH (08:41)
[2018-07-30] MEDS: NITROFURANTOIN MACROCRYSTAL 50 MG CAP PO SCH ×2 (08:41→20:35)
[2018-07-30] MEDS: LACTOBACILLUS ACIDOPHILUS (FLORANEX) TAB PO SCH ×3 (08:41→20:32)
[2018-07-30] MEDS: ASPIRIN 81 MG ECTAB PO SCH (08:41)
[2018-07-30] MEDS: SIROLIMUS 0.5 MG TABLET PO SCH (08:42)
[2018-07-30] MEDS: SOTALOL HCL 80 MG TAB PO SCH ×2 (08:42→20:31)
[2018-07-30] MEDS: INSULIN ASPART 100 UNITS/ML 3 ML PEN SC SCH ×4 (08:47→20:37)
[2018-07-30] MEDS: INSULIN GLARGINE SOLOSTAR 100 UNITS/ML 3 ML PEN SC SCH (08:47)
[2018-07-30] MEDS: TRAMADOL HCL 50 MG TABLET PO PRN ×2 (11:53→23:48)
[2018-07-30] MEDS ORDERED: WARFARIN SOD 2 MG TAB PO SCH (16:00)
--- NOTE | 2018-07-30 17:05 | Hospitalist Progress Note ---
Date of Service July 30, 2018 Assessment & Plan (1) Chronic diarrhea: She was admitted with chronic diarrhea and abdominal pain H/O C. difficile colitis and finished prolonged course of vancomycin Continue Vancomycin Day 06/22 Stool is positive for C. difficile gene H but negative for C. difficile toxin Appreciate ID input and recommendation Continue probiotics Continue current management (2) UTI (urinary tract infection): Has chronic indwelling Nicolas catheter May have recurrent UTI Continue Macrobid: Day 07/16 Nicolas catheter changed on May Need to follow up with urology as outpatient (3) Paroxysmal A-fib: Rate is controlled Continue Sotalol Continue Coumadin Monitor INR:1.6 Increase coumadin to 2mg today (4) S/p cadaver renal transplant: Continue current immunosuppressants Has CKD stage III Renal function stable Discussed with Nephrology regarding Tacrolimus levels Advise patient to follow up with Nephrology as outpatient (5) Diabetes mellitus, type II: Continue SSI (6) Electrolyte imbalance: secondary to ongoing diarrhea Monitor and replace electrolytes as needed DVT Px: Coumadin Disposition: Refuses Rehab placement PT/OT: Needs HH Subjective Patient is seen and examined at bedside States having 3 loose BMs today INR is subtherapeutic Less Abdominal pain Family at bedside Denies any chest pain, shortness of breath, dizziness No other complaints Review of Systems Review of Systems: All systems reviewed & are unremarkable except as noted in HPI & below Physical Exam Physical Exam: Physical Exam: Vitals signs as noted above General Appearance:Thin, no apparent distress Head: normocephalic, Atraumatic Eyes: normal inspection, EOMI Neck: supple, Trachea midline Respiratory/Chest: Normal breath sounds, CTA Cardiovascular: S1, S2, No murmur Abdomen/GI:Soft, non tender, Bowel sounds present Extremities/Musculoskelatal:normal inspection, no edema Neurologic/Psych:AAOX3, grossly no focal neurological deficits Skin: normal color, warm Results & Data Vital Signs (Past 12 Hours) Vital Signs Temp Pulse Resp BP Pulse Ox 07/30/18 16:47 36.3 C L 64 20 118/62 99 07/30/18 08:37 36.8 C 76 20 98 (1) UTI (urinary tract infection) Hematuria presence: without hematuria Urinary tract infection type: site unspecified Qualified Code(s): N39.0 - Urinary tract infection, site not specified (2) Diabetes mellitus, type II Diabetes mellitus custodial insulin use: unspecified custodial insulin use status Diabetes mellitus complication status: with unspecified complications Qualified Code(s): E11.8 - Type 2 diabetes mellitus with unspecified complications
[2018-07-30] MEDS: MIRTAZAPINE TAB 15 MG TAB PO SCH (20:35)
[2018-07-31] MEDS: RASPBERRY SYRUP 5 ML UDP PO SCH ×2 (05:28→12:35)
[2018-07-31] MEDS: VANCOMYCIN HCL 125 MG/2.5ML SOLN PO SCH ×2 (05:29→12:35)
[2018-07-31 06:34] LABS: INR 1.6 (0.9-1.1); Prothrombin Time 15.6 Seconds (9.0-12.0)
[2018-07-31] MEDS: SOTALOL HCL 80 MG TAB PO SCH (08:10)
[2018-07-31] MEDS: HydrALAZINE 10 MG TAB PO SCH (08:10)
[2018-07-31] MEDS: ASPIRIN 81 MG ECTAB PO SCH (08:11)
[2018-07-31] MEDS: NITROFURANTOIN MACROCRYSTAL 50 MG CAP PO SCH (08:11)
[2018-07-31] MEDS: AMLODIPINE BESYLATE 5 MG TAB PO SCH (08:11)
[2018-07-31] MEDS: LACTOBACILLUS ACIDOPHILUS (FLORANEX) TAB PO SCH (08:11)
[2018-07-31] MEDS: MYCOPHENOLATE MOFETIL 250 MG CAP PO SCH (08:11)
[2018-07-31] MEDS: TRAMADOL HCL 50 MG TABLET PO PRN (08:12)
[2018-07-31] MEDS: SIROLIMUS 0.5 MG TABLET PO SCH (08:12)
[2018-07-31] MEDS: INSULIN ASPART 100 UNITS/ML 3 ML PEN SC SCH ×2 (08:16→12:37)
[2018-07-31] MEDS ORDERED: INSULIN GLARGINE SOLOSTAR 100 UNITS/ML 3 ML PEN SC SCH (09:00)
--- NOTE | 2018-07-31 12:19 | Hospitalist Progress Note ---
Date of Service July 31, 2018 Assessment & Plan (1) Chronic diarrhea: She was admitted with chronic diarrhea and abdominal pain H/O C. difficile colitis and finished prolonged course of vancomycin Continue Vancomycin Day 6 Stool is positive for C. difficile gene H but negative for C. difficile toxin Appreciate ID input and recommendation Continue probiotics Continue current management Clinically Improved (2) UTI (urinary tract infection): Has chronic indwelling Nicolas catheter May have recurrent UTI Continue Macrobid: Day 07/16 Nicolas catheter changed on May Need to follow up with urology as outpatient (3) Paroxysmal A-fib: Rate is controlled Continue Sotalol Continue Coumadin Monitor INR:1.6 Increase coumadin to 3mg today (4) S/p cadaver renal transplant: Continue current immunosuppressants Has CKD stage III Renal function stable Discussed with Nephrology regarding Tacrolimus levels Advise patient to follow up with Nephrology as outpatient (5) Diabetes mellitus, type II: Continue SSI (6) Electrolyte imbalance: secondary to ongoing diarrhea Monitor and replace electrolytes as needed DVT Px: Coumadin Disposition: Refuses Rehab placement PT/OT: Needs HH Plan to discharge home today Subjective Patient is seen and examined at bedside Doing well today Had 1 BM today No bleeding issues Abdominal pain much improved Denies any chest pain, shortness of breath, dizziness No other complaints Review of Systems Review of Systems: All systems reviewed & are unremarkable except as noted in HPI & below Physical Exam Physical Exam: Physical Exam: Vitals signs as noted above General Appearance:Thin, no apparent distress Head: normocephalic, Atraumatic Eyes: normal inspection, EOMI Neck: supple, Trachea midline Respiratory/Chest: Normal breath sounds, CTA Cardiovascular: S1, S2, No murmur Abdomen/GI:Soft, non tender, Bowel sounds present Extremities/Musculoskelatal:normal inspection, no edema Neurologic/Psych:AAOX3, grossly no focal neurological deficits Skin: normal color, warm Results & Data Vital Signs (Past 12 Hours) Vital Signs Temp Pulse Pulse Resp BP BP Pulse Ox 07/31/18 10:50 36.9 C 69 76 18 145/70 H 166/66 H 100 07/31/18 07:05 36.9 C 69 18 166/66 H 100 (1) UTI (urinary tract infection) Hematuria presence: without hematuria Urinary tract infection type: site unspecified Qualified Code(s): N39.0 - Urinary tract infection, site not specified (2) Diabetes mellitus, type II Diabetes mellitus detention insulin use: unspecified intermediate card tender insulin use status Diabetes mellitus complication status: with unspecified complications Qualified Code(s): E11.8 - Type 2 diabetes mellitus with unspecified complications
--- NOTE | 2018-07-31 12:41 | Discharge Summary ---
Date of Service July 31, 2018 Admission HPI Per Admitting Provider CHIEF COMPLAINT: Diarrhea, not feeling well. HISTORY OF PRESENT ILLNESS: This is a 73-year-old female with past medical history significant for type 2 diabetes, hyperlipidemia, paroxysmal atrial fibrillation, on Coumadin; history of mitral valve regurgitation, carotid stenosis, hypertension, chronic kidney disease stage III, status post cadaver renal transplant, history of cervical cancer, KATIA inhibitor intolerance, history of recurrent UTI and urinary retention on chronic Nicolas, Nicolas was changed on 07/07/2018, she was supposed to follow with urology and also in May, she was admitted for sepsis and C. diff colitis for which she had a prolonged p.o. vancomycin course, which she finished about 4-5 weeks ago, presents again with diarrhea and abdominal discomfort. The patient since last Thursday developed some diarrhea, 3 episodes a day,today was watery and also having abdominal discomfort and she was worried about C. diff and came to the ER. In the ER, she was found to have elevated leukocytosis. Hemodynamics are okay. Urinalysis is positive possible colonization from the Nicolas catheter, but patient did not have any urinary symptoms, afebrile. Denies any headache, no blurred vision, no earache, no runny nose, no sore throat, no difficulty swallowing, appetite is down last few days. No chest pain, no shortness of breath, no cough. Feels somewhat nauseous. No swelling in the legs. Lives with her . Ambulates with a walker. Admission Exam Per Admitting Provider PHYSICAL EXAMINATION: GENERAL: The patient is old and frail, not in acute distress. VITAL SIGNS: Temperature 36.7, pulse 82, respiratory rate 16, blood pressure 161/89, oxygen 99% room air. HEENT: No pallor, no icterus. Pupils equal, round, and reactive to light. NECK: No JVD, no neck mass, no carotid bruit. CARDIOVASCULAR: S1, S2 heard, regular rate and rhythm, no murmur, no gallop. RESPIRATORY SYSTEM: Normal AP diameter. No accessory muscle use. No wheezing, no crackles. ABDOMEN: Soft, bowel sounds present. Mild abdominal diffuse discomfort. No guarding, no rigidity. No distention. CENTRAL NERVOUS SYSTEM: Cranial nerves II-XII grossly intact, nonfocal. EXTREMITIES: No edema, no erythema. Principal Diagnosis Discharge Information Discharge Diagnosis Diarrhea Urinary Tract Infection Discharge Goals Decrease discomfort,Improve function,Improve disease control Discharge Activity Limitations Resume your previous activity Discharge Data Allergies Allergy/AdvReac Type Severity Reaction Status Date / Time KATIA Inhibitors Allergy Unknown Unknown Verified 07/25/18 17:06 ARB-Angiotensin Receptor Allergy Unknown Unknown Verified 07/25/18 17:06 Antagonist amoxicillin AdvReac Severe nausea Verified 07/25/18 17:06 Consultations 07/25/18 19:27 ED Decision to Admit Stat 07/25/18 21:38 Consult Case Management - Discharge Planning Routine 07/26/18 08:00 Consult Infectious Diseases Routine Procedures Performed Chest/Abd X RAY: 1. No free air or evidence of bowel obstruction. 2. Possible trace left pleural effusion. Hospital Course (1) Chronic diarrhea: She was admitted with chronic diarrhea and abdominal pain H/O C. difficile colitis and finished prolonged course of vancomycin Continue Vancomycin Day 07/23 Stool is positive for C. difficile gene H but negative for C. difficile toxin Appreciate ID input and recommendation Continue probiotics Continue current management Clinically Improved (2) UTI (urinary tract infection): Has chronic indwelling Nicolas catheter May have recurrent UTI Continue Macrobid: Day 07/16 Nicolas catheter changed on May Need to follow up with urology as outpatient (3) Paroxysmal A-fib: Rate is controlled Continue Sotalol Continue Coumadin Monitor INR:1.6 Increase coumadin to 3mg today (4) S/p cadaver renal transplant: Continue current immunosuppressants Has CKD stage III Renal function stable Discussed with Nephrology regarding Tacrolimus levels Advise patient to follow up with Nephrology as outpatient (5) Diabetes mellitus, type II: Continue SSI (6) Electrolyte imbalance: secondary to ongoing diarrhea Monitor and replace electrolytes as needed DVT Px: Coumadin Disposition: Refuses Rehab placement PT/OT: Needs HH Plan to discharge home today Total Time Total Time Spent Total Time Spent (In Minutes): 38 MINUTES Total Time Includes: Examination of the Patient, Discharge Planning, Medication Reconciliation, Communication With Other Providers and Other Discharge Plan Discharge Items Patient Disposition: Home - Home Health Services Reason For Visit: DIARRHEA, ILLNESS Discharge Diagnosis: Diarrhea Urinary Tract Infection Discharge Goals: Decrease discomfort, Improve disease control and Improve function Activity: Resume your previous activity Exercise/Sports: Gradually increase as tolerated Non-emergency contact: Primary Care Provider Call non-emergency contact if: you have any medication questions, your symptoms worsen, your pain is not controlled, your pain is worsening, your pain is unusual for you, your pain is concerning for you and you have a fever Follow-up/Referrals: Laurel Renee MD [Primary Care Provider] - Diet: Carb Consistent or DM2 Other Ambulatory Orders: Prothrombin Time INR (Routine) Timeframe: 2 Days Location: Determined by Patient Ordered By: Gregg Bonds [facility] Provider Instructions: Follow-up with your primary care physician Dr. Renee on August 03 at 10:45 AM Follow-up Coumadin clinic for management of Coumadin dosing, INR check Take 3 mg Coumadin today (07/31/18) and your INR is 1.6 today (07/31/18) Complete antibiotic course as prescribed Prescriptions: New vancomycin 125 mg capsule 125 mg PO Q6H 8 Days Qty: 32 RF: 0 Continued Lactinex 1 million cell tablet,chewable 1 tab PO BID Qty: 20 RF: 0 warfarin 1 mg tablet 0.5 mg PO [id number] RF: 0 warfarin [Coumadin] 1 mg tablet 1 mg PO WK RF: 0 Lantus U-100 Insulin 100 unit/mL Solution 18 unit SUBCUT QPM RF: 0 ondansetron HCl [Zofran] 4 mg Tablet 4 mg PO Q6 PRN (Reason: Nausea) RF: 0 tramadol 50 mg tablet 50 mg PO Q6 PRN (Reason: pain) RF: 0 Probiotic 3 billion cell capsule 3,000 mmu cells PO QDD RF: 0 Aspirin Low Dose 81 mg 81 mg PO DAILY RF: 0 amlodipine 10 mg tablet 10 mg PO DAILY RF: 0 mirtazapine [Remeron] 15 mg Tablet 15 mg PO HS RF: 0 nitrofurantoin macrocrystal 100 mg Capsule 100 mg PO BID Qty: 3 RF: 0 hydralazine 10 mg Tablet 10 mg PO BID RF: 0 mycophenolate mofetil 250 mg Capsule 250 mg PO Q12 RF: 0 sotalol 120 mg Tablet 120 mg PO BID RF: 0 sirolimus 1 mg Tablet 1 mg PO QAM RF: 0 Novolog Flexpen U-100 Insulin 100 unit/mL Insulin Pen SUBCUT AC RF: 0 Stand-Alone Forms: [facility] Discharge Orders: Discharge Order (Routine); Ordered 07/31/18 Ordered By: Gregg Bonds Admission Data Admit Date/Time: 07/25/18 20:06 Attending Provider: Gregg Bonds Admit Provider: Mango Clarke Primary Care Provider: Laurel Renee Other Providers: Mango Clarke ; Eric Alexander ; Aiyana Lei Service: Medical Other Interventions: Discharge Summary Assessment (RN) Last Done: 07/31/18 10:50 Pending Studies at Discharge: No
[2018-07-31] MEDS ORDERED: WARFARIN SOD 1 MG TAB PO SCH (16:00)
[2018-07-31] MEDS ORDERED: WARFARIN SOD 3 MG TAB PO SCH (16:00)
--- NOTE | 2018-08-03 08:25 | Coding Query ---
To promote full compliance with coding requirements relating to patient care, provider participation is requested in all cases of traffic i manager uncertainty. Please assist us with the question(s) below: Coding Question(s): The diagnosis below was documented in the ER & H&P, then subsequently fell off all further documentation and was documented in Progress Notes and Discharge Summary as chronic diarrhea with a history of c-diff. Please indicate if it is still a possible diagnosis or ruled out. Physician's Response(s): Possible recurrent Clostridium Difficile Colitis ( X ) Diagnosed and POA ( ) Diagnosed and not POA ( ) Ruled out ( ) Other (please specify) MTDD
== END 2018-07-31 15:39 | disposition home health service (06) | DRG 372 ==
LOC: ED 16:25 → SUATTDRO 20:06 → 4E 20:06